=== PATIENT | female | born 1970 | race Caucasian/White ===

== ENCOUNTER → 2018-05-05 06:53 | Outpatient (CLI) | payer MEDICAID, SELFPAY ==
--- NOTE | 2018-05-05 13:50 | PFT ---
INTRODUCTION: The patient is a 48-year-old female that presents for pulmonary function testing secondary to a diagnosis of dyspnea. Respiratory therapy reports good patient effort. Bronchodilators were used during testing. INTERPRETATION: Forced expiration spirometry demonstrates no evidence of a large airways obstructive ventilatory defect. There was, nevertheless, a significant bronchodilator response noted. Spirograms are of good quality and plateau normally. The respiratory flow volume loop appears normal. Body plethysmography was performed and reveals lung volumes to be within normal limits. Diffusing capacity by single breath CO is within normal limits at 72% of predicted. IMPRESSION: Grossly normal pulmonary function studies with notable bronchodilator response noted.
== END ==
DX: R06.00 Dyspnea, unspecified (principal)
CPT/HCPCS: 94060; 94726; 94729

== ENCOUNTER → 2018-06-20 08:27 | Outpatient (CLI) | payer MEDICAID, SELFPAY ==
--- NOTE | 2018-06-20 08:29 | BI_ITS ---
MAMMOGRAPHY - BILATERAL SCREENING REASON FOR EXAM: Female, 48 years old. Routine annual screening examination. PERTINENT HISTORY: Non-contributory. Remote right excisional breast biopsy. TECHNIQUE: Digital bilateral breast micheal (3D mammographic acquisition) in the CC and MLO projections. 2-D mediolateral oblique (MLO) and craniocaudad (CC) views of both breasts were obtained. CAD: Full Field Digital Mammography with Computer Added Detection was performed. COMPARISON: No comparison mammograms available at this time. If any prior films become available, an addendum to this report can be generated. FINDINGS: Breast Composition: There are scattered areas of fibroglandular density. There are no dominant masses or suspicious calcifications. No other significant abnormalities are identified. BI/SCREENING MAMM (CAD), BILAT IMPRESSION: Negative screening mammogram. Yearly followup mammogram recommended. (A) ASSESSMENT CATEGORY: BIRADS Category 1: Negative. A letter regarding these results will be sent to the patient by the facility within 30 days. Approximately 10% of breast cancers are not detected by mammography. A normal mammogram should not delay biopsy of a clinically suspicious abnormality. [id number] Electronically Signed: Ken Stover, at 10:25 EDT , Service support ,
== END ==
DX: Z12.31 Encounter for screening mammogram for malignant neoplasm of breast (principal)
CPT/HCPCS: 77063; 77067

== ENCOUNTER 2019-01-03 11:27 | Emergency (ER) | payer MEDICAID, SELFPAY ==
[2018-11-20 08:43] VITALS: BMI 31.9
[2019-01-03 11:27] VITALS: BP 136/82; PULSE 82; RESP 16; TEMP 36.9; O2SAT 98; BMI 25.7
--- NOTE | 2019-01-03 11:30 | CM.ED ---
SOCIAL WORK MICHAEL FROM CRISIS HERE AND REPORTS WAS NOTIFIED BY PATIENT'S FAMILY THAT THEY WERE SENDING PATIENT IN FOR EVALUATION. CRISIS TO EVALUATE. STAFF UPDATED BY CRISIS. TERRI MELO, ERGONOMICS TECHNICIAN, CRITICAL CARE NURSE.
--- NOTE | 2019-01-03 11:46 | ED.RN ---
PER DR. BREWER, PATIENT DOES NOT NEED A 1:1 SITTER.
--- NOTE | 2019-01-03 11:49 | ED.VIS.GEN ---
History of Present Illness Chief Complaint: Suicidal Informant: Patient, Family Onset: Weeks Current Severity: Mild Maximum Severity: Moderate Narrative: Patient presents with waxing and waning symptoms of suicidal thoughts and racing thoughts. She states symptoms started getting worse at the end of October. She denies auditory hallucinations. She states sometimes she will see things in her mind will start racing. She states her symptoms right now are not bad because she took her supplements before she came in to the emergency room. She does not take any prescription medications, only [id number] supplements. She spoke with staff from the crisis center prior to arrival in the emergency room. - Past Medical History (1) Anxiety and depression Status: Chronic (2) Acid reflux disease Status: Chronic Past Medical History - Allergies and Home Meds Allergies/Adverse Reactions: Allergies No Known Allergies Allergy (Verified 11/20/18 08:44) Primary Care Physician: Judy Comer [Primary Care Provider] - Prior records reviewed: Yes Past Medical History: - - Reviewed Smoking Status: Current every day smoker Alcohol: Occasional Drugs: - - Meth Review of Systems General: Denies: Chills, Fever Eyes: Denies: Visual changes - bilaterally ENT: Denies: Bilateral ear pain Cardiovascular: Denies: Chest pain Respiratory: Denies: Dyspnea, Cough Gastrointestinal: Denies: Abdominal pain, Nausea, Vomiting, Diarrhea Genitourinary: Denies: Dysuria Skin: Denies: Rash Neurological: Denies: Headache Psych: Reports: Depression, Anxiety, Suicidal thoughts Hematologic: Denies: Easy bruising, Easy bleeding Allergy: Denies: Uticaria Physical Exam Vital Signs/Narrative: Vital Signs Temp Pulse Resp BP Pulse Ox 01/03/19 11:27 98.4 F 82 16 136/82 H 98 Inital Vital Signs reviewed: Yes General: Well nourished, Well developed Head: Normocephalic ENT: Moist mucous membranes Neck: Supple Cardiovascular: Regular rate, Regular rhythm Respiratory: No distress, CTA bilaterally Abdomen: Soft, Nontender Skin: Normal color, No rash Neurological: Alert, Oriented x3 Psychological: Depressed, - - Denies suicidal thoughts at the present time. She states in the past she has thought of dying by car or train. Diagnostic/Tx/Re-eval Laboratory Results 01/03/19 01/03/19 01/03/19 12:15 12:15 12:15 WBC 7.7 RBC 4.39 Hgb 11.3 L Hct 37.6 MCV 85.6 MCH 25.7 L MCHC 30.1 L RDW Std Deviation 46.3 H RDW Coeff of Rajinder 14.7 H Plt Count 309 MPV 8.9 Immature Gran % (Auto) 0.400 Neut % (Auto) 73.3 H Lymph % (Auto) 19.4 Worth % (Auto) 5.2 Eos % (Auto) 1.4 Baso % (Auto) 0.3 Absolute Neuts (auto) 5.6 Absolute Lymphs (auto) 1.49 Nucleated RBC % 0 Sodium 143 Potassium 3.4 L Chloride 111 H Carbon Dioxide 25.0 Anion Gap 7 BUN 7 Creatinine 0.74 Estim Creat Clear Calc 81.16 Est GFR (MDRD) Af Amer 108 Est GFR (MDRD) Non-Af 89 BUN/Creatinine Ratio 9.5 L Glucose 149 H Calcium 9.9 Serum , Qual Urine Color Urine Clarity Urine pH Ur Specific [place] Urine Protein Urine Glucose (UA) Urine Ketones Urine Occult Blood Urine Nitrite Urine Bilirubin Urine Urobilinogen Ur Leukocyte Esterase Urine RBC Urine WBC Ur Squamous Epith Cells Urine Bacteria Urine Mucus Urine Opiates Screen Urine Methadone Screen Ur Barbiturates Screen Ur Phencyclidine Scrn Ur Amphetamines Screen U Methamphetamin-MDMA U Benzodiazepines Scrn Urine Cocaine Screen U Cannabinoids Screen Ur Drug Screen Comment Ethyl Alcohol < 3.0 01/03/19 01/03/19 01/03/19 12:15 12:15 12:15 WBC RBC Hgb Hct MCV MCH MCHC RDW Std Deviation RDW Coeff of Rajinder Plt Count MPV Immature Gran % (Auto) Neut % (Auto) Lymph % (Auto) Worth % (Auto) Eos % (Auto) Baso % (Auto) Absolute Neuts (auto) Absolute Lymphs (auto) Nucleated RBC % Sodium Potassium Chloride Carbon Dioxide Anion Gap BUN Creatinine Estim Creat Clear Calc Est GFR (MDRD) Af Amer Est GFR (MDRD) Non-Af BUN/Creatinine Ratio Glucose Calcium Serum , Qual NEGATIVE Urine Color Yellow Urine Clarity Clear Urine pH 5.0 Ur Specific [place] 1.025 Urine Protein Negative Urine Glucose (UA) Normal Urine Ketones Negative Urine Occult Blood 10 H Urine Nitrite Negative Urine Bilirubin Negative Urine Urobilinogen Normal Ur Leukocyte Esterase Negative Urine RBC 0-5 SEEN Urine WBC 0 SEEN Ur Squamous Epith Cells 0-5 SEEN Urine Bacteria RARE Urine Mucus 0 SEEN Urine Opiates Screen NEGATIVE Urine Methadone Screen NEGATIVE Ur Barbiturates Screen NEGATIVE Ur Phencyclidine Scrn NEGATIVE Ur Amphetamines Screen NEGATIVE U Methamphetamin-MDMA NEGATIVE U Benzodiazepines Scrn NEGATIVE Urine Cocaine Screen NEGATIVE U Cannabinoids Screen POSITIVE H Ur Drug Screen Comment Ethyl Alcohol - Medical Decision Making Patient was seen and evaluated by staff from the counseling center. Patient's daughter tends to speak over her mother and try to answer all the questions. Patient's daughter had to be asked to leave the room as we could speak to the patient alone. Patient has told multiple staff members here at the hospital that she has had thoughts of suicide but is not actively suicidal and would never do that as she knows how many people it would hurt. Patient is interested in going to a hospital to get help. We spoke with [facility], but due to her insurance she is not able to be voluntarily admitted anywhere, only with a pink slip. At this time we do not have criteria to fill out a pink slip and force admission. This was explained to the patient in detail. Patient herself understands and is in agreement. I will write her a short course of Ativan to help her sleep at night and help control her racing thoughts. She is being scheduled for a counseling appointment at the counseling center this week. She will call Saturday to be scheduled with a psychiatrist as well. ED Disposition - Plan for ED Patient: Disposition: Home or Assisted Living Diagnosis: Anxiety Instructions: Anxiety Reaction Prescriptions: Lorazepam [Ativan] 0.5 mg PO TID PRN #10 tablet PRN Reason: Anxiety Referrals: Judy Comer [Primary Care Provider] - [facility] [GROUP OF PHYSICIANS] - As soon as possible
[2019-01-03 12:28] LABS: Mucous, Urine 0 SEEN /hpf (<or=2+); White Blood Cells 0 SEEN /hpf (0-5)
[2019-01-03 12:31] LABS: Color, Urine Yellow (Yellow); Glucose, Dipstick Normal (Normal); Ketone-Dipstick Negative (Negative); Leukocyte Esterase-Dipstick Negative /ul (Negative); Nitrite-Dipstick Negative (Negative); Occult Blood-Urine 10 /ul (Negative); Protein-Dipstick Negative (Negative); Specific Gravity, Urine 1.025 (1.002-1.030); Urine Bilirubin Dipstick Negative (Negative); Urine Clarity Clear (Clear); Urine Urobilinogen Normal (Normal)
[2019-01-03 12:34] VITALS: RESP 18
[2019-01-03 12:38] LABS: Absolute Lymphocyte Count 1.49 X10^3/uL (0.83-4.51); Absolute Neutrophil Count 5.6 X10^3/uL (2.0-7.7); Basophil# 0.02 X10^3/uL; Basophil% 0.3 % (0-1); Eosinophil# 0.11 X10^3/uL; Eosinophils% 1.4 % (0-5); Hematocrit 37.6 % (37-47); Hemoglobin 11.3 g/dL (12.0-15.0); Internal QC Validated? YES +Cl - CLEAR BKGD; Lymphocyte # 1.49 X10^3/ul (4.0); Lymphocyte % 19.4 % (19-41); Mean Corp Hgb Conc 30.1 g/dL (32-36); Mean Corpuscular Hgb 25.7 pg (27.0-32.0); Mean Corpuscular Volume 85.6 fL (81-99); Mean Platelet Vol. 8.9 fl (6.2-12.0); Monocyte% 5.2 % (0-10); NRBC Flagged by Analyzer 0 % (0-5); Neutrophil # 5.63 X10^3/uL (2.7-7.7); Neutrophil % 73.3 % (47-70); Platelet Count 309 K/mm3 (150-450); Pregnancy, Serum, hCG Quali. NEGATIVE Negative; RBC Distribution Width CV 14.7 % (11.6-14.6); RBC Distribution Width SD 46.3 fl (35.1-43.9); Red Blood Count 4.39 M/mm3 (4.2-5.4); White Blood Count 7.7 K/mm3 (4.4-11.0)
[2019-01-03 12:40] LABS: Bacteria RARE /hpf (None Seen); Red Blood Cells-Urine 0-5 SEEN /hpf (0-5); Squamous Epithelial Cells - UA 0-5 SEEN /hpf (5-10)
[2019-01-03 12:43] LABS: Anion Gap 7 (5-15); BUN 7 mg/dL (7-18); BUN/Creat Ratio 9.5 RATIO (10-20); Calcium,Total 9.9 mg/dL (8.5-10.1); Chloride 111 mmol/L (98-107); Creatinine, Serum 0.74 mg/dL (0.55-1.02); EST Glomerular Filtration Rate 89 mL/min (>60); Est Glom Filt Rate - Afr Amer 108 mL/min (>60); Estimated Creatinine Clearance 81.16 ml/min; Glucose 149 mg/dL (74-106); Potassium 3.4 mmol/L (3.5-5.1); Sodium Level 143 mmol/L (136-145)
--- NOTE | 2019-01-03 12:43 | ED.RN ---
PT STATES THAT SHE IS NOT ACTIVELY SUICIDAL, HAS BEEN HAVING INSTRUSIVE THOUGHTS ABOUT PEOPLE AND SITUATIONS BEING BETTER OFF WITHOUT HER IN THE WORLD, BUT STATES THAT SHE DOES NOT WANT TO . PT STATES THAT SHE HAS BEEN OFF OF HER USUAL MEDICATIONS AND HAS BEEN TAKING HOLISTIC SUPPLEMENTS. PT STATES THAT THE THOUGHTS HAVE BEEN BECOMING INCREASINGLY WORSE SINCE THE END OF OCTOBER. PT IS CALM AND COOPERATIVE. DENIES NEEDS AT THIS TIME.
[2019-01-03 12:45] LABS: Amphetamine Urine VISTA NEGATIVE (<1000 ng/mL); Barbiturate Urine VISTA NEGATIVE (< 200 ng/mL); Benzodiazepine Urine VISTA NEGATIVE (< 200 ng/mL); Cocaine Urine VISTA NEGATIVE (< 300 ng/mL); Ecstacy Urine VISTA NEGATIVE (< 500 ng/mL); Methadone Urine VISTA NEGATIVE (< 300 ng/mL); PCP Urine VISTA NEGATIVE (< 25 ng/mL); THC Urine VISTA POSITIVE (< 50 ng/mL); Vista UDS pH Range 5
[2019-01-03 12:56] LABS: Alcohol, Blood (Medical)-Serum < 3.0 mg/dL
[2019-01-03 14:36] VITALS: BP 123/84; PULSE 65; RESP 17; RESP 18; O2SAT 98
== END 2019-01-03 14:38 | disposition home or self-care (01) ==
PROVIDERS: Emergency Provider Emergency Medicine
DX: F41.9 Anxiety disorder, unspecified (principal); R45.851 Suicidal ideations; F17.210 Nicotine dependence, cigarettes, uncomplicated
CPT/HCPCS: 80048; 80307; 80320; 81001; 84703; 85025; 99284; G0480

== ENCOUNTER 2019-01-08 09:00 | Outpatient (RCR) | payer MEDICAID, SELFPAY ==
--- NOTE | 2019-01-08 09:10 | BH.SGPN.GN ---
Behaviors/Verbalizations/Mental Status: [] Eye contact is good. Motor activity is appropriate. Appearance is casual. Speech is Appropriate. Mood is anxious. Affect is flat. Thoughts are linear and logical. No evidence of psychosis. Reviewed daily check in sheet and no reports of suicidal ideations or intent. Client Response/Progress/Benefit: [] Pt participated at times during group. Attentive. This was pt's first day in IOP. Shared that entered [facility] to work on her depression and anxiety. Wants to learn how to better coping with emotions and life. Notes increase in symptoms recently which has been impacting her functioning. States I don't want this things to hold me back. Group was supportive and welcomed her which was beneficial. No progress noted as this was first group. Will continue in IOP to prevent decompensation, stabilize mood, and improve functioning. Narrative Note: []
--- NOTE | 2019-01-08 10:10 | BH.SGPN.GN ---
Behaviors/Verbalizations/Mental Status: []Client alert and oriented, neatly dressed and groomed. Eye contact good. Motor activity appropriate. Speech within normal limits. Affect flat, mood anxious. Thoughts linear, logical, no signs of hallucinations or delusions. Client Response/Progress/Benefit: []Client responded well to session, active and providing good insight to discussion. Client connected with the group topic of crisis and did well to work with group to define crisis. Client identified examples of potential crisis to include emergencies, hardships, and . Connected with discussion on how coping with external crisis by using unhealthy coping skills could lead to personal crisis. Client shared ?it feels like I?m in a constant state of crisis.? Group identified unhealthy coping skills to include; substances, isolation, impulsive behaviors, yelling, and pushing people away. Group identified warning signs for crisis which included; increased sleep, irritability, decreased appetite, and negative thoughts. Client completed the personal warning signs worksheet and identified crisis warning signs to include; isolation, negative thinking, and unusual drop in functioning. Benefited from group by increasing awareness of crisis and personal warning signs. Client?s first day in IOP, no progress to document at this time. Will continue IOP tx to prevent decompensation, improve mood stability, and maintain safety. Narrative Note: []
--- NOTE | 2019-01-08 11:11 | BH.SGPN.GN ---
Behaviors/Verbalizations/Mental Status: []Client alert and oriented, casually dressed and groomed. Eye contact fair. Motor activity appropriate. Speech within normal limits. Affect constricted, mood anxious and depressed. Thoughts linear, logical, no signs of hallucinations or delusions. Client Response/Progress/Benefit: []Client responded well to session as evidenced by client listening attentively to others and sharing when prompted. Client identified her warning signs for crisis and gained further awareness of her earliest warning signs. Client recognized that awareness of these warning signs can prevent further crisis and help client utilize healthy coping skills to break the cycle. Client created a crisis action plan to help client better manage earliest warning signs for crisis of isolation, drop in functioning, and negative thinking. Client?s personal crisis prevention plan included coping skills such as: reaching out to supports, taking dog for a walk, to do lists, setting small goals, and using positive affirmations. Client appeared to benefit from creating a crisis action plan and increasing self-awareness. Client to continue IOP level of care to stabilize moods, increase healthy coping, and prevent decompensation. Narrative Note: []
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
--- NOTE | 2019-01-09 10:17 | BH.SGPN.GN ---
Behaviors/Verbalizations/Mental Status: []Client alert and oriented, casually dressed and groomed. Eye contact fair. Motor activity appropriate. Speech within normal limits. Affect constricted, mood anxious. Thoughts linear, logical, no signs of hallucinations or delusions. Client Response/Progress/Benefit: []Client responded well to session, attentive and participating in small group discussion. Group identified the benefits to setting boundaries as well as the consequences of not setting healthy boundaries. Client engaged during discussion of the different types of boundaries and engaged in the self-assessment activity. Client stated sometimes lack awareness that you are not setting healthy boundaries until someone else points it out. Client able to recognize her own mental health suffers when she does not set boundaries. Client seemed to benefit from increased awareness how poor boundaries can negatively impact mental health. Client to continue IOP tx to continue use of healthy coping skills, prevent decompensation, and maintain gains. Narrative Note: []
--- NOTE | 2019-01-09 11:22 | BH.SGPN.GN ---
Behaviors/Verbalizations/Mental Status: [Client alert and oriented, casual dress, hygiene appropriate. Eye contact good. Motor activity appropriate. Speech within normal limits. Affect congruent, mood anxious, depressed. Thoughts linear, logical, no signs of hallucinations or delusions. ] Client Response/Progress/Benefit: [Pt responded well to session, active participant and willing to provide insight throughout. Pt did well to engage in the boundary self-assessment activity and worked with group to further process. Pt discussed that she has been becoming much more aware of fear of rejection and focusing on past guilt has impacted personal ability to set boundaries in the workplace. Pt appeared to benefit from group discussion on strategies for further improving personal boundaries. Identified wanting to improve her ability to set and maintain healthy emotional boundaries, specifically in regard to being able to respect others needs and ask for a break or personal space rather than shut down when upset. Progress noted in pt ability to identify impact of current boundaries on mental health progress and relationships. Client recommended to continue IOP treatment in order to maintain gains made, improve mood and anxiety management, and continue to promote healthy change behaviors.] Narrative Note: []
--- NOTE | 2019-01-12 09:03 | BH.SGPN.GN ---
Behaviors/Verbalizations/Mental Status: [Eye contact is fair to good, at times tearful. Motor activity is appropriate. Appearance is casual. Speech is Appropriate, soft. Mood is depressed and anxious. Affect is constricted. Thoughts appearing racing and scattered. No evidence of psychosis. Reviewed daily check in sheet and no reports of suicidal ideations or intent.] Client Response/Progress/Benefit: [Pt was receptive of session, actively listening throughout and providing some input to discussion. Appearing to related to fellow participants as they shared with group. Emotion for today is ?all over the place? and pt indicated having difficulties in getting her thoughts to slow down. She indicated that she has been struggling to adjust to the fact that her son decided to move out this weekend, however pt did well to reframe and indicated ?at least I know I still have my daughter here with me?. Appeared to benefit from the supportive feedback and suggestions provided by the group. Pt shared that despite current stress levels, she has been able to experience some mental health wins. Identified current wins as: going for a walk in the park with her dog to relax over the weekend. Additional win identified as making small steps towards facing a fear, though declined to elaborate further. Pt displaying progress in levels of engagement and ability to begin internalizing tx materials discussed. Recommended continued tx to prevent decompensation, continue to increase emotion regulation, and further improve anxiety management.] Narrative Note: []
--- NOTE | 2019-01-12 10:20 | BH.SGPN.GN ---
Behaviors/Verbalizations/Mental Status: [] Eye contact is good. Motor activity is appropriate. Appearance is casual. Speech is Appropriate. Mood is depressed. Affect is flat. Thoughts are linear and logical. No evidence of psychosis Client Response/Progress/Benefit: [] Pt was an active participant in group discussion and activity. Engaged and provided insight on today's quote. Worked with group to define pitfalls in mental health which group identified were; hidden or unsuspected obstacles, emotional traps, when we defeat ourselves, and unforeseen obstacles which impact progress. Group discussed the impacts of pitfalls which can cause one to; give up, revert back to unhealthy coping, isolate, define oneself as a failure. Group briefly discussed the emotions and pitfalls which occurred during the activity noting that it caused anxiety, anger, fear, and at times they wanted to give up. Pt was able to relate the activity to her own MH and emotions when she has encountered a pitfall which was beneficial in in terms of insight and awareness. Narrative Note: []
--- NOTE | 2019-01-12 11:21 | BH.SGPN.GN ---
Behaviors/Verbalizations/Mental Status: []Client alert and oriented, casually dressed and groomed. Eye contact good. Motor activity appropriate. Speech within normal limits. Affect flat, mood anxious. Thoughts linear, logical, no signs of hallucinations or delusions. Client Response/Progress/Benefit: []Client receptive of session, attentive and participating in small group discussion, but declining to share in the larger group setting. Client helped group process the activity and how it connects to pitfalls in real life. Client completed a worksheet where she identified personal pitfalls impacting mental health progress. Client declined to share her pitfalls with the group, but she reported that client had ?a lot in common? with her peers. Client recognized that in order to become less vulnerable to pitfalls it takes self-awareness and healthy coping skills. Client reported she wants to work on using positive self-talk to remind herself that thoughts are thoughts not facts. Benefited from identifying personal pitfalls and strategies to overcome these pitfalls. Progress limited as client recently started IOP, but she appears to be connecting well with peers. Will continue IOP tx to prevent decompensation and improve daily functioning.? Narrative Note: []
--- NOTE | 2019-01-14 09:05 | BH.SGPN.GN ---
Behaviors/Verbalizations/Mental Status: []Client alert and oriented, neatly dressed and groomed. Eye contact good. Motor activity appropriate. Speech within normal limits. Affect congruent, mood euthymic. Thoughts linear, logical, no signs of hallucinations or delusions. Reviewed client?s symptom tracker, no risk for suicidal ideation, plan, or intent as of 01/14/19. Client Response/Progress/Benefit: []Client responded well to session, attentive and connecting with peers. Client reports feeling ?mellow? today. Client shared she had a stressful morning this morning, but she took her anxiety medications and got a positive text from her daughter which significantly reduced client?s anxiety. Client reported she took yesterday off from IOP to have a self-care day. Client reported she needed the rest and it helped her feel better today. Client reported she continues to struggle with racing thoughts and wants to learn how to more effectively manage these. Appeared to benefit from reflecting on her positives and connecting with peers. Progress noted as client reports increased knowledge of coping skills, but she can continue to reduce her anxiety symptoms. Will continue IOP tx to prevent decompensation and increase mood stability. Narrative Note: []
--- NOTE | 2019-01-14 11:24 | BH.SGPN.GN ---
Behaviors/Verbalizations/Mental Status: [Client alert and oriented, casually dressed and appropriately groomed. Eye contact fair to good, tearful at times. Motor activity appropriate. Speech within normal limits. Affect congruent, mood anxious and depressed. Thoughts linear, logical, no signs of hallucinations or delusions. ] Client Response/Progress/Benefit: [Pt attentive throughout and actively participated in both experiential activity and discussion regarding SMART goal setting. Taking notes throughout and able to make connections between activity and goal setting in her daily life. Pt engaged in using SMART goal criteria to create own mental health goal. Identified goal as: ?Decreasing negative self-talk by saying at least three positive affirmations daily for the next week?. Pt reported this goal will benefit her by improving self-esteem, positive outlook, and motivate her to be more productive. Pt identified potential barriers to accomplishing goal to include: discouragement, not believing affirmations, forgetting, and lack of motivation. Pt able to identify solutions for barriers which included: ?have supports remind/ask how I?m doing on goal?, ?pick affirmations I relate to and remind self it takes time to believe affirmations?, and ?set a reminder on phone?. Pt seemed to benefit from identifying a SMART goal and coming up with strategies to overcome potential barriers. Progress noted in pt ability to create a small relevant goal aimed at improving mental health symptoms and self-esteem. Pt to continue IOP to increase healthy coping skills, decrease depression and anxiety, as well as prevent decompensation.] Narrative Note: []
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
--- NOTE | 2019-01-14 15:07 | BH.DR.ITP ---
Initial Treatment Plan - Patient Information Visit Information: ADMISSION DATE: EXPECTED LOS: 4-6 weeks - Problems/Symptoms Problem #1:: Depression Symptom:: sadness, fleeting SI, hopelessness Problem #2:: Psychosis Symptom:: delusions of reference Problem #3:: anxiety Symptom:: rumination
--- NOTE | 2019-01-16 09:04 | BH.MDN_ITS ---
Multi-Disciplinary Note - Note 60-min Individual Time Started:: 08:04 Date: 01/16/19 Purpose of session/treatment goals addressed:: The purpose of this session was to assess current symptoms, stressors, and treatment progress. Another purpose was to identify strategies for improving self-confidence and reducing guilt related self-deprecation. Additional topics included: communication skills and self-advocacy Eye Contact:: Good Motor Activity:: Appropriate Appearance:: Casual Speech:: Appropriate Mood:: Anxious, Dysthymic Affect:: Congruent Thoughts:: Linear, Logical, No evidence of hallucinations/delusions noted Staff Interventions:: Therapist asked open-ended questions to elicit information regarding current symptoms, stressors, and tx goal progress. Provided supportive feedback as client discussed current stressors. Reviewed communication skills. Applied NC techniques to assist pt in identifying current barriers to progress and continue to promote healthy change behaviors. Client Response:: Pt receptive of session and actively engaged in discussion throughout. She discussed feeling tired and ?foggy? today which Pt attributes to still trying to adjust to taking Abilify. 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 Pt and therapist discussed importance of feeling comfortable and heard by providers. Discussed strategies for advocating for her own needs and asking to change providers if she continues to desire to do so after her next appointment. Pt went on to indicate that overall she is improving on her ability to identify triggers and apply emotion regulation skills at times though continues to struggle with consistency. Pt became tearful and shared that she has most significantly been struggling with guilt related to her children and decisions she has made in the past that may have had an impact on them and their mental health. Pt expressed feeling her self-esteem has been impacted by increased rumination on past behaviors and decisions. Receptive of being challenged on use of distorted thinking patterns including emotional reasoning, all or nothing thinking, and catastrophizing. Pt receptive of psychoeducation regarding self- compassion and indicated struggling with applying these concepts in her own life. Appearing to display insight into impact of though patterns and communication patterns with supports on continued mental health struggles. Receptive of discussing strategies for improving self-confidence and self- compassion levels. Pt reports plans to take a bath with aromatherapy candles, use affirmations, and do something creative such as sowing. Risks/Concerns:: Pt denies active SI, plan, or intent as of this date 01/16/19. Progress Toward Goals/Plan:: Progress noted. Pt continues to make strides in improving application of anxiety management and distress tolerance skills during times she is triggered. Reports improved ability to do so and feeling somewhate more stable as a result.. Pt continues to indicate issues with irritability and guilt causing increased intrusive thinking and depression. Working to practice self-love and self-compassio via various exercises. Pt recommended continued IOP tx to continue to improve mood stability, decrease mental health sx, and maintain stability. Time Stopped:: 08:54
--- NOTE | 2019-01-16 09:05 | BH.SGPN.GN ---
Behaviors/Verbalizations/Mental Status: [Client alert and oriented, casual dress, hygiene tended to. Eye contact good. Motor activity appropriate. Speech within normal limits. Affect congruent, mood euthymic and positive. Thoughts linear, logical, no signs of hallucinations or delusions. Reviewed client?s symptom tracker, no signs of suicidal ideation, plan, or intent as of today. ] Client Response/Progress/Benefit: [Pt was receptive of session, actively listening throughout and at times providing input to the group. Emotion for today is ?mellow? as she has been able to use positive self-talk to better manage emotions and reduce anxiety. Reported that this is a win for her as she was able to successfully apply emotion regulation skills while at work and remind herself ?This is going to be okay, I can work through my triggers?. Additional win noted as continuing to work on application of daily positive affirmations. Discussed current stressor as ongoing difficulties with ?trusting my gut? and overanalyzing small decisions. Pt appeared to benefit from the supportive feedback and encouragement provided by the group. Pt progress noted in reported application of skills learned outside tx environment as well as self-report of improved mood management. Recommended continued tx to prevent decompensation, continue to reduce anxiety, as well as promote healthy change behaviors.] Narrative Note: []
--- NOTE | 2019-01-16 10:30 | BH.SGPN.GN ---
Behaviors/Verbalizations/Mental Status: []Client alert and oriented, casual dress, hygiene tended to. Eye contact fair. Motor activity appropriate. Speech within normal limits. Affect congruent, mood anxious and depressed. Thoughts linear, logical, no signs of hallucinations or delusions. Client Response/Progress/Benefit: []Pt receptive to session, provided input and remained an active listener throughout discussion on stress. Able to brainstorm with the group positive and negative aspects of stress on physical and mental health. She participated in identifying current stressors impacting mental health. Pt's current stressors include: financial problems, past behaviors, negative thoughts, intrusive thoughts, difficulty making decisions, and questioning values and opinions. Appeared to benefit from gaining awareness of own current stressors and learning about the impact stress has on overall wellbeing. Progress noted in improved ability to identify negative impact ignoring her stressors has on her mental health and wellbeing. Recommend continued IOP tx to continue use of healthy coping skills, improve emotional regulation, and prevent decompensation. Narrative Note: []
--- NOTE | 2019-01-16 11:27 | BH.SGPN.GN ---
Behaviors/Verbalizations/Mental Status: []Client alert and oriented, neatly dressed and groomed. Eye contact good. Motor activity appropriate. Speech within normal limits. Affect congruent, mood anxious. Thoughts linear, logical, no signs of hallucinations or delusions. Client Response/Progress/Benefit: []Client was an active participant throughout session, providing good feedback and encouragement during the activity. Client worked with the group to complete the challenge activity and was providing positive feedback. Client often reminded the group to be positive, take a breather, and to remember to ask for help. Client was able to identify barriers encountered that may also impact managing stress in daily life. Group identified barriers of stress management to include taking on the biggest stressor at once, not asking for help, and negative self-talk. Client actively listening and taking notes during discussion about the 4 A's of managing stress. Expressed wanting to increase awareness of which strategies would be best for improving each of her identified stressors. Client seemed to benefit from increased awareness of the impact of stress on mental health and increasing repertoire of stress management strategies. Progress noted as client is demonstrating less anxious behavior during group sessions. Will continue IOP tx to promote use of healthy coping skills and further decrease anxiety. Narrative Note: []
--- NOTE | 2019-01-19 09:02 | BH.SGPN.GN ---
Behaviors/Verbalizations/Mental Status: []Client alert and oriented, neatly dressed and groomed. Eye contact good. Motor activity appropriate. Speech within normal limits. Affect congruent, mood anxious. Thoughts linear, logical, no signs of hallucinations or delusions. Reviewed client?s symptom tracker, no risk for suicidal ideation, plan, or intent as of 01/19/19. Client Response/Progress/Benefit: []Client responded well to session, providing supportive feedback to peers. Client reports feeling ?unsettled? today, but she was unsure of the reason she was feeling this way. Client reported there were numerous positives over the weekend including spending time with her daughter and going shopping for [place]. Client reported work was stressful over the weekend, but client was able to cope with her anxiety and make it through. Client shared whenever she is able to make it through a difficult situation it reminds client that she can do it again. Client stated she is currently stressed about finances and client reported her car is having issues. Client able to catch herself thinking negatively and reframed her thoughts during session. Appeared to benefit from connecting with peers and reflecting on her use of healthy coping skills. Will continue IOP tx to prevent decompensation and improve emotional regulation skills. Narrative Note: []
--- NOTE | 2019-01-19 10:16 | BH.SGPN.GN ---
Behaviors/Verbalizations/Mental Status: []Client alert and oriented, casually dressed and groomed. Eye contact good. Motor activity appropriate. Speech within normal limits. Affect congruent to topic being discussed, mood anxious. Thoughts linear, logical, no signs of hallucinations or delusions. Client Response/Progress/Benefit: []Pt responded well to session, attentive and providing input throughout. Pt connected with discussion on different types of anxiety, as well as the difference between ?normal? anxiety and anxiety disorders. She helped the group identify examples of the various ways anxiety manifests and symptoms associated with thoughts, physical symptoms, and safety behaviors. Pt gained awareness of personal physical symptoms which included: picking, restlessness, tense muscles, grinding teeth and feeling hot. Pt also identified asking for reassurance, lashing out, distraction, shutting down, isolating, and avoiding situations that make her anxious as safety behaviors she has engaged in that provide short term relief but increase anxiety over time. Client appeared to benefit from gaining insight to safety behaviors and how anxiety manifests itself, as well as harmful impact of safety behaviors on mental health. Client appears to be progressing with increasing awareness of her symptoms and ability to use healthy coping skills in those moments. Will continue IOP to promote continued skill application, maintain gains, and prevent decompensation. Narrative Note: []
--- NOTE | 2019-01-19 11:22 | BH.SGPN.GN ---
Behaviors/Verbalizations/Mental Status: [Client alert and oriented, casual in appearance. Eye contact good. Motor activity appropriate. Speech within normal limits. Affect congruent, mood anxious and euthymic. Thoughts linear, logical, no signs of hallucinations or delusions.] Client Response/Progress/Benefit: [Pt an attentive and actively engaged during discussion. Openly asking questions for clarification as needed throughout. Pt able to connect with the discussion reviewing three categories of skills for managing anxiety which included mind-based, body-based, and self-soothing. Pt did well to brainstorm with the group various skills within the different categories. She expressed interest most in mind-based interventions, specifically that of meditation and guided imagery. Pt completed worksheet identifying what relaxation skills she currently uses to manage anxiety and identified what skills she would be willing to begin trying to help manage symptoms of anxiety. Pt identified she is willing to try the following relaxation skills: bringing attention to the present through use of positive affirmations, meditation, journaling, and prayer. Pt seemed to benefit from increased awareness of healthy skills to manage anxious symptoms and identifying skills willing to practice outside treatment environment. Pt progress continues to be impacted by difficulties with challenging self-doubt causing increased anxiety and reassurance seeking behaviors. Recommended to continue IOP level of care to continue to promote use of healthy coping skills, reduce self-deprecation and improve anxiety management, as well as prevent decompensation.] Narrative Note: []
--- NOTE | 2019-01-22 09:05 | BH.SGPN.GN ---
Behaviors/Verbalizations/Mental Status: [] Eye contact is good. Motor activity is appropriate. Appearance is neat. Speech is Appropriate. Mood is euthymic. Affect is full. Thoughts are linear and logical. No evidence of psychosis. Reviewed daily check in sheet and no reports of suicidal ideations or intent. Client Response/Progress/Benefit: [] Pt was an active participant in group discussion. Emotion for today is stormy. Shared that she has been following through with self-care goals that she developed with her therapist. Shared that she is completing daily affirmations and is trying to reach out to different people once a week. Reached out to a friend who she has been avoiding. Positive interaction. States I need to pull myself out of myself. Utilizing skills. Believes that medication changes have also been effective. Benefited from group support, encouragement, and feedback. Progress noted. Will continue in IOP to stabilize mood, prevent decompensation, and increase healthy [id number]. Narrative Note: []
--- NOTE | 2019-01-22 10:10 | BH.SGPN.GN ---
Behaviors/Verbalizations/Mental Status: []Client alert and oriented, casually dressed and groomed. Eye contact fair. Motor activity appropriate. Speech within normal limits. Affect congruent to topic being discussed, mood anxious. Thoughts linear, logical, no signs of hallucinations or delusions. Client Response/Progress/Benefit: []Client responded well to session, actively contributing to discussion. Client appeared to connect with the topic of fear of failure. Client reported failure makes us not want to try. Group identified the impacts of fear of failure on mental health which included: not trying, depending too much on others, avoidance, self-sabotage, and increased mental health symptoms. Client connected with others that fear of failure can keep us from new opportunities and keeps us stuck. Client seemed to benefit from increased awareness of how fear of failure can impact mental health. Client to continue IOP level of care to challenge distorted thoughts, continue utilization of healthy coping skills, and prevent decompensation. Narrative Note: []
--- NOTE | 2019-01-22 11:14 | BH.SGPN.GN ---
Behaviors/Verbalizations/Mental Status: [Client alert and oriented, casually dressed and well groomed. Eye contact good. Motor activity appropriate. Speech within normal limits. Affect congruent, mood euthymic, anxious. Thoughts linear, logical, no signs of hallucinations or delusions.] Client Response/Progress/Benefit: [Client responded well to session, active participant. Client further processed the group activity and shared that trusting oneself and allowing herself to ask for help from others helped the group accomplish the activity. Client completed the fear of failure worksheet and reported that fear of failure is keeping her from following through with goals and believing in by herself. Client reported her barriers for overcoming her fear of failure are second guessing, guilt, difficulty communicating, and worrying that she will be judged by others. Client shared she has been able to bounce back from setbacks in the past and the positive thing she has learned from past failures is that failure can make you more resilient and teach you what is really important in your life.. Client selected a goal to help her overcome her fear of failure. Client?s goal is to practice self-awareness strategies, so she can prevent escalating to point of crisis. Client appeared to benefit from gaining awareness and setting a goal to reduce fear of failure. Client showing progress in utilizing healthy coping to skills to manage emotions, but she can continue to combat negative thoughts and is recommended continued IOP tx to improve ability to do so.] Narrative Note: []
--- NOTE | 2019-01-22 12:15 | BH.NA ---
Physical Data - Vital Signs Pulse Rate: 90 Respiratory Rate: 14 Blood Pressure: 105/72 - Height/Weight Height: 1.63 m Weight:: 68.039 kg Weight in Pounds: 150.0 lbs Current Medication Compliance - Medication Compliance Do you take your medication as prescribed?: No Do you need assistance with taking medication?: No Have you had side effects from medication?: No Nutritional History - Appetite Nutritional Instructions:: If client shows signs of a swallowing problem, weight change of 10 pounds or more in the last month, or is on a diabetic diet, the physician will review and request a dietitian consult, as appropriate. All unintentional weight loss will be referred to the physician for decision on need for dietitian consult. Describe your appetite:: Good Have you noticed a change in your eating habits lately?: No Functional Assessment - Sleep Pattern Describe any problems with sleeping: Denies difficulty with sleep - Activities Motor Activity:: Functional Sensory/Communication Assess - Hearing Problems Do you have any hearing problems?: Adequate - Communication Problems Do you have difficulty understanding what people are saying?: No Do you have trouble putting your thoughts into words or expressing what you want to say?: No Do people ever have trouble understanding what you say?: No What is your primary language?: [place] Learning Assessment - Learning Barriers Learning Barriers:: Ready to learn Medical Problems/History - Pain Assessment Do you have acute or chronic pain?: No - Female Reproductive Do you think you may be ?: No Number of pregnancies:: 5 Number of children:: 4 Have you reached menopause?: Yes Do you have any history of breast disease?: Yes - Family History Family History: Family History (Last Updated 11/20/18 @ 08:43 by Kaela Aguirre) Father Diabetes Hypertension Mother Kidney disease Aunt Cancer Surgical History - Surgical History Have you had any surgeries? If so, list type and date:: Yes - see PMHx in Summary Contagious Disease/Exposure - Exposure Have you been exposed to any of the following:: Hepatitis Substance Abuse - Substance Abuse Please describe substance abuse in the last 30 days:: Past ETOH abuse, sober since 2011. Former tobacco use, quit 1 month ago. History of illicit substance use - quit hard drugs in late-20's, quit smoking marijuana 1 month ago. Mental Status Summary - Mental Status Significant Findings/Observations on Appearance and Mood:: Margret is A&Ox4, cooperative with interview, and makes good eye contact. Speech is clear and of normal rate and volume. Mild anxiety and anhedonia. Mood congruent affect. No symptoms of delusions. Denies HI and hallucinations. Rare SI without plan or intent. Suicide Assessment - Suicidal Ideation Are you currently or have you been suicidal in the past?: Yes Suicidal Intentional Rating Scale (SIRS): Suicidal thoughts (past), Current suicidal thoughts/No plan/Contracts for safety Physician Notification: If Active suicidal thoughts/Will not contract for safety is checked, contact physician and document in the Physician Notification section below. Assault History/Potential - History of Assault Do you have a history of assaulting someone?: No Physician Notification: If yes, notify physician and document notification date and time below. Past Psychiatric History - MH Treatment Hx ECT Therapy Details:: N/A Describe (age, circumstance, etc) any past hospitalizations: [facility] - 2012 and 2014 Fall Risk Assessment - Age Age: Less than 60 - Mental Status Mental Status: Willing & able to ask for assistance when needed - Physical Status Physical Status: No problems - Impairments Impairments: None - Elimination Elimination: Continent AND independent - Gait or Balance Gait or Balance: Walks independently - Hx of Falls History of falls in the past 6 months: No known history - Medications/Substances Psychotropics:: Antipsychotics Medications/substances used within the past 24 hours or ordered to administer: 1-2 of the medications/substances listed above - Total Score Total Points:: 1 RN Summary of Impressions - Impressions Recommendations: Include psychiatric and medical issues, treatment planning recommendations, and discharge planning needs. Impression: General Medical Conditions: chronic Hep C Impressions: Discharge Planning Needs: should find new PCP - she has been seeing Lilia HUSIAN) at [facility] - Level of Care How do the client's current symptoms and functional deficits support need for this level of care?: Margret notes a decompensation in her mental health for the past few months. She has been finding it increasingly difficult to go to work and perform her job duties due to fear of strangers, paranoia, and avoidance. Client feels like fear and anxiety are ruining her life. She has very limited insight about what has triggered these feelings. [facility] and has family for support. [facility] will provide skills training and additional support to promote gains and prevent further decompensation.
[2019-01-22 14:26] VITALS: BP 105/72; PULSE 90; RESP 14
--- NOTE | 2019-03-10 14:39 | BH.DS ---
Discharge Summary - Demographics Date of Admission:: 01/14/19 Discharge Date: 03/11/19 Presenting Problems at Admission:: Client is a 49-year-old female with a history of Major Depressive Disorder with psychotic features, OCD, PTSD, anxiety, and hx of polysubstance use disorder. Client was referred to IOP tx by the [facility] Emergency Dept. on 01/03/19 due to worsening of mental health symptoms impacting her ability to maintain daily responsibilities and function at baseline. At time of admission pt reported that she had been experiencing an influx in ?magical thinking? in which she believed objects or certain wording in the environment were sending her messages. Pt indicates this often occurs when pt becomes more depressed. Pt indicated that this increase in delusional thinking had resulted in increased paranoia and overwhelming anxiety causing panic. Reported experiencing suicidal ideation at the time without specific plan or intent. Pt noted experiencing passive thoughts of since ED visit. At time of admission, pt identified stressors to include relationship tension with 2 of her 4 children resulting in them moving out of the house, ongoing difficulties with finances causing fear of the landlord selling their house, car issues, and increased intensity of current mental health symptoms. Pt has had two prior hospitalizations in 2012 and 2014 due to increased sx related to Major Depression with psychiatric features in which pt experienced auditory hallucinations during 2013 hospitalization. Denies current hallucinations. At time of admission pt endorses a depressed mood, lack of energy, lack of concentration, lack of motivation, avoidance behaviors, increased sx of social anxiety, rumination, emotional dysregulation, hopelessness, worthlessness, irritability, lack of connection with others, and difficulties with sleep. Client's symptoms were interfering with her social, occupation, and familial functioning. Discharge Diagnoses:: Major Depressive disorder with psychosis; obsessive-compulsive disorder; polysubstance use disorder with partial remission from marijuana Reason for Discharge:: Client has demonstrated significant progress towards treatment goals as shown by self-reported reduced depression and anxiety as well as reduction on scores of DSM-5 cross-cutting analysis. Pt does not report any active suicidal ideations and indicates no longer experiencing daily panic attacks or delusions. Reports improved mood stability. Client no longer meets criteria for IOP level of care and is recommended to step down to individual outpatient treatment at this time. - Treatment Progress During Treatment & Response: Client responded well to treatment as shown by overall consistent attendance, active participation in both group activities and discussion, participation in individual sessions, and reduction of DSM-5 symptoms. Client started off quiet reporting reluctance to engage in group sessions and skeptical of her ability to manage anxiety in the social setting, but with time became more engaged and comfortable within the group. Client often provided insight to discussion, encouraged others, and took notes during group sessions. In individual sessions, client was open with her thoughts and concerns, receptive to learning new coping skills, willing to challenge her own perspective, and was engaged in the treatment process. Client demonstrated improvement in overall consistency of application of coping skills outside of group, specifically that of self-care and practicing distress tolerance skills to prevent crisis escalation. She was motivated throughout treatment and did well to complete all assigned homework. Pt noted actively utilizing positive self-talk, opposite action, and mindfulness techniques when struggling with anxiety and negative thoughts. Client self-identified her progress as increased self-confidence, reduced paranoia and delusional symptoms, less avoidance, increased communication with supports, and improved conflict resolution skills. At discharge, client?s DSM-5 symptom scores decreased by 44%. Client?s DSM-5 scores for depression decreased, from 6/8 at admission to 3/8 at discharge. Additionally, client?s thoughts of harming herself decreased from admission to discharge going from 2/4 to 0/4. Client?s anxiety has decreased since admission as well going from 12/12 to 6/12 at discharge. Irritability has reduced from 3/4 to a 1/3 as well. Client recognizes she will continue to experience stressors throughout her life, but reports improved ability to cope with these stressors and begin to recognize the positives within difficult experiences. Issues Still to be Addressed:: Client has made significant strides since starting IOP as shown by reduced symptoms and improved mood stability. However, client can continue to benefit from ongoing counseling to reinforce healthy coping skills, manage unexpected stressors and triggers for delusional and paranoid thoughts, as well as continue to increase communication and boundary setting skills. Client can continue to benefit from ongoing work on utilizing opposite action to prevent reverting back to previous isolation and avoidant behaviors. Client has reported ongoing issues with self-esteem related to guilt and past trauma. She is recommended to begin trauma specific therapy. Client would benefit from ongoing focus on self-confidence and self-compassion. Discharge Recommendations/Instructions:: Pt currently connected with [facility] psychiatry and counseling. Last psychiatry appt. was yesterday, 03/09/19 with Cindi Casey. Reports a desire to seek trauma specific counseling services and was provided with referral resources for [facility]. Additionally encouraged to become more engaged in outside social settings and indicates wanting to volunteer at either [employer] or the [facility] [employer]. Pt reports plans to begin attending [facility] as well. Discharge Handout: Complete Discharge Handout with client on aftercare options and continuity of care.
--- NOTE | 2019-03-10 15:11 | BH.AFTERPLAN ---
Aftercare Plan - Demographics Treatment End Date:: 03/11/19 Psychiatrist:: Praveena Vallejo Psychiatrist Office #:: [phone] [facility] Therapist:: Azalia Reyes Therapist Phone #:: [phone] - Medications Home Medications: Home Medications Lorazepam [Ativan] 0.5 mg PO TID PRN PRN #10 tab 01/08/19 Perphenazine 2 mg PO QHS 01/14/19 Vilazodone Hydrochloride [Viibryd] 40 mg PO DAILY 01/14/19 Aripiprazole [Abilify] 7.5 mg PO DAILY 30 Days #45 tab 02/16/19 - Plan Details Progress/Aftercare Plan Details:: Client responded well to treatment as shown by overall consistent attendance, active participation in both group activities and discussion, participation in individual sessions, and reduction of DSM-5 symptoms. Client started off quiet reporting reluctance to engage in group sessions and skeptical of her ability to manage anxiety in the social setting, but with time became more engaged and comfortable within the group. Client often provided insight to discussion, encouraged others, and took notes during group sessions. In individual sessions, client was open with her thoughts and concerns, receptive to learning new coping skills, willing to challenge her own perspective, and was engaged in the treatment process. Client demonstrated improvement in overall consistency of application of coping skills outside of group, specifically that of self-care and practicing distress tolerance skills to prevent crisis escalation. She was motivated throughout treatment and did well to complete all assigned homework. Pt noted actively utilizing positive self-talk, opposite action, and mindfulness techniques when struggling with anxiety and negative thoughts. Client self-identified her progress as increased self-confidence, reduced paranoia and delusional symptoms, less avoidance, increased communication with supports, and improved conflict resolution skills. At discharge, client?s DSM-5 symptom scores decreased by 44%. Client?s DSM-5 scores for depression decreased, from 6/8 at admission to 3/8 at discharge. Additionally, client?s thoughts of harming herself decreased from admission to discharge going from 2/4 to 0/4. Client?s anxiety has decreased since admission as well going from 12/12 to 6/12 at discharge. Irritability has reduced from 3/4 to a 1/3 as well. Client recognizes she will continue to experience stressors throughout her life, but reports improved ability to cope with these stressors and begin to recognize the positives within difficult experiences. Strategies for Success:: 1. Opposite Action!!! ? do what will help you, even when your brain is saying don?t do it - Remember the power of humor 2. Setting and following through with boundaries. 3. Communicate, Communicate, Communicate 4. Challenge negative and distorted thought patterns 5. Continue to set Daily and weekly SMART goals 6. Continue to craft and engage in hands-on activities daily, remember self-care is patterson. 7. Identify 2 mental health positives every night 8. Continue to take medications and follow through with aftercare, even when feeling ?good? of as though it isn't working. 9. Remember to actively practice self-compassion and use affirmational statements. - Appointments Appointments/Referrals to Other Services:: Pt currently connected with [facility] for psychiatry and counseling. Last psychiatry appt. was yesterday, 03/09/19 with Cindi Casey. Reports a desire to seek trauma specific counseling services and was provided with referral resources for [employer]. Additionally encouraged to become more engaged in outside social settings and indicates wanting to volunteer at either [employer] or the [employer]. Pt reports plans to begin attending [employer] as well.
== END 2019-01-22 23:59 ==
LOC: BHIOP 09:00
PROVIDERS: Referring Provider Psychiatry & Neurology Psychiatry; Visit Provider Psychiatry & Neurology Psychiatry
DX: F32.9 Major depressive disorder, single episode, unspecified (principal); F42.9 Obsessive-compulsive disorder, unspecified; F12.90 Cannabis use, unspecified, uncomplicated; Z79.899 Other long term (current) drug therapy
CPT/HCPCS: 90792; H0035; H2012; H2020; 90832; 90834

== ENCOUNTER 2019-01-08 14:04 | Emergency (ER) | payer MEDICAID, SELFPAY ==
[2019-01-08 14:05] VITALS: BP 124/74; PULSE 71; RESP 16; TEMP 36.9; O2SAT 100; BMI 26.8
--- NOTE | 2019-01-08 14:28 | ED.VIS.GEN ---
History of Present Illness Chief Complaint: Med Refill Detail of Chief Complaint: Unable to see psychiatrist until January 14 Informant: Patient Onset: Days Context: Sudden Onset Timing: Waxes and wanes Quality: Anxiousness Location: Generalized Current Severity: Mild Maximum Severity: Moderate Worsened by: Stressors Relieved by: Anti-anxiolytic Associated Symptoms: No suicidal homicidal ideation Narrative: Patient is a 49-year-old woman who started the behavioral health science outpatient therapy today. She was seen on Saturday. She was prescribed 10 Ativan at that time. She states she has to left. She states the therapist that saw her today is unable to prescribe medication. She states she would not be able see medication until seen by psychiatrist on January 14. Prior similar symptoms: Yes Recent Illness/Hospitalization: Yes - Past Medical History (1) Acid reflux disease Status: Chronic (2) Anxiety and depression Status: Chronic Past Medical History - Allergies and Home Meds Allergies/Adverse Reactions: Allergies No Known Allergies Allergy (Verified 01/08/19 14:07) Primary Care Physician: Judy Comer [Primary Care Provider] - Prior records reviewed: Yes Lives: Alone Smoking Status: Former smoker Alcohol: None Drugs: None Review of Systems General: Denies: Chills, Fever, Malaise, Sweats Cardiovascular: Denies: Chest pain, Palpitations Respiratory: Denies: Dyspnea, Cough, Dyspnea on exertion Gastrointestinal: Denies: Abdominal pain, Nausea, Vomiting, Diarrhea, Melena, Hematochezia Psych: Reports: Depression, Anxiety. Denies: Suicidal thoughts, Suicidal ideations Physical Exam Vital Signs/Narrative: Vital Signs Temp Pulse Resp BP Pulse Ox 01/08/19 14:05 98.5 F 71 16 124/74 H 100 Inital Vital Signs reviewed: Yes General: Well nourished, Well developed, No Acute Distress Head: Normocephalic, Atraumatic Eyes: Perrl, EOMI. Negative for: Pale conjunctiva, Scleral icterus Cardiovascular: Regular rate, Regular rhythm Respiratory: No distress Skin: Normal color, No rash Neurological: Alert, Oriented x3, Cranial nerves II-XII grossly intact, Normal Strength, Normal Sensation, Normal Gait Psychological: - - Flat affect Diagnostic/Tx/Re-eval - Medical Decision Making Records from this week and were reviewed. Patient was given Ativan prescription for 10 tablets. Based on prior prescription this should be enough to sustain her until seen by psychiatrist on January 14 ED Disposition - Plan for ED Patient: Diagnosis: Anxiety disorder, Medication refill Instructions: Med Refill Prescriptions: Lorazepam [Ativan] 0.5 mg PO TID PRN PRN #10 tablet PRN Reason: Anxiety Transmission Status: Sent to [facility]Judy Carrillo [Primary Care Provider] - Additional Instructions: Keep appointment with psychiatry as scheduled for January 14
[2019-01-08 14:54] VITALS: PULSE 70; RESP 18; O2SAT 100
== END 2019-01-08 14:56 | disposition home or self-care (01) ==
LOC: ED 14:32
PROVIDERS: Emergency Provider Emergency Medicine
DX: Z76.0 Encounter for issue of repeat prescription (principal); F41.9 Anxiety disorder, unspecified; F32.9 Major depressive disorder, single episode, unspecified; Z87.891 Personal history of nicotine dependence
CPT/HCPCS: 99282; H0035; H2012; H2020; 90832

== ENCOUNTER 2019-01-23 09:00 | Outpatient (RCR) | payer MEDICAID, SELFPAY ==
[2019-01-23 01:30] VITALS: BP 105/72; PULSE 90; RESP 14
--- NOTE | 2019-01-23 09:05 | BH.SGPN.GN ---
Behaviors/Verbalizations/Mental Status: []Client alert and oriented, casual dress, hygiene tended to. Eye contact good. Motor activity appropriate. Speech within normal limits. Affect congruent, mood euthymic and positive. Thoughts linear, logical, no signs of hallucinations or delusions. Reviewed client?s symptom tracker, no signs of suicidal ideation, plan, or intent as of today. Client Response/Progress/Benefit: []Pt was an active participant in group discussion, providing input and openly processing with the group. Emotion for today is chill. Pt identified a mental health positive was taking time to buy fabric yesterday to make baby burp clothes and a blanket for a family member that is . Pt stated she loves doing sewing projects because feels accomplished. Pt reported another mental health positive as taking more time to focus on her self-care. Pt reported current stressor is her work schedule interferes with IOP schedule for next week. Pt stated she plans to manage this stressor by going to her boss next week to make sure the following week work schedule and IOP schedule don't conflict. Progress noted in pt ability to actively apply self-care skills outside of tx environment. Continued IOP tx recommended to continue application of healthy coping skills, identify and reframe distorted thought patterns, and prevent decompensation. Narrative Note: []
--- NOTE | 2019-01-23 10:15 | BH.SGPN.GN ---
Behaviors/Verbalizations/Mental Status: [Client alert and oriented, casually dressed and appropriately groomed. Eye contact fair to good. Motor activity appropriate. Speech within normal limits. Affect congruent, mood anxious and dysthymic. Thoughts linear, logical, no signs of hallucinations or delusions] Client Response/Progress/Benefit: [Client active participant in group AEB providing input, actively listening and providing feedback to peers, and taking notes throughout. Group worked together to identify barriers to making changes or taking action in their lives which included: fear of the unknown, guilt, fear of how others will react, shame, fear of leaving one?s comfort zone, denial of need to change, and lack of motivation. Group also identified the benefits of change which included; improved relationships, improved sense of hope, increased confidence, and improved ability to manage anxiety, and increased willingness to ask for help. Client identified areas she would like to take back control over to include: self-confidence, distorted or negative thoughts, improving communication, and better managing emotions and triggers for delusions. Benefited from group through awareness of personal areas she wants to improve and benefits to taking action towards mental wellness. Progress noted in personal reflection of areas she would benefit from making changes for her mental health. Pt is recommended continued IOP level of care to improve distress tolerance skills. promote effective communication and emotion regulation skills, and prevent decompensation.] Narrative Note: []
--- NOTE | 2019-01-23 11:18 | BH.SGPN.GN ---
Behaviors/Verbalizations/Mental Status: []Client alert and oriented, neatly dressed and groomed. Eye contact good. Motor activity appropriate. Speech within normal limits. Affect congruent, mood euthymic. Thoughts linear, logical, no signs of hallucinations or delusions. Client Response/Progress/Benefit: []Client was an active participant AEB client participating in discussion and working well in her small group. Client attentive and providing input to discussion of the different zones of taking action as well as the pros and cons of each. Client agreed with peers that it best to push oneself, but one does not want to burn out. Client completed worksheet in which she identified a problem area to focus on, a SMART goal to help work on problem area, and identify additional supports needed to be successful. Client identified she wants to stop having unrealistic expectations for herself. Client identified a small goal which is to make one dozen burp cloths by working on them three days a week. Client stated additional supports needed to be successful with goal include: reminding herself that she does not need to take on other projects during that week and asking her daughter to come over and help. Appeared to benefit from creating a small goal to help client increase self-compassion and reduce unrealistic expectations of self. Will continue IOP level of care as client can continue to reduce anxiety symptoms and combat distorted thoughts. Narrative Note: []
--- NOTE | 2019-01-27 10:20 | BH.SGPN.GN ---
Behaviors/Verbalizations/Mental Status: []Client alert and oriented, casually dressed and groomed. Eye contact good. Motor activity appropriate. Speech within normal limits. Affect congruent to topic being discussed, mood euthymic, anxious, positive. Thoughts linear, logical, no signs of hallucinations or delusions. Client Response/Progress/Benefit: []Pt engaged participant AEB pt providing input during discussion and appeared to listen attentively to peers. Pt appeared to connect with others comments about the negative impact of defining self by mental illness. Group identified social stigma can come from how the media, society, and upbringing portray mental illness. Group identified media and society portray mental health as: dangerous, negative, not good enough, abnormal, and romanticize it. Pt agreed with peers that sometimes it seems safer to use humor about her mental health because makes her less vulnerable. Pt connected this can lead to internal stigma. Pt seemed to benefit from increased awareness of how societal and internal mental health stigma can impact functioning. Pt progressing with reporting decreased depression and improved utilization of healthy coping skills outside treatment environment. Pt to continue IOP level of care to maintain gains, continue to challenge distorted thoughts and prevent decompensation. Narrative Note: []
--- NOTE | 2019-01-27 11:25 | BH.SGPN.GN ---
Behaviors/Verbalizations/Mental Status: [Client alert and oriented, casually dressed and appropriately groomed. Eye contact fair to good. Motor activity appropriate. Speech within normal limits. Affect congruent, mood anxious and euthymic. Thoughts linear, logical, no signs of hallucinations or delusions.] Client Response/Progress/Benefit: [Client responded well to session, engaged in activity, actively listening as well as providing input to discussion. Group identified the benefits of addressing stigma which included; increased self-confidence, decreasing feelings of shame or unworthiness, increasing self-acceptance, improved relationships, and willingness to ask for help. Client helped the group identify thoughts and behaviors people engage in that reinforce stigma. Client reported she has struggled with guilt and self-comparison which reinforces stigma in her life. Group brainstormed strategies to combat social and perceived stigma which included; changing personal language used, sharing positive mental health related media, communicating with supports, attending therapy, and increasing psychoeducation of self and others to reduce labeling behaviors. Client reported she will practice increasing self-compassion and using affirmation statements as a means to combat stigma. Appeared to benefit from increasing awareness of ways she reinforces stigma and how to combat stigma. Will continue IOP tx to further reduce depression and anxiety, increase consistent use of internal coping mechanisms, as well as increase the use of calming skills.] Narrative Note: []
--- NOTE | 2019-01-28 09:05 | BH.SGPN.GN ---
Behaviors/Verbalizations/Mental Status: []Client alert and oriented, casually dressed and groomed. Eye contact good. Motor activity restless. Speech within normal limits. Affect full, mood constricted. Thoughts linear, logical, no signs of hallucinations or delusions. Reviewed client?s symptom tracker, no risk for suicidal ideation, plan, or intent Client Response/Progress/Benefit: []Pt engaged in session as shown by pt openly expressing thoughts and emotions. Pt identified emotion for today as unsettled. Pt identified a mental health positive as cooking dinner last night instead of making a frozen pizza. Additional positive as continuing to look for the gift or positives throughout her day, even in negative moments. Pt identified current stressor is returning to previous psychiatrist under the encouragement of her caser and having another negative interaction with the psychiatrist. Pt asked for help from group, open to suggestions and ideas from others how to manage current situation. Pt seemed to benefit from support by peers. Pt showing progress with increased utilization of healthy coping skills outside treatment environment. Pt to continue IOP to continue us eof healthy coping, improve emotional regulation, and prevent decompensation. Narrative Note: []
--- NOTE | 2019-01-28 10:22 | BH.SGPN.GN ---
Behaviors/Verbalizations/Mental Status: []Client alert and oriented, neatly dressed and groomed. Eye contact good. Motor activity appropriate. Speech within normal limits. Affect congruent, mood euthymic. Thoughts linear, logical, no signs of hallucinations or delusions. Client Response/Progress/Benefit: []Client was an active participant as evidenced by providing input through session and listening attentively to peers. The group discussed the quote and how the emotion anger is not good or bad, but one can respond to anger in healthy or harmful ways. Client worked with the group to define anger and its causes, as well as the internal and external impacts of anger. Group identified potential consequences of unhealthy management of anger to include: losing relationships, guilt, increased stress, and worsening mental health symptoms. Client identified underlying factors of her anger which included: feeling hurt, feeling unloved, fear, feeling invalidated, being judged, and feeling overwhelmed. Client stated eye rolling, shutting down, closed-off body language, scoffing, being ?shitty,? and sarcasm are common responses she has when feeling angry. Benefited from group by increasing awareness of the negative impacts of unmanaged anger and underlying factors that contribute to her personal anger. Progress noted as client reports increased use of self-care and improved ability to challenge negative thinking. Will continue IOP tx to reduce anxiety and to further improve mood stability. Narrative Note: []
--- NOTE | 2019-01-28 11:30 | BH.SGPN.GN ---
Behaviors/Verbalizations/Mental Status: [Client alert and oriented, casual dress, hygiene tended to. Eye contact fair to good. Motor activity appropriate. Speech within normal limits. Affect congruent, mood dysthymic. Thoughts linear, logical, no signs of hallucinations or delusions.] Client Response/Progress/Benefit: [Pt remained an active participant throughout AEB engagement in both activity and discussion potions of session. Pt did well to challenge herself to complete the group activity and incorporate anger management/emotion regulation skills in order to do so, despite reports of difficulties in group settings. She did well to ask for what she needed in the moment and actively follow direction throughout. Pt worked with the group to identify the various barriers faced in the activity as well as skills used to successfully complete the task at hand without becoming dysregulated or overwhelmingly stressed leading to agitation. Pt identified barriers impacting her ability to better manage anger related symptoms as: low self-confidence, restlessness, difficulties in balancing her emotions as a means for improved anger management skills. She appeared to benefit from discussion regarding potential benefits of anger and brainstorming with the group potential strategies for means of harnessing anger in healthy ways. Pt identified plans to begin using: a healthier outlet and prioritize positive affirmations as well as setting personal boundaries Recommended continued IPO txt to reduce mental health sx, promote emotion regulation, and prevent decompensation.] Narrative Note: []
--- NOTE | 2019-01-28 12:04 | PCM.BH.PN_ITS ---
Progress Note Progress Note: History of Present Illness/Interim History: [] Patient is a 49-year-old female who is seen in follow-up at the [facility] program. She was last seen 2 weeks ago and is being treated for major depression with psychosis, OCD. Patient states that she is much better and much less depressed now. She feels her mood is vastly improved over what it was several weeks ago. Her anxiety is much less also. She feels she is learning a lot of good skills to use in the program. She says that she is much less paranoid than she was 2 weeks ago. Her thinking overall is much clearer than it was 2 weeks ago. She says she still on occasion gets some messages from it objects that she sees but this is happening much less than it was 2 weeks ago. She is tolerating the Abilify well and has been on it for about 2 weeks. She remains off of all Ativan and [place]'s wort. She is not using any drugs whatsoever other than what has been prescribed her. She has been able to do some sewing and accomplish some things now. She denies any suicidal thoughts. She still has some minimal to mild delusions of reference at times but these are much less than before. Current Psychiatric Medications: [] Abilify 4 mg p.o. daily (x2 weeks). Mental Status Examination: [] She is a 49-year-old appears older than her stated age. She is casually dressed and groomed and has good hygiene. Her appearance is much more put together than it was when I initially saw her. She is cooperative and pleasant during the interview. Eye contact is good. Speech is normal rate and rhythm and fluent. She no longer has a response latency and she responds to questions normally now. Mood is euthymic today and affect is full and normal. Thought process: Organized and goal-directed. Thought content: Minimal to mild delusions of reference remain where she feels sometimes that objects she sees giving her messages. These are much less intrusive now. Thought content: No evidence of suicidal or homicidal ideation. Reality testing is intact. Judgment: Intact. Insight: Some present. Impulsivity: Low. Diagnoses: [] Lockhart I: [] Major disc depressive disorder recurrent, severe with psychosis (resolving); obsessive-compulsive disorder; polysubstance use disorder Lockhart II: [] B traits Lockhart III: [] Perimenopausal Lockhart IV:[]] Very support and financial issues Plan: [] Patient will continue in the IOP program at [facility] as the structure, education, support, individual and group therapy have been benefiting her and will prevent worsening of her symptoms. She felt safe during the interview and if it any time she does not feel safe she will let us know or go to the emergency room. The risks, options, possible side effects and complications of the medication were discussed with the patient and she understands and accepts these. She will continue to refrain from using any supplements such as [place] wort. She will continue to remain sober and not use any drugs. She agrees to continue Abilify at 5 mg p.o. daily. Patient will follow up as needed while she is in the IOP program. She will continue to follow-up also with her outpatient providers. A Rx for Abilify at 5 mg p.o. daily was sent.
--- NOTE | 2019-01-30 08:29 | BH.MDN_ITS ---
Multi-Disciplinary Note - Note 60-min Individual Time Started:: 08:18 Date: 01/30/19 Purpose of session/treatment goals addressed:: The purpose of today's session was to assess current symptoms, stressors, and treatment goal progress. Another purpose was discuss importance of self-awareness in regulating emotions and identify strategies for increasing self-awareness and application of distress tolerance skills when identifying warning signs/triggers. Eye Contact:: Good Motor Activity:: Appropriate Appearance:: Casual Speech:: Appropriate Mood:: Anxious, Dysthymic Affect:: Congruent Thoughts:: Linear, Logical, No evidence of hallucinations/delusions noted Staff Interventions:: Therapist asked open-ended questions to elicit information regarding current symptoms, stressors, and tx goal progress. Provided empathic responses and supportive feedback as client discussed recent stressors impacting emotion regulation. Therapist also applied NV techniques to aide client in exploring potential solutions for improving self-awareness and application of distress tolerance skills during times of increased irritability or stress. Client Response:: Pt receptive of session, actively engaged throughout. She discussed feeling as though she has made progress since beginning the IOP program and noted feeling more ?like myself?. Pt shared that she has felt less paranoid since beginning new psychiatric medication approximately a few weeks ago. Pt noted seeing the most progress in her ability to to better regulate her emotions, especially during times in which she is experiencing environmental triggers or intrusive thoughts. Identified positive affirmations as primary coping mechanism and Pt expressed that she is utilizing this skill regularly. She went on to indicate that although she is regularly saying positive affir mations, she has found that in the past week she has had increased difficulties in calming herself down when becoming agitated or experiencing a trigger. Pt described various moments throughout the week in which she had difficulties returning to baseline when stressed, despite use of positive self-talk. Pt shared that she had not tried any other coping mechanisms at those times as she has had difficulties with knowing what else may be helpful for her when disregulated. Upon further discussion, Pt did well to identify factors contributing to increased agitation throughout the week. This included problems with her car which impacts financial and occupational stress levels, as well as changes in Pt hormone levels due to menstrual cycle which she shared has a major impact on her emotion regulation skills. Pt additionally did well to identify that limited self-awareness has also impacted coping as she noted not checking- in with herself which has limited ability to recognize warning signs and apply other calming skills as a result. Pt and therapist discussed strategies for improving self-awareness, such as setting an alarm on her phone to check-in with herself. Additionally, reviewed trigger action plan to refresh Pt on self- identified distress tolerance skills. Pt reports plans to check-in with herself at least twice per day and begin to use deep breathing, taking breaks, and a po sitive statement board on pinterest. Additionally shared willingness to look into Community action for funding to aid with car and utility bills. Risks/Concerns:: No risks or concerns noted. Pt denies any active SI, plan, or intent as of this date. Progress Toward Goals/Plan:: Progress noted. Pt reports increased ability to utilize positive self-talk messages and take breaks when needed. She additionally noted decreased syptoms associated with paranoia. Despite areas of progress, pt does indicate increased irritability which has begun to impact her relationship with supports. She reports difficulties in remembering to check-in with herself throughout the day to prevent agitation from escalating and has had a few occassions of verbal outburst as a result. Overall, pt is making progress in identifying how small stressors built to impact her, is applying calming skills, and utilizing positive self-talk statements to increase emotion regu lation. She is recommended continued IOP tx to increase consistent skill application, continue to promote healthy change behaviors, and prevent decompensation. Time Stopped:: 09:16
--- NOTE | 2019-01-30 09:05 | BH.SGPN.GN ---
Behaviors/Verbalizations/Mental Status: []Client alert and oriented, casually dressed and groomed. Eye contact good. Motor activity appropriate. Speech within normal limits. Affect congruent, mood calm. Thoughts linear, logical, no signs of hallucinations or delusions. Reviewed client?s symptom tracker, no risk for suicidal ideation, plan, or intent as of 01/30/19. Client Response/Progress/Benefit: []Client responded well to session, connecting with peers and providing positive feedback. Client reports feeling ?at peace? today and stated that overall her week was ?rough?, but she was able to start turning it around by using self-care. Client identified her mental health wins today which included: being able to bounce back from a rough week, being close to accomplishing her goal from last week, and going to the library yesterday for two hours. Client shared she told herself she needed self-care and ?I got lost in some books yesterday.? Client reported her biggest stressor this week is financial stressors. Client shared she has been trying to challenge her negative self-talk by reminding herself that ?at least the rent is paid.? Appeared to benefit from connecting with peers and reflecting on her ability to make positives by overcoming negatives this week. Progress noted as shown by client?s reduced paranoia and application of coping skills outside of IOP. Will continue IOP tx to promote emotional regulation and further decrease intensity of symptoms. Narrative Note: []
--- NOTE | 2019-01-30 10:22 | BH.SGPN.GN ---
Behaviors/Verbalizations/Mental Status: [Client alert and oriented, casually dressed and groomed. Eye contact good. Motor activity appropriate. Speech within normal limits. Affect congruent, mood euthymic and anxious. Thoughts linear, logical, no signs of hallucinations or delusions] Client Response/Progress/Benefit: [Client was an active participant in group activity and discussion, providing insight throughout. Client connected with the topic and worked with group to identify common internal barriers that keep people stuck which included; fear, absolute thinking, feelings of guilt about the past, and people pleasing. Client identified her current reality as feeling as though she is drowning and the ship to come and save her is ?too late?. Indicated she felt most like this earlier in the week and not as much now. Client shared a realistic, desired reality would be her taking the special client bus driver?s seat of the boat and navigating through her stressors and no longer feeling helpless. Client shared she also wants to find better supports and be more capable of accepting when things don?t go as she had expected. Client benefited from group as client was able to identify current mental health state and barriers that are impacting progress. Progress noted in her ability to self-reflect and discuss how her internal barriers have maintained depression and anxious thinking. Will continue IOP to increase consistent skill application, reduce self-deprecation, and prevent decompensation.] Narrative Note: []
--- NOTE | 2019-01-30 11:22 | BH.SGPN.GN ---
Behaviors/Verbalizations/Mental Status: []Eye contact is good. Motor activity is appropriate. Appearance is casual. Speech is Appropriate. Mood is anxious. Affect is congruent. Thoughts are linear and logical. No evidence of psychosis. Client Response/Progress/Benefit: []Pt was an active participant in group discussion and activity. Able to identify negative self-talk, fear of failure, believing negatives statements made by others, not wanting to ask for help and self-sabotage as obstacles which are preventing her from achieving her desired reality. Active during activity. Pt along with peers identified various obstacles during the activity and developed 3 strategies to overcome those obstacles to wellness and desired reality. Group wrote down the strategies and added them to their program binder. Benefited from group by identifying obstacles and solutions to desired reality. Narrative Note: []
--- NOTE | 2019-02-02 10:25 | BH.SGPN.GN ---
Behaviors/Verbalizations/Mental Status: []Client alert and oriented, casual in appearance. Eye contact fair. Motor activity appropriate. Speech within normal limits. Affect congruent, mood anxious. Thoughts linear, logical, no signs of hallucinations or delusions. Client Response/Progress/Benefit: []Client engaged participant as evidenced by client providing input throughout discussion and appeared to listen attentively to others. Client agreed with others that she experiences automatic negative thoughts. Client connected with the discussion about how distorted thought patterns can reinforce mental health symptoms. Client reported she has used many of the cognitive distortions with mind reading and catastrophizing as ones she engages in most often. Client able to connect how cognitive distortions have impacted her mental health. Appeared to benefit from increasing awareness of cognitive distortions and how they can impact emotions and behaviors. Client to continue IOP to stabilize moods, continue use of healthy coping skills, and prevent decompensation. Narrative Note: []
--- NOTE | 2019-02-02 11:25 | BH.SGPN.GN ---
Behaviors/Verbalizations/Mental Status: []Client alert and oriented, casually dressed and groomed. Eye contact good. Motor activity appropriate. Speech within normal limits. Affect constricted, mood dysthymic. Thoughts linear, logical, no signs of hallucinations or delusions. Client Response/Progress/Benefit: []Client responded well to session AEB participating in activity and contributing in group discussion. Client connected with the discussion about how distorted thought patterns can reinforce mental health symptoms. Client did well to work with the group on defining the various types of cognitive distortions and identifying how each distortion can negatively impact mental health. Client reported that she struggles with many of the distortions, but she has been working to actively challenge them. Client recognizes that replaces negative thoughts will take time and effort. Client worked with her small group as they practiced thought challenging by identifying distortions and replacing them with more realistic statements. Client attentive during psychoeducation on strategies to combat distortions. Client selected using the strategy T.[id number].I.N.K to help client challenge negative thoughts. Progress noted as client has been avoiding anxiety-producing situations less. Appeared to benefit from increasing awareness of cognitive distortions and practicing thought challenging. Client to continue IOP tx as she continues to struggle with negative thoughts that reinforce her mental health symptoms. Narrative Note: []
--- NOTE | 2019-02-03 09:08 | BH.SGPN.GN ---
Behaviors/Verbalizations/Mental Status: [Client alert and oriented, casual dress, hygiene tended to. Eye contact fair to good, at times appearing avoidant. Motor activity appropriate. Speech within normal limits. Affect congruent, mood euthymic and anxious. Thoughts linear, logical, no signs of hallucinations or delusions. Reviewed client?s symptom tracker, no signs of suicidal ideation, plan, or intent as of today. ] Client Response/Progress/Benefit: [Pt responded well to session, actively engaged throughout and providing supportive feedback. Pt indicated current emotion as content and discussed various mental health wins contributing to her ability to maintain a stable baseline. Current wins identified as having a positive experience when reconnecting with her son for the first time since he had moved out of the house. She shared that by reminding herself to focus on the positive sure was able to keep from becoming upset with the fact that he is no longer living in her home. Additional win described as Pt setting aside time for self-care. Noted setting aside time to practice on her showing machine and expressed a sense of accomplishment as well. Pt noted current stressors as difficulties with communication when it comes to her youngest daughter. Did well to identify strategies for improving communication and appeared to benefit from the support of the group environment. Pt recommended continued IOP tx to prevent decompensation, decrease anxiety, and promote ongoing application of healthy coping skills.] Narrative Note: []
--- NOTE | 2019-02-03 10:25 | BH.SGPN.GN ---
Behaviors/Verbalizations/Mental Status: []Client alert and oriented, casually dressed and groomed. Eye contact good. Motor activity appropriate. Speech within normal limits. Affect congruent-tearful at times, mood anxious. Thoughts linear, logical, no signs of hallucinations or delusions. Client Response/Progress/Benefit: []Client receptive of session, attentive in discussion and activity. Client discussed the quote and was nodding with comments made by peers. Client helped group identify the consequences of not effectively managing emotions which included; strained relationships, guilt, suppressing emotions, increased negative thinking, resentment, blowing things out of proportion, and impulsive behaviors. Group identified barriers that impact one?s ability to communicate when emotions are high. These barriers included; acting on impulse, shutting down, physical aggression, assumptions, and misinterpretations. Client shared that holding in emotions can continue the cycle of abuse. The group also discussed how trauma impacts one?s ability to regulate emotions and client connect with this. Client participated in the activity and did well to manage her emotions. Client appeared to benefit from increasing awareness of how emotions can impact communication and practicing in the moment coping skills. Progress noted as client has been demonstrating less avoidance behaviors and has been applying coping skills. Will continue IOP tx to further decrease anxiety and improve daily functioning. Narrative Note: []
--- NOTE | 2019-02-03 11:25 | BH.SGPN.GN ---
Behaviors/Verbalizations/Mental Status: []Client alert and oriented, casual in appearance. Eye contact fair. Motor activity appropriate. Speech within normal limits. Affect congruent, mood euthymic, slightly anxious. Thoughts linear, logical, no signs of hallucinations or delusions. Client Response/Progress/Benefit: []Client attentive and contributing to discussion. Attentive during psychoeducation on 4 zones of regulation. Client able to identify how she feels in each zone as well as how she acts in each zone. Client able to identify what behaviors she exhibits when in the different emotional zones. Client stated when she is in a low state of alertness she will withdraw and give up. Pt stated when she is in an extreme state of alertness she will drive dangerously. Client able to identify coping skills she can use to support herself in each zone which included: self-care, asking for help, taking a walk, essential oils, positive affirmations, grounding tools, thought challenging, and progressive muscle relaxation. Benefited from group from increased education on zones of regulation or stages of alertness for emotions and healthy coping skills to use for each zone. Will continue IOP tx to maintain gains, prevent decompensation, and continue utilization of healthy skills. Narrative Note: []
--- NOTE | 2019-02-03 13:03 | BH.MDN_ITS ---
Multi-Disciplinary Note - Note 45-min Individual Time Started:: 08:09 Date: 02/03/19 Purpose of session/treatment goals addressed:: The purpose of today's session was to assess current symptoms, stressors, and treatment goal progress. Another purpose was discuss strategies for increasing healthy communication with her daughter and ?I? statements she can use to ask for personal space to regulate before responding. Eye Contact:: Good Motor Activity:: Appropriate Appearance:: Casual Speech:: Appropriate Mood:: Dysthymic Affect:: Congruent Thoughts:: Linear, Logical, No evidence of hallucinations/delusions noted Staff Interventions:: Therapist asked open-ended and furthering questions to elicit information regarding current symptoms, stressors, and tx goal progress. Used strengths-based approaches to aid pt in identifying areas she is actively improving in regarding mental health. Provided supportive feedback and normalization as client discussed recent stressors and difficulties in maintaining healthy communication with her daughter. Therapist applied PA techniques to aide client in exploring potential barriers and solutions for improving communication. Provided psychoeducation on ?I? statements and role- played examples of application. Client Response:: Pt receptive of session, actively engaged throughout. She discussed feeling as though she continues to make progress in treatment and is able to see improvements in her mental health as well. Discussed spending time reviewing materials from group at home and connected with the lesson on cognitive distortions, noting she observed her own use of disqualifying the positive and catastrophizing. Pt went on to share she was able to have a positive experience when speaking with two of her older children whom she has recently had more tension with. Pt shared using calming skills and positive affirmations to prepare herself prior to doing so. Expressed increased confidence and sense of accomplishment following the interaction. Pt went on to note that although her communication with her older children has improved, she has observed increasing difficulties in communicating with her younger daughter. Reports increased hostility and arguing. Pt shared that her daughter recently expressed feeling pt has been meaner and less considerate of her daughter?s emotions, however pt indicates she does not feel this is accurate. Upon further reflection identified various occasions where she either was short with her responses, walked away, or ?shut-down?. Shared that her daughter may have misinterpreted this as pt being dismissive or callus. Expressed wanting to improve her ability to calm herself prior to responding to her daughter without shutting down or appearing dismissive. Pt and therapist discussed use of ?I? statements to indicate feeling agitated or overwhelmed and needing a break before addressing the stressor. Worked with therapist to practice different variations and ways to use ?I? statements in order to validate her daughter?s emotions and concerns while also advocating for her own mental health needs. Risks/Concerns:: No risks or concerns noted. Pt denies any active SI, plan, or intent as of this date, 02/03/19. Progress Toward Goals/Plan:: Progress noted. Pt continues to indicate improved ability to manage mental health triggers that cause increased anxiety and intrusive thinking. Additionally notes consistently using positive self-talk and calming tools when feelign dysregulated; however struggles to apply these skills proactively. Reports ongoign issues with irritability and has experienced increased conflict with her youngest daughter as a result. Pt open to trying to being use of I statements. Recommended continued IOP tx to improve mood stability, increase healthy communication and conflict resolution, and revent decompensation. Time Stopped:: 08:52
--- NOTE | 2019-02-06 09:10 | BH.SGPN.GN ---
Behaviors/Verbalizations/Mental Status: [] Eye contact is good. Motor activity is appropriate. Appearance is casual. Speech is Appropriate. Mood is depressed. Affect is flat. Thoughts are linear and logical. No evidence of psychosis. Reviewed daily check in sheet and pt reports 2/5 for suicidal thoughts and 0/5 for intent. Therapist notified. Client Response/Progress/Benefit: [] Pt participated at times during group discussion. Emotion for today is subdued. States I had a very bad day yesterday. Is vague however mentions something that occurred at work. She reached out to her therapist he in IOP after the event and did utilize some health coping skills. Notes It could have gotten much worse. Noted that she was not feeling well physically all day and suspects that this led to the episode. Also reports some communication issues with support which led to argument. Reports that she shuts down when she is overwhelmed emotionally which often causes her to pull away from others which they interpret in different ways. She is trying to communication this and make support aware. No progress noted per pt. Benefited from group support, encouragement, and feedback. Will continue in IOP to maintain safety, prevent decompensation, and to increase healthy coping. Narrative Note: []
--- NOTE | 2019-02-06 10:18 | BH.SGPN.GN ---
Behaviors/Verbalizations/Mental Status: [Client alert and oriented, casually dressed and appropriately groomed. Eye contact good. Motor activity appropriate. Speech within normal limits, quiet. Affect congruent, mood anxious and dysthymic. Thoughts linear, logical, no signs of hallucinations or delusions. ] Client Response/Progress/Benefit: [Client active participant AEB providing input throughout session, engaged in group activity, taking notes, and and listening attentively to peers. Client reported being resilient means ?going with the flow? and being and to see things from different perspectives. Client shared ?it?s harder to be more resilient as we get older because we get warn out from the stressors we?ve experienced?. Client discussed connections between activity and barriers/supports to development of a resilient lifestyle. Client agreed with peers that one can learn to become more resilient throughout life. Client benefitted from brainstorming benefits of being resilient which included: increased self-confidence, increased hope, and improved ability to find different solutions to setbacks. Client shared ?we always have to look for the gift in each situation?. She is progressing with increased application of internal coping skills outside treatment environment and with more effectively managing her mood symptoms. Continues to report difficulties in remembering to check-in with herself which has impacted ability to identify warning signs at times. Recommended continued IOP tx to promote healthy change behaviors, improve mood stability, as well as maintain gains.] Narrative Note: []
--- NOTE | 2019-02-06 11:20 | BH.SGPN.GN ---
Behaviors/Verbalizations/Mental Status: []Client alert and oriented, casually dressed and groomed. Eye contact fair. Motor activity appropriate. Speech within normal limits. Affect congruent to topic being discussed, mood depressed. Thoughts linear, logical, no signs of hallucinations or delusions. Client Response/Progress/Benefit: []Client engaged participant as evidenced by client providing input throughout discussion and listening attentively to peers. Client worked cooperatively with peers to identify how each strategy can help increase resiliency. Client reported she wants to work on the resiliency component of taking care of herself. Client stated she will work on taking care of herself by setting a timer every hour to do a self check-in. Client appeared to benefit from identifying goal to improve personal resilience factors. Client to continue IOP to continue use of healthy coping skills, decrease negative thinking and prevent decompensation. Narrative Note: []
--- NOTE | 2019-02-09 11:17 | BH.SGPN.GN ---
Behaviors/Verbalizations/Mental Status: [Client alert and oriented, casually dressed and appropriately groomed. Eye contact good. Motor activity appropriate. Speech within normal limits. Affect congruent, mood dysthymic. Thoughts linear, logical, no signs of hallucinations or delusions] Client Response/Progress/Benefit: [Client active participant AEB her positive contributions and engagement throughout. Client reported she is either an aggressive or passive communicator depending on the person and situation. She provided an example of passive communication when she feels someone is being aggressive towards her but can be aggressive with communication when irritated by her daughter. Agreed with fellow participants that ineffective communication can result in misinterpretations and relationship as a result. Client took an active role during the discussion reviewing different communication styles and why each may be used, as well as how ineffective communication negatively impacts mental health and relationships. Client identified her communication goal which is to practice being more ?self-aware of what type of communication style I am using and ask myself is this helpful and what can I do to improve communication? as well as practicing speaking with a smile to keep from escalating. Client seemed to benefit from increased insight into how her communication style impacts mental health and identifying strategies for increasing effective communication skills. Client progressing as shown by her report of improved emotion regulation. Will continue IOP tx to promote mood stability, further improve daily functioning, and prevent decompensation.] Narrative Note: []
--- NOTE | 2019-02-10 09:10 | BH.SGPN.GN ---
Behaviors/Verbalizations/Mental Status: [] Eye contact is good. Motor activity is appropriate. Appearance is casual. Speech is Appropriate. Mood is depressed. Affect is flat. Thoughts are linear and logical. No evidence of psychosis. Reviewed daily check in sheet and no reports of suicidal ideations or intent. Client Response/Progress/Benefit: [] Pt was an active participant in group discussion. Emotion for today is cautiously optimistic. Shared that her mood yesterday was depressed and overwhelmed and caused her to come into IOP w/o being scheduled stating I just needed to do something. Shared that through support, education, and utilizing skills she was able to improve her symptoms yesterday. Numerous stressors including her car, her job, and finances. She is trying to problem solve these issues. Group provided some feedback and suggestions. 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 Shared that she is being more assertive with others about her needs and thoughts which is progress for her. Progress noted. Will continue in IOP to prevent decompensation, increase healthy coping, and support. Narrative Note: []
--- NOTE | 2019-02-10 10:17 | BH.SGPN.GN ---
Behaviors/Verbalizations/Mental Status: [Client alert and oriented, casual dress, hygiene tended to. Eye contact good. Motor activity appropriate. Speech within normal limits. Affect congruent, mood euthymic, anxious. Thoughts linear, logical, no signs of hallucinations or delusions.] Client Response/Progress/Benefit: [Pt engaged in session as evidenced by pt listening to others, asking questions, and providing input throughout. Pt stated she believes people run away from problems because fear of the ?big scary monster? and not being ready to face their own problems/faults. Pt stated she has run away from her problems in the past by avoiding, isolating, or freezing under pressur. She shared that this has led to discouragement and further difficulties in applying problem-solving skills. Pt worked with peers to brainstorm the components of A,B,C,D,E problem solving method and did well to begin to apply such during the group experiential activity. Pt seemed to benefit from learning about problem solving method and rehearsing problem-solving skills in the moment. Pt to continue IOP level of care to decrease mental health symptoms contributing to paranoia and intrusive thinking, increase utilization of healthy coping, and prevent decompensation.] Narrative Note: []
--- NOTE | 2019-02-10 11:17 | BH.SGPN.GN ---
Behaviors/Verbalizations/Mental Status: []Client alert and oriented, casually dressed and groomed. Eye contact good. Motor activity appropriate. Speech within normal limits. Affect congruent, mood anxious, euthymic. Thoughts linear, logical, no signs of hallucinations or delusions. Client Response/Progress/Benefit: []Client was an active participant in group activity and discussion. Client processed challenge activity with fellow participants and made connections with the barriers to problem solving encountered. Client completed a problem-solving worksheet in which she identified a current problem impacting mental health as not getting completely ready in the morning and developed a [id number] plan to address this problem. Client identified steps such as reaching out to supports, completing her morning checklist, sticking with her routine, and getting things ready before bed. Client identified barriers to include; forgetfulness, anxiety, and ruminating. Client did well to brainstorm strategies for overcoming barriers and was open to feedback from the group.? Client reported she plans to work on challenging the barrier of forgetfulness by creating visual reminders. Benefited from creating a personalized plan which client identified barriers and steps to work on a mental health problem. Will continue IOP tx to promote use of healthy coping skills and further improve daily functioning. Narrative Note: []
--- NOTE | 2019-02-10 11:22 | BH.MTP_ITS ---
Treatment Plan Review Date of Admission:: 01/08/19 Date of Treatment Plan Review:: 02/10/19 Admitting Diagnoses:: Major Depressive disorder with psychosis; obsessive- compulsive disorder; polysubstance use disorder with partial remission from marijuana Current Diagnoses:: Major Depressive disorder with psychosis; obsessive- compulsive disorder; polysubstance use disorder with partial remission from marijuana Patient's Response to Treatment:: Pt has responded well to IOP treatment thus far. This is evidenced by consistent attendance with only one cancellation. Pt at times struggles with tardiness on days that she does not come early for indiv idual session prior to group, though is making efforts to adjust her morning routine in order to improve in timeliness as well. Since beginning the IOP program, pt has remained an active participant in in both group and individual sessions. She is often able to openly and honestly discuss current barriers or stressors impacting tx progress, is receptive of feedback and constructive comments provided by the group, as well as actively provides input and advice to fellow participants. Pt initially struggled with becoming easily triggered by items in the group environment, however has taken initiative to apply the skills identified on her Trigger Action Plan when experiencing environmental triggers and is more easily able to cope and remain in IOP setting as a result. Pt presents as motivated to make positive changes in her life, has followed through with all homework assignments, and continues to work towards improving overall self-awareness. Status of Current Problems and Symptoms: Pt has made significant progress in management of her environmental and emotional triggers causing intrusive thinking and impacting sx of anxiety and depression. She reports increased self- awareness regarding her current mood and warning signs/triggers that may contribute to emotion dysregulation and at times is able to apply calming and distress tolerance skills. Pt reports that although she has improved in this area, she continues to struggle with consistently checking-in with herself in order to continue to improve self-awareness and use of coping skills. Reports increased use of self-care strategies throughout the day and positive self- talk/affirmations which has contributed to a decrease in frequency, severity, and intensity of mental health symptoms as well, specifically regarding pt ability to manage intrusive thoughts that can result in delusional thinking patterns. Pt continues to report conflict with her daughter who is living in the home due to communication difficulties. Pt completed the DSM-5 Cross Cutting Scales at admission and again today. Per this scale pt has experienced a 37% reduction in symptoms including depression, anxiety, and repetitive thoughts/behaviors. Thoughts of hurting herself decreased from mild, several days of the week to no, none at all . Pt reports increased confidence in functioning, improved ability to work through anxious thoughts and feelings, and improved ability to apply distress tolerance skills. While progress has been noted she continues to struggle at times with ruminations, irritability, and overwhelming stress. Recommending that she continue in IOP to prevent decompensation, maintain gains, further stabilize mood, and improve daily functioning. Pt has displayed a reduction in anxiety AEB a 58% decrease in scores for anxiety on DSM-5 cross-cutting inventory. Problem #1 Problem Name:: Depression Status of Goals:: Obj #1 Pt has identified more than 3 coping skills to reduce depressive symptoms, however she struggles with identifying triggers in the moment and often inconsistently applies coping skills which impacts the extent in which consistent progress can be made. Pt has reported an overall decrease in frequency, intensity, and duration of depression. Additionally no longer reports passive SI, plan, or intent. Progress noted in overall decrease in sx of depression on DSM-5 cross-cutting inventory as well as pt displayed a 50% reduction in depression. Obj #2 Pt has identified several negative talk statements and cognitive distortions. Pt has also been able to replace these with more realistic and positive statements. This goals is met. Team Recommendations:: Obj #2 is met. Will continue to work on increasing self- awareness via identifying triggers to depressive symptoms in individual counseling and group counseling as well as promoting consistent skill application. Problem #2 Problem Name:: Anxiety Status of Goals:: Obj #1- Able to identify various warning signs and triggers for anxiety and psychosis and is actively trying to check-in with herself to know when to apply self-soothing or calming skills to address these symptoms. Pt at times struggles at times to remember when to utilize these skills or what specific skills to use; however, has displayed marked improvement from admission. Obj #2- Pt has developed a concrete trigger action plan for addressing stressors which impact daily functioning and result in increased anxiety. She however is early in this process as symptoms and is building a consistent use of action plan, therefor has just recently begun to stabilize. Team Recommendations:: Group counseling continues to be effective. Individual sessions will focus on developing concrete step by step plan to manage anxiety and reduce paranoia/psychosis. Problem #3 Problem Name:: Psychosis Status of Goals:: Obj #1- Able to identify various warning signs and triggers for anxiety and psychosis and is actively trying to check-in with herself to know when to apply self-soothing or calming skills to address these symptoms. Pt at times struggles at times to remember when to utilize these skills or what specific skills to use; however, has displayed marked improvement from admission. Obj #2- Pt has developed a concrete trigger action plan for addressing stressors which impact daily functioning and result in increased anxiety. She however is early in this process as symptoms and is building a consistent use of action plan, therefor has just recently begun to stabilize. Team Recommendations:: Group counseling continues to be effective. Individual sessions will focus on developing concrete step by step plan to manage anxiety and reduce paranoia/psychosis.
--- NOTE | 2019-02-10 11:22 | BH.MDN_ITS ---
Multi-Disciplinary Note - Note 60-min Individual Time Started:: 08:07 Date: 02/10/19 Purpose of session/treatment goals addressed:: The purpose of this session was to assess pt current symptoms and stressors. Additional purpose was to complete treatment plan review and discuss pt perceived progress towards treatment goals, barriers maintaining depression, and areas to continue to focus on moving forward in IOP treatment. Eye Contact:: Good Motor Activity:: Appropriate Appearance:: Casual Speech:: Appropriate Mood:: Euthymic, Anxious Affect:: Congruent Thoughts:: Linear, Logical, No evidence of hallucinations/delusions noted Staff Interventions:: Therapist asked open-ended and furthering questions to elicit information on pt current symptoms, stressors, and perceptions of treatment goal process. Applied strength?s-based approaches to promote self- efficacy, aid pt in identifying strengths and areas of progress, and continue to promote gains. Therapist utilized VA techniques to identify areas for continued growth, potential barriers, and small goals to promote application of healthy change behaviors. Reviewed DSM cross-cutting scales with patient. Client Response:: Pt receptive of session and reviewing progress in treatment thus far. She reports she continues to notice improved confidence and ability to better regulate her emotions and prevent crisis escalation, as well as decreased symptoms of anxiety and depression. She continues to challenge negative thoughts and replace them with more realistic, sef-compassionate responses. Indicates improved ability to identify cognitive distortions. Pt reports continuing to work on communication with others and believes that she is getting better at not responding to others when she is emotionally charged. Reports taking time to step back and calm herself before reacting. Went on to share a newly stated gratitude practice she is beginning and hopes will improve her ability to focus on positives rather than negative. Reports that she would like to continue to work on improving self-confidence and begin identifying strategies for managing anxiety in the moment as she reports beginning to engage in skin picking behaviors again and would like to prevent further escalation. Risks/Concerns:: No risks or concerns noted. Denies SI, plan, or intent as of this date 02/10/19 Progress Toward Goals/Plan:: Progress noted per pt report. Pt completed DSM cross-cutting scales as this is week 4 of her IOP treatment. When compared to her DSM scores on admission pt showed 37% reduction in symptoms including depression, anxiety, and repetitive thoughts/behaviors. Thoughts of hurting herself decreased from mild, several days of the week to no, none at all . Pt reports increased confidence in functioning, improved ability to work through anxious thoughts and feelings, and improved ability to apply distress tolerance skills. While progress has been noted she continues to struggle at times with ruminations, irritability, and overwhelming stress. Recommending that she continue in IOP to prevent decompensation, maintain gains, further stabilize mood, and improve daily functioning. Time Stopped:: 09:01
--- NOTE | 2019-02-13 09:05 | BH.SGPN.GN ---
Behaviors/Verbalizations/Mental Status: [] Eye contact is good. Motor activity is appropriate. Appearance is casual. Speech is Appropriate. Mood is depressed. Affect is flat. Thoughts are linear and logical. No evidence of psychosis. Reviewed daily check in sheet and no reports of suicidal ideations or intent. Client Response/Progress/Benefit: [] Pt participated at times during group discussion. Emotion for today is grateful. Shared that despite the last several days being rough mental health [place] she is feeling more optimistic today. Notes that her mood is better today than last week. She continues to work on improving communication with support which has been challenging at times. Stress at work also appears more manageable today . Provided appropriate feedback to peers. Progress noted per pt report. Benefited from feedback, support, and encouragement. Will continue in IOP to prevent decompensation, maintain safety, and increase healthy coping skills. Narrative Note: []
--- NOTE | 2019-02-13 11:25 | BH.SGPN.GN ---
Behaviors/Verbalizations/Mental Status: []Client alert and oriented, casually dressed and groomed. Eye contact good. Motor activity appropriate. Speech within normal limits. Affect congruent, mood euthymic. Thoughts linear, logical, no signs of hallucinations or delusions. Client Response/Progress/Benefit: []Client responded well to session, engaged throughout and providing ideas during group brainstorming. Client appeared to connect with the activity from second group and helped the group identify benefits of having a strong foundation of internal and external coping skills. Client shared she came to [facility] because her internal coping skills ?were not working? and she needed external support. Client reports belief that her internal coping skills are now getting better, and she is feeling more confident. Client helped the group discuss the different categories of coping skills and provided examples. Client reported it is important to have a variety of coping skills. Client created a coping skills ?menu? for the five categories of coping skills. Client selected putting on music and cleaning, signing and dancing, walking her dog, taking a bath, and using T.H.I.N.K. Client appeared to benefit from increasing her repertoire of healthy coping skills. Progress noted in client?s improved ability to cope with daily stressors and challenging negative thinking. Will continue IOP tx to promote use of healthy coping skills and further decrease intensity of symptoms. Narrative Note: []
--- NOTE | 2019-02-13 20:00 | BH.SGPN.GN ---
Behaviors/Verbalizations/Mental Status: [] Eye contact is good. Motor activity is appropriate. Appearance is casual. Speech is Appropriate. Mood is euthymic. Affect is full. Thoughts are linear and logical. No evidence of psychosis. Client Response/Progress/Benefit: [] Pt was an active participant in group activity and discussion. Attentive during psycho-education. Worked with peers to define coping skills which included; skills to use to get us through difficult times, techniques to manage emotions, and reactions to lessen an emotional state. Group also worked together to identify how we learn our coping skills through up-bringing, habits, watching our support, trial/error, TV, and counseling. Group discussed that not all coping skills are healthy and identified common unhealthy coping skills such as; isolating, avoidance, substance abuse, using anger as a release, self-harm, reassurance-seeking, sleep, eating, and negative self-talk. Pt participated in group activity with peers. After the group they related the activity to coping skills stating that when developing coping skills it is important to have both internal and external coping skills to help. Pt benefited from increased insight and education on healthy vs unhealthy coping and internal vs external coping skills. Narrative Note: []
--- NOTE | 2019-02-16 10:10 | BH.SGPN.GN ---
Behaviors/Verbalizations/Mental Status: []Client alert and oriented, casually dressed and groomed. Eye contact good. Motor activity appropriate. Speech within normal limits. Affect constricted, mood anxious. Thoughts linear, logical, no signs of hallucinations or delusions. Client Response/Progress/Benefit: []Client responded well to session, active and providing good insight to discussion. Client connected with the group topic of crisis and did well to work with group to define crisis. Group identified examples of potential crisis to include unexpected loss, , and hardships out of one?s control. Connected with discussion on how coping with external crisis by using unhealthy coping skills could lead to personal crisis. Client shared personal crisis occurs when ?we don?t manage our stress jar.? Group identified unhealthy coping skills to include; substance use, unhealthy relationships, eating more, avoidance, outbursts, and risk-taking behaviors. Group identified warning signs for crisis which included; isolating, loss of functioning, over-working, and self-harm. Client completed the personal warning signs worksheet and identified crisis warning signs to include; negative thinking, irritability, and feeling disconnected. Benefited from group by increasing awareness of crisis and personal warning signs. Progress noted as client reports generalizing healthy coping skills, but she continues to struggle with managing anxiety when things are out of her control. Narrative Note: []
--- NOTE | 2019-02-16 11:13 | BH.SGPN.GN ---
Behaviors/Verbalizations/Mental Status: []Client alert and oriented, disheveled in appearnce. Eye contact good. Motor activity appropriate. Speech within normal limits. Affect congruent to topic being discussed, mood anxious. Thoughts linear, logical, no signs of hallucinations or delusions. Client Response/Progress/Benefit: []Client responded well to session as evidenced by client listening attentively to others and sharing when prompted. Client identified her warning signs for crisis and gained further awareness of her earliest warning signs. Client recognized that awareness of these warning signs can prevent further crisis and help client utilize healthy coping skills to break the cycle. Client created a crisis action plan to help client better manage warning signs for crisis. Client?s plan included coping skills such as: affirmations, exercise, opposite action, set small goals, identify consequences of continuing to use unhealthy skills, make a to-do list, and deep breathing. Client selected tangible items for crisis survival kit that will help her remember these crisis interventions. Client appeared to benefit from creating a crisis action plan and increasing her self-awareness. Client to continue IOP to prevent decompensation, continue challenging distortions and continue utilizing healthy coping skills. Narrative Note: []
--- NOTE | 2019-02-16 12:30 | PCM.BH.PN ---
Progress Note Progress Note: History of Present Illness/Interim History: [] Patient is a 49-year-old female who is seen in follow-up at the [facility]. I last saw the patient 3 weeks ago and at that time the patient was increased to 5 mg p.o. daily which she has taken for the past 3 weeks. She states that she is much better and much less depressed now. Her mood has continued to improve and she feels that she is only minimally depressed or euthymic at this point. She still has thoughts that objects are sending her messages but they are happening much less frequently. She states that sometimes when she gets the thought she now doubts that the objects are really sending her messages. Her sleep is good and she is getting about 7 hours total. She is tolerating her Abilify well and has does not have any side effects. She denies any suicidal, homicidal ideation or thoughts of . She denies any hallucinations. Current Psychiatric Medications: [] Abilify 5 mg p.o. daily Mental Status Examination: [] Patient is a 49-year-old female who appears slightly older than her stated age. She is casually dressed and groomed with good hygiene. She is cooperative during the interview and her speech is normal rate and rhythm with no pressure. Eye contact is good. Her mood is euthymic and affect is full and normal. Thought process: Organized and goal-directed. Thought content: Minimal to mild delusions of reference remain but they are approaching the point where they are no longer delusions as the patient feels that she doubts that this may may be really happening. Thought content: No evidence of suicidal or homicidal ideation. No evidence of hallucinations. Reality testing somewhat intact. Judgment: Intact. Insight: Some present. 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 She felt safe during the interview and if it any time she does not feel safe she agrees to tell us or go to the emergency room. The risks, options, side effects and possible complications of the medication were discussed with the patient and she understands and accepts these. She is worried about getting side effects if we go up on the dose of Abilify and she does not wish to go up to as high as 10 mg. The patient does agree to increase her Abilify to 7.5 mg. Prescription was sent in for Abilify 5 mg with the instructions to take 1-1/2 or 7.5 mg p.o. daily. I will see the patient in follow-up in 2 weeks or as needed
--- NOTE | 2019-02-20 10:10 | BH.SGPN.GN ---
Behaviors/Verbalizations/Mental Status: []Client alert and oriented, casually dressed and groomed. Eye contact good. Motor activity appropriate. Speech within normal limits. Affect congruent. Mood euthymic, slightly anxious Thoughts linear, logical, no signs of hallucinations or delusions. Client Response/Progress/Benefit: []Pt was an active participant in group activity and discussion. Shared insight on quote of the day. Group worked together to define goals and identify the benefits of developing goals which included: sense of purpose, can measure progress, learn from goals, keeps you moving forward, increases confidence, and increases motivation. Group also identified barriers to setting and accomplishing goals which include: no motivation, self-doubt, depression, feeling lost, and unrealistic expectations. Attentive during education on developing SMART goals. Stated it's important to focus on small goals because can become overwhelmed if look at the end goal. Pt stated she believes having goals is important because it helps to have a purpose. Benefited from increase awareness of goal-setting methods. Will continue in IOP to prevent decompensation, maintain gains, and improve emotional regulation. Narrative Note: []
--- NOTE | 2019-02-20 11:11 | BH.SGPN.GN ---
Behaviors/Verbalizations/Mental Status: [Client alert and oriented, casually dressed and groomed. Eye contact good. Motor activity appropriate. Speech within normal limits. Affect congruent, mood anxious and euthymic. Thoughts linear, logical, no signs of hallucinations or delusions. ] Client Response/Progress/Benefit: [Pt attentive throughout, contributed thoughts to discussion at times and willing to ask for clarification when needed. Engaged in creating own mental health SMART goal. Pt identified goal is to successfully complete morning routine 3 days over the next week. Pt reported this goal will benefit her by increasing mood stability and help ?get back into my groove?. Pt identified potential barriers to accomplishing goal to include: forgetfulness, stinky attitude, and lack of time. Pt reported she will overcome barriers by setting a reminder alarm, engaging in opposite action, and plan ahead the night before. Seemed to benefit from identifying a SMART goal and coming up with strategies to overcome potential barriers. Pt to continue IOP to increase healthy coping skills, improve emotional regulation, and prevent decompensation.] Narrative Note: []
== END 2019-02-21 23:59 ==
LOC: BHIOP 09:00
PROVIDERS: Referring Provider Psychiatry & Neurology Psychiatry; Visit Provider Psychiatry & Neurology Psychiatry
DX: F33.3 Major depressive disorder, recurrent, severe with psychotic symptoms (principal); F42.9 Obsessive-compulsive disorder, unspecified; Z79.899 Other long term (current) drug therapy; F19.21 Other psychoactive substance dependence, in remission
CPT/HCPCS: 99214; H0035; H2012; H2020; 90834; 90837

== ENCOUNTER 2019-02-23 09:00 | Outpatient (RCR) | payer MEDICAID, SELFPAY ==
[2019-02-22 01:05] VITALS: BP 105/72; PULSE 90; RESP 14
--- NOTE | 2019-02-23 09:04 | BH.SGPN.GN ---
Behaviors/Verbalizations/Mental Status: [Eye contact is good. Motor activity is appropriate. Appearance is casual. Speech is Appropriate rate and tone. Mood is euthymic, anxious. Affect is congruent. Thoughts are linear and logical. No evidence of psychosis. Reviewed daily check in sheet and pt denies any active SI, plan, or intent. ] Client Response/Progress/Benefit: [Pt responded well to session, engaged throughout and open to processing with the group. Pt indicated current emotion as ?tired? and discussed that this is due to difficulties in maintaining current responsibilities. Indicated that she is recognizing warning signs for burnout and the need to scale back in some areas as current schedule is not sustainable. Did well to challenge herself to identify mental health wins which included spending time with her son over the weekend, as they went out to dinner for a ?mother-son date? which she described helped her to feel more connected with him. Additional win noted as being able to successfully pay her rent with money to spare. Expressed this is a major relief as finances are a primary stressor. Receptive of feedback provided by group and appearing to benefit from support and structure of group environment. Pt progress in self report of increasing use of self-care. Pt recommended continued IOP tx to prevent decompensation, decrease depression and anxiety, and promote ongoing application of healthy coping skills.] Narrative Note: []
--- NOTE | 2019-02-23 10:15 | BH.SGPN.GN ---
Behaviors/Verbalizations/Mental Status: [] Eye contact is good. Motor activity is appropriate. Appearance is casual. Speech is Appropriate. Mood is euthymic. Affect is full. Thoughts are linear and logical. No evidence of psychosis. Client Response/Progress/Benefit: [] Pt was an active participant in group discussion and activity. Worked with peers to identify and define pitfalls in mental health. Group identified several definitions which included; something that you continuously fall into, engaging in choices that keep us stuck, unexpected dangers, and unforeseen difficulty. Attentive on psycho-education on the impact of how one david with or manages pitfalls in regards to mental health. Group worked together to identify what keeps us stuck or vulnerable to pitfalls which included; decreased self-awareness, poor self-esteem, unhealthy coping, negative thoughts, being comfortable in the pitfall, fear of change, and self-sabotage. Benefited from increased awareness on the impact that pitfalls can have on mental health. Narrative Note: []
--- NOTE | 2019-02-23 11:18 | BH.SGPN.GN ---
Behaviors/Verbalizations/Mental Status: []Client alert and oriented, neatly dressed and groomed. Eye contact good. Motor activity appropriate. Speech within normal limits. Affect constricted, mood agitated. Thoughts linear, logical, no signs of hallucinations or delusions. Client Response/Progress/Benefit: []Client receptive of session, engaged throughout AEB client contributing to discussion and providing coping strategies. Processed activity with group and connected it to overcoming personal pitfalls in life. Client completed a worksheet where she identified personal pitfalls impacting mental health progress. Identified pitfalls as: self-sabotage, low self-esteem, negative self-talk, inconsistent self-care, and feeling discouraged. Client reflected on her growth since starting IOP and reported that she has ?a lot less pitfalls? than when she started. Client shared it takes awareness and self-reflection in order to overcome pitfalls. Attentive during psychoeducation on strategies to overcome pitfalls. Client stated she will work on preventing pitfalls by keeping track of her mental health wins. Benefited from identifying personal pitfalls and strategies to overcome these pitfalls. Progress noted as client reports an improved outlook on life and has been implementing healthy coping skills more consistently. Will continue IOP tx to promote distress tolerance skills and further improve daily functioning. Narrative Note: []
--- NOTE | 2019-02-24 13:29 | BH.MDN_ITS ---
Multi-Disciplinary Note - Note 60-min Individual Time Started:: 10:07 Date: 02/24/19 Purpose of session/treatment goals addressed:: The purpose of today's session was to assess current symptoms, stressors, and treatment goal progress. Another purpose was to provide psychoeducation regarding trauma and it?s impact on future response to conflict. Discussed conflict resolution skills. Eye Contact:: Good Motor Activity:: Appropriate Appearance:: Casual Speech:: Appropriate Mood:: Anxious, Dysthymic Affect:: Full Thoughts:: Linear, Logical, No evidence of hallucinations/delusions noted Staff Interventions:: Therapist asked open-ended and furthering questions to elicit information regarding current symptoms, stressors, and tx goal progress. Provided supportive feedback and empathic responses as client discussed recent stressors and difficulties in communicating during potential conflict. Therapist applied ND techniques to aide client in exploring potential barriers and solutions for improving application of healthy conflict resolution skills. P rovided psychoeducation on trauma response to conflict. Client Response:: Pt receptive of session, actively engaged throughout and openly discussed current stressors. She indicated that her morning started ?really shitty but is going better now? and explained that she and her daughter continue to struggle with healthy conflict resolution and appear to be arguing more frequently as a result. Pt noted that she had attempted to apply the communication skills discussed in a previous session and that her daughter was not receptive. Pt explained that she had introduced the idea of taking a break during discussion to regulate and prevent from responding out of anger; however, noted that her daughter had misinterpreted and assumed taking a break meant not returning to the discussion later when regulated again. Pt discussed that communication breakdowns such as this are a common occurrence as pt feels she struggles with verbalizing her thoughts effectively, especially during times of conflict with her daughter. Pt described her daughter as using an aggressive approach and often becomes defensive whereas pt tends to shut down and block out the conversation. Pt shared she and her daughter have been able to discuss the barrier of their different approaches in effectively resolving issues. Pt shared wanting to work on improving ability to communicate and prevent from shutting down as it bothers her when she does so. Noted feeling increasingly frustrated by the fact that she does not know why she tends to do this. Receptive of discussion regarding common trauma responses and how this may come into play during heated discussion or conflict. Pt indicated connecting with information discussed and shared ?I think this would be very helpful to Abigail as well, so she can better understand why I tend to shut down or dissociate?. Pt receptive of scheduling family session to review healthy conflict resolution skills and identify ways she and her daughter can better support one another. Pt indicated connecting with recommendation of utilizing a grounding tool such as doing something with her hands like drawing or knitting to remain present and decrease likelihood of shutting down when communicating during times of high emotion. Risks/Concerns:: No risks or concerns noted. Pt denies any active SI, plan, or intent as of this date, 02/23/19. Progress Toward Goals/Plan:: Progress noted. Pt continues to indicate improved ability to manage mental health triggers and is actively applying self-care and positive affirmation tools to continue to reduce depression and improve self- confidence levels. Additionally, notes consistently using healthy communication tools when calm however struggles to do so during times of emotion dysregulation. Willing to begin working to apply strategies reviewed in this session. Reports ongoing issues with conflict with her youngest daughter which has contributed to increased anxiety levels as a result. Additionally notes this week is a trauma anniversary date which she indicated may also be contributing to her anxiety, willing to schedule time for additional self-care throughout the next week. Recommended continued IOP tx to improve mood stability, increase healthy communication and conflict resolution, and revent decompensation. Time Stopped:: 11:03
--- NOTE | 2019-02-27 09:03 | BH.SGPN.GN ---
Behaviors/Verbalizations/Mental Status: [Eye contact is good. Motor activity is appropriate. Appearance is casual, grooming fair. Speech is Appropriate rate and tone. Mood is euthymic, anxious. Affect is congruent. Thoughts are linear and logical. No evidence of psychosis. Reviewed daily check in sheet and pt denies any active SI, plan, or intent.] Client Response/Progress/Benefit: [Pt responded well to session, engaged throughout and open to processing with the group. Pt indicated current emotion as ?cautiously optimistic? and discussed that this is due to feeling increasingly capable of managing stressors and accomplishing the small goals she has set for herself. Identified current mental health win as using opposite action to improve her mood when upset n previous night. Noted that she and her daughter went to get their [place] tree and spent time decorating. Additional win noted as being able to successfully communicate with her daughter without unnecessary conflict over the past several days. Receptive of feedback provided by group and appearing to benefit from support and structure of group environment. Pt progress in self report of increasing use of effective communication with supports and continued application of self-care practices. Pt recommended continued IOP tx to prevent decompensation, and promote ongoing application of healthy coping skills, and maintain stability.] Narrative Note: []
--- NOTE | 2019-02-27 10:30 | BH.SGPN.GN ---
Behaviors/Verbalizations/Mental Status: []Pt alert and oriented, eye contact good, casually dressed, motor activity appropriate, speech normal rate and tone, mood euthymic, congruent affect, thoughts linear and intact, no evidence of delusions or hallucinations. Client Response/Progress/Benefit: []Client engaged participant as shown by client?s contribution to discussion and helpful insight. During discussion about quote client stated self-care is like filling your own cup, not your stress jar. Client reported if don't fill own cup then hard to help others. Client participated in the discussion of the common myths about self-care including self-care is selfish, easy, makes us weak, and always fun. Client worked with group to debunk the myths about self-care. Client stated she now views self-care as a necessity and that self-care gives us strength. Client seemed to benefit from increased awareness of the importance of self-care. Client showing progress as shown by her increased awareness of unhealthy thought patterns. Will continue tx to identify and challenge distorted thoughts, increase healthy coping skills, and prevent decompensation. Narrative Note: []
--- NOTE | 2019-02-27 11:30 | BH.SGPN.GN ---
Behaviors/Verbalizations/Mental Status: []Client alert and oriented, casually dressed and groomed. Eye contact good. Motor activity appropriate. Speech within normal limits. Affect congruent, mood euthymic. Thoughts linear, logical, no signs of hallucinations or delusions. Client Response/Progress/Benefit: []Client receptive of session, actively listening and providing good insight to discussion. Willing to complete worksheet activity. Participated as the group further processed the activity and connected with the importance of self-care in maintaining mental health and promoting balance. Client completed self-assessment activity on the different areas of self-care and was able to identify current practices she uses and identify areas she can improve upon. Client reported she can improve her emotional and social areas of self-care. Client set a goal to improve in the area of social and emotional self-care. Client?s goal is to practice self-forgiveness and to hold herself accountable by sticking with plans that she makes. Client shared this would benefit client because ?I often make plans and then cancel? which reinforces anxiety and depression. Client appeared to benefit from increasing awareness of how she can improve her self-care balance. Progress noted as client has been able to prevent significant setbacks by using coping skills. Will continue IOP tx to promote mood stability, further reduce anxiety, and increase follow through. Narrative Note: []
--- NOTE | 2019-03-02 09:05 | BH.SGPN.GN ---
Behaviors/Verbalizations/Mental Status: []Client alert and oriented, disheveled in appearance. Eye contact good. Motor activity appropriate. Speech within normal limits. Affect congruent, mood anxious. Thoughts linear, logical, no signs of hallucinations or delusions. Client Response/Progress/Benefit: []Pt was an active participant in group discussion, providing input to peers and openly processing feelings with the group. Emotion for today is blah. Pt identified mental health positive is being able to adjust her day on Saturday after a friend cancelled plans they had for the evening. Pt stated additional mental health positive as hand making several [place] presents. Identified another positive is having a family session this week with her daughter. Pt identified current stressor is needing car repairs which increases financial stress. Progress noted in pt ability to actively apply healthy coping skills and challenge distorted thoughts outside of tx environment. Continued IOP tx recommended to continue application of healthy coping skills, identify and challenge distorted thoughts, and prevent decompensation. Narrative Note: []
--- NOTE | 2019-03-02 10:20 | BH.SGPN.GN ---
Behaviors/Verbalizations/Mental Status: []Client alert and oriented, casually dressed and groomed. Eye contact good. Motor activity appropriate. Speech within normal limits. Affect constricted, mood anxious. Thoughts linear, logical, no signs of hallucinations or delusions. Client Response/Progress/Benefit: []Client responded well to session, attentive and participating in group discussion. Group identified the benefits to setting boundaries as well as the consequences of not setting healthy boundaries. Participated in the discussion of benefits which included; increased confidence, self-love, protection, clearer understanding of one?s values, increased self-awareness, and promotion of growth. Client stated if one is not used to setting boundaries it can be awkward. Group identified the barriers that keep one from setting boundaries. Client shared sometimes others ?aren?t used you setting boundaries and you get used to the dysfunction.? Client engaged during discussion of the different types of boundaries and able to identify the benefits of each. Client able to recognize her own mental health suffers when she does not set boundaries with herself and others. Client seemed to benefit from increased awareness of how poor boundaries can negatively impact mental health. Will continue IOP tx to promote use of healthy coping skills and prevent decompensation of present delusional symptoms. Narrative Note: []
--- NOTE | 2019-03-02 11:19 | BH.SGPN.GN ---
Behaviors/Verbalizations/Mental Status: [Client alert and oriented, casual dress, hygiene appropriate. Eye contact good. Motor activity appropriate. Speech within normal limits. Affect congruent, mood dysthymic. Thoughts linear, logical, no signs of hallucinations or delusions. ] Client Response/Progress/Benefit: [Pt responded well to session, active participant and willing to provide insight throughout. Pt did well to engage in the boundary self-assessment activity and worked with group to further process. Pt discussed that she has been becoming much more aware of how her difficulties in setting internal boundaries with herself has impacted her anxiety and ability to regulate emotions. Noted that she has been practicing setting boundaries with others, but would benefit from improving internal boundaries as well. Appeared to benefit from group discussion on strategies for further improving personal boundaries. Identified wanting to improve her ability to set and maintain healthy time boundaries with herself, specifically in regard to prioritizing self-care. Progress noted in pt ability to identify impact of current boundaries on mental health progress and relationships. Pt to continue IOP tx to maintain gains made, improve emotion regulation, and continue to promote healthy change behaviors.] Narrative Note: []
--- NOTE | 2019-03-03 09:10 | BH.SGPN.GN ---
Behaviors/Verbalizations/Mental Status: [] Eye contact is good. Motor activity is appropriate. Appearance is casual. Speech is Appropriate. Mood is euthymic. Affect is full. Thoughts are linear and logical. No evidence of psychosis. Reviewed daily check in sheet and no reports of suicidal thoughts or intent. Client Response/Progress/Benefit: [] Pt was an active participant in group discussion. Emotion for today is chill and happy. Daily tracker notes 1/5 for anxiety and hoplessness. Shared that she had a very good night sleep last night. She was proactive and tried new strategies to help with sleep which were effective. Notes that a big win for her is that she is currently in a group with 4 males and is not triggered. Discussed why this is beneficial for her mental health and progress. Engaged and offered feedback to peers. Will continue in IOP to maintain progress, prevent decompensation, and increase healthy coping skills. Narrative Note: []
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
--- NOTE | 2019-03-06 16:51 | BH.MDN_ITS ---
Multi-Disciplinary Note - Note Family Time Started:: 09:06 Date: 03/06/19 Purpose of session/treatment goals addressed:: The purpose of this session was to engage client's daughter in client's treatment by discussing pt progress in treatment, ongoing symptoms, application of coping skills, and strategies for ongoing support. Another purpose was to provide psychoeducation regarding impacts of trauma on emotion regulation and develop strategies to improve communication and conflict resolution between pt and daughter. Eye Contact:: Good Motor Activity:: Appropriate Appearance:: Casual Speech:: Appropriate Mood:: Euthymic Affect:: Congruent Thoughts:: Linear, Logical, No evidence of hallucinations/delusions noted Staff Interventions:: Therapist used open-ended questions and active listening to gather information on client's and her daughter?s expectations for the session. Therapist encouraged open communication and provided clarification when necessary. Therapist provided insight to client?s treatment goals and progress. Therapist provided validation and offered strategies to promote mutual trust and understanding in the mother/daughter relationship. Provided trauma-informed treatment and gave psychoeducation regarding long-term impacts of trauma on human behavior and relationships.pt and her daughter with mindfulness based grounding exercises. Client Response:: Client responded well to session, receptive to meeting with therapist and daughter. Client able to identify what she has been working on while in IOP tx and during individual sessions, as well as shared areas in which she has seen personal progress. Pt discussed increased ability to triggers for her anxiety and intrusive thinking by incorporating increased use of affirmations and regularly referring back to her Trigger Action Plan created earlier in treatment. Pt daughter agreed that she has observed improved mood stability since pt began IOP program. Pt and daughter discussed that in the past week they have had improved communication and increased ability to interact without conflict, however historically this has been a major issue for them. Discussed having opposite conflict resolution styles, as pt shuts down and her daughter tends to lash out verbally. Insight provided by pt?s daughter that the difference in approach to conflict can make it difficult to empathize and often results in misinterpretation, feelings of invalidation, and maintains the conflict. Therapist provided pt and her daughter with information regarding impacts of complex trauma on conflict response and ability to manage stressors. Indicated connecting with review of how trauma can impact window of tolerance. Discussed a variety of strategies for improving distress tolerance as well as reviewed components of healthy communication. Pt and daughter agreeable to begin practicing asking for what they need when recognizing triggers and communicating when needing breaks to improve conflict resolution. Risks/Concerns:: Client denies any suicidal ideations, plan, or intent as of 03/06/19. Future oriented throughout session. Progress Toward Goals/Plan:: Client continues to report motivation to improve he r mental health and continues to deny suicidal ideations which demonstrates progress. Client self-reports she has been trying to engage in more opposite action, mindfulness skill, using positive affirmations, and checking-in with herself daily. Client?s daughter discussed concerns regarding client history of shutting down when stressed rather than ask for help when needing it. Reviewed importance of consistent use of supports and identifying warning signs. Will continue IOP tx to prevent decompensation, increase emotional regulation, and maintain safety. Time Stopped:: 10:08
--- NOTE | 2019-03-09 09:05 | BH.SGPN.GN ---
Behaviors/Verbalizations/Mental Status: [] Eye contact is good. Motor activity is appropriate. Appearance is casual. Speech is Appropriate. Mood is depressed. Affect is flat. Thoughts are linear and logical. No evidence of psychosis. Reviewed daily check in sheet and no reports of suicidal ideations or intent. Client Response/Progress/Benefit: [] Pt was an active participant in group discussion. Emotion for today is flat. Daily symptom notes 03/29 for anxiety, agitation, and hopelessness. Shared mental health wins which included working more hours and handling it. Utilized skills to work through stressors. Shared that tomorrow is going to be he last day in IOP. She is nervous. When asked about aftercare she notes that she has appt with new psychiatrist today. She has been having some concerns about her outpatient therapist noting that the therapist has cancelled several appointments. She asked for feedback on places to seeking counseling and is still contemplating whether or not to try and find a new therapist. Progress noted per pt report. Improved sleep, Benefited from group feedback, support, and encouragement. Will continue in IOP to maintain gains. Narrative Note: []
--- NOTE | 2019-03-09 10:15 | BH.SGPN.GN ---
Behaviors/Verbalizations/Mental Status: [Client alert and oriented, casually dressed and appropriately groomed. Eye contact good. Motor activity appropriate. Speech within normal limits. Affect congruent, mood euthymic. Thoughts linear, logical, no signs of hallucinations or delusions.] Client Response/Progress/Benefit: [Client active participant in group AEB providing input, actively listening, as well as taking notes throughout. Indicated that ?change is a consistent ongoing effort?. Group worked together to identify barriers to making changes or taking action in their lives which included: fear of the unknown, fear of failure, comfort zone, denial of need to change, and lack of self-awareness. Group also identified the benefits of taking action which included; increased hope and confidence, improved mental health, no longer feeling ?stuck? or stagnant, and personal growth. Client identified personal areas she would like to take back control of to include: avoidance, negative self-talk, unrealistic expectations, and fear of failing as well as fear of succeeding. Benefited from group through increased awareness of personal areas she wants to improve and benefits to taking action towards mental wellness. Progress noted in personal reflection of areas she would benefit from making changes for her mental health. Pt is recommended continued IOP level of care to improve mood stability, promote consistent application of healthy coping skills, and prevent decompensation.] Narrative Note: []
--- NOTE | 2019-03-09 11:20 | BH.SGPN.GN ---
Behaviors/Verbalizations/Mental Status: []Client alert and oriented, casually dressed and groomed. Eye contact good. Motor activity appropriate. Speech within normal limits. Affect congruent, mood anxious. Thoughts linear, logical, no signs of hallucinations or delusions. Client Response/Progress/Benefit: []Client was an active participant AEB client participating in discussion and taking notes throughout session. Client attentive and contributing to discussion of the different zones of taking action as well as the pros and cons of each. Client agreed with peers that to grow and improve mental health, one must step out of their comfort zone, but not take on too much at once. Client completed worksheet in which she identified a problem area to focus on, a SMART goal to help work on problem area, and identify additional supports needed to be successful. Client identified she wants to reduce avoiding situations that trigger her trauma. Client identified a small goal which is to not walk away when uncomfortable topics come up and she will try this for a week. Client stated additional supports needed to be successful with goal which included: deep breathng, grounding coping skills, self-soothing items, and reaching out to support. Appeared to benefit from creating a small goal to help client reduce avoidance. Will continue IOP tx to promtoe gains and establish aftercare. Narrative Note: []
--- NOTE | 2019-03-10 09:08 | BH.SGPN.GN ---
Behaviors/Verbalizations/Mental Status: []Client alert and oriented, casual dress, hygiene tended to. Eye contact good. Motor activity appropriate. Speech within normal limits. Affect congruent, mood euthymic and slightly anxious. Thoughts linear, logical, no signs of hallucinations or delusions. Reviewed client?s symptom tracker, no signs of suicidal ideation, plan, or intent as of today. Client Response/Progress/Benefit: []Pt was an engaged participant in group discussion, providing input and openly sharing thoughts with the group. Pt stated mental health positive was waking up early this morning and being productive by cooking, fixing sewing projects, doing laundry, and making coffee. Pt identified additional mental health positive as getting her car worked on which will reduce her stress level. Stressor is nervous that she won't be able to maintain progress after discharging from IOP today. Pt stated she has learned so much since starting IOP and notes progress with mood, decrease in anxiety, and improved thought patterns. Pt reported she knows it's important to do weekly check-ins with self to make sure she is sticking with using her skills. Pt has made significant treatment progress since starting IOP and will discharge today. Narrative Note: []
--- NOTE | 2019-03-10 10:05 | BH.MDN_ITS ---
Multi-Disciplinary Note - Note 60-min Individual Time Started:: 08:07 Date: 03/10/19 Purpose of session/treatment goals addressed:: Reviewed current symptoms and progress in IOP. Addressed treatment goals 1 and 2. Completed DSM cross-cutting scales. Discussed discharge and aftercare. Eye Contact:: Good Motor Activity:: Appropriate Appearance:: Casual Speech:: Appropriate Mood:: Euthymic, Anxious Affect:: Full Thoughts:: Linear, Logical, No evidence of hallucinations/delusions noted Staff Interventions:: Therapist used open-ended questions to elicit information and further explore client's thoughts and perception of personal progress throughout IOP program. Therapist reviewed with pt his personal supports, warning signs, and coping skills aimed at continuing to promote gains and prevent setbacks. Therapist discussed aftercare plan with client and used strengths-perspective to highlight and empower client on the goals client accomplished. Therapist discussed the benefits of ongoing maintenance and use of daily coping skills. Handed out and reviewed DSM-scales. Client Response:: Pt reports that feeling she has made progress since beginning IOP tx and discussed feeling anxious about ?what the next step is?. She went on to describe noticing most progress in her application of daily self-care practices and reflected upon ways improved self-care has aided in making progress in other areas. Noted that spending more time crafting, practicing mindfulness/grounding skills, and using affirmational statements has contributed to decreased irritability, improved communication with her daughter and other supports, and increased positive outlook. Pt identified that she has made progress in improving self-confidence as well, however continues to struggle with this. Expressed a desire to begin more intensive trauma therapy rather than continue with traditional outpatient counseling as she believes trauma related guilt and negative thoughts are continuing to present as a barrier to further improving self-confidence. Receptive of referral information provided for [employer] and other local agencies specializing in trauma therapeutic modalities. Discussed some anxiety regarding her ability to find purpose for herself now that she is done with the program and her children are no longer in need of her care. Pt worked with therapist to challenge distortions associated with this thought and she was able to identify options related to her interests which included volunteering at the [facility] [facility] [employer] program, volunteering at [employer], finding a local [employer] group and continuing to reach out to supports. Expressed plans to continue to work on improving communication with her supports and practice daily gratitude. Risks/Concerns:: No risks or concerns noted. Pt denies any active SI, plan, or intent as of this date 03/10/19. Progress Toward Goals/Plan:: Progress noted. Pt completed DSM cross-cutting scales which showed a 44% reduction in symptoms. Noted reductions in impulsiveness, obsessional thinking and checking behaviors, anger, and depression. Pt is displaying progress in ability to set boundaries, communicate with supports, and practice self-compassion. Increased ability to identify trauma related and emotional triggers and is actively applying distress tolerance skills to prevent crisis escalation. Increased impendence, increased socialization and self-care, decreased depression, and increase in healthy coping skills. Consistent use to skills and thought challenging. Continues to struggle with self-confidence and anxiety however decreased intensity, frequency, and duration. Given pt progress, she is recommended to discharge to individual outpatient counseling at this time. Pt currently connected with [facility] for psychiatry and counseling. Last psychiatry appt. was yesterday, 03/09/19 with Cindi Casey. Reports a desire to seek trauma specific counseling services and was provided with referral resources for [facility]. Time Stopped:: 09:11
--- NOTE | 2019-03-10 10:15 | BH.SGPN.GN ---
Behaviors/Verbalizations/Mental Status: []Client alert and oriented, casually dressed and groomed. Eye contact good. Motor activity appropriate. Speech within normal limits. Affect congruent, mood euthymic. Thoughts linear, logical, no signs of hallucinations or delusions. Client Response/Progress/Benefit: []Client active participant during group AEB client contributing to discussion. Client reported it is important to have a variety of social supports and indicated that ?supports let us know we arent?t alone and keep us from floundering.? Client helped group brainstorm potential consequences of not having a support system and barriers to developing social supports, which included: feeling like a burden, poor communication, cognitive distortions, fear of rejection and judgement, being closed-minded, and being afraid to ask for help. Group identified benefits of social support as reminder to use healthy coping skills, positive reinforcement, less anxiety, different perspective, less self-doubt, resources, and accountability. Client stated it is important to have social support, but each individual must be a support from themselves as well. Client took an active role during the group activity and was providing positive encouragement as well as open to feedback from others. Appeared to benefit from gaining awareness of barriers that keep people from seeking social support as well as identifying the benefits of increasing support. Client has shown significant progress in reducing depression, paranoia, and anxiety. Client will discharge from [facility] tx today. Narrative Note: []
--- NOTE | 2019-03-10 11:15 | BH.SGPN.GN ---
Behaviors/Verbalizations/Mental Status: [Pt alert and oriented, eye contact good, casually dressed, motor activity appropriate, speech normal rate and tone, mood anxious and euthymic, congruent affect, thoughts linear and intact, no evidence of delusions or hallucinations.] Client Response/Progress/Benefit: [Client engaged and remained an active participant AEB client contributing to discussion, participating in activity, and listening to others. Client contributed to discussion about the different types of support and benefits different types of support can provide. Client worked with the group to identify strategies for improving development of new supports and better utilization of current supports. Client identified she would like to improve use of support groups and indicated that this would benefit her mental health be reducing loneliness and increasing hope. Client identified her first step is to identify support groups she could attend and work on setting a goal of going 1x/week for one month and evaluate. Client seemed to benefit from identifying a type of support she would like to improve upon and creating actionable steps to promote follow-through. Client to discharge from [facility] level of care given progress and is recommended continued individual outpatient counseling to prevent decompensation, maintain gains made, improve self-esteem, and promote ongoing utilization of healthy coping skills.] Narrative Note: []
--- NOTE | 2019-03-11 13:05 | PCM.BH.PN ---
Progress Note Progress Note: History of Present Illness/Interim History: [] Patient is a 49-year-old female who is seen in follow-up at the [facility] program. I last saw the patient about 3 weeks ago. Patient has been doing well in the IOP program and today is her probable last day in the program. She states that she feels much better and minimally depressed at this point in time. She states that her mood has continued to improve and she feels that she has learned skills to help manage her moods. She is working today and is able to work well. Her sleep is improving by using sleep hygiene techniques and she is now sleeping 6 hours straight through and takes an occasional nap during the day. She has occasional down days but she said her depression seems to be resolving. She has some anxiety present but this is worse if she does not sleep well or if she is very tired and feels overwhelmed. She states that she still has the feelings or believe that she is receiving messages from objects at times but there must much less now and she is able to ignore them. She says that she is actually had these for about 7 years. They started when she liked a man she was hanging out with and he did not like her. He was using black magic on her. She only had these delusions while she was depressed but she says they have never completely resolved. She now believes that she does get messages from objects but she is not sure if she interprets that the messages correctly. She denies any suicidal, homicidal ideation or any other delusions or hallucinations. Current Psychiatric Medications: [] Abilify 5 mg tablets, she takes 1-1/2 or 7.5 mg p.o. daily. Mental Status Examination: [] Patient is a 49-year-old female who appears slightly older than her stated age. She is casually dressed and groomed with good hygiene. She is cooperative during the interview and her eye contact is good. Her speech is normal rate and rhythm with no pressure. Her mood is euthymic and affect is full and normal. Thought process: Organized and goal-directed. Thought content: Mild delusions of reference remain but they do not interfere with the patient function. No evidence of suicidal or homicidal ideation. No evidence of any hallucinations. Reality testing is for the most part intact. Judgment: Intact. Insight: Decent. Impulsivity: Low. 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 She felt safe during the interview and if at any time she does not feel safe she promises to go to the emergency room or contact her outpatient providers. The risk, options, possible side effects and complications of the medication were discussed with the patient and she understands and accepts these. A refill on Abilify was given to the patient. She has an appointment with an outpatient psychiatrist for follow-up.
== END 2019-03-11 14:00 | disposition home or self-care (01) ==
LOC: BHIOP 09:00
PROVIDERS: Referring Provider Psychiatry & Neurology Psychiatry; Visit Provider Psychiatry & Neurology Psychiatry
DX: F33.3 Major depressive disorder, recurrent, severe with psychotic symptoms (principal); F42.9 Obsessive-compulsive disorder, unspecified; Z79.899 Other long term (current) drug therapy; F19.11 Other psychoactive substance abuse, in remission
CPT/HCPCS: 99214; H0035; H2020; 90837; 90847

== ENCOUNTER → 2020-08-02 07:56 | Outpatient (CLI) | payer MEDICAID, SELFPAY ==
[2020-08-02 09:38] LABS: Absolute Lymphocyte Count 1.71 X10^3/uL (0.83-4.51); Absolute Neutrophil Count 5.6 X10^3/uL (2.0-7.7); Basophil# 0.05 X10^3/uL; Basophil% 0.6 % (0-1); Eosinophil# 0.27 X10^3/uL; Eosinophils% 3.3 % (0-5); Hematocrit 35.5 % (37-47); Hemoglobin 10.5 g/dL (12.0-15.0); Lymphocyte # 1.71 X10^3/ul (0.83-4.51); Lymphocyte % 20.9 % (19-41); Mean Corp Hgb Conc 29.6 g/dL (32-36); Mean Corpuscular Hgb 25.1 pg (27.0-32.0); Mean Corpuscular Volume 84.9 fL (81-99); Monocyte# 0.47 X10^3/uL; Monocyte% 5.8 % (0-10); NRBC Flagged by Analyzer 0 % (0-5); Neutrophil # 5.64 X10^3/uL (2.7-7.7); Platelet Count 342 K/mm3 (150-450); RBC Distribution Width CV 15.3 % (11.6-14.6); RBC Distribution Width SD 47.4 fl (35.1-43.9); Red Blood Count 4.18 M/mm3 (4.2-5.4); White Blood Count 8.2 K/mm3 (4.4-11.0)
[2020-08-02 10:29] LABS: ALB/GLOB Ratio 1.1 RATIO (0.9-2.4); AST(SGOT) 19 U/L (15-37); Alanine Aminotransfer ALT/SGPT 30 U/L (13-56); Albumin, Serum 3.5 g/dL (3.2-5.0); Alkaline Phosphatase 80 U/L (45-117); Anion Gap 4 (5-15); BUN 10 mg/dL (7-18); BUN/Creat Ratio 13.5 RATIO (10-20); Calcium,Total 9.2 mg/dL (8.5-10.1); Chloride 107 mmol/L (98-107); Cholesterol 176 mg/dL (200); Creatinine, Serum 0.74 mg/dL (0.55-1.02); EST Glomerular Filtration Rate 89 mL/min (>60); Est Glom Filt Rate - Afr Amer 107 mL/min (>60); Globulin 3.2 g/dL (2.2-4.2); Glucose 77 mg/dL (74-106); High Density Lipoprotein 57 mg/dL; Potassium 4.2 mmol/L (3.5-5.1); Protein, Total 6.7 g/dL (6.4-8.2); Sodium Level 138 mmol/L (136-145); Thyroid Stim Hormone (TSH) 2.01 uIU/mL (0.358-3.74); Triglycerides 186 mg/dL; Very Low Density Lipoprotein 37 mg/dL (5-40)
[2020-08-03 12:27] LABS: H. Pylori Antibody (IgG) 0.23 (0.00-0.79)
== END ==
PROVIDERS: Referring Provider Nurse Practitioner Adult Health; Visit Provider Nurse Practitioner Adult Health
DX: K21.9 Gastro-esophageal reflux disease without esophagitis (principal)
CPT/HCPCS: 36415; 80053; 80061; 84443; 85025; 86677

== ENCOUNTER → 2020-08-03 13:48 | Outpatient (CLI) | payer MEDICAID, SELFPAY ==
[2020-08-03 15:22] LABS: Vitamin B12 445 pg/mL (211-911)
[2020-08-03 16:00] LABS: Iron 63 ug/dL (50-170); Iron Binding Capacity,Total 441 ug/dL (250-450); PERCENT IRON SATURATION 14.3 % (15.0-55.0)
== END ==
PROVIDERS: Visit Provider Nurse Practitioner Adult Health
DX: D64.9 Anemia, unspecified (principal)
CPT/HCPCS: 36415; 82607; 82746; 83540; 83550

== ENCOUNTER → 2020-08-05 15:45 | Outpatient (CLI) | payer MEDICAID, SELFPAY | PROVIDERS: Referring Provider Nurse Practitioner Adult Health; Visit Provider Nurse Practitioner Adult Health | DX: D64.9 Anemia, unspecified (principal) | CPT/HCPCS: 36415; 82274 ==

== ENCOUNTER → 2020-08-08 14:12 | Outpatient (CLI) | payer MEDICAID, SELFPAY ==
--- NOTE | 2020-08-08 14:14 | BI_ITS ---
MAMMOGRAPHY - BILATERAL SCREENING 3-D TOMOSYNTHESIS REASON FOR EXAM: Female, 50 years old. Routine screening PERTINENT HISTORY: No significant family history. TECHNIQUE: 2-D mammograms and 3-D Tomosynthesis of the breast (s) were performed. CAD was performed. COMPARISON: 06/20/2018 FINDINGS: The breast composition is heterogeneously dense that can obscure small breast masses. Scattered benign calcifications are seen. No dense spiculated masses or suspicious microcalcifications are identified. No architectural distortion is identified. There is no skin thickening or retraction. There has been no significant change since the prior study. BI/SCRN MAMM (CAD)W/KATY BILAT IMPRESSION: No mammographic signs of malignancy. Routine yearly mammograms recommended. ASSESSMENT CATEGORY: BIRADS Category 2: Benign. A letter regarding these results will be sent to the patient by the facility within 30 days. FOLLOW UP RECOMMENDATION: Yearly follow up mammogram recommended. (A) Approximately 10% of breast cancers are not detected by mammography. A normal mammogram should not delay biopsy of a clinically suspicious abnormality. Electronically Signed: Philipp Mantilla MD at 16:04 EDT , Service support ,
== END ==
PROVIDERS: Referring Provider Nurse Practitioner Adult Health; Visit Provider Nurse Practitioner Adult Health
DX: Z12.31 Encounter for screening mammogram for malignant neoplasm of breast (principal)
CPT/HCPCS: 77063; 77067

== ENCOUNTER → 2020-08-16 11:47 | Outpatient (CLI) | payer MEDICAID, SELFPAY ==
[2020-08-16 11:59] LABS: Absolute Lymphocyte Count 2.06 X10^3/uL (0.83-4.51); Absolute Neutrophil Count 5.4 X10^3/uL (2.0-7.7); Basophil# 0.05 X10^3/uL; Basophil% 0.6 % (0-1); Eosinophil# 0.33 X10^3/uL; Eosinophils% 3.9 % (0-5); Hematocrit 38.6 % (37-47); Hemoglobin 11.5 g/dL (12.0-15.0); Lymphocyte # 2.06 X10^3/ul (0.83-4.51); Lymphocyte % 24.4 % (19-41); Mean Corp Hgb Conc 29.8 g/dL (32-36); Mean Corpuscular Hgb 25.2 pg (27.0-32.0); Mean Corpuscular Volume 84.6 fL (81-99); Mean Platelet Vol. 8.6 fl (6.2-12.0); Monocyte% 7.1 % (0-10); NRBC Flagged by Analyzer 0 % (0-5); Neutrophil # 5.36 X10^3/uL (2.7-7.7); Neutrophil % 63.5 % (47-70); Platelet Count 328 K/mm3 (150-450); RBC Distribution Width CV 15.9 % (11.6-14.6); RBC Distribution Width SD 48.8 fl (35.1-43.9); Red Blood Count 4.56 M/mm3 (4.2-5.4); White Blood Count 8.4 K/mm3 (4.4-11.0)
== END ==
DX: D64.9 Anemia, unspecified (principal)
CPT/HCPCS: 36415; 85025

== ENCOUNTER → 2021-02-20 13:51 | Outpatient (CLI) | payer MEDICAID, SELFPAY ==
--- NOTE | 2021-02-20 13:55 | CT_ITS ---
STUDY: LOW DOSE CT LUNG CANCER SCREENING REASON FOR EXAM: Female, 51 years old. NICOTINE DEPENDENCY RADIATION DOSAGE (If Supplied By Facility): CTDIvol = ( 2.39 ) mGy, DLP = ( 76.53 ) mGycm TECHNIQUE: No contrast was administered. Low dose technique was utilized (average mAS-38 and kVp 120). 1.25 mm axial source images with a slice interval of 1.25-mm were reconstructed in lung windows. 2.5 mm axial source images with a slice interval of 2.5-mm were reconstructed in lung windows. 5.0 mm axial source images with a slice interval of 5.0-mm were reconstructed in soft tissue windows. Nodule measured using lung windows on PACS and/or independent workstation with automated measurement of minimum and maximum diameter. Nodule measurement reported as average diameter rounded to the nearest whole number. Growth is defined as an increase ins size of greater than 1.5 mm. COMPARISON: None. NODULES: Total lung nodules (excluding granulomas): 0 Emphysema: Not present Endobronchial lesion: None Aorta: No significant atherosclerosis Coronary arteries: No significant atherosclerosis. Heart: Normal size Pulmonary artery: Unremarkable for unopacified technique Mediastinal nodes: No adenopathy Other chest and abdominal findings: Cholecystectomy. CT/Low Dose CT Lung Screening IMPRESSION: Lung-RADS category 1 - Continue annual screening with LDCT in 12 months. IMPORTANT NOTES FOR USE: ACR Lung-RADS Version 1.1 Assessment Categories Release Date: 2018 Category: Coded 0-4 bases on nodule(s) with highest degree of suspicion. Negative screen is defined as categories 1 and 2; a positive screen is defined as categories 3 and 4. Category 3 and 4A nodules that are unchanged on interval CT should be coded as category 2, and individuals returned to screening in 12 months. Category 4X: Category 3 or 4 nodules with additional imaging findings that increase the suspicion of lung cancer, such as spiculation, GGN that doubles in size in 1 year, enlarged lymph notes, etc. Category Modifiers: S (significant finding unrelated to lung cancer) Electronically Signed: Aren Brewer MD (Brooks) at 14:38 EST , Service support ,
== END ==
PROVIDERS: Referring Provider Nurse Practitioner Adult Health; Visit Provider Nurse Practitioner Adult Health
DX: Z12.2 Encounter for screening for malignant neoplasm of respiratory organs (principal); F17.200 Nicotine dependence, unspecified, uncomplicated
CPT/HCPCS: 71271

== ENCOUNTER → 2021-03-21 08:20 | Outpatient (CLI) | payer MEDICAID, SELFPAY ==
[2021-03-21 08:44] LABS: Absolute Lymphocyte Count 1.74 X10^3/uL (0.83-4.51); Basophil# 0.06 X10^3/uL; Basophil% 0.6 % (0-1); Eosinophils% 3.1 % (0-5); Hematocrit 33.8 % (37-47); Hemoglobin 9.7 g/dL (12.0-15.0); Lymphocyte # 1.74 X10^3/ul (0.83-4.51); Mean Corp Hgb Conc 28.7 g/dL (32-36); Mean Corpuscular Hgb 22.7 pg (27.0-32.0); Mean Corpuscular Volume 79.2 fL (81-99); Mean Platelet Vol. 8.7 fl (6.2-12.0); Monocyte# 0.57 X10^3/uL; Monocyte% 5.9 % (0-10); NRBC Flagged by Analyzer 0 % (0-5); Neutrophil # 6.96 X10^3/uL (2.7-7.7); Platelet Count 384 K/mm3 (150-450); RBC Distribution Width CV 15.9 % (11.6-14.6); RBC Distribution Width SD 45.1 fl (35.1-43.9); Red Blood Count 4.27 M/mm3 (4.2-5.4); White Blood Count 9.7 K/mm3 (4.4-11.0)
[2021-03-21 09:21] LABS: Iron 21 ug/dL (50-170); Iron Binding Capacity,Total 459 ug/dL (250-450)
[2021-03-21 11:56] LABS: Ferritin 4 ng/mL (8-252)
== END ==
DX: D64.9 Anemia, unspecified (principal)
CPT/HCPCS: 36415; 82728; 82746; 83540; 83550; 85025

== ENCOUNTER 2021-04-07 15:20 | Outpatient (CLI) | payer MEDICAID, SELFPAY ==
[2021-04-07 09:38] LABS: Absolute Lymphocyte Count 1.29 X10^3/uL (0.83-4.51); Absolute Neutrophil Count 5.2 X10^3/uL (2.0-7.7); Basophil# 0.04 X10^3/uL; Basophil% 0.5 % (0-1); Eosinophil# 0.19 X10^3/uL; Eosinophils% 2.6 % (0-5); Hemoglobin 11.7 g/dL (12.0-15.0); Lymphocyte # 1.29 X10^3/ul (0.83-4.51); Lymphocyte % 17.7 % (19-41); Mean Corp Hgb Conc 29.3 g/dL (32-36); Mean Corpuscular Hgb 24.3 pg (27.0-32.0); Mean Platelet Vol. 9.3 fl (6.2-12.0); Monocyte# 0.48 X10^3/uL; Monocyte% 6.6 % (0-10); NRBC Flagged by Analyzer 0 % (0-5); Neutrophil # 5.24 X10^3/uL (2.7-7.7); Neutrophil % 72.1 % (47-70); POSITIVE MORPHOLOGY YES; Platelet Count 299 K/mm3 (150-450); RBC Distribution Width CV 22.5 % (11.6-14.6); RBC Distribution Width SD 65.9 fl (35.1-43.9); Red Blood Count 4.82 M/mm3 (4.2-5.4); White Blood Count 7.3 K/mm3 (4.4-11.0)
[2021-04-07 09:41] LABS: Differential Indicated SCAN CRITERIA MET
[2021-04-07 10:00] LABS: Vitamin B12 398 pg/mL (211-911)
[2021-04-07 10:42] LABS: Iron 58 ug/dL (50-170); Iron Binding Capacity,Total 379 ug/dL (250-450); PERCENT IRON SATURATION 15.3 % (15.0-55.0)
[2021-04-07 10:46] LABS: Platelet Estimate ADEQUATE (ADEQ)
[2021-04-07 10:47] LABS: Anisocytosis 1+; Red Cell Morphology N CHROM NORMAL (NORM C&C)
--- NOTE | 2021-04-07 15:23 | US_ITS ---
STUDY: ULTRASOUND OF THE FEMALE PELVIS - COMPLETE REASON FOR EXAM: Female, 51 years old. DYSMENORRHEA TECHNIQUE: Transabdominal COMPARISON: None. FINDINGS: The uterus is anteverted and is in a midline position. The uterus measures 12 x 7.5 cm. Normal uterine cervix. The endometrium measures 5 mm in thickness, and is hyperechoic. There is no demonstrated endometrial mass. There is no demonstrated myometrial mass. I.U.D. - The patient does not have an I.U.D. The right ovary is visualized. The right ovary measures 2.5 x 2.7 cm. There is no right ovarian cyst or ovarian mass. There is no visualized right adnexal mass or complex lesion. There is normal arterial and normal venous vascularity. The left ovary is visualized. The left ovary measures 2.5 x 2.6 cm. There is no left ovarian cyst or ovarian mass. There is no visualized left adnexal mass or complex lesion. There is normal arterial and normal venous vascularity. There is no fluid in the cul-de-sac. Urinary bladder is 280 cc. US/Pelvic (Non ) IMPRESSION: There are no acute findings. Electronically Signed: Tommy Lara MD at 19:38 EST , Service support ,
== END 2021-04-07 23:59 | disposition short-term general hospital (02) ==
LOC: US 15:22
PROVIDERS: Referring Provider Nurse Practitioner Adult Health; Visit Provider Nurse Practitioner Adult Health
DX: D64.9 Anemia, unspecified (principal); N94.6 Dysmenorrhea, unspecified
CPT/HCPCS: 36415; 76856; 82274; 82607; 82746; 83540; 83550; 85025

== ENCOUNTER 2021-05-15 11:03 | Outpatient (CLI) | payer MEDICAID, SELFPAY ==
--- NOTE | 2021-05-15 | EMB_PTH ---
PATIENT: RAZIA CARRILLO LOC: [facility] U#:[id number] AGE/SX: 51/F ROOM: RE05/15/[address]: REGLA Gilliam : 1970 BED: DIS: 05/15/2021 SPEC #: [id number] RECD: 05/15/21 11:13 STATUS: GRACIELA REKermit #: [id number] LINDA: 05/15/21 00:[address]: Hermila Yun NP DEPT: SURGICAL PATHOLOGY RECD BY: Rico Adams ENTERED: 05/15/21 11:13 SP TYPE: ENDOM BX/C VERN DR: Judy [facility] Tissues: Endometrium, NOS Procedures: Surgery Specimen Level IV HEADER OPERATION: Endometrial biopsy PRE-OP DIAGNOSIS: Abnormal uterine bleeding TISSUE SUBMITTED: Endometrial biopsy MICROSCOPIC DIAGNOSIS Endometrium, biopsy: Polypoid fragment of weakly proliferative endometrium with mild disorder. AM:debra 05/16/2021 MICROSCOPIC DESCRIPTION Slides are reviewed. GROSS DESCRIPTION Received is one container labeled with the patient's name and not further designated. The specimen consists of multiple fragments of hemorrhagic soft tissue that in aggregate measure 2.5 x 1.5 x 0.1 cm. The specimen is totally submitted in one cassette. / SJ:debra 05/15/2021 TC:5 CPT: 58222
== END 2021-05-15 23:59 | disposition home or self-care (01) ==
LOC: LABSPEC 11:04
PROVIDERS: Referring Provider Nurse Practitioner Women's Health; Visit Provider Nurse Practitioner Women's Health
DX: N93.9 Abnormal uterine and vaginal bleeding, unspecified (principal)
CPT/HCPCS: 88305

== ENCOUNTER 2021-05-31 08:55 | Day surgery (SDC) | payer MEDICAID, SELFPAY ==
[2021-05-31] VITALS (7 sets, daily range): BP systolic 94–138; BP diastolic 65–98; PULSE 61–77; RESP 16–18; TEMP 36.1–36.8; O2SAT 98–100; BMI 33.3
--- NOTE | 2021-05-31 | GASB_PTH ---
PATIENT: RAZIA CARRILLO LOC: EN U#:[id number] AGE/SX: 51/F ROOM: RE05/31/[address]: Dr. Apollo Armstrong MD : 1970 BED: DIS: 05/31/2021 SPEC #: [id number] RECD: 05/31/21 13:20 STATUS: GRACIELA GEENA #: [id number] LINDA: 05/31/21 00:[address]: Apollo Armstrong DEPT: SURGICAL PATHOLOGY RECD BY: Rico Adams ENTERED: 05/31/21 13:20 SP TYPE: Gastric Bx OTHR DR: Sonja Lazaro, [employer] [facility] Tissues: Gastric mucous membrane Procedures: Surgery Specimen Level IV HEADER OPERATION: Colonoscopy, EGD ([facility] [place] biopsy PRE-OP DIAGNOSIS: Screening TISSUE SUBMITTED: Antrum biopsy for histo and H. pylori MICROSCOPIC DIAGNOSIS Antrum, biopsy: Mild gastritis. See microscopic description and comment. SJ:debra 06/01/2021 COMMENT The results of immunohistochemistry for Helicobacter pylori will be reported separately ([id number]). MICROSCOPIC DESCRIPTION Slides are reviewed. The specimen shows fragments of gastric mucosa with chronic inflammatory cell infiltrates in the lamina propria consisting of lymphocytes and plasma cells, consistent with mild chronic gastritis. GROSS DESCRIPTION Received in fixative is one container labeled with the patient's name and designated antrum biopsy. The specimen consists of one irregular fragment of light [place] soft tissue that measures 0.3 x 0.3 x 0.1 cm. The specimen is totally submitted in one cassette. / RENÉ:debra 05/31/2021 TC:5 CPT: 65332
[2021-05-31] MEDS: Lactated Ringers 1,000 ML 15 ML IV (09:25)
--- NOTE | 2021-05-31 09:42 | HP.PCM_ITS ---
History and Physical Date of Admission: 05/31/21 Date of Service: 05/08/21 MR#:[id number]: RAZIA CARRILLO [facility] #:[id number]:1970 Provider:Dr. Apollo Armstrong MDAge/Sex: 51/F [facility] Int[facility] Vital Signs 05/08/21 10:06 Height 5 ft 4 in Weight: 199 lb BMI 34.1 BP 139/87 H Blood Pressure Location Rt brachial Position Sitting Respiration 17 Pulse 87 Pulse Source Monitor Temp 97.3 F L Temp Source Temporal Pulse Oximetry (%) 95 Oxygen Delivery Method room air Intake Visit Reasons: COLONOSCOPY Chief Complaint: GERD, belching Allergies No Known Allergies Allergy (Verified 05/08/21 10:15) [facility] Medical History (Updated 05/08/21 @ 10:[address] Apollo Armstrong MD) Anxiety and depression Arthritis GERD (gastroesophageal reflux disease) Hepatitis C, chronic Surgical History History of dilation and curettage (~1996) History of laparoscopic cholecystectomy (~2004) History of lumpectomy (~1996) Family History (Updated 11/20/18 @ 08:43 by Kaela Aguirre) Father Diabetes Hypertension Mother Kidney disease Aunt Cancer Hodgkins Social History (Updated 05/08/21 @ 10:06 by Shannan Saturday) Smoking Status: Current every day smoker tobacco type: cigarettes Smoking packs per day: 1 Smoking cigarettes per day: 20.0 alcohol intake: current details: socially substance use type: does not use HPI HPI HPI: RAZIA CARRILLO, is a 51 F who presents to the office today for need to schedule screening colonoscopy secondary to age. They are referred for surgical consultation from Salma Lazaro NP of the [facility]. Patient has not had prior colonoscopy. Patient has no personal history of inflammatory bowel disease, diverticulitis, or colon cancer. They describe their bowel habits as normal, but a little messed up lately secondary to starting iron for an unrelated diagnosis of anemia. They are now experiencing multiple looser stools a day without significant straining. She does admit to occasional constipation which responds well to Colace. Being on the iron supplementation, the stools ar e now dark but she denies any observation of blood. They do not regularly take fiber supplements. Patient has a family history of colon cancer in her maternal great-grandmother. She is uncertain when her grandmother was diagnosed but believes that she succumbed to this diagnosis in her late 60s. The patient's weight is stable. Patient's previously?mentioned diagnosis of anemia is explained by a history of heavy menses. She confirms that she had a occult stool study that was unremarkable. Patient does have a longstanding history of GERD. Symptoms are well managed on omeprazole. She denies any breakthrough symptomology. She denies any symptoms of bloating or nausea. However, patient was scheduled for prior EGD, but given her absence of symptoms never followed through with this. Patient is a longtime smoker. Patient has a history of positivity for hepatitis C, but states she was told her viral load is nonexistent and therefore treatment was not warranted. Patient is not on any blood thinner medications. ROS General General: Yes fatigue; No weight change, appetite, colon cancer, breast cancer or weakness Additional Details: Recently diagnosed with anemia as the cause to her fatigue. Is now on iron supplements and has noted improvement. HEENT HEENT: No difficulty swallowing, eye injury, eye surgery, swollen glands or hoarseness Endo Endocrine: No thyroid disease, diabetes mellitus, thyroid cancer, Hair loss, heat intolerance or cold intolerance Skin Skin: No rash or changing moles Musc Musculoskeletal: Yes arthritis; No back problems, rheumatoid arthritis, gout or joint pain Cardio Cardiovascular: No murmur, pacemaker, heart disease, atrial fibrillation, high blood pressure, heart attack, heart stent, palpitations, shortness of breat with exertion or chest pain Psych Psychiatric: Yes depression and anxiety; No hearing voices Resp Respiratory: No shortness of breath, No sleep apnea, No cough, No COPD, No asthma, No emphysema and No wheezing Gastro Gastrointestinal: No abdominal pain, No nausea or vomiting, Yes diarrhea, Yes constipation, No blood in stool, Yes acid reflux, No hemorrhoids, Yes ulcers, No gallbladder problem and No black,tarry stools Levi Hematologic: No blood thinners, Yes blood disorders, No bleeding, Yes anemia and No blood clots Additional Details: History of Hepatitis C. Is currently on iron for anemia. Neuro Neurologic: No system reviewed and no additional complaints, except as documented, No as per HPI, No abnormal gait, No abnormal hearing, No abnormal movements, No abnormal speech, No behavioral changes, No burning sensations, No confusion, No convulsions, No disequilibrium, No dizziness, No localized weakness, No frequent falls, No headache(s), No lack of coordination, No loss of vision, No memory loss, No numbness, No other visual disturbances, No radicular pain, No restless legs, No sensory deficit, No syncope, No tingling, No tremor(s), No weakness and No other Exam Const General: cooperative Nutritional Appearance: well nourished Orientation: alert, awake and oriented x3 Resp Effort & Inspection: normal respiratory effort Auscultation: no rales, no rhonchi and no wheezes Cardio Rate: regular rate Rhythm: regular rhythm Heart Sounds: S1 normal and S2 normal GI Inspection: normal to inspection, non-distended, obesity and scar (Subtle, consistent with history of laparoscopic cholecystectomy) Palpation: soft, no hernias and nontender Assessment and Plan Assessment and Plan (1) Screening for colon cancer: Status: Acute Comment: This is a 51-year-old female who presents for screening colonoscopy. She does not relate any history that would increase her risk for colon cancer inordinately. Her diagnosis of anemia seems well?explained by her history of heavy menses. While she does have a family history of colon cancer, this was not in a first-degree relative. Patient recently started iron supplementation for her anemia and has noticed some change to her bowel habits with this addition. Based on the above, screening colonoscopy is certainly reasonable. We reviewed the requirement for a bowel prep, the expectations were the day of the procedure, and timeline for any pathology. Patient accepts this recommendation and wishes to proceed as described. Plan - Dr. Apollo Armstrong MD: Plan will be to complete colonoscopy on first mutually available date under local MAC. Pre-procedure prep discussed and paper instructions provided. Patient is also made aware that she will need to have a tow car driver with her the day of the procedure. (2) Acid reflux disease: Status: Chronic Comment: This is a 51-year-old female with longstanding history of gastroesophageal reflux disease. Her symptoms overall are well controlled with PPI medication (she describes symptoms will begin when she is off her medication for any length of time). Still, with the chronicity of this condition and her use of tobacco, I recommend we perform a EGD study simultaneous with her colonoscopy. Plan - Dr. Apollo Armstrong MD: Recommend EGD to proceed screening colonoscopy under local MAC. I have re-examined the patient. There are no clinical changes since date of exam. Patient states that her prep was successful and her output has been largely clear for the last several hours. Plan to proceed to endoscopy suite for EGD and colonoscopy under local MAC.
--- NOTE | 2021-05-31 10:00 | IMM_PTH ---
PATIENT: RAZIA CARRILLO LOC: EN U#:[id number] AGE/SX: 51/F ROOM: RE05/31/[address]: Dr. Apollo Armstrong MD : 1970 BED: DIS: 05/31/2021 SPEC #: [id number] RECD: 05/31/21 13:49 STATUS: GRACIELA REKermit #: [id number] LINDA: 05/31/21 10:[address]: Apollo Armstrong DEPT: IMMUNOHISTOCHEMISTRY RECD BY: Lita Villafana ENTERED: 05/31/21 13:51 SP TYPE: IMMUNO OTHR DR: Sonja Lazaro, COLLEGE ASSOCIATE-C [facility] Tissues: Stomach, NOS Procedures: H Pylori (initial) PHYSICIAN & INSTITUTION [place] [address] SPECIMEN INFORMATION: Tissue Source: Antrum biopsy Clinical Info: Screening, acid reflux disease Specimen Number: [id number] CPT code: 85890 METHODOLOGY: Deparaffinized sections of prefer/formalin-fixed tissue or PAP/DQ stained slides are incubated with monoclonal/polyclonal antibodies/oligonucleotide probes. Localization is made via biotin free immunoperoxidase method. Appropriate controls are performed and reacted as expected. Results on target cell population are indicated in the following table: RESULTS: ANTIBODY / CLONE RESULT H Pylori (polyclonal) negative These tests were developed and their performance characteristics determined by [facility]. They may not have been cleared or approved by the U.S. Food and Drug Administration. The FDA has determined that such clearance or approval is not necessary. INTERPRETATION: Antrum biopsy: Negative for Helicobacter pylori organisms. RENÉ:debra 06/01/2021
--- NOTE | 2021-05-31 11:17 | OP.EGD_ITS ---
Patient Name: Matilda Lucia Procedure Date: 05/31/2021 10:14 AM Date of : 1970 Age: 51 Procedure: Upper GI endoscopy Indications: Gastro-esophageal reflux disease Providers: Apollo Armstrong MD Referring MD: Apollo Armstrong MD Medicines: See the Anesthesia note for documentation of the administered medications Patient Profile: Refer to note in patient chart for documentation of history and physical. Patient has symptoms of chronic heartburn. Complications: No immediate complications. Estimated blood loss: Minimal. Procedure: Pre-Anesthesia Assessment: - The heart rate, respiratory rate, oxygen saturations, blood pressure, adequacy of pulmonary ventilation, and response to care were monitored throughout the procedure. After obtaining informed consent, the endoscope was passed under direct vision. Throughout the procedure, the patient's blood pressure, pulse, and oxygen saturations were monitored continuously. The gastroscope was introduced through the mouth, and advanced to the second part of duodenum. The upper GI endoscopy was accomplished without difficulty. The patient tolerated the procedure fairly well. Scope In: 10:20:26 AM Scope Out: 10:29:21 AM Total Procedure Duration Time 0 hours 8 minutes 55 seconds Findings: The first portion of the duodenum and second portion of the duodenum were normal. No biopsies or other specimens were collected for this exam. Localized moderate inflammation characterized by congestion (edema) and erythema was found in the gastric antrum. Biopsies were taken with a cold forceps for histology. Biopsies were taken with a cold forceps for Helicobacter pylori cultures. Estimated blood loss was minimal. A medium-sized hiatal hernia was present. No biopsies or other specimens were collected for this exam. The Z-line was regular and was found 35 cm from the incisors. No biopsies or other specimens were collected for this exam. The examined esophagus was normal. Impression: - Normal first portion of the duodenum and second portion of the duodenum. No specimens collected. - Gastritis. Biopsied. - Medium-sized hiatal hernia. No specimens collected. - Z-line regular, 35 cm from the incisors. No specimens collected. - Normal esophagus. Recommendation: - Discharge patient to home (via wheelchair). - Resume regular diet today. - Continue present medications. - Await pathology results. - Telephone my office for pathology results in 1 week. Procedure Code(s): --- Professional --- 47605, Esophagogastroduodenoscopy, flexible, transoral; with biopsy, single or multiple Diagnosis Code(s): --- Professional --- K29.70, Gastritis, unspecified, without bleeding K44.9, Diaphragmatic hernia without obstruction or gangrene K21.9, Gastro-esophageal reflux disease without esophagitis CPT copyright 2017 [employer]. All rights reserved. The codes documented in this report are preliminary and upon trawl net maker review may be revised to meet current compliance requirements. Apollo Armstrong MD 05/31/2021 11:16:18 AM This report has been signed electronically. Number of Addenda: 0 Note Initiated On: 05/31/2021 10:14 AM
--- NOTE | 2021-05-31 11:18 | OP.CCLET_ITS ---
05/31/[address] [facility] Re : Upper [facility] This procedure was performed on Monday, May 31, 2021. My impressions and recommendations are as follows: Impressions : - Normal first portion of the duodenum and second portion of the duodenum. No specimens collected. - Gastritis. Biopsied. - Medium-sized hiatal hernia. No specimens collected. - Z-line regular, 35 cm from the incisors. No specimens collected. - Normal esophagus. Recommendations : - Discharge patient to home (via wheelchair). - Resume regular diet today. - Continue present medications. - Await pathology results. - Telephone my office for pathology results in 1 week. My findings are described in the full procedure note, which is enclosed. If I can be of further assistance, please feel free to contact me at Doctor phone number(s): , Work: . Sincerely, Apollo Armstrong MD 05/31/2021 11:16:18 AM This report has been signed electronically.
--- NOTE | 2021-05-31 11:23 | OP.COLON_ITS ---
Patient Name: Matilda Lucia Procedure Date: 05/31/2021 10:31 AM Date of : 1970 Age: 51 Procedure: Colonoscopy Indications: Screening for colon cancer: Family history of colorectal cancer in distant relative(s) Providers: Apollo Armstrong MD Referring MD: Apollo Armstrong MD Medicines: See the Anesthesia note for documentation of the administered medications Patient Profile: Refer to note in patient chart for documentation of history and physical. Patient has symptoms of chronic heartburn. This is a 51 year old female. Refer to note in patient chart for documentation of history and physical. Last Colonoscopy: none. The patient's first colonoscopy is today. Complications: No immediate complications. Estimated blood loss: None. Procedure: Pre-Anesthesia Assessment: - The heart rate, respiratory rate, oxygen saturations, blood pressure, adequacy of pulmonary ventilation, and response to care were monitored throughout the procedure. - The heart rate, respiratory rate, oxygen saturations, blood pressure, adequacy of pulmonary ventilation, and response to care were monitored throughout the procedure. After I obtained informed consent, the scope was passed under direct vision. Throughout the procedure, the patient's blood pressure, pulse, and oxygen saturations were monitored continuously. The colonoscope was introduced through the anus and advanced to the cecum, identified by the ileocecal valve. The colonoscopy was somewhat difficult due to the patient's discomfort during the procedure. Successful completion of the procedure was aided by increasing the dose of sedation medication. The patient tolerated the procedure fairly well. The quality of the bowel preparation was adequate. Scope In: 10:32:35 AM Scope Withdrawal Time 0 hours 17 minutes 17 seconds Scope Out: 11:03:11 AM Total Procedure Duration Time 0 hours 30 minutes 36 seconds Findings: The entire examined colon appeared normal on direct and retroflexion views. Impression: - The entire examined colon is normal on direct and retroflexion views. - No specimens collected. Recommendation: - Discharge patient to home (via wheelchair). - Resume regular diet today. - Continue present medications. - Repeat colonoscopy in 10 years for screening purposes. Procedure Code(s): --- Professional --- G0121, Colorectal cancer screening; colonoscopy on individual not meeting criteria for high risk Diagnosis Code(s): --- Professional --- Z12.11, Encounter for screening for malignant neoplasm of colon Z80.0, Family history of malignant neoplasm of digestive organs CPT copyright 2017 [employer]. All rights reserved. The codes documented in this report are preliminary and upon technology officer review may be revised to meet current compliance requirements. Apollo Armstrong MD 05/31/2021 11:22:50 AM This report has been signed electronically. Number of Addenda: 0 Note Initiated On: 05/31/2021 10:31 AM
--- NOTE | 2021-05-31 11:24 | OP.CCLET_ITS ---
05/31/2021 Judy Carrillo [facility] Re : Colon[facility] This procedure was performed on Monday, May 31, 2021. My impressions and recommendations are as follows: Impressions : - The entire examined colon is normal on direct and retroflexion views. - No specimens collected. Recommendations : - Discharge patient to home (via wheelchair). - Resume regular diet today. - Continue present medications. - Repeat colonoscopy in 10 years for screening purposes. My findings are described in the full procedure note, which is enclosed. If I can be of further assistance, please feel free to contact me at Doctor phone number(s): , Work: . Sincerely, Apollo Armstrong MD 05/31/2021 11:22:50 AM This report has been signed electronically.
== END 2021-05-31 23:59 | disposition home or self-care (01) ==
LOC: EN 08:56 → AC 08:56
PROVIDERS: Referring Provider Surgery; Visit Provider Surgery
PROC: 0DJD8ZZ Inspection of Lower Intestinal Tract, Via Natural or Artificial Opening Endoscopic (ICD-10-PCS; CPT 45378; principal; 2021-05-31 09:55)
DX: Z12.11 Encounter for screening for malignant neoplasm of colon (principal); K29.70 Gastritis, unspecified, without bleeding; K44.9 Diaphragmatic hernia without obstruction or gangrene; R14.2 Eructation; F17.210 Nicotine dependence, cigarettes, uncomplicated; K21.9 Gastro-esophageal reflux disease without esophagitis; D64.9 Anemia, unspecified; Z80.0 Family history of malignant neoplasm of digestive organs
CPT/HCPCS: 45378; 43239; 87426; 88305; 88342; C9803; J7120

== ENCOUNTER 2021-06-13 20:25 | Outpatient (CLI) | payer MEDICAID, SELFPAY | END 2021-06-13 23:59 | disposition home or self-care (01) | PROVIDERS: Referring Provider Nurse Practitioner Adult Health; Visit Provider Nurse Practitioner Adult Health | DX: G47.00 Insomnia, unspecified (principal) | CPT/HCPCS: 95810 ==

== ENCOUNTER 2021-07-10 14:13 | Outpatient (CLI) | payer MEDICAID, SELFPAY ==
[2021-07-10 15:33] LABS: Absolute Lymphocyte Count 1.97 X10^3/uL (0.83-4.51); Absolute Neutrophil Count 6.6 X10^3/uL (2.0-7.7); Basophil# 0.05 X10^3/uL; Basophil% 0.5 % (0-1); Eosinophil# 0.28 X10^3/uL; Hematocrit 40.4 % (37-47); Hemoglobin 13.3 g/dL (12.0-15.0); Lymphocyte # 1.97 X10^3/ul (0.83-4.51); Lymphocyte % 21.1 % (19-41); Mean Corp Hgb Conc 32.9 g/dL (32-36); Mean Corpuscular Hgb 29.8 pg (27.0-32.0); Mean Corpuscular Volume 90.4 fL (81-99); Mean Platelet Vol. 8.6 fl (6.2-12.0); Monocyte# 0.42 X10^3/uL; Monocyte% 4.5 % (0-10); NRBC Flagged by Analyzer 0 % (0-5); Neutrophil # 6.58 X10^3/uL (2.7-7.7); Neutrophil % 70.6 % (47-70); Platelet Count 313 K/mm3 (150-450); RBC Distribution Width CV 14.2 % (11.6-14.6); RBC Distribution Width SD 46.2 fl (35.1-43.9); Red Blood Count 4.47 M/mm3 (4.2-5.4); White Blood Count 9.3 K/mm3 (4.4-11.0)
[2021-07-10 15:49] LABS: Hemoglobin A1c 5.1 % (3.8-5.6)
[2021-07-10 16:49] LABS: ALB/GLOB Ratio 1.1 RATIO (0.9-2.4); AST(SGOT) 25 U/L (15-37); Alanine Aminotransfer ALT/SGPT 34 U/L (13-56); Albumin, Serum 3.5 g/dL (3.2-5.0); Alkaline Phosphatase 108 U/L (45-117); Anion Gap 6 (5-15); BUN 14 mg/dL (7-18); BUN/Creat Ratio 20.2 RATIO (10-20); Calcium,Total 9.4 mg/dL (8.5-10.1); Chloride 109 mmol/L (98-107); Creatinine, Serum 0.69 mg/dL (0.55-1.02); EST Glomerular Filtration Rate 95 mL/min (>60); Est Glom Filt Rate - Afr Amer 115 mL/min (>60); Globulin 3.2 g/dL (2.2-4.2); Glucose 97 mg/dL (74-106); Iron 111 ug/dL (50-170); Iron Binding Capacity,Total 355 ug/dL (250-450); PERCENT IRON SATURATION 31.3 % (15.0-55.0); Potassium 3.9 mmol/L (3.5-5.1); Protein, Total 6.7 g/dL (6.4-8.2); Sodium Level 140 mmol/L (136-145)
== END 2021-07-10 23:59 | disposition home or self-care (01) ==
LOC: LAB 14:14
PROVIDERS: Referring Provider Nurse Practitioner Adult Health; Visit Provider Nurse Practitioner Adult Health
DX: D64.9 Anemia, unspecified (principal); Z13.1 Encounter for screening for diabetes mellitus
CPT/HCPCS: 36415; 80053; 82746; 83036; 83540; 83550; 85025

== ENCOUNTER 2021-08-01 11:04 | Day surgery (SDC) | payer MEDICAID, SELFPAY ==
--- NOTE | 2021-07-31 10:10 | HP.PCM_ITS ---
History and Physical Date of Admission: 08/01/21 Date of Service: 07/25/21 MR#:[id number]: RAZIA CARRILLO [facility] #:[id number]:1970 Provider:Dr. Laurie Lawler, DOAge/Sex: 51/F [facility] Vital Signs 07/25/21 09:30 Height 5 ft 4 in Weight: 206 lb 6 oz BMI 35.4 BP 128/92 H Intake Visit Reasons: D&C and OCP FU Collar Closer Lockstitch Required: No Is patient in pain?: No Allergies No Known Allergies Allergy (Verified 07/25/21 09:30) Medications aripiprazole 5 mg tablet 7.5 mg PO DAILY tab 05/08/21 [History Confirmed 07/25/21] ferrous sulfate 325 mg (65 mg iron) tablet 325 mg PO BID tab 05/08/21 [History Confirmed 07/25/21] docusate sodium 100 mg capsule 100 mg PO PRN PRN 05/15/21 [History Confirmed 07/25/21] hydroxyzine HCl 25 mg tablet 25 mg PO BID PRN 05/15/21 [History Confirmed 07/25/21] multivitamin 1 tab PO DAILY 05/15/21 [History Confirmed 07/25/21] vitamin B complex 1 tab PO DAILY 05/15/21 [History Confirmed 07/25/21] omeprazole 20 mg PO DAILY 05/25/21 [History Confirmed 07/25/21] albuterol sulfate 90 mcg/actuation aerosol inhaler 2 puff INHALATION Q6H PRN 06/26/21 [History Confirmed 07/25/21] amitriptyline 10 mg tablet 10 mg PO QHS 06/26/21 [History Confirmed 07/25/21] Post menopausal: No Patient : No : No [facility] Medical History Alcohol use Anemia Anxiety and depression Arthritis Back pain GERD (gastroesophageal reflux disease) Hepatitis A Hepatitis C, chronic History of edema History of pain when walking History of ulceration Injury of head and neck Leg cramps Marijuana use Migraine headache Shortness of breath on exertion Smoker Substance abuse Wears glasses Wears partial dentures Surgical History History of dilation and curettage (~1996) History of laparoscopic cholecystectomy (~2004) History of lumpectomy (~1996) Family History Father Diabetes Hypertension Mother Kidney disease Aunt Cancer Hodgkins Social History household members: children and other current occupational status: employed current occupation: [employer] Smoking Status: Current every day smoker tobacco type: cigarettes alcohol intake: current details: socially substance use type: does not use what type of physical activity do you participate in: walking frequency: 3-4 times per week seatbelt use: always do you feel safe at home: Yes additional social history: single HPI D&C and OCP FU Details: RAZIA CARRILLO is a 51 year old who presents for consultation for hysteroscopy dilation curettage possible polypectomy. Patient has been battling with heavy menses every 3 weeks despite being on OCPs. Last month as endometrial biopsy was performed and showed a polypoid-like structure. Pregancy History 5 Elective abortions Hx Para 4 Spontaneous abortions Hx # Term Pregnancies Ectopic pregnancies Hx # Pregnancies Multiple births # of living children 4 Past Pregnancies Del. Date Name GA/Weeks Outcome Route Bth Weight Gen Labor Lgth Anesthesia Del Locatn Provider FOB Unknown Caroline 1991 Unknown Carrie 1995 Unknown Pati 1997 Unknown Vikas 1998 ROS Const ROS Unobtainable: All systems reviewed & are unremarkable except as noted in H Resp Resp: Reports system reviewed and no additional complaints, except as documented; Denies cough GI GI: Reports as per HPI Psych Psych: Reports system reviewed and no additional complaints, except as documented Exam Const General: cooperative, healthy appearing, comfortable and no acute distress Resp Effort & Inspection: normal respiratory effort Skin General: no rashes or lesions noted Psych Appearance: grossly normal Speech and Movement: speech and movement normal Coding Level of Care Code Off vis,est,level 4 Diagnoses SOBOE (shortness of breath on exertion) R06.02 Smoker F17.200 NBA (obstructive sleep apnea) G47.33 Anxiety and depression F41.9; F32.9 Acid reflux disease K21.9 Anemia D64.9 Screening for colon cancer Z12.11 Menorrhagia with regular cycle N92.0 Arthritis M19.90 Assessment and Plan Assessment and Plan (1) SOBOE (shortness of breath on exertion): Status: Acute (2) Smoker: Status: Chronic (3) NBA (obstructive sleep apnea): Status: Acute (4) Anxiety and depression: Status: Chronic (5) Acid reflux disease: Status: Chronic Comment: This is a 51-year-old female with longstanding history of gastroesophageal reflux disease. Her symptoms overall are well controlled with PPI medication (she describes symptoms will begin when she is off her medication for any length of time). Still, with the chronicity of this condition and her use of tobacco, I recommend we perform a EGD study simultaneous with her colonoscopy. (6) Anemia: Status: Acute (7) Screening for colon cancer: Status: Acute Comment: This is a 51-year-old female who presents for screening colonoscopy. She does not relate any history that would increase her risk for colon cancer inordinately. Her diagnosis of anemia seems well?explained by her history of heavy menses. While she does have a family history of colon cancer, this was not in a first-degree relative. Patient recently started iron supplementation for her anemia and has noticed some change to her bowel habits with this addition. Based on the above, screening colonoscopy is certainly reasonable. We reviewed the requirement for a bowel prep, the expectations were the day of the procedure, and timeline for any pathology. Patient accepts this recommendation and wishes to proceed as described. (8) Menorrhagia with regular cycle: Status: Acute Comment: EMB with polyp:refer JV for hysteroscopy, D&C, symphion. Has Rx for meir (9) Arthritis: Status: Acute Plan - Dr. Laurie Lawler, DO: After discussing the patient's diagnosis and treatment plan options, patient wishes to proceed with surgical management. I have discussed with the patient the risks, benefits, and alternatives of the procedure which include but are not limited to risks of anesthesia, bleeding, infection, possible damage to bowel, bladder, or surrounding vasculature which could lead to additional surgery to evaluate any complications. Patient agrees to procedure and wishes to proceed. ACOG/uptodate references given for additional information regarding procedure. proceed with hysteroscopy D&C for 12 cm uterus with possible polyp. surgery is scheduled for 08/01/21. UPDATE- I have seen the patient and performed any clinically relevant updates to the history and physical exam. Laurie Lawler DO
[2021-07-31 10:27] LABS: Hematocrit 39.9 % (37-47); Hemoglobin 13.1 g/dL (12.0-15.0); Mean Corp Hgb Conc 32.8 g/dL (32-36); Mean Corpuscular Volume 94.3 fL (81-99); Mean Platelet Vol. 8.6 fl (6.2-12.0); Platelet Count 272 K/mm3 (150-450); RBC Distribution Width CV 13.2 % (11.6-14.6); RBC Distribution Width SD 45.4 fl (35.1-43.9); Red Blood Count 4.23 M/mm3 (4.2-5.4); White Blood Count 7.4 K/mm3 (4.4-11.0)
[2021-08-01] VITALS (7 sets, daily range): BP systolic 126–142; BP diastolic 74–105; PULSE 56–75; RESP 16; TEMP 35.8–36.4; O2SAT 99–100; BMI 35.4
--- NOTE | 2021-08-01 11:13 | SUR.PREOP ---
pt refused urine test- says she doesn't need it
[2021-08-01] MEDS: Lactated Ringers 1,000 ML 15 ML IV (11:51)
--- NOTE | 2021-08-01 12:01 | DCINST_ITS ---
Discharge Instructions Diet Discharge Diet: No restrictions Activity Discharge Activity: Return to Normal Activity, May Shower and May Take a Tub Bath (after 1 week) May resume sexual activity in: 1-2 weeks Weight Bearing Status: Weight bearing as tolerated Lifting Restrictions: none Dressing / Incision Call your doctor if you observe: Fever of 101 or Higher, Using more than 1 pad per hour, Shortness of breath and Uncontrolled pain Follow Up Care Please Follow Up With: Laurie Lawler DO When: Call [phone] to schedule appointment. Test Results: Test results from this visit will be discussed in further detail at your follow-up appointment, if applicable. Discharge Plan Admission Primary Reason for Your Visit: hysteroscopy Dilation and curettage Attending Provider: Laurie Lawler [facility] Orders/Prescriptions Prescriptions: New ibuprofen 600 mg tablet 600 mg PO Q6H PRN (Reason: pain) 7 Days Qty: 30 RF: 0 oxycodone-acetaminophen [Percocet] 5-325 mg tablet 1 tab PO Q6H PRN (Reason: pain) 3 Days Qty: 6 RF: 0 Continued multivitamin Tablet 1 tab PO BID RF: 0 vitamin B complex Tablet 1 tab PO DAILY RF: 0 hydroxyzine HCl 25 mg tablet 25 mg PO BID PRN (Reason: Anxiety) RF: 0 aripiprazole [Abilify] 5 mg tablet 7.5 mg PO DAILY RF: 0 ferrous sulfate [Feosol] 325 mg (65 mg iron) tablet 325 mg PO BID RF: 0 albuterol sulfate [Ventolin HFA] 90 mcg/actuation HFA aerosol inhaler 2 puff inhalation Q6H PRN (Reason: SOB) RF: 0 amitriptyline 10 mg tablet 10 mg PO QHS RF: 0 omeprazole 20 mg Tablet,Delayed Release (Dr/Ec) 20 mg PO DAILY RF: 0 norethindrone (contraceptive) [Deblitane] 0.35 mg tablet 0.35 mg PO DAILY RF: 0 [facility] - Disposition Disposition (needs filled in before D/C Order can be placed): Home, Self Care
--- NOTE | 2021-08-01 12:45 | EMB_PTH ---
PATIENT: RAZIA CARRILLO [place] [facility] [id number] AGE/SX: 51/F ROOM: RE08/01/[address]: Dr. Laurie Lawler DO : 1970 BED: DIS: 08/01/2021 SPEC #: [id number] RECD: 08/01/21 14:42 STATUS: GRACIELA GEENA #: [id number] LINDA: 08/01/21 12:[address]: Laurie Lawler DEPT: SURGICAL PATHOLOGY RECD BY: Wendy Nam ENTERED: 08/02/21 09:53 SP TYPE: ENDOM BX/C VERN DR: [facility] Tissues: Endometrium, NOS Procedures: Surgery Specimen Level IV HEADER OPERATION: Hysteroscopy, D & C Symphion PRE-OP DIAGNOSIS: Menorrhagia, endometrial polyp TISSUE SUBMITTED: Endometrial curettings and polyp MICROSCOPIC DIAGNOSIS Endometrial curettings and polyp: Polypoid fragments of mildly disordered, weakly proliferative endometrium. AM:debra 08/03/2021 MICROSCOPIC DESCRIPTION Slides are reviewed. GROSS DESCRIPTION Received in fixative is one container labeled with the patient's name and designated endometrial curettings and polyp. The specimen consists of multiple irregular fragments of [place] soft tissue mixed with blood clot that in aggregate measure 2 x 0.5 x 0.1 cm. The specimen is totally submitted in one cassette. / SJ:debra 08/02/2021 TC:5 CPT: 89820
--- NOTE | 2021-08-01 12:56 | PCM.OPRPT ---
Report of Operation Date of Procedure: 08/01/21 Pre-Operative Diagnosis: endometrial polyp, perimenopausal bleeding Post-Operative Diagnosis: endometrial polyp, perimenopausal bleeding Surgery/Procedure Performed:: hysteroscopy dilation and curettage using the symphion device Description of Surgical Findings:: 2 polyp structures at the upper right and left sides of the uterus Surgeon: Laurie Lawler route sales associate: None Type of Anesthesia: MAC Anesthesiologist: mariam Specimen's removed: endometrial curettings Drains: none Estimated Blood Loss (mL): 0 Fluids Replaced: 300cc Description of Procedure: Patient was prepped and draped in a normal sterile fashion under MAC anesthesia. A weighted speculum was placed in the vagina and the anterior lip of the cervix was grasped with a single-tooth tenaculum. Uterine sounded to 11 cm. Cervix was progressively dilated to allow passage of a 5 mm hysteroscope. The lining was fully visualized and noted to have 2 polyps at the upper aspect of the uterus. The symphion device was inserted into the uterus and a Curettage was performed, removing the polyps. The specimen was sent to pathology. All instruments were removed from the vagina and excellent hemostasis was noted. Patient was awoken and taken to recovery in stable condition. Complications none Admit VTE Documentation VTE Mechan Device Prophylaxis: SCD's VTE Pharm Prophylaxis ordered?: No Reason prophylaxis not ordered:: Treatment Not Indicated Multi Select Codes Urinary/Genital Urinary/Genital CPT Codes: 26559 Hysteroscopy,EMC, Polypectomy
== END 2021-08-01 14:03 | disposition home or self-care (01) ==
LOC: SDC 11:05 → AC 12:03
PROVIDERS: Referring Provider Obstetrics & Gynecology; Visit Provider Obstetrics & Gynecology
PROC: 0UB98ZZ Excision of Uterus, Via Natural or Artificial Opening Endoscopic (ICD-10-PCS; CPT 58558; principal; 2021-08-01 12:30)
DX: N84.0 Polyp of corpus uteri (principal); F17.200 Nicotine dependence, unspecified, uncomplicated; D64.9 Anemia, unspecified; F32.A Depression, unspecified; K21.9 Gastro-esophageal reflux disease without esophagitis; M19.90 Unspecified osteoarthritis, unspecified site; Z80.0 Family history of malignant neoplasm of digestive organs; F41.9 Anxiety disorder, unspecified; N92.0 Excessive and frequent menstruation with regular cycle; G47.33 Obstructive sleep apnea (adult) (pediatric)
CPT/HCPCS: 58558; 00952; 36415; 85027; 86850; 86900; 86901; 87426; 88305; C9803; J7120; J2405

== ENCOUNTER → 2021-09-26 | Outpatient (CLI) | payer MEDICAID, SELFPAY | END | disposition home or self-care (01) | LOC: SL 12:58 | PROVIDERS: Visit Provider Nurse Practitioner Acute Care | DX: Z46.89 Encounter for fitting and adjustment of other specified devices (principal) ==

== ENCOUNTER → 2021-09-26 | Outpatient (CLI) | payer MEDICAID, SELFPAY ==
--- NOTE | 2021-09-26 13:58 | PFTCOMP ---
COMPLETE PULMONARY FUNCTION TEST INTERPRETATION Brief HPI: Patient is a 51-year-old female, currently under the care of Dania Schmitt, who presents to [facility] for complete pulmonary function tests secondary to diagnosis of nicotine dependence. Respiratory therapist reports good effort and reproducible results. Interpretation: Forced expiration spirometry shows no large airways obstructive ventilatory defect with an FEV1 of 95% predicted. There is no significant bronchodilator response by strict ATS criteria. Spirograms are of good quality and plateau normally. The respiratory flow volume loop shows a normal pattern. Lung volumes by body plethysmography show a normal total lung capacity at 4.76 L, 96% predicted. All other lung volumes are within normal limits. Diffusion capacity by carbon monoxide is normal at 70% predicted. The airway resistance is slightly elevated. Compared to previous pulmonary function tests from 05/05/2018, there has been no significant change. Impression: Grossly normal pulmonary function testing
== END | disposition home or self-care (01) ==
LOC: PSN 08:08
PROVIDERS: Referring Provider Nurse Practitioner Acute Care; Visit Provider Nurse Practitioner Acute Care
DX: R06.02 Shortness of breath (principal)
CPT/HCPCS: 94060; 94726; 94729

== ENCOUNTER → 2021-10-10 | Outpatient (CLI) | payer MEDICAID, SELFPAY | END | disposition home or self-care (01) | LOC: SL 13:47 | PROVIDERS: Referring Provider Internal Medicine Critical Care Medicine; Visit Provider Internal Medicine Critical Care Medicine | DX: G47.33 Obstructive sleep apnea (adult) (pediatric) (principal) | CPT/HCPCS: 98960; G0463 ==

== ENCOUNTER 2021-12-19 15:19 | Emergency (ER) | payer MEDICAID, SELFPAY ==
[2021-12-19 15:21] VITALS: BP 150/92; PULSE 69; RESP 16; TEMP 36.4; O2SAT 100; BMI 37.3
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
[2021-12-19] MEDS: Ondansetron 4 MG/2 ML Vial IV (15:44)
[2021-12-19] MEDS: Morphine 4 MG/ML Syringe IV (15:44)
[2021-12-19] MEDS: 0.9% Normal Saline 1,000 ML 150 ML IV (15:45)
[2021-12-19 16:01] LABS: Absolute Lymphocyte Count 3.43 X10^3/uL (0.83-4.51); Basophil# 0.08 X10^3/uL; Basophil% 0.6 % (0-1); Eosinophil# 0.29 X10^3/uL; Eosinophils% 2.1 % (0-5); Hematocrit 43.4 % (37-47); Hemoglobin 13.6 g/dL (12.0-15.0); Lymphocyte # 3.43 X10^3/ul (0.83-4.51); Lymphocyte % 25.2 % (19-41); Mean Corp Hgb Conc 31.3 g/dL (32-36); Mean Corpuscular Volume 95.6 fL (81-99); Mean Platelet Vol. 8.7 fl (6.2-12.0); Monocyte# 0.76 X10^3/uL; Monocyte% 5.6 % (0-10); NRBC Flagged by Analyzer 0 % (0-5); Neutrophil # 8.98 X10^3/uL (2.7-7.7); Neutrophil % 65.8 % (47-70); Platelet Count 383 K/mm3 (150-450); RBC Distribution Width CV 13.3 % (11.6-14.6); RBC Distribution Width SD 47.1 fl (35.1-43.9); Red Blood Count 4.54 M/mm3 (4.2-5.4); White Blood Count 13.6 K/mm3 (4.4-11.0)
[2021-12-19 16:04] LABS: Anion Gap 8 (5-15); BUN 12 mg/dL (7-18); BUN/Creat Ratio 15.3 RATIO (10-20); Calcium,Total 9.4 mg/dL (8.5-10.1); Chloride 109 mmol/L (98-107); Creatinine, Serum 0.78 mg/dL (0.55-1.02); EST Glomerular Filtration Rate 82 mL/min (>60); Est Glom Filt Rate - Afr Amer 99 mL/min (>60); Estimated Creatinine Clearance 74.51 ml/min; Glucose 115 mg/dL (74-106); Potassium 3.6 mmol/L (3.5-5.1); Sodium Level 139 mmol/L (136-145)
[2021-12-19 16:07] LABS: International Normalized Ratio 1.1; Partial Thromboplast Time 33.1 Seconds (24.1-36.2); Prothrombin Time (Protime)PT. 13.4 SECONDS (11.7-14.9)
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
== END 2021-12-19 18:02 | disposition home or self-care (01) ==
PROVIDERS: Emergency Provider Emergency Medicine; Visit Provider Emergency Medicine
DX: S30.1XXA Contusion of abdominal wall, initial encounter (principal); V43.52XA Car driver injured in collision with other type car in traffic accident, initial encounter; S20.20XA Contusion of thorax, unspecified, initial encounter; F17.210 Nicotine dependence, cigarettes, uncomplicated; S82.401A Unspecified fracture of shaft of right fibula, initial encounter for closed fracture; Y92.410 Unspecified street and highway as the place of occurrence of the external cause; G47.30 Sleep apnea, unspecified; Z99.89 Dependence on other enabling machines and devices
CPT/HCPCS: 70450; 71260; 72125; 73590; 73610; 74177; 80048; 85025; 85610; 85730; 93005; 96361; 96374; 96375; 99285; J7030; Q9967; A4216; J2405

== ENCOUNTER → 2021-12-26 | Outpatient (CLI) | payer MEDICAID, SELFPAY ==
--- NOTE | 2021-12-26 14:18 | RAD_ITS ---
EXAM: XR RIGHT RIBS AND AP CHEST, 3 OR MORE VIEWS CLINICAL INDICATION: right rib pain right rib pain TECHNIQUE: Frontal and oblique views of the right ribs and frontal view of the chest. This report was created using [employer] report generation technology. COMPARISON: CT scan chest 12/19/2021. FINDINGS: LUNGS AND PLEURAL SPACES: Unremarkable. No consolidation or edema. No pneumothorax. No effusion. HEART: Unremarkable. Cardiac silhouette not enlarged. MEDIASTINUM: Central airways and mediastinal contour are unremarkable. BONES/JOINTS: Unremarkable. No evidence of displaced rib fractures. RAD/Ribs Uni Min 3V w/PA Chest IMPRESSION: Negative chest and right ribs series. Electronically Signed: Idris Peng MD at 8:01 EDT Reading Location ID and State: [facility] / [place] , Service support ,
--- NOTE | 2021-12-26 14:20 | RAD_ITS ---
EXAM: XR RIGHT SHOULDER COMPLETE, 2 OR MORE VIEWS CLINICAL INDICATION: right shoulder pain right shoulder pain TECHNIQUE: Two or more views of the right shoulder. This report was created using [employer] report generation technology. COMPARISON: None. FINDINGS: BONES/JOINTS: Unremarkable. No acute fracture. No subluxation. Normal alignment. Preservation of the joint space. No sclerotic or destructive changes observed. SOFT TISSUES: Unremarkable. No soft tissue swelling or gas. No radiopaque foreign body. RAD/Shoulder min 2 Views IMPRESSION: Negative right shoulder x-rays. Electronically Signed: Idris Peng MD at 2:19 EDT ,
== END | disposition home or self-care (01) ==
LOC: MTRAD 14:17
PROVIDERS: PCP Nurse Practitioner Family; Referring Provider Nurse Practitioner Family; Visit Provider Nurse Practitioner Family
DX: R07.81 Pleurodynia (principal); M25.511 Pain in right shoulder
CPT/HCPCS: 71101; 73030

== ENCOUNTER 2022-01-02 09:13 | Day surgery (SDC) | payer MEDICAID, SELFPAY ==
[2022-01-02] VITALS (7 sets, daily range): BP systolic 121–154; BP diastolic 78–100; PULSE 81–101; RESP 16–18; TEMP 36.1–37.2; O2SAT 88–99; BMI 36.0
[2022-01-02] MEDS: Lactated Ringers 1,000 ML 15 ML IV ×2 (09:55→12:15)
--- NOTE | 2022-01-02 10:14 | SUR.PREOP ---
PATIENT REFUSED TEST.
[2022-01-02] MEDS: Cefazolin 2 GM in 0.9% Normal Saline 100 ML IV (10:54)
--- NOTE | 2022-01-02 11:11 | RAD_ITS ---
EXAM: XR RIGHT ANKLE, 2 VIEWS CLINICAL INDICATION: FX TECHNIQUE: Frontal and lateral views of the right ankle. This report was created using [id number] outdoors report generation technology. COMPARISON: None. FINDINGS: See Impression. RAD/Ankle 2 Views IMPRESSION: 1. Intraoperative images show fixation of a fracture of the distal shaft of fibula. No hardware complications are evident. 2. Persisting displaced triangular shaped fracture fragment noted posteriorly at the distal fibula. 3. Please refer to complete operative report for further details. Electronically Signed: Lino Veloz MD at 0:29 EDT ,
[2022-01-02] MEDS: Lidocaine 1% /Epi 1:100 (20ml) 20 ML Vial INFILT (12:30)
[2022-01-02] MEDS: Cefazolin 1 GM/50 ML BAG IV (12:50)
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
--- NOTE | 2022-01-02 13:01 | EX.PCM.DISCH ---
Discharge Instructions Diet Discharge Diet: No restrictions Dressing / Incision Call your doctor if you observe: Shortness of breath and Chest pain Additional Dressing/Incision Instructions:: Do NOT bear weight on operative extremity . strict ice and elevation to the operative extremity 14 days postop. Do not remove splint. keep splint on clean and dry. Keep extremity cool apply ice behind the knee or anterior ankle. Avoid sweating to minimize itch. Do not stick anything inside of splint may take [id number] Benadryl for itch if necessary. Only take pain medication as prescribed. Narcotics can be addictive so only take if needed supplement with 1000 mg of Tylenol every 6 hours as needed for pain and OTC NSAID of preference to minimize narcotic usage. Take 81 mg aspirin which was prescribed twice a day for 30 days to minimize risk of blood clot call with any questions or concerns and follow-up as directed. Follow Up Care Please Follow Up With: Luis Harper DO When: 2 weeks Test Results: Test results from this visit will be discussed in further detail at your follow-up appointment, if applicable. Discharge Plan Admission Attending Provider: Luis Harper Primary Care Provider: Edinson Mendez SET UP TECHNICIAN Discharge Orders/Prescriptions Prescriptions: New cephalexin [cephalexin] 500 mg capsule 1,000 mg PO Q8 Qty: 4 0RF Rx Instructions: take 2 tabs at 9:00 pm and 2 tabs after 5 am when you wake up oxycodone 5 mg tablet 5 - 10 mg PO Q4H PRN (Reason: pain) 5 Days Qty: 30 0RF aspirin 81 mg capsule 81 mg PO BID Qty: 60 0RF Rx Instructions: To help minimize blood clot risk acetaminophen 500 mg capsule 1,000 mg PO Q6H PRN (Reason: pain) Qty: 90 0RF No Action multivitamin Tablet 1 tab PO BID hydroxyzine HCl 25 mg tablet 25 mg PO BID PRN (Reason: Anxiety) ferrous sulfate [Feosol] 325 mg (65 mg iron) tablet 325 mg PO DAILY albuterol sulfate [Ventolin HFA] 90 mcg/actuation HFA aerosol inhaler 2 puff inhalation Q6H PRN (Reason: SOB) fluticasone propionate 50 mcg/actuation spray,suspension 2 spray intranasal DAILY Qty: 18.2 3RF Rx Instructions: administer into each nostril cyclobenzaprine 10 mg tablet 5 - 10 mg PO TID PRN (Reason: muscle spasm) Qty: 30 0RF (DME) shower chair See Rx Instructions .Route .MEDSUPPLY Qty: 1 0RF Rx Instructions: As directed omeprazole 20 mg Tablet,Delayed Release (Dr/Ec) 20 mg PO DAILY aripiprazole [Abilify] 5 mg tablet 5 mg PO DAILY Qty: 120 1RF Rx Instructions: 1 1/2 OF A 5MG TAB PO DAILY FOR TOTAL OF 7.5MG DAILY Referrals / Follow Up: Edinson Mendez SET UP TECHNICIAN, SET UP TECHNICIAN-C [Primary Care Provider] - Disposition Disposition (needs filled in before D/C Order can be placed): Home, Self Care
[2022-01-02] MEDS: oxyCODONE 5 MG Tablet PO (14:31)
== END 2022-01-02 15:30 | disposition home or self-care (01) ==
LOC: SDC 09:14 → AC 09:26
PROVIDERS: PCP Nurse Practitioner Family; Referring Provider Orthopaedic Surgery; Visit Provider Orthopaedic Surgery
PROC: (CPT 27792; principal; 2022-01-02 10:25)
DX: S86.301A Unspecified injury of muscle(s) and tendon(s) of peroneal muscle group at lower leg level, right leg, initial encounter (principal); F25.9 Schizoaffective disorder, unspecified; S46.90 Unspecified injury of unspecified muscle, fascia and tendon at shoulder and upper arm level; F17.210 Nicotine dependence, cigarettes, uncomplicated; V43.52XA Car driver injured in collision with other type car in traffic accident, initial encounter; Y92.410 Unspecified street and highway as the place of occurrence of the external cause; D64.9 Anemia, unspecified; K21.9 Gastro-esophageal reflux disease without esophagitis
CPT/HCPCS: 27792; 01480; 73600; 76000; C1713; J7120; J2405

== ENCOUNTER 2022-01-25 15:50 | Emergency (ER) | payer MEDICAID, SELFPAY ==
[2022-01-25 15:50] VITALS: BP 150/11; PULSE 83; RESP 18; TEMP 36.6; O2SAT 97; BMI 34.3
[2022-01-25 17:44] LABS: Bacteria 0 SEEN /hpf (None Seen); Mucous, Urine 0 SEEN /hpf (<or=2+)
[2022-01-25 17:47] LABS: Color, Urine Yellow (Yellow); Glucose, Dipstick Normal (Normal); Ketone-Dipstick Negative (Negative); Leukocyte Esterase-Dipstick 25 /ul (Negative); Nitrite-Dipstick Negative (Negative); Occult Blood-Urine 50 /ul (Negative); Protein-Dipstick Negative (Negative); Urine Bilirubin Dipstick Negative (Negative); Urine Clarity Sl. Cloudy (Clear); Urine Urobilinogen Normal (Normal)
--- NOTE | 2022-01-25 17:49 | CT_ITS ---
EXAM: CT ABDOMEN AND PELVIS WITH INTRAVENOUS CONTRAST CLINICAL INDICATION: abdominal pain -- IV PO Contrast TECHNIQUE: Helically acquired images were obtained of the abdomen and pelvis with intravenous contrast. This CT exam was performed using one or more of the following dose reduction techniques: automated exposure control, adjustment of the mA and/or kV according to patient size, and/or use of iterative reconstruction technique. This report was created using [employer] report generation technology. CONTRAST: Oral and amp;amp; IV Gastrografin and amp;amp; 100mL Isovue-370 COMPARISON: None. FINDINGS: LOWER THORAX: Unremarkable. Lung bases are clear. No cardiomegaly. No significant pericardial effusion. ABDOMEN: LIVER: Unremarkable. Homogeneous. No focal mass. GALLBLADDER AND BILE DUCTS: Surgically absent. No intra- or extrahepatic biliary ductal dilation. PANCREAS: Unremarkable. No focal cystic or solid mass. SPLEEN: Unremarkable. Normal size without focal cystic or solid mass. ADRENALS: Unremarkable. No nodules. KIDNEYS AND URETERS: Unremarkable. Normal renal size and position. No hydronephrosis. STOMACH AND BOWEL: Unremarkable. No stomach or bowel distention. No focal inflammatory change. PELVIS: APPENDIX: Normal visualized appendix. BLADDER: Remarkable. REPRODUCTIVE: Unremarkable as visualized. No mass. ABDOMEN and PELVIS: INTRAPERITONEAL SPACE: Unremarkable. No ascites or other fluid collection. No free air. BONES/JOINTS: Unremarkable. No suspicious lytic or blastic abnormality. SOFT TISSUES: Unremarkable. No discrete abdominal or pelvic wall hernia. VASCULATURE: Unremarkable. Abdominal aorta is normal in caliber. LYMPH NODES: Unremarkable. No enlarged lymph nodes. CT/Abdomen/Pelvis WITH Contrast IMPRESSION: No acute findings in the abdomen or pelvis. Electronically Signed: Salma Wynne MD at 20:40 EDT Reading Location ID and State: [id number] / Tel , Service support ,
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
[2022-01-25] MEDS: Morphine 4 MG/ML Syringe IV (18:07)
[2022-01-25 18:17] LABS: Absolute Lymphocyte Count 2.28 X10^3/uL (0.83-4.51); Absolute Neutrophil Count 4.6 X10^3/uL (2.0-7.7); Basophil# 0.06 X10^3/uL; Basophil% 0.8 % (0-1); Eosinophils% 3.8 % (0-5); Hematocrit 42.5 % (37-47); Hemoglobin 14.5 g/dL (12.0-15.0); Lymphocyte # 2.28 X10^3/ul (0.83-4.51); Lymphocyte % 29.1 % (19-41); Mean Corp Hgb Conc 34.1 g/dL (32-36); Mean Corpuscular Hgb 29.7 pg (27.0-32.0); Mean Corpuscular Volume 87.1 fL (81-99); Mean Platelet Vol. 8.9 fl (6.2-12.0); Monocyte# 0.54 X10^3/uL; Monocyte% 6.9 % (0-10); NRBC Flagged by Analyzer 0 % (0-5); Neutrophil # 4.64 X10^3/uL (2.7-7.7); Neutrophil % 59.1 % (47-70); Platelet Count 334 K/mm3 (150-450); RBC Distribution Width CV 12.9 % (11.6-14.6); RBC Distribution Width SD 41.2 fl (35.1-43.9); Red Blood Count 4.88 M/mm3 (4.2-5.4); White Blood Count 7.8 K/mm3 (4.4-11.0)
[2022-01-25 18:21] LABS: Anion Gap 5 (5-15); BUN 8 mg/dL (7-18); BUN/Creat Ratio 10.9 RATIO (10-20); Calcium,Total 9.9 mg/dL (8.5-10.1); Chloride 111 mmol/L (98-107); Creatinine, Serum 0.73 mg/dL (0.55-1.02); EST Glomerular Filtration Rate 89 mL/min (>60); Est Glom Filt Rate - Afr Amer 107 mL/min (>60); Estimated Creatinine Clearance 78.73 ml/min; Glucose 116 mg/dL (74-106); Potassium 3.7 mmol/L (3.5-5.1); Sodium Level 140 mmol/L (136-145)
[2022-01-25 18:40] LABS: Amorphous Sediment 1+ URATE; Red Blood Cells-Urine 0-5 SEEN /hpf (0-5); Squamous Epithelial Cells - UA 0-5 SEEN /hpf (5-10); White Blood Cells 0-5 SEEN /hpf (0-5)
[2022-01-25 18:56] LABS: Internal QC Validated? YES +Cl - CLEAR BKGD; Pregnancy, Serum, hCG Quali. NEGATIVE Negative
[2022-01-25 20:00] VITALS: BP 146/78; PULSE 66; RESP 18; O2SAT 96
--- NOTE | 2022-01-25 22:31 | ED.RN ---
PT INFORMED OF PHARMACY NOT BEING ABLE TO RUN RX THROUGH INSURANCE, STATED THEY WANTED IT TO BE FILLED THROUGH INSURANCE. RX BEING SENT INTO [facility].
== END 2022-01-25 22:32 | disposition home or self-care (01) ==
PROVIDERS: Emergency Provider Emergency Medicine; Visit Provider Emergency Medicine
DX: R10.9 Unspecified abdominal pain (principal); F25.9 Schizoaffective disorder, unspecified; F17.210 Nicotine dependence, cigarettes, uncomplicated
CPT/HCPCS: 74177; 80048; 81001; 84703; 85025; 96374; 99283; J7030; Q9967; A4216

== ENCOUNTER → 2022-02-27 | Outpatient (CLI) | payer MEDICAID, SELFPAY ==
[2022-02-27 17:45] LABS: Absolute Lymphocyte Count 1.97 X10^3/uL (0.83-4.51); Absolute Neutrophil Count 5.6 X10^3/uL (2.0-7.7); Basophil# 0.06 X10^3/uL; Basophil% 0.7 % (0-1); Eosinophil# 0.21 X10^3/uL; Eosinophils% 2.5 % (0-5); Lymphocyte # 1.97 X10^3/ul (0.83-4.51); Lymphocyte % 23.3 % (19-41); Mean Corp Hgb Conc 31.8 g/dL (32-36); Mean Corpuscular Hgb 28.4 pg (27.0-32.0); Mean Corpuscular Volume 89.2 fL (81-99); Monocyte# 0.62 X10^3/uL; Monocyte% 7.3 % (0-10); NRBC Flagged by Analyzer 0.2 % (0-5); Neutrophil # 5.57 X10^3/uL (2.7-7.7); Platelet Count 311 K/mm3 (150-450); RBC Distribution Width CV 13.2 % (11.6-14.6); RBC Distribution Width SD 43.2 fl (35.1-43.9); Red Blood Count 4.93 M/mm3 (4.2-5.4); White Blood Count 8.5 K/mm3 (4.4-11.0)
== END | disposition home or self-care (01) ==
LOC: MTLAB 15:32
PROVIDERS: Referring Provider Family Medicine; Visit Provider Family Medicine
DX: D64.9 Anemia, unspecified (principal)
CPT/HCPCS: 36415; 85025

== ENCOUNTER 2022-08-07 17:00 | Outpatient (RCR) | payer MEDICAID, SELFPAY ==
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
--- NOTE | 2022-03-23 15:42 | HP.PTREVAL ---
Dr. Luis Harper, DO, It has been my pleasure to treat RAZIA CARRILLO over the last 12 visits for R LE ORIF. Please see the progress note below for an update on the physical therapy plan of care! Subjective: I am feeling a little better, but i am still very weak and I have a hard time walking Objective/Function: R ankle MMT: DF= 27, PF= 28, Ever= 11, Inversion= 19 #F. R ankle DF ROM: 8 degrees. R ankle pain 3/10 consistently. Pt is progressing with HEP. Pt is able to ambulate 170 feet in a shoe with cane until needing to rest Plan Plan: Cont with current POC. Allowed to WB at next appt ! R ankle PROM/mobs, R LE stretching and strengthening, balance and proprio, core strengthening, bike, and HEP Balance/Gait/Functional tests - Balance/Special Test Scores Lower Extremity Functional Score: 23 Quick DASH Score: 47.7250 Goals Goal 1:: Increase R ankle DF ROM x x 10 degrees to aid with restoring a more normalized gait pattern Goal Time Frame: 4-6 Weeks Goal Progress: Progressing Goal 2:: Increase R ankle strength x 5-10#F to aid with stair negotiation Goal Time Frame: 4-6 Weeks Goal Progress: Goal Met Goal 3:: Decrease R LE pain x 50% to aid with increased tolerance for ambulation Goal Time Frame: 4-6 Weeks Goal Progress: Progressing Goal 4:: I with HEP Goal Time Frame: 4-6 Weeks Goal Progress: Progressing Goal 5:: Pt will be able to ambulate 1000 feet with LRD to aid with community ambulation Goal Time Frame: 4-6 Weeks Anticipated Interventions Patient/Client Instruction: Educate patient on: Condition, Plan of Care For the Purpose of:: To facilitate caregiver knowledge Therapeutic Exercise to Include: Strength training, Endurance training, Balance training, Flexibilty training, Passive ROM, Active ROM, Dynamic Lumbar Stabilization For the Purpose of:: To decrease pain, To increase ROM, To improve muscle performance and motor function Cryotherapy (ice pack, ice massage): Yes For the Purpose of:: To decrease pain Please do not hesitate to contact me at [phone] by phone or if you have questions or concerns regarding this new plan of care! Sincerely, Tommy Bowden, PT, ATC
--- NOTE | 2022-04-26 12:02 | HP.PTDCS(2) ---
It has been my pleasure to treat RAZIA CARRILLO referred by Dr. Luis Harper DO, with the diagnosis of PAIN IN RIGHT SHOULDER ,PLEURODYNIA for a total of 10 visit(s). Discharge Date: Please see the following information for a summary of their discharge status. Subjective: Doing alot better. Ready for d/c % Improvement: 75 Objective/Function/Assessment: POSTURE: mild forward posture. PALPATION: unremarkable. MMT: RTC/DELTOID 4/5. AROM: shoulder flexion 150 degrees, abduction 155 degrees. ER 90 Patient Goals: Improve Mobility, Improve Function, Decrease Pain, Alleviate Pain, Maneuver Steps, Improve ROM, Sleep Normal Goal 1:: Patient to be I with HEP for shoulder Goal Progress: Goal Met Goal 2:: Patient to demonstrate 50% improvement with improved function and less pain Goal Progress: Goal Met Goal 3:: Patient to improve functional strength with to good with less pain with for ADL's Goal Progress: Goal Met Goal 4:: Patient improve shoulder quick dash by 5 points to improve QOL and function Goal Progress: Goal Met Plan: D/C If there are questions or concerns regarding this patient's physical therapy, please feel free to call me at [phone]. Thank you for the referral of this patient. Sincerely, Timothy Ozuna, PT, Cert MDT, OCS
--- NOTE | 2022-04-26 12:42 | HP.PTREVAL ---
Dr. Luis Harper, DO, It has been my pleasure to treat RAZIA CARRILLO over the last 22 visits for R LE ORIF 01/02/22. Please see the progress note below for an update on the physical therapy plan of care! Subjective: Pt reports she still has to walk slow and use her cane for most walking and with the stairs Objective/Function: R ankle pain 0/10. R ankle strength: DF= 32, PF= 32, Ever= 23, Inv= 24 #F. R ankle DF ROM 12. Pt is able to ambulate 600 feet with cane until feeling fatigued and needing to rest Plan Plan: R ankle PROM/mobs, R LE stretching and strengthening, balance and proprio, core strengthening, bike, and HEP Balance/Gait/Functional tests - Balance/Special Test Scores Lower Extremity Functional Score: 39 Quick DASH Score: 6.8175 Goals Goal 1:: Increase R ankle DF ROM x x 10 degrees to aid with restoring a more normalized gait pattern Goal Time Frame: 4-6 Weeks Goal Progress: Progressing Goal 2:: Increase R ankle strength x 5-10#F to aid with stair negotiation Goal Time Frame: 4-6 Weeks Goal Progress: Goal Met Goal 3:: Decrease R LE pain x 50% to aid with increased tolerance for ambulation Goal Time Frame: 4-6 Weeks Goal Progress: Goal Met Goal 4:: I with HEP Goal Time Frame: 4-6 Weeks Goal Progress: Progressing Goal 5:: Pt will be able to ambulate 1000 feet with LRD to aid with community ambulation Goal Time Frame: 4-6 Weeks Goal Progress: Progressing Anticipated Interventions Patient/Client Instruction: Educate patient on: Condition, Plan of Care For the Purpose of:: To facilitate caregiver knowledge Therapeutic Exercise to Include: Strength training, Endurance training, Balance training, Flexibilty training, Passive ROM, Active ROM, Dynamic Lumbar Stabilization For the Purpose of:: To decrease pain, To increase ROM, To improve muscle performance and motor function Cryotherapy (ice pack, ice massage): Yes For the Purpose of:: To decrease pain Please do not hesitate to contact me at [phone] by phone or if you have questions or concerns regarding this new plan of care! Sincerely, Tomym Bowden, PT, ATC
--- NOTE | 2022-05-23 12:58 | HP.PTREVAL ---
Dr. Luis Harper, DO, It has been my pleasure to treat RAZIA CARRILLO over the last 32 visits for R LE ORIF 01/02/22. Please see the progress note below for an update on the physical therapy plan of care! Subjective: I dont have pain today Objective/Function: R LE pain ranges from 0-3/10. R ankle DF ROM is now 20 degrees. Pt is able to ambulate 1000 feet without difficulty. FGA: indicating a fall risk at this time. Pt would benefit from further balance training and functional exercise to aid her return to work without limitation Plan Plan: Attempt to get 12 more visits approved to aid with increasing ability to tolerate work tasks and improve functional balance. Balance/Gait/Functional tests - Balance/Special Test Scores Functional Gait Assessment Score: 21 % Disability: 30.0000 Lower Extremity Functional Score: 50 Quick DASH Score: 6.8175 Goals Goal 1:: Increase R ankle DF ROM x x 10 degrees to aid with restoring a more normalized gait pattern Goal Time Frame: 4-6 Weeks Goal Progress: Goal Met Goal 2:: Increase R ankle strength x 5-10#F to aid with stair negotiation Goal Time Frame: 4-6 Weeks Goal Progress: Goal Met Goal 3:: Decrease R LE pain x 50% to aid with increased tolerance for ambulation Goal Time Frame: 4-6 Weeks Goal Progress: Goal Met Goal 4:: I with HEP Goal Time Frame: 4-6 Weeks Goal Progress: Goal Met Goal 5:: Pt will be able to ambulate 1000 feet with LRD to aid with community ambulation Goal Time Frame: 4-6 Weeks Goal Progress: Goal Met Goal 6:: Increase FGA x 7 points to aid with preventing future falls Goal Time Frame: 4-6 Weeks Goal Progress: New goal Anticipated Interventions Patient/Client Instruction: Educate patient on: Condition, Plan of Care For the Purpose of:: To facilitate caregiver knowledge Therapeutic Exercise to Include: Strength training, Endurance training, Balance training, Flexibilty training, Passive ROM, Active ROM, Dynamic Lumbar Stabilization For the Purpose of:: To decrease pain, To increase ROM, To improve muscle performance and motor function Cryotherapy (ice pack, ice massage): Yes For the Purpose of:: To decrease pain Please do not hesitate to contact me at [phone] by phone or if you have questions or concerns regarding this new plan of care! Sincerely, Tommy Bowden, PT, ATC
--- NOTE | 2022-07-23 18:02 | HP.PTREVAL ---
Dr. Luis Harper, DO, It has been my pleasure to treat RAZIA CARRILLO over the last 18 visits for R LE ORIF 01/02/22. Please see the progress note below for an update on the physical therapy plan of care! Subjective: Pt reports her pain ranges between 4-5/10 Objective/Function: R LE pain ranges from 4-5/10. Pt is able to ambulate 1000 feet now , but still experiences pain by the end. Pt is able to ascend and descend stairs, but still needs UE's at this time Plan Plan: Continue with R LE strengthening, balance activity, and gait tolerance Balance/Gait/Functional tests - Balance/Special Test Scores Functional Gait Assessment Score: 23 % Disability: 23.3400 Lower Extremity Functional Score: 47 Quick DASH Score: 6.8175 Goals Goal 1:: Pt will be able to ambulate 1000 feet with no increase in pain Goal Time Frame: 4-6 Weeks Goal Progress: Progressing Goal 2:: Increase R ankle strength x 5-10#F to aid with stair negotiation Goal Time Frame: 4-6 Weeks Goal Progress: Goal Met Goal 3:: Pt will be able to descend 2 flights of stairs reciprocally without UE's Goal Time Frame: 4-6 Weeks Goal Progress: Progressing Goal 4:: I with HEP Goal Time Frame: 4-6 Weeks Goal Progress: Goal Met Goal 5:: Pt will be able to ambulate 1000 feet with LRD to aid with community ambulation Goal Time Frame: 4-6 Weeks Goal Progress: Goal Met Goal 6:: Increase FGA x 7 points to aid with preventing future falls Goal Time Frame: 4-6 Weeks Goal Progress: Progressing Anticipated Interventions Patient/Client Instruction: Educate patient on: Condition, Plan of Care For the Purpose of:: To facilitate caregiver knowledge Therapeutic Exercise to Include: Strength training, Endurance training, Balance training, Flexibilty training, Passive ROM, Active ROM, Dynamic Lumbar Stabilization For the Purpose of:: To decrease pain, To increase ROM, To improve muscle performance and motor function Cryotherapy (ice pack, ice massage): Yes For the Purpose of:: To decrease pain Please do not hesitate to contact me at [phone] by phone or if you have questions or concerns regarding this new plan of care! Sincerely, Tommy Bowden, PT, ATC
== END 2022-08-07 19:00 | disposition home or self-care (01) ==
LOC: PT 17:00
PROVIDERS: PCP Nurse Practitioner Family; Referring Provider Orthopaedic Surgery; Visit Provider Orthopaedic Surgery
DX: M25.511 Pain in right shoulder (principal); R07.81 Pleurodynia; Z87.81 Personal history of (healed) traumatic fracture
CPT/HCPCS: 97110; 97140; 97161; 97162; 97164; 97530

== ENCOUNTER → 2022-09-05 | Outpatient (CLI) | payer MEDICAID, SELFPAY ==
[2022-09-05 12:25] LABS: Absolute Lymphocyte Count 1.47 X10^3/uL (0.83-4.51); Absolute Neutrophil Count 5.4 X10^3/uL (2.0-7.7); Basophil# 0.05 X10^3/uL; Basophil% 0.7 % (0-1); Eosinophil# 0.24 X10^3/uL; Eosinophils% 3.2 % (0-5); Hematocrit 34.2 % (37-47); Hemoglobin 10.8 g/dL (12.0-15.0); Lymphocyte # 1.47 X10^3/ul (0.83-4.51); Lymphocyte % 19.5 % (19-41); Mean Corp Hgb Conc 31.6 g/dL (32-36); Mean Corpuscular Hgb 30.5 pg (27.0-32.0); Mean Corpuscular Volume 96.6 fL (81-99); Mean Platelet Vol. 8.9 fl (6.2-12.0); Monocyte% 5.3 % (0-10); NRBC Flagged by Analyzer 0 % (0-5); Neutrophil # 5.35 X10^3/uL (2.7-7.7); Platelet Count 323 K/mm3 (150-450); RBC Distribution Width CV 14.6 % (11.6-14.6); Red Blood Count 3.54 M/mm3 (4.2-5.4); White Blood Count 7.5 K/mm3 (4.4-11.0)
[2022-09-05 12:41] LABS: AST(SGOT) 12 U/L (15-37); Alanine Aminotransfer ALT/SGPT 21 U/L (13-56); Albumin, Serum 3.4 g/dL (3.2-5.0); Alkaline Phosphatase 84 U/L (45-117); Anion Gap 2 (5-15); BUN 14 mg/dL (7-18); BUN/Creat Ratio 20.7 RATIO (10-20); Calcium,Total 9.2 mg/dL (8.5-10.1); Chloride 111 mmol/L (98-107); Cholesterol 149 mg/dL (200); Creatinine, Serum 0.68 mg/dL (0.55-1.02); EST Glomerular Filtration Rate 97 mL/min (>60); Est Glom Filt Rate - Afr Amer 118 mL/min (>60); Globulin 3.4 g/dL (2.2-4.2); Glucose 93 mg/dL (74-106); High Density Lipoprotein 61 mg/dL; Potassium 4.5 mmol/L (3.5-5.1); Protein, Total 6.8 g/dL (6.4-8.2); Sodium Level 139 mmol/L (136-145); Triglycerides 73 mg/dL; Very Low Density Lipoprotein 15 mg/dL (5-40)
== END | disposition home or self-care (01) ==
LOC: BIMLAB 10:10
PROVIDERS: PCP Internal Medicine; Referring Provider Internal Medicine; Visit Provider Internal Medicine
DX: I10 Essential (primary) hypertension (principal)
CPT/HCPCS: 36415; 80053; 80061; 85025

== ENCOUNTER 2022-09-27 10:00 | Outpatient (RCR) | payer MEDICAID, SELFPAY ==
--- NOTE | 2022-08-23 17:49 | HP.PTREVAL ---
Dr. Luis Harper, DO, It has been my pleasure to treat RAZIA CARRILLO over the last 28 visits for R LE ORIF 01/02/22. Please see the progress note below for an update on the physical therapy plan of care! Subjective: I dont really have pain, just pressure. Pt worked today Objective/Function: R ankle pain ranges 1-3/10. Pt is still unable to ascend or descend 2 flights of stairs without UE's. Pt is able to ambulate 750 feet until needing to rest secondary to pain. R ankle MMT: DF= 32, PF= 41 #F. Pt is still limited with functional mobility secondary to pain and weakness Plan Plan: Attempt to get date extension and continue with strengthening Goals Goal 1:: Pt will be able to ambulate 1000 feet with no increase in pain Goal Time Frame: 4-6 Weeks Goal Progress: Progressing Goal 2:: Increase R ankle strength x 5-10#F to aid with stair negotiation Goal Time Frame: 4-6 Weeks Goal Progress: Goal Met Goal 3:: Pt will be able to descend 2 flights of stairs reciprocally without UE's Goal Time Frame: 4-6 Weeks Goal Progress: Progressing Goal 4:: Increase FGA x 7 points to aid with preventing future falls Goal Time Frame: 4-6 Weeks Goal Progress: Progressing Goal 5:: I with HEP Goal Time Frame: 4-6 Weeks Goal Progress: Goal Met Anticipated Interventions Patient/Client Instruction: Educate patient on: Condition, Plan of Care For the Purpose of:: To improve self management Therapeutic Exercise to Include: Strength training, Endurance training, Balance training, Flexibilty training, Gait and locomotor training, Passive ROM, Active ROM For the Purpose of:: To decrease pain, To increase ROM, To improve muscle performance and motor function Cryotherapy (ice pack, ice massage): Yes For the Purpose of:: To decrease pain Please do not hesitate to contact me at [phone] by phone or if you have questions or concerns regarding this new plan of care! Sincerely, Tommy Bowden, PT, ATC
--- NOTE | 2022-09-27 11:05 | HP.PTDCSUM ---
Discharge Summary D/C summary: It has been my pleasure to treat RAZIA CARRILLO referred by Dr. Luis Harper DO, with the diagnosis of R LE ORIF 01/02/22 for a total of 36 visit(s). Discharge Date: Please see the following information for a summary of their discharge status. Subjective Subjective: I feel like I am about as far as I am going to get. Pain R LE: Pain Intensity (Out of 10): 0 Overall Improvement % Improvement: 85 Objective Objective/Function: R ankle pain ranges from 0-3/10 Pt is able to ambulate 1000 feet without difficulty FGA= 28 R ankle MMT: DF= 32, PF= 39, Inv= 23, Ever= 32 #F Rx goals achieved Goals Goal 1:: Pt will be able to ambulate 1000 feet with no increase in pain Goal Progress: Goal Met Goal 2:: Increase R ankle strength x 5-10#F to aid with stair negotiation Goal Progress: Goal Met Goal 3:: Pt will be able to descend 2 flights of stairs reciprocally without UE's Goal Progress: Goal Met Goal 4:: Increase FGA x 7 points to aid with preventing future falls Goal Progress: Goal Met Goal 5:: I with HEP Goal Progress: Goal Met Plan Plan: Discharge to HEP D/C Information d/c sentence: If there are questions or concerns regarding this patient's physical therapy, please feel free to call me at [phone]. Thank you for the referral of this patient. Sincerely, Tommy Bowden, PT, ATC Balance/Gait/Functional tests Balance/Special Test Scores Functional Gait Assessment Score: 28 % Disability: 6.6700 Lower Extremity Functional Score: 55
== END 2022-09-27 14:31 | disposition home or self-care (01) ==
LOC: PT 10:00
PROVIDERS: Referring Provider Orthopaedic Surgery; Visit Provider Orthopaedic Surgery
DX: Z47.89 Encounter for other orthopedic aftercare (principal); Z98.890 Other specified postprocedural states; Z87.81 Personal history of (healed) traumatic fracture; M25.511 Pain in right shoulder; R07.81 Pleurodynia
CPT/HCPCS: 97110; 97164

== ENCOUNTER → 2022-11-30 | Outpatient (CLI) | payer MEDICAID, SELFPAY ==
--- NOTE | 2022-11-30 14:41 | CT_ITS ---
STUDY: LOW DOSE CT LUNG CANCER SCREENING REASON FOR EXAM: Female, 52 years old. Smoker. Patient smoked 1 pack per day for 29 years. RADIATION DOSAGE (If Supplied By Facility): CTDIvol = ( 3.02 ) mGy, DLP = ( 98.92 ) mGycm TECHNIQUE: No contrast was administered. Low dose technique was utilized (average mAS-38 and kVp 120). 1.25 mm axial source images with a slice interval of 1.25-mm were reconstructed in lung windows. 2.5 mm axial source images with a slice interval of 2.5-mm were reconstructed in lung windows. 5.0 mm axial source images with a slice interval of 5.0-mm were reconstructed in soft tissue windows. COMPARISON: Comparison is made with prior study dated December 19, 2021. NODULES: No suspicious nodule is seen. Emphysema: No significant emphysema is present. Endobronchial lesion: None Aorta: Remarkable CORONARY ARTERIES: Coronary artery calcification is not seen. Heart: Unremarkable Pulmonary artery: Unremarkable Mediastinal nodes: Small mediastinal lymph nodes. Other chest and abdominal findings: Prior cholecystectomy. CT/Low Dose CT Lung Screening IMPRESSION: Lung-RADS category 2 - Continue annual screening with LDCT in 12 months. IMPORTANT NOTES FOR USE: ACR Lung-RADS Version 1.1 Assessment Categories Release Date: 2018 Category: Coded 0-4 bases on nodule(s) with highest degree of suspicion. Negative screen is defined as categories 1 and 2; a positive screen is defined as categories 3 and 4. Category 3 and 4A nodules that are unchanged on interval CT should be coded as category 2, and individuals returned to screening in 12 months. Category 4X: Category 3 or 4 nodules with additional imaging findings that increase the suspicion of lung cancer, such as spiculation, GGN that doubles in size in 1 year, enlarged lymph notes, etc. Category Modifiers: S (significant finding unrelated to lung cancer) Electronically Signed: Ken Stover MD at 15:17 EDT ,
== END | disposition home or self-care (01) ==
LOC: CT 14:40
PROVIDERS: PCP Internal Medicine; Referring Provider Nurse Practitioner Acute Care; Visit Provider Nurse Practitioner Acute Care
DX: Z12.2 Encounter for screening for malignant neoplasm of respiratory organs (principal); F17.210 Nicotine dependence, cigarettes, uncomplicated
CPT/HCPCS: 71271

== ENCOUNTER → 2022-12-05 | Outpatient (CLI) | payer MEDICAID, SELFPAY ==
--- NOTE | 2022-12-05 08:54 | BI_ITS ---
MAMMOGRAPHY - BILATERAL SCREENING REASON FOR EXAM: Female, 52 years old. Routine annual screening examination. PERTINENT HISTORY: Non-contributory. TECHNIQUE: Digital bilateral breast katy (3D mammographic acquisition) in the CC and MLO projections. 2-D mediolateral oblique (MLO) and craniocaudad (CC) views of both breasts were obtained. CAD: Full Field Digital Mammography with Computer Added Detection was performed. COMPARISON: Comparison is made with prior study August 08, 2020 and June 20, 2018. FINDINGS: Breast Composition: The breasts are heterogeneously dense, which may obscure small masses. There are no dominant masses or suspicious calcifications. Stable small benign appearing bilateral axillary lymph nodes. No other significant abnormalities are identified. There has been no significant change since the prior study. BI/SCRN MAMM (CAD)W/KATY BILAT IMPRESSION: Stable bilateral screening mammogram. Yearly follow-up mammogram recommended. (A) ASSESSMENT CATEGORY: BIRADS Category 2: Benign. A letter regarding these results will be sent to the patient by the facility within 30 days. Approximately 10% of breast cancers are not detected by mammography. A normal mammogram should not delay biopsy of a clinically suspicious abnormality. [id number] Electronically Signed: Ken Stover MD at 10:08 EDT ,
== END | disposition home or self-care (01) ==
LOC: OPUS 08:53
PROVIDERS: PCP Internal Medicine; Referring Provider Obstetrics & Gynecology; Visit Provider Obstetrics & Gynecology
DX: Z12.31 Encounter for screening mammogram for malignant neoplasm of breast (principal)
CPT/HCPCS: 77063; 77067

== ENCOUNTER → 2022-12-14 | Outpatient (CLI) | payer MEDICAID, SELFPAY ==
--- NOTE | 2022-12-14 16:04 | US_ITS ---
STUDY: ULTRASOUND OF THE FEMALE PELVIS - COMPLETE REASON FOR EXAM: Female, 52 years old. AUB LMP: TECHNIQUE: Transabdominal and transvaginal TECHNICAL QUALITY: Adequate. COMPARISON: None. FINDINGS: The uterus is anteverted and is in a midline position. The uterus measures 10.5 x 7.3 x 5.2 cm. Normal uterine cervix. The endometrium measures 2 mm in thickness, and is hyperechoic. There is a trace of fluid within the endometrial canal possibly blood There is no demonstrated endometrial mass. Myometrium is heterogeneous however there is no well-defined intrauterine fibroid.. I.U.D. - The patient does not have an I.U.D. The right ovary is visualized. The right ovary measures 2.5 x 2.4 x 1.5 cm. There is no right ovarian cyst or ovarian mass. There is no visualized right adnexal mass or complex lesion. There is normal arterial and normal venous vascularity. The left ovary is visualized. The left ovary measures 2.9 x 2.6 x 2.5 cm. There is no left ovarian cyst or ovarian mass. There is no visualized left adnexal mass or complex lesion. There is normal arterial and normal venous vascularity. There is no fluid in the cul-de-sac. The pre void volume of the bladder was 301 ml. US/Pelvic (Non ) IMPRESSION: Trace of fluid within the endometrial canal possibly blood however no significant thickening of the endometrial lining for stated age. Myometrial heterogeneity but no definitive evidence for focal fibroid MRI may be useful for further evaluation if indicated Electronically Signed: Davis Decker MD at 21:10 EDT ,
== END | disposition home or self-care (01) ==
LOC: US 16:03
PROVIDERS: PCP Internal Medicine; Referring Provider Obstetrics & Gynecology; Visit Provider Obstetrics & Gynecology
DX: N93.9 Abnormal uterine and vaginal bleeding, unspecified (principal)
CPT/HCPCS: 76830; 76856

== ENCOUNTER → 2023-01-09 | Outpatient (CLI) | payer MEDICAID, SELFPAY ==
[2023-01-09 12:39] LABS: Absolute Lymphocyte Count 1.45 X10^3/uL (0.83-4.51); Absolute Neutrophil Count 6.4 X10^3/uL (2.0-7.7); Basophil# 0.04 X10^3/uL; Basophil% 0.5 % (0-1); Eosinophil# 0.23 X10^3/uL; Eosinophils% 2.7 % (0-5); Hematocrit 40.6 % (37-47); Lymphocyte # 1.45 X10^3/ul (0.83-4.51); Lymphocyte % 16.9 % (19-41); Mean Corpuscular Hgb 30.2 pg (27.0-32.0); Mean Corpuscular Volume 94.4 fL (81-99); Mean Platelet Vol. 8.9 fl (6.2-12.0); Monocyte# 0.39 X10^3/uL; Monocyte% 4.6 % (0-10); NRBC Flagged by Analyzer 0 % (0-5); Neutrophil # 6.42 X10^3/uL (2.7-7.7); Neutrophil % 74.9 % (47-70); Platelet Count 288 K/mm3 (150-450); RBC Distribution Width CV 13.6 % (11.6-14.6); RBC Distribution Width SD 47.2 fl (35.1-43.9); White Blood Count 8.6 K/mm3 (4.4-11.0)
== END | disposition home or self-care (01) ==
LOC: BIMLAB 10:20
PROVIDERS: PCP Internal Medicine; Referring Provider Internal Medicine; Visit Provider Internal Medicine
DX: D64.9 Anemia, unspecified (principal)
CPT/HCPCS: 36415; 85025

== ENCOUNTER → 2023-01-22 | Outpatient (CLI) | payer MEDICAID, SELFPAY ==
--- NOTE | 2023-01-22 08:30 | EMB_PTH ---
PATIENT: RAZIA CARRILLO LOC: [facility] U#:[id number] AGE/SX: 53/F ROOM: RE01/22/[address]: Dr. Laurie Lawler DO : 1970 BED: DIS: 01/22/2023 SPEC #: [id number] RECD: 01/22/23 09:53 STATUS: GRACIELA REKermit #: [id number] LINDA: 01/22/23 08:[address]: Laurie Lawler DEPT: SURGICAL PATHOLOGY RECD BY: Magaly Jacobs ENTERED: 01/22/23 10:09 SP TYPE: ENDOM BX/C VERN DR: Dr. Vance Cobb MD Tissues: Endometrium, NOS Procedures: Surgery Specimen Level IV HEADER OPERATION: Endometrial biopsy PRE-OP DIAGNOSIS: Abnormal uterine bleeding TISSUE SUBMITTED: Endometrial lining MICROSCOPIC DIAGNOSIS Endometrium, biopsy: Strips of benign superficial weakly proliferative to inactive endometrium. AM:debra 01/23/2023 MICROSCOPIC DESCRIPTION Slides are reviewed. GROSS DESCRIPTION Received is one container labeled with the patient's name and not further designated. The specimen consists of multiple irregular fragments of ragsdale mucoid tissue that in aggregate measure 1.0 x 0.2 x 0.1 cm. The specimen is totally submitted in one cassette. / SJ:debra 01/22/2023 TC:5 CPT: 43449
== END | disposition home or self-care (01) ==
LOC: LABSPEC 10:05
PROVIDERS: PCP Internal Medicine; Referring Provider Obstetrics & Gynecology; Visit Provider Obstetrics & Gynecology
DX: N93.9 Abnormal uterine and vaginal bleeding, unspecified (principal)
CPT/HCPCS: 88305

== ENCOUNTER → 2023-02-22 | Outpatient (CLI) | payer MEDICAID, SELFPAY ==
--- NOTE | 2023-02-22 13:45 | US_ITS ---
STUDY: SUPERFICIAL ULTRASOUND - LEFT ARM REASON FOR EXAM: Female, 53 years old. Localized Left upper extremity swelling -- LT ARM AREA OF PALP LUMP TECHNIQUE: A superficial ultrasound was performed with real-time and static lee-scale imaging. COMPARISON: None. FINDINGS: The area of the palpable abnormality was examined with ultrasound. The palpable lumps correspond to a 4.4 cm x 4.6 cm x 2.3 cm slightly echogenic nodule suggestive of a lipoma. Adjacent to this, a similar-appearing mildly echogenic nodule measuring 2.9 cm by by 3 cm on 1.6 cm is visualized as well. US/Ext Non Vasc Limited/Soft Tiss IMPRESSION: The palpable abnormality most likely corresponds to lipomatous. Electronically Signed: Ken Stover MD at 15:30 EST ,
== END | disposition home or self-care (01) ==
PROVIDERS: PCP Internal Medicine; Referring Provider Internal Medicine; Visit Provider Internal Medicine
DX: M79.89 Other specified soft tissue disorders (principal); R22.32 Localized swelling, mass and lump, left upper limb
CPT/HCPCS: 76882; 97110

== ENCOUNTER 2023-04-17 09:00 | Outpatient (RCR) | payer MEDICAID, SELFPAY ==
--- NOTE | 2023-01-29 17:16 | HP.PTEVAL_ITS ---
Patient's Visit Information Visit Information Visit Information: RAZIA CARRILLO is a 53 year old F referred to Physical Therapy by Dr. Luis Harper DO with a diagnosis of R knee OA. Date of Evaluation: 01/29/23 Physical Therapist: Tommy Bowden, PT, ATC Visit Plan Frequency: 2-3x /Week Duration: 4-6 Weeks Plan: R knee strengthening, balance and proprio, core strengthening, bike, and HEP Subjective Subjective: Pt reports her R knee has been sore for approximately one year. Pt notes she had xrays which revealed she is bone on bone at this time. Pt reports he told me my knee is worn out in every way possible . Pt reports she recently had a cortisone injection that did not make any difference. Pt reports her major goal at this time is to decrease knee pain and avoid surgery. Pt denies any tingling or numbness at this time. Pt reports the majority of her pain is located on the posterior aspect of her R knee. Pt reports occasional sleep difficulty secondary to pain. Pt reports she has stairs in her house at home, and has significant difficulty with negotiating them at this time secondary to pain. Pt reports prolonged walking, such as when she goes grocery shopping, increases her pain. 3/10 pain while at rest, 7 /10 pain at worst (Pt reports this is when she is standing or walking for a long period of time.) Pain R knee: Pain Intensity (Out of 10): 3 Pain Intensity Range: 7 Objective Objective: Palpation: Significant crepitus with AROM. No obvious deformity noted this date. Pain on medial joint line. Neuro: B LE sensation is WNL to light touch. MMT: L knee flex= 36, ext= 50 #F; R knee flex= 23, ext= 22 #F ROM: L knee 0-122 degrees, R knee 0-10-75 Special tests: Pos apley compression test Balance/Special Test Scores Lower Extremity Functional Score: 35 Goals Goal 1:: Decrease R knee pain x 50% to aid with sleep Goal Time Frame: 4-6 Weeks Goal 2:: Increase R knee flex and ext strength x 5#F to aid with stair negotiation Goal Time Frame: 4-6 Weeks Goal 3:: Increase R knee ROM x 10 degrees to aid with IADL's Goal Time Frame: 4-6 Weeks Goal 4:: I with HEP Goal Time Frame: 4-6 Weeks Rehabilitation Potential Physical Therapy Diagnosis: Pt has R knee pain, weakness, and limited ROM secondary to R knee OA Rehabilitation Potential: Good Anticipated Interventions Patient/Client Instruction: Educate patient on: Condition and Plan of Care For the Purpose of:: To improve self management Therapeutic Exercise to Include: Strength training, Endurance training, Balance training, Flexibilty training and Dynamic Lumbar Stabilization For the Purpose of:: To decrease pain, To increase ROM and To improve muscle performance and motor function Text: Thank you for the opportunity to evaluate your patient. For Medicare and Medicare HMO plans, please review the plan of care and approve it. It will need to be FAXED BACK to us at [phone] for Medicare purposes. For Medicare only, by signing this I certify the plan of care. Please let me know if there are questions or concerns regarding this plan of care. Physician Signature:__ Date:
--- NOTE | 2023-03-13 10:07 | HP.PTREVAL ---
Re-Evaluation Intro: Dr. Luis Harper, DO, It has been my pleasure to treat RAZIA CARRILLO over the last 13 visits for R knee OA. Please see the progress note below for an update on the physical therapy plan of care! Subjective Subjective: My knee is getting better, but I still have trouble going up and down stairs. Objective Objective/Function: R knee pain ranges from 0-2/10 R knee MMT: flex= 25, ext= 31 #F R knee ROM 0-110 degrees Pt has made sig gains with ROM and pain, still lacks functional strength at this time. Plan Plan Plan: Attempt to get 12 more PT visits approved to focus on functional strength. Balance/Gait/Functional tests Balance/Special Test Scores Lower Extremity Functional Score: 47 Goals Goals Goal 1:: Decrease R knee pain x 50% to aid with sleep Goal Time Frame: 4-6 Weeks Goal Progress: Goal Met Goal 2:: Increase R knee flex and ext strength x 15#F to aid with stair negotiation Goal Time Frame: 4-6 Weeks Goal Progress: New goal Goal 3:: Increase R knee ROM x 10 degrees to aid with IADL's Goal Time Frame: 4-6 Weeks Goal Progress: Goal Met Goal 4:: I with HEP Goal Time Frame: 4-6 Weeks Goal Progress: Progressing Anticipated Interventions Anticipated Interventions Patient/Client Instruction: Educate patient on: Condition and Plan of Care For the Purpose of:: To improve self management Therapeutic Exercise to Include: Strength training, Endurance training, Balance training, Flexibilty training and Dynamic Lumbar Stabilization For the Purpose of:: To decrease pain, To increase ROM and To improve muscle performance and motor function Re-Evaluation Ending Re-evaluation ending: Please do not hesitate to contact me at [phone] by phone or if you have questions or concerns regarding this new plan of care! Sincerely, Tommy Bowden, PT, ATC
--- NOTE | 2023-04-17 10:09 | HP.PTDCSUM ---
Discharge Summary D/C summary: It has been my pleasure to treat RAZIA CARRILLO referred by Dr. Luis Harper DO, with the diagnosis of R knee OA for a total of 21 visit(s). Discharge Date: Please see the following information for a summary of their discharge status. Subjective Subjective: My pain ranges from a 0-2/10 Pain R knee: Pain Intensity (Out of 10): 0 R ankle: Pain Intensity (Out of 10): 3 Overall Improvement % Improvement: 85 Objective Objective/Function: R knee pain ranges from 0-2/10 R knee MMT: flex= 30, ext= 36 #F R knee ROM: 0-125 degrees I with HEP Rx goals achieved Goals Goal 1:: Decrease R knee pain x 50% to aid with sleep Goal Progress: Goal Met Goal 2:: Increase R knee flex and ext strength x 15#F to aid with stair negotiation Goal Progress: New goal Goal 3:: Increase R knee ROM x 10 degrees to aid with IADL's Goal Progress: Goal Met Goal 4:: I with HEP Goal Progress: Goal Met Plan Plan: Discharge to HEP D/C Information d/c sentence: If there are questions or concerns regarding this patient's physical therapy, please feel free to call me at [phone]. Thank you for the referral of this patient. Sincerely, Tommy Bowden, PT, ATC Balance/Gait/Functional tests Balance/Special Test Scores Lower Extremity Functional Score: 55 Improvement % Improvement: 85
== END 2023-04-17 14:59 | disposition home or self-care (01) ==
LOC: PT 09:00
PROVIDERS: PCP Internal Medicine; Visit Provider Orthopaedic Surgery
DX: M17.11 Unilateral primary osteoarthritis, right knee (principal); Z98.890 Other specified postprocedural states
CPT/HCPCS: 97110; 97161; 97164

== ENCOUNTER → 2023-05-03 | Outpatient (CLI) | payer MEDICAID, SELFPAY ==
[2023-05-03 15:26] LABS: Absolute Lymphocyte Count 1.74 X10^3/uL (0.83-4.51); Absolute Neutrophil Count 4.8 X10^3/uL (2.0-7.7); Basophil# 0.03 X10^3/uL; Basophil% 0.4 % (0-1); Eosinophil# 0.22 X10^3/uL; Hematocrit 44.4 % (37-47); Hemoglobin 14.3 g/dL (12.0-15.0); Lymphocyte # 1.74 X10^3/ul (0.83-4.51); Lymphocyte % 24.1 % (19-41); Mean Corp Hgb Conc 32.2 g/dL (32-36); Mean Corpuscular Hgb 29.7 pg (27.0-32.0); Mean Corpuscular Volume 92.1 fL (81-99); Mean Platelet Vol. 8.9 fl (6.2-12.0); Monocyte# 0.44 X10^3/uL; Monocyte% 6.1 % (0-10); NRBC Flagged by Analyzer 0 % (0-5); Neutrophil # 4.76 X10^3/uL (2.7-7.7); Platelet Count 278 K/mm3 (150-450); RBC Distribution Width CV 12.8 % (11.6-14.6); RBC Distribution Width SD 43.5 fl (35.1-43.9); Red Blood Count 4.82 M/mm3 (4.2-5.4); White Blood Count 7.2 K/mm3 (4.4-11.0)
[2023-05-03 16:01] LABS: ALB/GLOB Ratio 1.1 RATIO (0.9-2.4); AST(SGOT) 17 U/L (15-37); Alanine Aminotransfer ALT/SGPT 38 U/L (13-56); Albumin, Serum 3.7 g/dL (3.2-5.0); Alkaline Phosphatase 101 U/L (45-117); Anion Gap 4 (5-15); BUN 15 mg/dL (7-18); BUN/Creat Ratio 14.7 RATIO (10-20); Calcium,Total 9.8 mg/dL (8.5-10.1); Chloride 112 mmol/L (98-107); Creatinine, Serum 1.02 mg/dL (0.55-1.02); EST Glomerular Filtration Rate 60 mL/min (>60); Est Glom Filt Rate - Afr Amer 73 mL/min (>60); Globulin 3.3 g/dL (2.2-4.2); Glucose 100 mg/dL (74-106); Potassium 4.3 mmol/L (3.5-5.1); Sodium Level 142 mmol/L (136-145)
== END | disposition home or self-care (01) ==
LOC: BIMLAB 13:38
PROVIDERS: PCP Internal Medicine; Referring Provider Internal Medicine; Visit Provider Internal Medicine
DX: I10 Essential (primary) hypertension (principal)
CPT/HCPCS: 36415; 80053; 85025

== ENCOUNTER → 2023-05-09 | Outpatient (CLI) | payer MEDICAID, SELFPAY ==
--- OUTSIDE RECORDS SUMMARY | 2023-05-09 11:09 | XMS RPT_ITS | CCD ---
Author Name Unknown Address [address] [facility] [address] [place] [address] Organization [facility] Results Test Name Value Interpretation Reference Range Facil ity Summary Purpose Family History No Family History Records Found Advance Directives No Advanced Directives Records Found Additional Source Comments INFORMATION SOURCE (unrecogn ized section and content) FOR RECORDS PERTAINING TO PATIENTS WHO ARE OR HAVE BEEN ENROLLED IN A CHEMICAL DEPENDENCY/SUBSTANCEABUSE PROGRAM, SOME INFORMATION MAY BE OMITTED. This clinical summary was aggregated from multiple sources. Caution should be exercised in using it in the provision of clinical care. This summary normalizes information from multiple sources, and as a consequence, information in this document may materially change the coding, format and clinical context of patient data. In addition, data may be omitted in some cases. CLINICAL DECISIONS SHOULD BE BASED ON THE PRIMARY CLINICAL RECORDS. [employer]. provides no warranty or guarantee of the accuracy or completeness of information in this document.
== END | disposition home or self-care (01) ==
LOC: SL 09:56
PROVIDERS: PCP Internal Medicine; Referring Provider Nurse Practitioner Acute Care; Visit Provider Nurse Practitioner Acute Care
DX: Z46.89 Encounter for fitting and adjustment of other specified devices (principal)

== ENCOUNTER 2023-05-10 09:12 | Day surgery (SDC) | payer MEDICAID, SELFPAY ==
[2023-05-10] VITALS (8 sets, daily range): BP systolic 107–123; BP diastolic 71–87; PULSE 50–62; RESP 14–16; TEMP 36.4–37; O2SAT 93–99; BMI 33.3
--- NOTE | 2023-05-10 | LIP_PTH ---
PATHOLOGY RESULTS PATIENT: RAZIA CARRILLO LOC: [facility] [place][id number] AGE/SX: 53/F ROOM: RE05/10/[address]: Dr. Kendra Suh MD : 1970 BED: DIS: 05/10/2023 SPEC #: [id number] RECD: 05/10/23 13:24 STATUS: GRACIELA REKermit #: [id number] LINDA: 05/10/23 00:[address]: Kendra Suh DEPT: SURGICAL PATHOLOGY RECD BY: Rico Adams ENTERED: 05/13/23 08:10 SP TYPE: LIPOMA OTHR DR: Dr. Vance Cobb MD Tissues: Soft tissues, NOS Procedures: Surgery Specimen Level III HEADER OPERATION: Excision left upper arm lipoma PRE-OP DIAGNOSIS: Large lipoma left upper arm TISSUE SUBMITTED: Left upper arm lipoma 7.0 x 8.0 x 2.5 cm MICROSCOPIC DIAGNOSIS Soft tissue mass of left upper arm, excision: Mature adipose tissue consistent with lipoma. AM:debra 05/14/2023 MICROSCOPIC DESCRIPTION Slides are reviewed. GROSS DESCRIPTION Received in fixative is one container labeled with the patient's name and designated left upper arm lipoma. The specimen consists of a lobulated piece of adipose tissue measuring 7.0 x 8.0 x 3.0 cm. The specimen is partially disrupted. Sections reveal yellow adipose cut surfaces without area of hemorrhage, necrosis or cystic degeneration. [employer] sections are submitted in four cassettes. / SJ:debra 05/13/2023 TC:1 CPT: 56879
[2023-05-10] MEDS: Lactated Ringers 1,000 ML 15 ML IV (09:41)
--- OUTSIDE RECORDS SUMMARY | 2023-05-10 09:41 | XMS RPT_ITS | CCD ---
Author Name Unknown Address [address] [facility] [address] [place] [address] Organization [facility] Results Test Name Value Interpretation [...] BE BASED ON THE PRIMARY CLINICAL RECORDS. [employer]. provides no warranty or guarantee of the accuracy or completeness of information in this document.
--- NOTE | 2023-05-10 10:49 | PCM.HP.STD ---
HPI - General General Date of Service: 05/10/23 HPI Narrative RAZIA CARRILLO, is a 53 F who presents for excision of the left upper arm lipoma. Patient denies any changes last office visit. office visit 03/22/24 HPI HPI: 53-year-old female presents due to left arm lipoma. Patient states she has had this for about 15 years. Patient states has been slightly larger and slightly smaller but about the same size throughout all this time. Patient states it can be tender when it gets bumped it or something is pressing on it. [facility] Medical History Abnormal uterine bleeding Alcohol use Ambulates with cane Anemia Anxiety and depression Arthritis Back pain Chronic cough CPAP (continuous positive airway pressure) dependence Flu vaccine need Gastric reflux GERD (gastroesophageal reflux disease) Hepatitis A Hepatitis C, chronic History of edema History of fibula fracture History of hiatal hernia History of pain when walking History of ulceration Hypertension Injury of head and neck Leg cramps Lipoma Lipoma of left upper extremity Localized swelling of left upper extremity Low iron Marijuana use MDD (major depressive disorder) Migraine headache Palpable mass of soft tissue of upper extremity Psychosis Rib pain on right side Right shoulder pain Schizophrenia Shortness of breath on exertion Smoker Substance abuse Tobacco abuse counseling Wears glasses Wears partial dentures Home Medications multivitamin 1 tab PO BID 05/15/21 [History Last Taken Unknown] albuterol sulfate 90 mcg/actuation aerosol inhaler (Ventolin HFA) 2 puff inhalation Q6H PRN SOB 06/26/21 [History Last Taken Unknown] acetaminophen 500 mg capsule 1,000 mg (2 x 500 mg) PO Q6H PRN pain #90 caps 01/02/22 [Rx Last Taken Unknown] cyclobenzaprine 10 mg tablet 5 - 10 mg (0.5 - 1 x 10 mg) PO TID PRN muscle spasm #30 tabs 01/29/22 [Rx Last Taken Unknown] cariprazine 1.5 mg capsule (Vraylar) 1.5 mg PO DAILY ANTIPSYCHOTIC 12/25/22 [History Last Taken 05/10/23] ferrous sulfate 325 mg (65 mg iron) tablet (Feosol) 325 mg PO DAILY #90 tabs 01/09/23 [Rx Last Taken Unknown] modafinil 200 mg tablet 200 mg PO DAILY HELP ME STAY AWAKE 01/22/23 [History Last Taken Unknown] antiarthritic combination no.2 900 mg tablet (glucosamine-chondroitin) 900 mg PO DAILY 02/21/23 [History Last Taken Unknown] buspirone 15 mg tablet 15 mg PO BID 04/23/23 [History Last Taken 05/10/23] amlodipine 5 mg tablet 5 mg PO QHS 04/26/23 [History Last Taken Unknown] fluticasone propionate 50 mcg/actuation nasal spray,suspension 2 spray intranasal QHS 04/26/23 [History Last Taken Unknown] meloxicam 15 mg tablet 15 mg PO DAILY 05/03/23 [History Last Taken Unknown] omeprazole 40 mg capsule,delayed release 40 mg PO DAILY #90 caps 05/03/23 [Rx Last Taken 05/10/23] Allergy/AdvReac Type Severity Reaction Status Date / Time No Known Allergies Allergy Verified 05/10/23 09:30 Family History Father Diabetes Hypertension Mother Kidney disease Asthma Arthritis Aunt Cancer Hodgkins Grandmother Colon cancer Polymyalgia rheumatica Grandfather CVA (cerebral vascular accident) Surgical History History of colonoscopy History of dilation and curettage (~1996) History of esophagogastroduodenoscopy (EGD) History of hysteroscopy History of laparoscopic cholecystectomy (~2004) History of lumpectomy (~1996) History of open reduction and internal fixation (ORIF) procedure Social History household members: children and other current occupational status: employed current occupation: [employer] Smoking Status: Current every day smoker tobacco type: cigarettes alcohol intake: current details: socially substance use type: marijuana what type of physical activity do you participate in: walking frequency: 3-4 times per week seatbelt use: always do you feel safe at home: Yes additional social history: single Vital Signs Vital Signs Vital Signs: 05/10/23 09:31 05/10/23 09:31 Temperature 98.6 F Temperature Source Temporal Pulse Rate 62 Respiratory Rate 16 Respiratory Pattern Normal Blood Pressure 107/87 H Blood Pressure Mean 93 Blood Pressure Source Monitor Blood Pressure Position Semi-Fowlers Blood Pressure Location Right Arm Pulse Ox 98 Oxygen Delivery Method Room Air Weight Weight: 194 lb Body Mass Index (BMI) 33.3 Physical Exam Const oriented x3 and no apparent distress Resp normal respiratory effort Cardio regular rate GI soft to palpation Inspection: Negative for abdominal distention Extremity Extremity Narrative: Left upper arm lipoma, soft mobile, 8x7 cm Assessment & Plan Assessment/Plan (1) Lipoma: PLAN: Plan Plan for excision of left upper arm lipoma. Discussed risk benefits with patient including but not limited to bleeding, infection, need for further surgery. She expressed understanding had no further question this time. Kendra Suh M.D. Pager: [phone] [facility] [address] [place] [address], [facility], [address] [place] [address] Office: [phone]
[2023-05-10] MEDS: Cefazolin 2 GM in 0.9% Normal Saline (100mL Bag) 100 ML IV (11:04)
--- NOTE | 2023-05-10 11:45 | OP.PCM_ITS ---
Report of Operation Date of Procedure: 05/10/23 Pre-Operative Diagnosis: Left upper arm lipoma Post-Operative Diagnosis: Same Surgery/Procedure Performed:: Excision of left upper arm lipoma Surgeon: Kendra Suh Type of Anesthesia: Local MAC Anesthesiologist: Saran Washington Special Medications: Ancef 2 g IV x 1 Specimen's removed: Left upper arm lipoma Estimated Blood Loss (mL): < 10 cc Description of Procedure: Patient was brought into the operating room and placed supine on operating tab le. A time-out was completed verifying correct patient, procedure, site, position and special equipment prior to beginning procedure. MAC anesthesia was induced. Left arm was prepped and draped in usual sterile fashion. Local anesthesia of 0.5% Marcaine was used for a total of 16 mL. Local anesthesia was infiltrated at the planned incision and incision was made over the lipomas. Incision was made through the skin with a 15 blade scalpel. This was deepened with electrocautery and subcutaneous tissues. Lipoma was identified measuring 7 x 8 x 2.5 cm. Hemostasis was achieved with electro cautery. Incision was irrigated with saline. Incision was closed with subdermal suture of 3-0 Vicryl interrupted and the skin was closed with running 4-0 Monocryl on the skin. Steri-Strips and Opsite was placed over incision. Pressure dressing was also placed with 4x4 and tape. Patient tolerated the procedure well and was taken to the postsurgical care unit in stable condition. Complications none
[2023-05-10] MEDS: Bupivacaine Mpf 0.5% 30 ML VIAL (11:46)
--- NOTE | 2023-05-10 11:50 | DCINST_ITS ---
Discharge Instructions Diet Discharge Diet: No restrictions Activity Discharge Activity: May Not Drive (If taking narcotics) Lifting Restrictions: No lifting greater than 15 pounds with the left arm x 1 week Dressing / Incision Call your doctor if your incision/area has: Continuous Slow Oozing, Sudden Increased Bleeding, Increased Pain/ Swelling and Increased Redness Call your doctor if you observe: Fever of 101 or Higher Cleanse incision/area with: Keep Dressing Clean & Dry (Okay to shower after 24 hours, do not scrub incision water can run over it.) Additional Dressing/Incision Instructions:: Pressure dressing placed over the incision to help prevent seroma as one will likely formed due to the size of the previous lipoma. Okay to replace pressure dressing at home. Seromas will slowly resolve over time if seroma does form. Follow Up Care Please Follow Up With: Kendra Suh MD When: Call the office for a follow-up appointment in 2 weeks. If any concerns after 5:00PM and on the weekends call [phone]. Test Results: Test results from this visit will be discussed in further detail at your follow- up appointment, if applicable. Discharge Plan Admission Attending Provider: Kendra Suh Primary Care Provider: Vance Cobb Discharge Orders/Prescriptions Prescriptions: New oxycodone-acetaminophen 5-325 mg tablet 1 tab PO Q6H PRN (Reason: pain) 3 Days Qty: 5 0RF Continued multivitamin Tablet 1 tab PO BID albuterol sulfate [Ventolin HFA] 90 mcg/actuation HFA aerosol inhaler 2 puff inhalation Q6H PRN (Reason: SOB) cyclobenzaprine 10 mg tablet 5 - 10 mg PO TID PRN (Reason: muscle spasm) Qty: 30 2RF Vraylar 1.5 mg capsule 1.5 mg PO DAILY Patient Comments: TAKE 1 CAPSULE BY MOUTH DAILY ferrous sulfate [Feosol] 325 mg (65 mg iron) tablet 325 mg PO DAILY Qty: 90 3RF buspirone 15 mg tablet 15 mg PO BID Patient Comments: take one tablet by mouth twice a day modafinil 200 mg tablet 200 mg PO DAILY meloxicam 15 mg tablet 15 mg PO DAILY omeprazole 40 mg capsule,delayed release(DR/EC) 40 mg PO DAILY Qty: 90 1RF acetaminophen 500 mg capsule 1,000 mg PO Q6H PRN (Reason: pain) Qty: 90 0RF amlodipine 5 mg tablet 5 mg PO QHS fluticasone propionate 50 mcg/actuation spray,suspension 2 spray intranasal QHS Rx Instructions: administer into each nostril glucosamine-chondroitin 900 mg tablet 900 mg PO DAILY Referrals / Follow Up: Vance Cobb MD [Primary Care Provider] - Disposition Disposition (needs filled in before D/C Order can be placed): Home, Self Care
== END 2023-05-10 13:30 | disposition home or self-care (01) ==
LOC: SDC 09:12 → AC 09:13
PROVIDERS: PCP Internal Medicine; Referring Provider Surgery; Visit Provider Surgery
PROC: (CPT 11406; principal; 2023-05-10 10:45)
DX: D17.22 Benign lipomatous neoplasm of skin and subcutaneous tissue of left arm (principal); B18.2 Chronic viral hepatitis C; D64.9 Anemia, unspecified; Z80.0 Family history of malignant neoplasm of digestive organs; I10 Essential (primary) hypertension; F12.90 Cannabis use, unspecified, uncomplicated; G47.33 Obstructive sleep apnea (adult) (pediatric); F17.210 Nicotine dependence, cigarettes, uncomplicated; Z99.89 Dependence on other enabling machines and devices
CPT/HCPCS: 11406; 00400; 88304; J7120; J2405

== ENCOUNTER → 2023-06-26 | Outpatient (CLI) | payer MEDICAID, SELFPAY ==
[2023-06-26 09:45] LABS: ALB/GLOB Ratio 1.1 RATIO (0.9-2.4); AST(SGOT) 14 U/L (15-37); Alanine Aminotransfer ALT/SGPT 21 U/L (13-56); Albumin, Serum 3.5 g/dL (3.2-5.0); Alkaline Phosphatase 83 U/L (45-117); Anion Gap 2 (5-15); BUN 11 mg/dL (7-18); BUN/Creat Ratio 15.2 RATIO (10-20); CRP 3.78 mg/L (0.0-3.0); Calcium,Total 9.5 mg/dL (8.5-10.1); Chloride 110 mmol/L (98-107); Cholesterol 195 mg/dL (200); Creatinine, Serum 0.72 mg/dL (0.55-1.02); EST Glomerular Filtration Rate 90 mL/min (>60); Est Glom Filt Rate - Afr Amer 109 mL/min (>60); Globulin 3.3 g/dL (2.2-4.2); Glucose 89 mg/dL (74-106); High Density Lipoprotein 62 mg/dL; Iron 118 ug/dL (50-170); Iron Binding Capacity,Total 292 ug/dL (250-450); PERCENT IRON SATURATION 40.4 % (15.0-55.0); Potassium 4.2 mmol/L (3.5-5.1); Protein, Total 6.8 g/dL (6.4-8.2); Sodium Level 139 mmol/L (136-145); Triglycerides 178 mg/dL; Uric Acid 5.1 mg/dL (2.6-6.0); Very Low Density Lipoprotein 36 mg/dL (5-40); Vitamin B12 317 pg/mL (211-911); Vitamin D,25 Hydroxy 30.5 ng/mL
[2023-06-26 09:52] LABS: Hemoglobin A1c 5.1 % (3.8-5.6)
[2023-06-26 12:44] LABS: Erythrocyte Sedimentation Rate 13 mm/hr (0-30)
== END | disposition home or self-care (01) ==
LOC: LAB 08:33
PROVIDERS: PCP Nurse Practitioner Family; Referring Provider Nurse Practitioner Family; Visit Provider Nurse Practitioner Family
DX: M70.22 Olecranon bursitis, left elbow (principal); E56.9 Vitamin deficiency, unspecified; E78.5 Hyperlipidemia, unspecified; Z13.1 Encounter for screening for diabetes mellitus; D64.9 Anemia, unspecified; I10 Essential (primary) hypertension
CPT/HCPCS: 36415; 80053; 80061; 82306; 82607; 83036; 83540; 83550; 84550; 85652; 86140

== ENCOUNTER 2023-07-17 14:37 | Emergency (ER) | payer MEDICAID, SELFPAY ==
[2023-07-17 14:38] VITALS: BP 129/90; PULSE 100; RESP 14; TEMP 36.1; O2SAT 97; BMI 34.7
--- NOTE | 2023-07-17 15:30 | EDS_ITS ---
HPI History of Present Illness Chief Complaint: Back PFSH PFSH
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
--- NOTE | 2023-07-17 15:40 | CT_ITS ---
EXAM: CT LUMBAR SPINE WITHOUT INTRAVENOUS CONTRAST CLINICAL INDICATION: back pain TECHNIQUE: Helically acquired images were obtained of the lumbar spine without intravenous contrast. 2D reformats were reviewed. This CT exam was performed using one or more of the following dose reduction techniques: automated exposure control, adjustment of the mA and/or kV according to patient size, and/or use of iterative reconstruction technique. COMPARISON: No relevant prior studies available. FINDINGS: VERTEBRAE: There is facet hypertrophy at L4-5 and L5-S1. There is minimal 3 mm anterior listhesis of L5 on S1. No fracture. No discrete lytic or blastic abnormality. DISCS/SPINAL CANAL/NEURAL FORAMINA: See above. VASCULATURE: Visualized abdominal aorta is not dilated. LYMPH NODES: Unremarkable. No retroperitoneal adenopathy. CT/Spine Lumbar without Contrast IMPRESSION: 1. No acute osseous abnormalities lumbar spine. 2. Severe facet hypertrophy at L4-5 and L5-S1. There is a 3 mm anterior listhesis of L5 on S1. If indicated further evaluation with MRI may be beneficial. Electronically Signed: Venkatesh Mooney MD at 16:19 EDT ,
--- NOTE | 2023-07-17 15:40 | CT_ITS ---
EXAM: CT THORACIC SPINE WITHOUT INTRAVENOUS CONTRAST CLINICAL INDICATION: back pain TECHNIQUE: Helically acquired images were obtained of the thoracic spine without intravenous contrast. 2D reformats were reviewed. This CT exam was performed using one or more of the following dose reduction techniques: automated exposure control, adjustment of the mA and/or kV according to patient size, and/or use of iterative reconstruction technique. COMPARISON: No relevant prior studies available. FINDINGS: VERTEBRAE: Unremarkable. No fracture. No traumatic subluxation. No discrete lytic or blastic abnormality. Normal alignment. DISCS/SPINAL CANAL/NEURAL FORAMINA: Unremarkable. Disc heights are preserved. VASCULATURE: Visualized thoracic aorta is not dilated. LYMPH NODES: Unremarkable. No retroperitoneal adenopathy. LUNGS AND PLEURAL SPACES: Unremarkable as visualized. No mass. No consolidation or edema. No pleural effusion or thickening. No pneumothorax. CT/Spine Thoracic without Contras IMPRESSION: No evidence of acute thoracic spinal fracture or spondylolisthesis. Electronically Signed: Venkatesh Mooney MD at 16:33 EDT ,
== END 2023-07-17 17:06 | disposition home or self-care (01) ==
PROVIDERS: Emergency Provider Emergency Medicine; PCP Nurse Practitioner Family; Visit Provider Emergency Medicine
DX: S30.0XXA Contusion of lower back and pelvis, initial encounter (principal); F20.9 Schizophrenia, unspecified; B18.2 Chronic viral hepatitis C; I10 Essential (primary) hypertension; B15.9 Hepatitis A without hepatic coma; F32.9 Major depressive disorder, single episode, unspecified; Z79.899 Other long term (current) drug therapy; F41.8 Other specified anxiety disorders; K21.9 Gastro-esophageal reflux disease without esophagitis; Z90.49 Acquired absence of other specified parts of digestive tract; F17.210 Nicotine dependence, cigarettes, uncomplicated; V49.40XA Driver injured in collision with unspecified motor vehicles in traffic accident, initial encounter
CPT/HCPCS: 72128; 72131; 99282

== ENCOUNTER → 2023-08-07 | Outpatient (CLI) | payer MEDICAID, SELFPAY ==
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
--- NOTE | 2023-08-07 09:10 | US_ITS ---
STUDY: ULTRASOUND BREAST - RIGHT REASON FOR EXAM: Female, 53 years old. Palpable lump in the right axilla/axillary tail. TECHNIQUE: Axial and longitudinal images of the RIGHT breast were performed with a high resolution ultrasound transducer. # OF IMAGES: 45 COMPARISON: Comparison is made with prior mammogram done earlier in the day. FINDINGS: RIGHT Breast: The palpable abnormality corresponds to 1.2 cm x 0.9 cm x 0.4 cm benign-appearing lymph node in the right axilla. US/Breast Limited Unilateral IMPRESSION: The palpable abnormality corresponds to 1.2 cm x 0.9 cm 0.4 cm benign-appearing lymph node in the right axilla. ASSESSMENT CATEGORY: BIRADS Category 2: Benign. A letter regarding these results will be sent to the patient by the facility within 30 days. Electronically Signed: Ken Stover MD at 15:01 EDT ,
== END | disposition home or self-care (01) ==
LOC: OPBI 09:10
PROVIDERS: PCP Nurse Practitioner Family; Referring Provider Obstetrics & Gynecology; Visit Provider Obstetrics & Gynecology
DX: N64.4 Mastodynia (principal); N63.0 Unspecified lump in unspecified breast
CPT/HCPCS: 77062; 76642; 77066; G0279

== ENCOUNTER → 2023-08-08 | Outpatient (CLI) | payer MEDICAID, SELFPAY | END | disposition home or self-care (01) | PROVIDERS: PCP Nurse Practitioner Family; Referring Provider Nurse Practitioner Family; Visit Provider Nurse Practitioner Family | DX: G47.33 Obstructive sleep apnea (adult) (pediatric) (principal) | CPT/HCPCS: 95811 ==

== ENCOUNTER → 2023-08-14 | Outpatient (CLI) | payer MEDICAID, SELFPAY ==
--- NOTE | 2023-08-14 09:15 | US_ITS ---
STUDY: ULTRASOUND OF THE FEMALE PELVIS - COMPLETE REASON FOR EXAM: Female, 53 years old. Abnormal bleeding LMP: 07/25/2023 TECHNIQUE: Transabdominal and Transvaginal TECHNICAL QUALITY: Adequate. COMPARISON: None. FINDINGS: The uterus is anteverted and is in a midline position. The uterus measures 10 x 6.4 x 5 cm. Normal uterine cervix. The endometrium measures 4 mm in thickness, and is hyperechoic. There is no demonstrated endometrial mass. There is no demonstrated myometrial mass. I.U.D. - The patient does not have an I.U.D. The right ovary is visualized. The right ovary measures 2.1 x 2.2 x 1.4 cm. There is a likely complex, perhaps hemorrhagic hyperechoic 1.0 cm cyst. There is normal arterial and normal venous vascularity. The left ovary is visualized. The left ovary measures 4.2 x 2.7 x 2.8 cm. There is a simple 2.6 cm cyst.. There is no visualized left adnexal mass or complex lesion. There is normal arterial and normal venous vascularity. There is no fluid in the cul-de-sac. The bladder is sonographically normal US/Pelvic (Non ) IMPRESSION: Uterus is heterogeneous in appearance but otherwise unremarkable. Complex hyperechoic likely hemorrhagic right adnexal cyst. Given the patient''s age, short-term follow-up for a six-week ultrasound recommended to reassess Simple left adnexal cyst no specific follow-up needed. Electronically Signed: Philipp Mantilla MD at 14:27 EDT ,
== END | disposition home or self-care (01) ==
LOC: US 09:08
PROVIDERS: PCP Nurse Practitioner Family; Referring Provider Obstetrics & Gynecology; Visit Provider Obstetrics & Gynecology
DX: N92.0 Excessive and frequent menstruation with regular cycle (principal)
CPT/HCPCS: 76830; 76856

== ENCOUNTER 2023-08-27 16:00 | Outpatient (RCR) | payer MEDICAID, SELFPAY ==
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
--- NOTE | 2023-08-27 16:31 | HP.PTDCSUM ---
Discharge Summary D/C summary: It has been my pleasure to treat RAZIA CARRILLO referred by Dr. Luis Harper DO, with the diagnosis of Right Shoulder Pain for a total of 17 visit(s). Discharge Date: Please see the following information for a summary of their discharge status. Subjective Subjective: Patient reports the shoulder is markedly. Patient reports that she has better motion and more function. She is not 100% but maybe 80%. 2/10 at its worst in the week. The pain is not keeping her from sleeping. Pain R shoulder: Pain Intensity (Out of 10): 2 Overall Improvement % Improvement: 80 Objective Objective/Function: Posture: fair throughout Gait: good arm swing and trunk rotation. Palpation: tender along bicipital groove ROM: Cervical: WFL, Elbow/Wrist/Fingers: WNL. 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 Goal Progress: Goal Met Goal 2:: Patient will demo full pain free AROM of the right shoulder Goal Progress: Progressing Goal 3:: Patient will maintain proper posture to demo increased scap s/s Goal Progress: Progressing Goal 4:: Patient will report 80% improvement Goal Progress: Goal Met Plan Plan: 08/27/23: D/C to HEP- encouraged to call if questions 07/22/23: Continue with POC 2x a week for 4 weeks- gave green band to progress HEP of mid row and long arm extension IE: Focus on scapular strength/stabilization- increased pain with range of motion in 90 degrees of abduction HEP Given IE: postural correction, pec corner stretch D/C Information d/c sentence: If there are questions or concerns regarding this patient's physical therapy, please feel free to call me at [phone]. Thank you for the referral of this patient. Sincerely, Shannan Brothers, DPT Balance/Gait/Functional tests Balance/Special Test Scores Quick DASH Score: 13.6350 Improvement % Improvement: 80
== END 2023-08-27 17:21 | disposition home or self-care (01) ==
LOC: PT 16:00
PROVIDERS: Referring Provider Orthopaedic Surgery; Visit Provider Orthopaedic Surgery
DX: S46.911D Strain of unspecified muscle, fascia and tendon at shoulder and upper arm level, right arm, subsequent encounter (principal); M75.81 Other shoulder lesions, right shoulder
CPT/HCPCS: 97110; 97162; 97164; 97530

== ENCOUNTER → 2023-10-22 | Outpatient (CLI) | payer MEDICAID, SELFPAY ==
[2023-10-22 17:09] LABS: Absolute Lymphocyte Count 1.94 X10^3/uL (0.83-4.51); Basophil# 0.06 X10^3/uL; Basophil% 0.7 % (0-1); Eosinophil# 0.25 X10^3/uL; Eosinophils% 2.8 % (0-5); Hematocrit 43.2 % (37-47); Hemoglobin 14.3 g/dL (12.0-15.0); Lymphocyte # 1.94 X10^3/ul (0.83-4.51); Mean Corp Hgb Conc 33.1 g/dL (32-36); Mean Corpuscular Hgb 29.9 pg (27.0-32.0); Mean Corpuscular Volume 90.4 fL (81-99); Mean Platelet Vol. 8.6 fl (6.2-12.0); Monocyte# 0.55 X10^3/uL; Monocyte% 6.3 % (0-10); NRBC Flagged by Analyzer 0 % (0-5); Neutrophil # 5.97 X10^3/uL (2.7-7.7); Neutrophil % 67.9 % (47-70); Platelet Count 269 K/mm3 (150-450); RBC Distribution Width CV 13.4 % (11.6-14.6); RBC Distribution Width SD 44.4 fl (35.1-43.9); Red Blood Count 4.78 M/mm3 (4.2-5.4); White Blood Count 8.8 K/mm3 (4.4-11.0)
[2023-10-22 17:16] LABS: Anion Gap 5 (5-15); BUN 13 mg/dL (7-18); BUN/Creat Ratio 15.3 RATIO (10-20); Calcium,Total 9.7 mg/dL (8.5-10.1); Chloride 110 mmol/L (98-107); Creatinine, Serum 0.85 mg/dL (0.55-1.02); EST Glomerular Filtration Rate 75 mL/min (>60); Est Glom Filt Rate - Afr Amer 90 mL/min (>60); Glucose 118 mg/dL (74-106); Potassium 3.9 mmol/L (3.5-5.1); Sodium Level 141 mmol/L (136-145)
== END | disposition home or self-care (01) ==
LOC: VSLAB 14:15
PROVIDERS: PCP Nurse Practitioner Family; Visit Provider Nurse Practitioner Family
DX: R39.15 Urgency of urination (principal)
CPT/HCPCS: 36415; 80048; 85025; 87086; 87088

== ENCOUNTER → 2023-10-31 | Outpatient (CLI) | payer MEDICAID, SELFPAY ==
[2023-10-31 08:43] LABS: Magnesium 2.2 mg/dL (1.6-2.6); Thyroid Stim Hormone (TSH) 1.68 uIU/mL (0.358-3.74)
[2023-10-31 10:34] LABS: Hemoglobin A1c 5.3 % (3.8-5.6)
== END | disposition home or self-care (01) ==
PROVIDERS: PCP Nurse Practitioner Family; Referring Provider Nurse Practitioner Family; Visit Provider Nurse Practitioner Family
DX: R00.2 Palpitations (principal); R73.9 Hyperglycemia, unspecified
CPT/HCPCS: 36415; 83036; 83735; 84443

== ENCOUNTER → 2023-11-08 | Outpatient (CLI) | payer MEDICAID, SELFPAY ==
--- NOTE | 2023-11-08 15:27 | US_ITS ---
EXAM: US RETROPERITONEAL LIMITED, RENAL CLINICAL INDICATION: URGENCY OF URINATION TECHNIQUE: Limited grayscale and color Doppler sonographic evaluation of the retroperitoneum was performed. COMPARISON: No relevant prior studies available. FINDINGS: RIGHT KIDNEY: 11.8 cm x 6.9 cm x 3.6 cm.. Mild initial hydronephrosis which resolved on postvoid exam. No shadowing calculus. No focal lesion. No perinephric collection is demonstrated. LEFT KIDNEY: 11.8 cm x 5.3 cm x 4.6 cm. Mild hydronephrosis which persisted post void exam. Left renal pelvis estimated to be 2.1 cm. No shadowing calculus. No focal lesion. No perinephric collection is demonstrated. BLADDER: Bilateral ureteral jets are noted in the urinary bladder, evidence against a high-grade ureter obstruction. Calculated prevoid bladder volume 214 cc. Post void bladder residual calculated to be 149 cc, maximum diameter 5.1 cm. US/Kidney and Bladder IMPRESSION: Mild bilateral hydronephrosis, persisting on the left after patient voided. Bilateral ureteral jets in the bladder argue against high-grade ureter obstruction. Prominent post void bladder residual. Electronically Signed: Cathy Nelson MD at 2:50 EDT ,
== END | disposition home or self-care (01) ==
LOC: US 15:26
PROVIDERS: PCP Nurse Practitioner Family; Referring Provider Nurse Practitioner Family; Visit Provider Nurse Practitioner Family
DX: R39.15 Urgency of urination (principal)
CPT/HCPCS: 76770

== ENCOUNTER → 2023-12-16 | Outpatient (CLI) | payer MEDICAID, SELFPAY ==
--- NOTE | 2023-12-16 16:40 | RAD_ITS ---
EXAM: XR RIGHT HIP WITH PELVIS WHEN PERFORMED, 2 OR 3 VIEWS CLINICAL INDICATION: PAIN TECHNIQUE: Two or three views of the right hip with pelvis when performed. COMPARISON: No relevant prior studies available. FINDINGS: BONES/JOINTS: Unremarkable. No displaced fracture. No destructive or sclerotic lesions. Note that overlapping bowel shadows may however obscure fine detail. Sacroiliac joint is unremarkable. No widening of the pubic symphysis. The articular structures are unremarkable. SOFT TISSUES: Unremarkable. No soft tissue swelling or gas. RAD/HIP, UNI W/ Pelvis 2-3 Views IMPRESSION: No evidence of displaced pelvic or hip fracture. Electronically Signed: Venkatesh Mooney MD at 0:15 EDT ,
== END | disposition home or self-care (01) ==
PROVIDERS: PCP Nurse Practitioner Family; Referring Provider Nurse Practitioner Family; Visit Provider Nurse Practitioner Family
DX: M25.551 Pain in right hip (principal)
CPT/HCPCS: 73502

== ENCOUNTER → 2024-01-03 | Outpatient (CLI) | payer MEDICAID, SELFPAY ==
--- NOTE | 2024-01-03 08:10 | CT_ITS ---
STUDY: LOW DOSE CT LUNG CANCER SCREENING REASON FOR EXAM: Female, 53 years old. Patient smoked 1 pack per day for 31 years. RADIATION DOSAGE (If Supplied By Facility): CTDIvol = ( 3.02 ) mGy, DLP = ( 99.68 ) mGycm TECHNIQUE: No contrast was administered. Low dose technique was utilized (average mAS-38 and kVp 120). 1.25 mm axial source images with a slice interval of 1.25-mm were reconstructed in lung windows. 2.5 mm axial source images with a slice interval of 2.5-mm were reconstructed in lung windows. 5.0 mm axial source images with a slice interval of 5.0-mm were reconstructed in soft tissue windows. COMPARISON: Comparison is made with prior study dated November 30, 2022. NODULES: No suspicious nodule is seen. Emphysema: Mild degree of emphysematous changes. Endobronchial lesion: None Aorta: Unremarkable. CORONARY ARTERIES: Coronary artery calcification is seen. Heart: Unremarkable Pulmonary artery: Unremarkable Mediastinal nodes: Small mediastinal lymph nodes. Other chest and abdominal findings: CT/Low Dose CT Lung Screening IMPRESSION: Lung-RADS category 2 - Continue annual screening with LDCT in 12 months. IMPORTANT NOTES FOR USE: ACR Lung-RADS Version 1.1 Assessment Categories Release Date: 2018 Category: Coded 0-4 bases on nodule(s) with highest degree of suspicion. Negative screen is defined as categories 1 and 2; a positive screen is defined as categories 3 and 4. Category 3 and 4A nodules that are unchanged on interval CT should be coded as category 2, and individuals returned to screening in 12 months. Category 4X: Category 3 or 4 nodules with additional imaging findings that increase the suspicion of lung cancer, such as spiculation, GGN that doubles in size in 1 year, enlarged lymph notes, etc. Category Modifiers: S (significant finding unrelated to lung cancer) Electronically Signed: Ken Stover MD at 13:30 EDT ,
== END | disposition home or self-care (01) ==
LOC: CT 08:09
PROVIDERS: PCP Nurse Practitioner Family; Referring Provider Nurse Practitioner Acute Care; Visit Provider Nurse Practitioner Acute Care
DX: F17.210 Nicotine dependence, cigarettes, uncomplicated (principal)
CPT/HCPCS: 71271

== ENCOUNTER → 2024-03-11 | Outpatient (CLI) | payer MEDICAID, SELFPAY ==
[2024-03-11 12:51] LABS: Absolute Lymphocyte Count 1.95 X10^3/uL (0.83-4.51); Absolute Neutrophil Count 5.8 X10^3/uL (2.0-7.7); Basophil# 0.07 X10^3/uL; Basophil% 0.8 % (0-1); Eosinophil# 0.22 X10^3/uL; Eosinophils% 2.6 % (0-5); Hematocrit 44.9 % (37-47); Hemoglobin 14.9 g/dL (12.0-15.0); Lymphocyte # 1.95 X10^3/ul (0.83-4.51); Lymphocyte % 22.6 % (19-41); Mean Corp Hgb Conc 33.2 g/dL (32-36); Mean Corpuscular Hgb 31.2 pg (27.0-32.0); Mean Corpuscular Volume 94.1 fL (81-99); Mean Platelet Vol. 8.8 fl (6.2-12.0); Monocyte# 0.54 X10^3/uL; Monocyte% 6.3 % (0-10); NRBC Flagged by Analyzer 0 % (0-5); Neutrophil # 5.81 X10^3/uL (2.7-7.7); Neutrophil % 67.4 % (47-70); Platelet Count 267 K/mm3 (150-450); RBC Distribution Width CV 13.5 % (11.6-14.6); RBC Distribution Width SD 46.5 fl (35.1-43.9); Red Blood Count 4.77 M/mm3 (4.2-5.4); White Blood Count 8.6 K/mm3 (4.4-11.0)
[2024-03-11 13:05] LABS: ALB/GLOB Ratio 1.2 RATIO (0.9-2.4); AST(SGOT) 16 U/L (15-37); Alanine Aminotransfer ALT/SGPT 33 U/L (13-56); Albumin, Serum 3.7 g/dL (3.2-5.0); Alkaline Phosphatase 101 U/L (45-117); Anion Gap 5 (5-15); BUN 12 mg/dL (7-18); BUN/Creat Ratio 19.5 RATIO (10-20); Chloride 111 mmol/L (98-107); Cholesterol 198 mg/dL (200); Creatinine, Serum 0.62 mg/dL (0.55-1.02); EST Glomerular Filtration Rate 108 mL/min (>60); Est Glom Filt Rate - Afr Amer 130 mL/min (>60); Globulin 3.2 g/dL (2.2-4.2); Glucose 94 mg/dL (74-106); High Density Lipoprotein 74 mg/dL; Potassium 3.9 mmol/L (3.5-5.1); Protein, Total 6.9 g/dL (6.4-8.2); Sodium Level 140 mmol/L (136-145); Triglycerides 147 mg/dL; Very Low Density Lipoprotein 29 mg/dL (5-40)
[2024-03-12 00:31] LABS: Vitamin D,25 Hydroxy 30.6 ng/mL
== END | disposition home or self-care (01) ==
LOC: VSLAB 10:39
PROVIDERS: PCP Nurse Practitioner Family; Visit Provider Nurse Practitioner Family
DX: D64.9 Anemia, unspecified (principal); I10 Essential (primary) hypertension; E78.5 Hyperlipidemia, unspecified; E55.9 Vitamin D deficiency, unspecified
CPT/HCPCS: 36415; 80053; 80061; 82306; 85025

== ENCOUNTER 2024-03-17 10:00 | Outpatient (RCR) | payer MEDICAID, SELFPAY ==
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
--- NOTE | 2024-02-21 12:34 | HP.PTREVAL ---
Re-Evaluation Intro: Dr. Luis Harper, DO, It has been my pleasure to treat RAZIA CARRILLO over the last 10 visits for LUMBAR DEGENERATION AND FACET ARTHRITIS. Please see the progress note below for an update on the physical therapy plan of care! Subjective Subjective: PATIENT REPORTS HER PAIN IS A LOT BETTER. SHE STATES SHE CAN WALK UPRIGHT NOW AND SHE CAN MOVE A LOT BETTER. I'M NOT IN NEAR MUCH PAIN I WAS. A LOT OF THE PAIN IS GONE. PATIENT REPORTS THE PAIN IS LOCALIZED TO HER R [place] AREA NOW. SHE REPORTS THAT MOST OF THE PAIN AND PROBLEMS THAT BROUGHT HER HERE ARE GONE. SHE STATES SHE IS STILL TAKING CELEBREX. PATIENT REPORTS SITTING UP FROM LYING SEEMS TO AGGREVATE IT THE WORSE. PATIENT REPORTS SHE IS STILL HAVING PAIN IN HER L KNEE AND THAT IT IS A SEPARATE PROBLEM. PATIENT REPORTS SHE HAS FOUND THE WATER THERAPY BENFICIAL AND SHE IS GLAD SHE DID IT. Objective Objective/Function: PATIENT WAS SEEN TODAY FOR RE-ASSESSMENT OF PROGRESS TOWARD THE SET PT GOALS AND THE NEED FOR FURTHER PHYSICAL THERAPY VS READINESS FOR DISCHARGE. PATIENT IS MAKING GOOD PROGRESS TOWARD ALL PT GOALS AND IS A GOOD CANDIDATE TO CONTINUE PT BASED ON PROGRESS MADE AND ROOM FOR FURTHER IMPROVEMENT. SHE IS APPROPRIATE FOR AND AGREEABLE TO TRIAL OF TRANSITION TO LAND BASED PT EXERCISE. SHE STATES SHE REALLY LOVES THE WATER EX BUT DOESN'T WANT TO CONTINUE IN THE COLD WEATHER AND SHE IS TOLERATING HER HOME EX'S WELL. UPON EXAM TODAY: Motor deficit: TIMOTHY LE'S GROSSLY 5/5 AND PATIENT DENIES PAIN WITH TESTING EXCEPT A LITTLE DISCOMFORT IN HIPS. Reflexes: TIMOTHY QUADS 2+. L ACHILLES 2+. R ACHILLES ABSENT Dural Signs: NEGATIVE TIMOTHY LE'S. Lumbar mvmt loss: flex - NIL ext - MOD R SG - MOD L SG - MIN PATIENT DENIES PAIN WITH LUMBAR ROM TESTING ALL PLANES TODAY. Core strength: FAIR. MUCH BETTER POSTURE CONTROL AND ABLE TO MAINTAIN UPRIGHT POSTURE IN SITTING AND STANDING DURING SESSION TODAY. Palpation: NO ACUTE TENDERNESS. 30 STS TEST: 10 WITHOUT UE ASSIST. FATIGUE AND MILD PAIN POST TEST. Plan Plan Plan: TRANISITION TO LAND BASED PT EX 2X'S A WK X 3 TO 4 WKS FOR FURTHER PAIN RELEIF, POSTURE CORRECTION/STRENGTHENING, INSTRUCTION IN APPROPRIATE BODY MECHANICS AND ACTIVITY MODIFICATIONS. DLS STARTING WITH A NEUTRAL SPINE PROGRESSING ROM TOLERATED. TIMOTHY LE ROM, STRETCHING AND STRENGTHENING. HEP PROGRESSION. Balance/Gait/Functional tests Balance/Special Test Scores Oswestry Low Back Score: 13 Goals Goals Goal 1:: DECREASE C/O LOW BACK AND R LE SX'S BY AT LEAST 50% TO EASE ADL'S. Goal Time Frame: 4-6 Weeks Goal Progress: Goal Met Goal 2:: PATIENT WILL BE ABLE TO MAINTAIN PROPER POSTURE CONTROL THROUGHOUT THERAPY SESSION WITHOUT CUEING TO DEMONSTRATE IMPROVED AWARENESS, IMPROVED STRENGTH AND DECREASED INFLAMMATION. Goal Time Frame: 4-6 Weeks Goal Progress: Progressing Goal 3:: PATIENT WILL BE ABLE TO PERFORM 10 STS IN 30 SEC WITHOUT UE ASSIST OF INCREASED PAIN TO DEMO GOOD STRENGTH Goal Time Frame: 4-6 Weeks Goal Progress: Progressing Goal 4:: PATIENT WILL BE ABLE TO DEMO GOOD BODY MECHANICS FOR WORK DUTIES TO DECREASE RISK OF REOCCURANCE Goal Time Frame: 4-6 Weeks Goal Progress: Progressing Goal 5:: PATIENT WILL HAVE LUMBAR ROM WFL WITHOUT C/O INCREASED PAIN TO EASE ADL'S. Goal Time Frame: 4-6 Weeks Goal Progress: Progressing Goal 6:: INDEP HOME AND/OR WATER EX PROGRAM Goal Time Frame: 4-6 Weeks Goal Progress: Progressing Anticipated Interventions Anticipated Interventions Patient/Client Instruction: Educate patient on: Condition, Plan of Care and Risk Factors For the Purpose of:: To improve self management Therapeutic Exercise to Include: Strength training, Body mechanics, Postural training, Flexibilty training, Gait and locomotor training, Neuromotor development, In an aquatic setting and Dynamic Lumbar Stabilization For the Purpose of:: To decrease pain, To increase ROM, To improve muscle performance and motor function, To improve ability to perform ADL's, To increase tolerance to activity/condition/position, To improve ability of physical actions for home/community/work/leisure, To improve gait and locomotor functions, To increase flexibility/ROM and To improve self management Re-Evaluation Ending Re-evaluation ending: Please do not hesitate to contact me at [phone] by phone or if you have questions or concerns regarding this new plan of care! Sincerely, Joleen Knutson, PT, Cert MDT
--- NOTE | 2024-03-17 10:35 | HP.PTDCSUM ---
Discharge Summary D/C summary: It has been my pleasure to treat RAZIA CARRILLO referred by Dr. Luis Harper DO, with the diagnosis of LUMBAR DEGENERATION AND FACET ARTHRITIS for a total of 16 visit(s). Discharge Date: 03/17/24 Please see the following information for a summary of their discharge status. Subjective Subjective: PATIENT REPORTS SHE IS GLAD SHE CONTINUED THERAPY ON LAND. SHE PLANS TO CONTINUE EXERCISING AT HOME NOW WITH THE BANDS AND THE PRINTOUTS. MANAGING WITH OTC IBUPROFEN, TYLONOL AND ASPIRIN WHEN NEEDED. THERAPY HAS BEEN SO BENEFICIAL FOR ME. Pain RLE: Pain Intensity (Out of 10): 1 LLE: Pain Intensity (Out of 10): 1 Overall Improvement % Improvement: 90 Objective Objective/Function: PATIENT WAS SEEN TODAY FOR RE-ASSESSMENT OF PROGRESS TOWARD THE SET PT GOALS AND THE NEED FOR FURTHER PHYSICAL THERAPY VS READINESS FOR DISCHARGE. THIS PATIENT HAS DONE REALLY WELL WITH PT. SHE IS APPROPRIATE FOR AND AGREEABLE TO DISCHARGE. UPON EXAM TODAY: ALL GOALS MET. Motor deficit: TIMOTHY LE'S GROSSLY 5/5 AND PATIENT DENIES PAIN WITH TESTING. Dural Signs: NEGATIVE TIMOTHY LE'S. Lumbar mvmt loss: flex - NIL ext - MIN R SG - MIN L SG - MIN PATIENT DENIES PAIN WITH LUMBAR ROM TESTING ALL PLANES TODAY. Core strength: FAIR. MUCH BETTER POSTURE CONTROL AND ABLE TO MAINTAIN UPRIGHT POSTURE IN SITTING AND STANDING DURING SESSION TODAY. Palpation: NO ACUTE TENDERNESS. 30 STS TEST: 15 WITHOUT UE ASSIST OR C/O INCREASED PAIN TODAY. Goals Goal 1:: DECREASE C/O LOW BACK AND R LE SX'S BY AT LEAST 50% TO EASE ADL'S. Goal Progress: Goal Met Goal 2:: PATIENT WILL BE ABLE TO MAINTAIN PROPER POSTURE CONTROL THROUGHOUT THERAPY SESSION WITHOUT CUEING TO DEMONSTRATE IMPROVED AWARENESS, IMPROVED STRENGTH AND DECREASED INFLAMMATION. Goal Progress: Goal Met Goal 3:: PATIENT WILL BE ABLE TO PERFORM 10 STS IN 30 SEC WITHOUT UE ASSIST OF INCREASED PAIN TO DEMO GOOD STRENGTH Goal Progress: Goal Met Goal 4:: PATIENT WILL BE ABLE TO DEMO GOOD BODY MECHANICS FOR WORK DUTIES TO DECREASE RISK OF REOCCURANCE Goal Progress: Goal Met Goal 5:: PATIENT WILL HAVE LUMBAR ROM WFL WITHOUT C/O INCREASED PAIN TO EASE ADL'S. Goal Progress: Goal Met Goal 6:: INDEP HOME AND/OR WATER EX PROGRAM Goal Progress: Goal Met Plan Plan: D/C TO INDEP HEP. PATIENT REPORTS SHE WILL FOLLOW UP WITH DR. HARPER NEEDED. D/C Information d/c sentence: If there are questions or concerns regarding this patient's physical therapy, please feel free to call me at [phone]. Thank you for the referral of this patient. Sincerely, Joleen Knutson, PT, Cert MDT Balance/Gait/Functional tests Balance/Special Test Scores Oswestry Low Back Score: 12 Improvement % Improvement: 90
== END 2024-03-17 10:43 | disposition home or self-care (01) ==
LOC: PT 10:00
PROVIDERS: PCP Nurse Practitioner Family; Referring Provider Orthopaedic Surgery; Visit Provider Orthopaedic Surgery
DX: M47.816 Spondylosis without myelopathy or radiculopathy, lumbar region (principal)
CPT/HCPCS: 97110; 97113; 97162; 97530

== ENCOUNTER → 2024-06-11 | Outpatient (CLI) | payer MEDICAID, SELFPAY ==
[2024-06-11 17:26] LABS: Color, Urine Yellow (Yellow); Glucose, Dipstick Normal (Normal); Ketone-Dipstick Negative (Negative); Leukocyte Esterase-Dipstick Negative /ul (Negative); Nitrite-Dipstick Negative (Negative); Occult Blood-Urine 150 /ul (Negative); Protein-Dipstick 15 mg/dl (Negative); Specific Gravity, Urine 1.005 (1.002-1.030); Urine Bilirubin Dipstick Negative (Negative); Urine Clarity Clear (Clear); Urine Urobilinogen Normal (Normal)
== END | disposition home or self-care (01) ==
LOC: VSLAB 14:26 → LABSPEC 14:27
PROVIDERS: PCP Nurse Practitioner Family; Visit Provider Nurse Practitioner Family
DX: R10.9 Unspecified abdominal pain (principal)
CPT/HCPCS: 81002; 87086; 87088

== ENCOUNTER → 2024-08-21 | Outpatient (CLI) | payer MEDICAID, SELFPAY ==
--- NOTE | 2024-08-21 10:30 | BI_ITS ---
EXAM: SCRN MAMM (CAD)W/KATY BILAT DATE: 08/21/2024 CLINICAL HISTORY: F, Age 54 y/o , SCREEN FOR BREAST CANCER Grandmother with breast cancer. Remote right excisional breast biopsy. BREAST CANCER RISK ASSESSMENT: Not assessed. TECHNIQUE: Bilateral screening digital breast tomosynthesis with 2D and 3D images. Computer aided detection. COMPARISON: Prior exam(s) dated August 07, 2023.. FINDINGS: TISSUE DENSITY: The breast tissue is composed of scattered area of fibroglandular density. Bilateral Breast Mammographic Findings: No significant masses, calcifications or other abnormalities are identified. Stable asymmetry of breast tissue were more breast tissue is seen in the upper-outer quadrant of the left breast as compared to the right side. No suspicious masses, areas of developing architectural distortion, or suspicious calcifications. There has been no significant interval change. BI/SCRN MAMM (CAD)W/KATY BILAT IMPRESSION: OVERALL FINAL ASSESSMENT: BIRADS 2 BENIGN FINDING RECOMMENDATION: Routine annual follow-up in 1 Year A letter with findings and recommendations will be mailed to the patient. Reading Location: [place] [address]
== END | disposition home or self-care (01) ==
LOC: OPBI 10:20
PROVIDERS: PCP Nurse Practitioner Family; Referring Provider Obstetrics & Gynecology; Visit Provider Obstetrics & Gynecology
DX: Z12.31 Encounter for screening mammogram for malignant neoplasm of breast (principal); Z80.3 Family history of malignant neoplasm of breast
CPT/HCPCS: 77063; 77067

== ENCOUNTER → 2024-09-11 | Outpatient (CLI) | payer MEDICAID, SELFPAY ==
--- NOTE | 2024-09-11 | FLU_PTH ---
PATIENT: RAZIA CARRILLO LOC: [facility] U#:[id number] AGE/SX: 54/F ROOM: RE09/11/[address]: Dr. Laurie Lawler DO : 1970 BED: DIS: 09/11/2024 SPEC #: [id number] RECD: 09/11/24 17:04 STATUS: GRACIELA GEENA #: [id number] LINDA: 09/11/24 00:[address]: Laurie Lawler DEPT: CYTOLOGY RECD BY: Sunny Colmenares ENTERED: 09/14/24 09:41 SP TYPE: Fluid OTHR DR: Nandini Oconnor, [facility], MEDICAID BILLING CLERK-C Tissues: A - Nipple Procedures: Special Stain Group II Surgery Specimen Level IV Cytospin Fluid HEADER OPERATION: Swab collection PRE-OP DIAGNOSIS: Blood nipple discharge TISSUE SUBMITTED: A- Nipple discharge for cytology DIAGNOSIS CYTOLOGY A. Nipple discharge (cytospin, cellblock): * No malignant cells identified. * Macrophages present. CYTOLOGY STUDY Slides are reviewed. CYTOLOGY GROSS A. Received is 30 ml of cloudy fluid labeled with the patient's name and and designated per the requisition as Nipple discharge. Submitted for cytology and cell block preparation. 09/14/2024 CPT: 21931,34552
--- OUTSIDE RECORDS SUMMARY | 2024-09-11 19:37 | XMS RPT_ITS | CCD ---
Author Organization [facility] Care Team Providers Care Car Starter Name Role Phone Ilsa Espinoza DO Primary Care Provider Elvin OLIVEROS, Nandini Unavailable Frybrachael INDEPENDENT VIDEO PRODUCER.Stefany MAJOR Unavailable ILSA ESPINOZA Primary Care Unavailable GUALBERTO ECHEVARRIA JR Attending Unavailable LUIS COLLINS Attending ROSETTA Lara Referring ILSA Ba Primary Care Unavailable KEVIN NICOLE Attending Unavailable ILSA ESPINOZA Primary Care Unavailable DERIAN LATIF Attending Unavailable ROSETTA SALCEDO Referring ILSA Ba Primary Care Unavailable JOHN POLLOCK Attending Unavailable ILSA ESPINOZA Primary Care Unavailable Dania Schmitt NP Referring Unavailable Dania Schmitt NP Attending Unavailable Elvin, Nandini Primary Care Unavailable Elvin Nandini Attending Unavailable Elvin, Nandini Primary Care Unavailable Elvin, Nandini Primary Care Unavailable Laron Stewart Attending Unavailable Elvin, Nandini Primary Care Unavailable Dania Schmitt NP Attending Unavailable Vance Cobb Referring Unavailable Elvin, Nandini Referring Unavailable Luis Harper Attending Unavailable Elvin, Nandini Primary Care Unavailable Elvin, Nandini Primary Care Unavailable Elvin, Nandini Referring Unavailable Kendra Suh Attending Unavailable Elvin, Nandini Primary Care Unavailable Elvin, Nandini Referring Unavailable Oskar OLIVEROS, Dania Attending Unavailable Elvin, Nandini Primary Care Unavailable Elvin, Nandini Referring Unavailable Luis Harper Attending Unavailable Ilsa Geller Attending Unavailable Elvin, Nandini Primary Care Unavailable Elvin, Nandini Primary Care Unavailable Laurie Ch Referring UnavailLaurie Car Attending Unavailabl e Elvin, Nandini Primary Care Unavailable Elvin, Nandini Attending Unavailable Evlin, Nandini Attending Unavailable Elvin, Nandini Primary Care Unavailable Elvin, Nandini Referring Unavailable Elvin, Nandini Attending Unavailable Elvin, Nandini Primary Care Unavailable Elvin, Nandini Referring Unavailable Elvin, Nandini Primary Care Unavailable Oskar EVP AND CHIEF OPERATING OFFICER, Dania Referring Unavailable Oskar EVP AND CHIEF OPERATING OFFICER, Dania Attending Unavailable Rishi Oconnorssica Attending Unavailable Elvin, Nandini Primary Care Unavailable Elvin, Nandini Referring Unavailable Elvin, Nandini Primary Care Unavailable Luis Harper Referring Unavailable Luis Harper Attending Unavailable Allergies Allergy Classification Reported Allergen(s) Allergy Type Date of Onset Reaction(s) Facility (1 source) Adhesive Tape Drug allergy (disorder) 08-10-2024 [facility] Repository Medications Current Medications Medication Drug Class(es) Dates Sig (Normalized) Sig (Original) [id number] 200 actuat albuterol 0.09 mg/actuat metered dose inhaler (7 sources) beta2-Adrenergic Agonist Start: 11-09-2023 take 2 puff(s) by inhalation every four hours as needed albuterol HFA (PROVENTIL HFA, VENTOLIN HFA) 90 mcg/actuation inhaler Inhale 2 Puffs as instructed every 4 hours as needed. 11/09/2023 Active amLODIPine 5 mg oral tablet (7 sources) Dihydropyridine Calcium Channel Rupal Start: 12-08-2023 take 1 tablet by mouth once amLODIPine (NORVASC) 5 mg tablet Take 1 tablet by mouth every afternoon. 12/08/2023 Active cariprazine 3 mg oral capsule (7 sources) Atypical Antipsychotic Start: 12-06-2023 take 1 capsule by mouth once VRAYLAR 3 mg capsule Take 1 capsule by mouth every afternoon. 12/06/2023 Active cholecalciferol 0.125 mg oral tablet (3 sources) Vitamin D take 1 tablet by mouth every other day cholecalciferol (VITAMIN D-3) 5,000 unit tab Take 5,000 Units by mouth every other day. Active escitalopram 20 mg oral tablet (5 sources) Serotonin Reuptake Inhibitor take 1 tablet by mouth once daily escitalopram oxalate (LEXAPRO) 20 mg tablet Take 20 mg by mouth once daily. Active LORazepam 0.5 mg oral tablet (3 sources) Benzodiazepine Start: 02-10-2024 take 1 tablet by mouth once LORazepam (ATIVAN) 0.5 mg Take 1 tablet by mouth every afternoon. 02/10/2024 Active magnesium gluconate 250 mg oral tablet (3 sources) take 1 tablet by mouth once daily at bedtime Magnesium Gluconate 12.5 mg magne- sium (250 mg) tab Take 250 mg by mouth daily at bedtime. Active modafinil 200 mg oral tablet (8 sources) Sympathomimetic-like Agent Start: 05-22-2024 End: 06-11-2024 take 0.5 tablet by mouth once daily as needed modafinil (PROVIGIL) 200 mg tablet Indications: Excessive daytime sleepiness Take 0.5 tablets by mouth once daily as needed for up to 20 days. 10 tablet 05/22/2024 Active Start: 11-20-2023 End: 05-22-2024 take 1 tablet by mouth once daily in the morning modafinil (PROVIGIL) 200 mg tablet Take 200 mg by mouth every morning. 11/20/2023 05/22/2024 Discontinued omeprazole 20 mg delayed release oral capsule (4 sources) Proton Pump Inhibitor Start: 11-07-2023 take 1 capsule by mouth once omeprazole (PRILOSEC) 20 mg capsule Take 1 capsule by mouth every afternoon. 11/07/2023 Active perphenazine 4 mg oral tablet (5 sources) Phenothiazine take 1 tablet by mouth once daily perphenazine 4 mg tablet Take 4 mg by mouth once daily. Active suvorexant 15 mg oral tablet (1 source) Orexin Receptor Antagonist Start: 06-25-2024 End: 09-23-2024 take 1 tablet by mouth once daily at bedtime suvorexant (BELSOMRA) 15 mg tab Indications: Chronic insomnia Take 1 tablet by mouth daily at bedtime for 90 days. 30 tablet 2 06/25/2024 09/23/2024 Active TAB-A-FILI 400 mcg (7 sources) Start: 09-16-2023 take 1 tablet by mouth once daily TAB-A-FILI 400 mcg Take 1 tablet by mouth once daily. 09/16/2023 Active Problems Active Problems Problem Classification Problem Date Documented Da te Episodic/Chronic Abdominal pain (1 source) Unspecified abdominal pain; Translations: [Unspecified abdominal pain] Onset: 06-19-2024 Episodic Adjustment disorders (3 sources) Stress; Translations: [Reaction to severe stress, unspecified] Onset: 04-17-2024 04-17-2024 Chronic Anxiety disorders (3 sources) Anxiety; Translations: [Anxiety disorder, unspecified] Onset: 04-17-2024 04-17-2024 Chronic Coma; stupor; and brain damage (2 sources) Daytime somnolence; Translations: [Somnolence] Onset: 03-10-2024 03-10-2024 Episodic Essential hypertension (3 sources) Essential hypertension; Translations: [Essential (primary) hypertension] Onset: 04-17-2024 04-17-2024 Chronic Malaise and fatigue (3 sources) Fatigue; Translations: [Other fatigue] Onset: 04-17-2024 04-17-2024 Episodic Miscellaneous mental health disorders (10 sources) Chronic insomnia; Translations: [Psychophysiologic insomnia] Onset: 03-10-2024 03-10-2024 Chronic Mood disorders (4 sources) Depressive disorder; Translations: [Depression, unspecified depression type] Onset: 04-17-2024 03-10-2024 Chronic Mood disorders (1 source) Mood disorders; Translations: [Depression, unspecified depression type] Onset: 03-10-2024 Other nutritional; endocrine; and metabolic disorders (6 sources) Body mass index 30+ - obesity; Translations: [Obesity, unspecified] Onset: 04-17-2024 04-17-2024 Chronic Other screening for suspected conditions (not mental disorders or infectious disease) (2 sources) Patient encounter status; Translations: [Encounter for screening for other disorder] Onset: 08-27-2024 12-24-2023 Episodic Residual codes; unclassified (4 sources) Obstructive sleep apnea syndrome; Translations: [Obstructive sleep apnea (adult) (pediatric)] Onset: 04-17-2024 03-10-2024 Chronic Residual codes; unclassified (2 sources) Obstructive sleep apnea (adult) (pediatric); Translations: [NBA on CPAP] Onset: 03-10-2024 Chronic Residual codes; unclassified (4 sources) Daytime somnolence; Translations: [Other hypersomnia] Onset: 04-17-2024 05-22-2024 Chronic Residual codes; unclassified (3 sources) Dependence on continuous positive airway pressure ventilation; Translations: [Dependence on other enabling machines and devices] Onset: 04-17-2024 04-17-2024 Chronic Residual codes; unclassified (3 sources) Hypersomnia; Translations: [Hypersomnia, unspecified] Onset: 04-17-2024 04-17-2024 Chronic Residual codes; unclassified (3 sources) Parasomnia; Translations: [Parasomnia, unspecified] Onset: 04-17-2024 04-17-2024 Chronic Residual codes; unclassified (1 source) Other hypersomnia; Translations: [Excessive daytime sleepiness] Onset: 04-17-2024 Chronic Residual codes; unclassified (3 sources) Inadequate sleep hygiene; Translations: [Inadequate sleep hygiene] Onset: 04-17-2024 04-17-2024 Episodic Residual codes; unclassified (3 sources) Disturbance in sleep behavior; Translations: [Sleep disorder, unspecified] Onset: 04-17-2024 04-17-2024 Episodic Spondylosis; intervertebral disc disorders; other back problems (1 source) Spondylosis without myelopathy or radiculopathy, lumbar region; Translations: [Spondylosis without myelopathy or radiculopathy, lumbar region] Onset: 03-17-2024 Chronic Substance-related disorders (4 sources) Smoker; Translations: [Nicotine dependence, unspecified, uncomplicated] Onset: 01-27-2024 04-17-2024 Chronic Substance-related disorders (3 sources) Marijuana user; Translations: [Cannabis use, unspecified, uncomplicated] Onset: 04-17-2024 04-17-2024 Episodic Unclassified (1 source) Low back pain, unspecified; Translations: [Low back pain, unspecified] Onset: 12-30-2023 Past or Other Problems Problem Classification Problem Date Documented Da te Episodic/Chronic Cardiac dysrhythmias (1 source) Palpitations; Translations: [Palpitations] Onset: 11-26-2023 Episodic Deficiency and other anemia (1 source) Anemia, unspecified; Translations: [Anemia, unspecified] Onset: 04-15-2024 Episodic Genitourinary symptoms and ill-defined conditions (2 sources) Microscopic hematuria; Translations: [Other microscopic hematuria] Onset: 11-28-2023 12-24-2023 Episodic Other lower respiratory disease (2 sources) Shortness of breath; Translations: [Shortness of breath] Onset: 01-27-2024 Episodic Other non-traumatic joint disorders (1 source) Pain in right ankle and joints of right foot; Translations: [Pain in right ankle and joints of right foot] Onset: 12-30-2023 Episodic Other non-traumatic joint disorders (1 source) Pain in right hip; Translations: [Pain in right hip] Onset: 01-08-2024 Episodic Results Test Name Value Interpretation Reference Range Facility SCRN MAMM (CAD)W/KATY BILATo n 08-21-2024 SCRN MAMM (CAD)W/KATY BILAT [facility] [address] [place], [place] [address] SCRN MAMM (CAD)W/KATY BILAT MR#: [id number] Acct: [id number] Name: RAZIA CARRILLO Rep #: [id number] : 1970 F 54 From: Ken jenkins MD PCP: Nandini Oconnor [facility], EVP AND CHIEF OPERATING OFFICER-C Status: [facility] CLI Study: SCRN MAMM (CAD)W/KATY BILAT Date of Exam: 07/25 Exam# [id number] Ordering Dr: Laurie Lawler DO EXAM: SCRN MAMM (CAD)W/KATY BILAT DATE: 08/21/2024 CLINICAL HISTORY: F, Age 54 y/o , SCREEN FOR BREAST CANCER Grandmother with breast cancer. Remote right excisional breast biopsy. BREAST CANCER RISK ASSESSMENT: Not assessed. TECHNIQUE: Bilateral screening digital breast tomosynthesis with 2D and 3D images. Computer aided detection. COMPARISON: Prior exam(s) dated August 07, 2023.. FINDINGS: TISSUE DENSITY: The breast tissue is composed of scattered area of fibroglandular density. Bilateral Breast Mammographic Findings: No significant masses, calcifications or other abnormalities are identified. Stable asymmetry of breast tissue were more breast tissue is seen in the upper-outer quadrant of the left breast as compared to the right side. No suspicious masses, areas of developing architectural distortion, or suspicious calcifications. There has been no significant interval change. BI/SCRN MAMM (CAD)W/KATY BILAT IMPRESSION: OVERALL FINAL ASSESSMENT: BIRADS 2 BENIGN FINDING RECOMMENDATION: Routine annual follow-up in 1 Year A letter with findings and recommendations will be mailed to the patient. Reading Location: [place] [address] CC: [facility] EVP AND CHIEF OPERATING OFFICERLuisC Nandini Oconnor; Dr. Laurie Lawler DO District Recruiter: Signed Normal [facility] Orthopedic Visit Reporton Orthopedic Visit Report [facility] [address] [place] [id number] OFFICE VISIT Date of Service: 08/10/24 MR#: [id number] Acct: [id number] Name: RAZIA CARRILLO Rep #: [id number] 2 : 1970 Provider: Dr. Luis claire DO Age/Sex: 54/F Location: [facility] Status: Signed Intake Vital Signs 01/27/24 07:19 08/10/24 09:28 Height 5 ft 4 in 5 ft 4 in Weight: 180 lb BMI 30.9 Intake Visit Reasons: RIGHT KNEE Chief Complaint: Right leg numbness Accompanied by: Self Is patient in pain?: Yes Pain scale (1-10): 1 Allergies adhesive tape Allergy (Verified 08/10/24 09:31) Rash Medications ???Medication ???Instructions ???Recorded ???Confirmed ???Type multivitamin 1 tab PO BID 05/15/21 08/10/24 His tory albuterol sulfate 90 mcg/actuation 2 puff inhalation Q6H PRN SOB 08/10/24 History aerosol inhaler (Ventolin HFA) amlodipine 5 mg tablet 5 mg PO QHS 04/26/23 08/10/24 Hist ory cariprazine 1.5 mg capsule 3 mg PO DAILY ANTIPSYCHOTIC 08/10/24 History (Vraylar) nicotine See Rx Instructions transdermal 08/10/24 Rx 21mg/24hr-14mg/24hr-7mg/24hr daily .COMPLEX #56 patches transderm patches,sequentl famotidine 20 mg tablet (Pepcid) 20 mg PO QDAY 08/10/24 08/10/24 Hi story meloxicam 15 mg tablet 15 mg PO QDAY 08/10/24 08/10/24 Hi story vitamin B complex 1 tab PO QDAY 08/10/24 08/10/24 Hi story Have you fallen in the past year?: Yes [facility] Medical History History of lipoma Schizophrenia Psychosis Ambulates with cane Low iron History of hiatal hernia Gastric reflux Chronic cough MDD (major depressive disorder) Lipoma History of fibula fracture Palpable mass of soft tissue of upper extremity Localized swelling of left upper extremity Abnormal uterine bleeding Lipoma of left upper extremity Hypertension Flu vaccine need Tobacco abuse counseling Right shoulder pain Rib pain on right side CPAP (continuous positive airway pressure) dependence Wears glasses Wears partial dentures Marijuana use Alcohol use Substance abuse Hepatitis A Anemia Back pain Migraine headache Injury of head and neck History of ulceration Smoker Shortness of breath on exertion Leg cramps History of pain when walking History of edema Arthritis Hepatitis C, chronic Anxiety and depression GERD (gastroesophageal reflux disease) Surgical History History of open reduction and internal fixation (ORIF) procedure History of colonoscopy History of hysteroscopy History of esophagogastroduodenoscopy (EGD) History of lumpectomy ( 1996) History of laparoscopic cholecystectomy ( 2004) History of dilation and curettage ( 1996) Family History Father Diabetes Hypertension Mother Kidney disease Asthma Arthritis Aunt Cancer Hodgkins Grandmother Colon cancer Polymyalgia rheumatica Grandfather CVA (cerebral vascular accident) Social History household members: children and other current occupational status: employed current occupation: [employer] Smoking Status: Current every day smoker tobacco type: cigarettes alcohol intake: current details: socially substance use type: marijuana caffeine: Yes what type of physical activity do you participate in: none frequency: 3-4 times per week seatbelt use: always do you feel safe at home: Yes additional social history: single HPI RIGHT KNEE Details: This documentation accurately reflects the service provided and the decisions made by me, Dr. uLis Harper, DO 08/10/24 0750. Part of today???s visit was documented by Sandi Castillo MA, acting as scribe. RAZIA CARRILLO is a 54 year old F here today for right leg numbness. The right leg numbness just started this month. Patient saw Dr. Yanes about a month ago. She gave her an exercise sheet to do for piriformis syndrome, and that's when the numbness started. The right leg gets really numb that it does get painful at times. The numbness comes and goes. It starts at the top of the foot and goes to the ankle and then goes all the way up to the right leg to the hip. Patient did go to physical therapy after last visit but the pain did not fully go away. She is getting some numbness on the top of the foot and it comes up past the knee. The numbness started within the last month. She denies any new injuries. Any pressure on the lateral malleolus is bothersome so wears diabetic socks. The numbness started while she was doing exercises for the piriformis muscle. 12/30/2023 for visit: here today for right h (more content not included)... Normal [facility]) RAZIA CARRILLO ([id number]) 1970 F Date Time Provider Department 06/16/24 [facility] During your visit today, we recorded the following information about you: Cecile Casper MA 06/16/2024 2:01 PM Signed Allergies As of Date: 06/16/2024 (No Known Allergies) Date Reviewed: 05/22/2024 Reviewed by: Nandini Cai LPN - Fully Assessed Reason for Visit: PAP Therapy Follow Up [1285] Prescriptions as of 06/16/2024 - modafinil (PROVIGIL) 200 mg tablet Take 0.5 tablets by mouth once daily as needed for up to 20 days. - cholecalciferol (VITAMIN D-3) 5,000 unit tab Take 5,000 Units by mouth every other day. - Magnesium Gluconate 12.5 mg magne- sium (250 mg) tab Take 250 mg by mouth daily at bedtime. - LORazepam (ATIVAN) 0.5 mg Take 1 tablet by mouth every afternoon. - albuterol HFA (PROVENTIL HFA, VENTOLIN HFA) 90 mcg/actuation inhaler Inhale 2 Puffs as instructed every 4 hours as needed. - amLODIPine (NORVASC) 5 mg tablet Take 1 tablet by mouth every afternoon. - VRAYLAR 3 mg capsule Take 1 capsule by mouth every afternoon. - TAB-A-FILI 400 mcg Take 1 tablet by mouth once daily. Problem List As Of Date 06/16/2024 Noted Resolved NBA (obstructive sleep apnea) [G47.33] 04/17/2024 Insomnia due to other mental disorder [F51.05, *04/17/2024 CPAP (continuous positive airway pressure) depe*04/17/2024 Hypersomnia [G47.10] 04/17/2024 Excessive daytime sleepiness [G47.19] 04/17/2024 Fatigue [R53.83] 04/17/2024 Inadequate sleep hygiene [Z72.821] 04/17/2024 Sleep disturbance [G47.9] 04/17/2024 Parasomnia [G47.50] 04/17/2024 Obesity (BMI 30-39.9) [E66.9] 04/17/2024 BMI 34.0-34.9,adult [Z68.34] 04/17/2024 Essential hypertension [I10] 04/17/2024 Depression [F32.A] 04/17/2024 Anxiety [F41.9] 04/17/2024 Stress [F43.9] 04/17/2024 Current smoker [F17.200] 04/17/2024 Marijuana smoker [F12.90] 04/17/2024 Encounter Status:Closed by CECILE CASPER on 06/16/24 Normal [facility] Urine Cultureon 06-13-2024 [facility] Mixed Gram Positive Organisms [place] Count 80,000-100,000 MIXC Mixed contaminants. Submit a new specimen if indicated. Normal [facility] Comment on above: Performed By: #### M .2199, ####[facility] [address] [place], [address] Urinalysis, Routine (Dipstic k)on 06-11-2024 BILIRUBIN URINE Negative Normal Negative [facility] Comment on above: Order Comment: Urine , Random Performed By: #### M .2199, ####[facility] [address] [place], [address] Clarity (U) Clear Normal Clear [facility] Comment on above: Order Comment: Urine , Random Performed By: #### M .2199, ####[facility] [address] [place], [address] Color (U) Yellow Normal Yellow [facility] Comment on above: Order Comment: Urine , Random Performed By: #### M .2199, ####[facility] [address] [place], [address] GLUCOSE, UR Normal Normal Normal [facility] Comment on above: Order Comment: Urine , Random Performed By: #### M .2199, ####[facility] [address] [place], [address] KETONE UR Negative Normal Negative [facility] Comment on above: Order Comment: Urine , Random Performed By: #### M 100.2199, L4 ####[facility] [address] [place], [address] LEUK ESTERASE Negative Normal Negative [facility] Comment on above: Order Comment: Urine , Random Performed By: #### M 100.2199, L4 ####[facility] [address] [place], [address] Nitrite Ql (U) Negative Normal Negative [facility] Comment on above: Order Comment: Urine , Random Performed By: #### M 100.2200, L4 ####[facility] [address] [place], [address] OCCULT BLOOD-UR 150 /ul Abnormal Negative [facility] Comment on above: Order Comment: Urine , Random Performed By: #### M 100.2200, L4 ####[facility] [address] [place], [address] pH UR 7.0 Normal 5.0 - 8.0 [facility] Comment on above: Order Comment: Urine , Random Performed By: #### M 100.2199, L4 ####[facility] [address] [place], [address] PROT DIPSTX 15 mg/dl Abnormal Negative [facility] Comment on above: Order Comment: Urine , Random Performed By: #### M 100.2199, L4 ####[facility] [address] [place], [address] SP.GR. DIPSTX 1.005 Normal 1.002-1.030 [facility] Comment on above: Order Comment: Urine , Random Performed By: #### M 100.0, L4 ####[facility] [address] [place], [address] UROBILI Normal Normal Normal [facility] Comment on above: Order Comment: Urine , Random Performed By: #### M 100.2200, L4 ####[facility] [address] [place], [address] CNOVon 05-22-2024 CNOV Office Visit ([facility] ) RAZIA CARRILLO ([id number]) 1970 F Date Time Provider Department 05/22/24 10:00 AM JOHN POLLOCK During your visit today, we recorded the following information about you: Pulse Respiration Blood pressure Weight 74/minute 16/minute 116/81 84.8 kg John Pollock APRN.CNP 05/22/2024 12:10 PM Signed [facility] Follow up/ Established patient visit Date of last visit : 04/17/24 The following Impression/Plan was copied and pasted from the patient's last Sleep Disorders Center visit on 04/17/24: IMPRESSION/PLAN: Razia CARRILLO is a 54 year old female presents today in [facility] with the following problems: The patient has pertinent hx of NBA, Insomnia, hypersomnia, HTN, HLD, anemia, anxiety, depression, psychosis, seasonal allergies, and current smoker. CURRENT DME: Mony Esparza OBSTRUCTIVE SLEEP APNEA (NBA), moderate-severe (PSG AHI: 16.1/hr with Supine AHI 34.8/hr) - Patient's risk factors for NBA: BMI, age, HTN, current smoker, family history, and narrow crowded upper airway anatomy - NBA diagnosed by PSG in 2021. Reviewed sleep studies today in clinic. See HPI. - Retrieved and personally reviewed recent PAP adherence download data today. See HPI. - reviewed data: utilized 30/30 days (100%) with 22/30 days >4 hrs usage (73%) for average usage of 4 hrs 25 mins with residual AHI of 0.9/hr, pressures within range of setting, mask leak within normal limits - Continue current PAP settings. INSOMNIA + HYPERSOMNIA + EXCESSIVE DAYTIME SLEEPINESS (EDS) / FATIGUE / / INADEQUATE SLEEP HYGIENE + SLEEP DISTURBANCE - due to combination of inadequate sleep hygiene, irregular sleep schedule, stress, depression, anxiety, under-treated sleep apnea, obesity, nocturia, anemia, marijuana use, smoker, caffeine use, children, psychosocial stressors, sedentary lifestyle, and chronic pain. Medications do NOT appear to be a contributing factor as well. - see HPI for hx and symptoms - current medications: Modafinil 200 mg daily PRN Ativan 0.5 mg PRN Vraylar 3 mg - discussed with patient good sleep hygiene - Important to get good daily dose of natural sunlight to help wakefulness AND energy - Reduce artificial lighting at night, especially light from screens (i.e. cellphones, TV, tablets) - Exercise is helpful for your mental and physical health - Have a consistent bedtime routine 1 hour prior to your usual bedtime - If going to take a nap, it should be less than 30 minutes and prior to 3 pm - Limit alcohol and caffeine use - Avoidance of marijuana and/or CBD use - given that patient has trialed many medication, there is an issue with previous provider prescribing and then office stopping prescriptions, we will [facility] Genes[facility] testing. Before any changes to medication to be made. Suspected NARCOLEPSY / HYPERSOMNIA - low suspicion for narcolepsy Likely combination of reduced sleep, mental health, medications and under-treated NBA are contributing to these symptoms Patient is only averaging 4 hrs of sleep per night, which is likely the majority of the cause of her reported symptoms Work on extending sleep PARASOMNIA: SLEEP TALKING / SLEEP WALKING / NIGHT TERRORS / DREAM ENACTMENT / SLEEP EATING - see HPI for reported sleep symptoms - discussed with patient safety protocol Safety protocol Make sure you and your bed partner are safe. Lock bedroom doors and windows. Hide your car keys if needed Pad your headboard and move furniture away from the bed. Ensure no sharp objects are available that could hurt you or someone else or could be used a weapon. Put pillows in between you and your bed partner if you are kicking or hitting. Consider sleeping separately. Remove clutter and furniture from bedroom floor to avoid injuring yourself. Consider moving your mattress to the floor or can place padded floor mats next to bed. OBESITY - BMI today Body mass index is 34.46 kg/m?. - no significant weight changes noted or reported - Encouraged patient to lose weight with diet and exercise. - Weight loss can help in the longterm treatment of NBA. - Declined weight loss management assistance consult - Defer management to PCP HYPERTENSION - BP today 130/84 - well controlled with medication, denies any issues with management - denies any headache, blurry vision, chest pain, palpitation, dizziness, lightheadedness, or syncopal episodes - encouraged daily exercise with healthy diet for BP and NBA management - Currently on meds per PCP - Defer management to PCP DEPRESSION / ANXIETY screen DEPRESSION / ANXIETY / STRESS - hx of psychosis - was told at one point Bipolar? - denies any SI, HI or hallucinations - currently on medicatio (more content not included)... Normal [facility] CNOVon 04-17-2024 CNOV Office Visit (NESMM) RAZIA CARRILLO ([id number]) 1970 F Date Time Provider Department 04/17/24 1:00 PM DERIAN LATIF NESDANILO During your visit today, we recorded the following information about you: Temperature Pulse Respiration Blood pressure 99.1 degrees 74/minute 22/minute 130/84 Weight 84.8 kg Derian Latif APRN.CNP 04/17/2024 8:23 PM Signed [facility] New Patient Evaluation Patient: Razia CARRILLO : 1970 AGE: [age] year old SEX: female Provider: Derian Latif APRN.CNP Location: NEUROLOGY Service Date: 04/17/2024 PCP: Ilsa Espinoza DO Referred by: Lino Calero MD REASON FOR CONSULT: Rosetta Salcedo sends the patient for an opinion about Insomnia. My findings and recommendations will be transmitted electronically via shared medical record to the consulting provider. Patient ID: Razia CARRILLO is a 54 year old female who presents to a [facility] for evaluation for Insomnia. Patient is here today alone. The patient has pertinent hx of NBA, Insomnia, hypersomnia, HTN, HLD, anemia, anxiety, depression, psychosis, seasonal allergies, and current smoker. 04/17/2024 Patient reports she is here today for parasomnia. , she had gone off perphenazine and lexapro for anxiety AND depression, psychosis returned. Was sleeping fine off mediation. When she was placed back onto medications, sleep worsened. She was on abilify back then, was on for 5 years. Was switched off last year, no change in sleep. No issues with falling asleep, struggles with staying asleep. She usually sleeps 3 - 4 hours, will awaken, sometimes she can fall back asleep but then other nights she needs to burn off energy. She struggles most nights to fall back which is very concerning to her. Sleep walking activity. Will go into the kitchen get food, will find half eaten cookies or other foods in the bed the next day. She reports there is no consistency with this activity. She will do it for a couple weeks then it goes away for a while then will come back. Her sleep ebbs and flows, sometimes she sleep great then it worsen. No consistent pattern. Developed psychosis at age 41. Which has been sleep issues since then her initial episode of psychosis. She prior to the initial episode was 5 hr sleeper, which was enough and she felt great. Father has sleep issues, he has very fragmented sleep. Gets super tired in the evening around dinner time. 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 None currently Reviewed data from patient machine - 73% compliance, with average usage of 4 hr 25 minutes, residual AHI of 0.9/hr HISTORY OF SLEEP DIFFICULTIES What is the most distressing/disturbing about your sleep pattern? Staying asleep Estimated average total sleep time per night: 4 - 5 hrs When did the problem start? 41 y/o Any precipitating factors: psychosis Course of sleep problems since onset: fluctuates but steadily worsening CURRENT SLEEP HABITS BEGINNING OF SLEEP: Pre-bedtime activities (last hour before going to bed): sometimes talk on phone, read a book Time to Bed: 9 - 10 pm Time of Lights Out: 9 - 10 pm What do you do when you can not fall asleep? Phone, read Pre-sleep mental activity: mind is always racing with thoughts Any physical tension or pain: sometimes Conditioned arousals or environmental disturbances: denied MIDDLE OF THE NIGHT: Number of awakening after sleep onset: x2 - 6 What happens when awake in middle of the night?: unknown, just awakens, does have rumination sometimes Total time awake after sleep onset: few minutes to usually hours to unable to fall back asleep END OF NIGHT/MORNING: Final Wake Time: 2 - 3 am Time out of bed: 3 am Any difference from weekend AND weekdays schedule: no Any napping or dozing throughout the day: does not think so SLEEP HX: Nightmares: denied Parasomnia: sleep walk AND sleep eating Narcolepsy or IDH: hypersomnia RLS: denied Sleep Apnea: NBA on CPAP (non-complaint) DAYTIME IMPACT of SLEEP Mood: anxious Fatigue: daily Work/Academic Impact: sometimes impacts work Concentratio (more content not included)... Normal [facility] PT D/C Summary (1)on 024 PT D/C Summary (1) [facility] [address] [place] [address] [address] [place] [id number] / REHABILITATION SERVICES DISCHARGE SUMMARY MR#: [id number] Acct: [id number] Name: RAZIA CARRILLO Rep #: [id number] : 1970 54 From: Joleen Knutson PT, Cert. MDT Referring Dr.: Dr. Luis Harper DO Status: R EG RCR Insurance: [facility] SELF PAY INSURANCE Discharge Summary D/C summary: It has been my pleasure to treat RAZIA CARRILLO referred by Dr. Luis Harper DO, with the diagnosis of LUMBAR DEGENERATION AND FACET ARTHRITIS for a total of 16 visit(s). Discharge Date: 03/17/24 Please see the following information for a summary of their discharge status. Subjective Subjective: PATIENT REPORTS SHE IS GLAD SHE CONTINUED THERAPY ON [place]. SHE PLANS TO CONTINUE EXERCISING AT HOME NOW WITH THE BANDS AND THE PRINTOUTS. MANAGING WITH OTC IBUPROFEN, TYLONOL AND ASPIRIN WHEN NEEDED. THERAPY HAS BEEN SO BENEFICIAL FOR ME. Pain RLE: Pain Intensity (Out of 10): 1 LLE: Pain Intensity (Out of 10): 1 Overall Improvement % Improvement: 90 Objective Objective/Function: PATIENT WAS SEEN TODAY FOR RE-ASSESSMENT OF PROGRESS TOWARD THE SET PT GOALS AND THE NEED FOR FURTHER PHYSICAL THERAPY VS READINESS FOR DISCHARGE. THIS PATIENT HAS DONE REALLY WELL WITH PT. SHE IS APPROPRIATE FOR AND AGREEABLE TO DISCHARGE. UPON EXAM TODAY: ALL GOALS MET. Motor deficit: TIMOTHY LE'S GROSSLY 5/5 AND PATIENT DENIES PAIN WITH TESTING. Dural Signs: NEGATIVE TIMOTHY LE'S. Lumbar mvmt loss: flex - NIL ext - MIN R SG - MIN L SG - MIN PATIENT DENIES PAIN WITH LUMBAR ROM TESTING ALL PLANES TODAY. Core strength: FAIR. MUCH BETTER POSTURE CONTROL AND ABLE TO MAINTAIN UPRIGHT POSTURE IN SITTING AND STANDING DURING SESSION TODAY. Palpation: NO ACUTE TENDERNESS. 30 STS TEST: 15 WITHOUT UE ASSIST OR C/O INCREASED PAIN TODAY. Goals Goal 1:: DECREASE C/O LOW BACK AND R LE SX'S BY AT LEAST 50% TO EASE ADL'S. Goal Progress: Goal Met Goal 2:: PATIENT WILL BE ABLE TO MAINTAIN PROPER POSTURE CONTROL THROUGHOUT THERAPY SESSION WITHOUT CUEING TO DEMONSTRATE IMPROVED AWARENESS, IMPROVED STRENGTH AND DECREASED INFLAMMATION. Goal Progress: Goal Met Goal 3:: PATIENT WILL BE ABLE TO PERFORM 10 STS IN 30 SEC WITHOUT UE ASSIST OF INCREASED PAIN TO DEMO GOOD STRENGTH Goal Progress: Goal Met Goal 4:: PATIENT WILL BE ABLE TO DEMO GOOD BODY MECHANICS FOR WORK DUTIES TO DECREASE RISK OF REOCCURANCE Goal Progress: Goal Met Goal 5:: PATIENT WILL HAVE LUMBAR ROM WFL WITHOUT C/O INCREASED PAIN TO EASE ADL'S. Goal Progress: Goal Met Goal 6:: INDEP HOME AND/OR WATER EX PROGRAM Goal Progress: Goal Met Plan Plan: D/C TO [facility]. PATIENT REPORTS SHE WILL FOLLOW UP WITH DR. HARPER NEEDED. D/C Information d/c sentence: If there are questions or concerns regarding this patient's physical therapy, please feel free to call me at [phone]. Thank you for the referral of this patient. Sincerely, Joleen Knutson, PT, Cert MDT Balance/Gait/Functional tests Balance/Special Test Scores Oswestry Low Back Score: 12 Improvement % Improvement: 90 03/17/24 1035 CC: [facility] REGLA [place]; Dr. Luis Harper DO TONJA Signed Normal [facility] Vitamin D,25 Hydroxyon 03-12 Vitamin D 25-OH 30.6 ng/mL Normal [facility] Comment on above: Result Comment: Danielle min D 25(OH) Status Range Deficiency <20 ng/mL (50nmol/L) Insufficiency 20 - 30 ng/mL (50 - 75 nmol/L) Sufficiency 30 - 100 ng/mL (75 - 250 nmol/L) Toxicity >100 ng/mL (>250 nmol/L) Performed By: #### L 100.0100, L500.4100, L506.1000, L500.4050 ####[facility] [address] [place], [address] CBC W/Diff, Automatedon 02-22 Absolute Lymph 1.95 X10 3/uL Normal 0.83-4.51 [facility] Comment on above: Performed By: #### L 100.0100, L500.4100, L506.1000, L500.4050 #### [facility] [address] [place], [address] Absolute Neut 5.8 X10 3/uL Normal 2.0-7.7 [facility] Comment on above: Performed By: #### L 100.0100, L500.4100, L506.1000, L500.4050 #### [facility] [address] [place], [address] Basophils/100 WBC (Bld) 0.8 % Normal 0-1 [facility] Comment on above: Performed By: #### L 100.0100, L500.4100, L506.1000, L500.4050 #### [facility] [address] [place], [address] Eosinophils/100 WBC (Bld) 2.6 % Normal 0-5 [facility] Comment on above: Performed By: #### L 100.0100, L500.4100, L506.1000, L500.4050 #### [facility] [address] [place], [address] Erythrocyte distribution width (RBC) [Ratio] 13.5 % Normal 11.6-14.6 [facility] Comment on above: Performed By: #### L 100.0100, L500.4100, L506.1000, L500.4050 #### [facility] [address] [place], [address] Hematocrit (Bld) [Volume fraction] 44.9 % Normal 37-47 [facility] Comment on above: Performed By: #### L 100.0100, L500.4100, L506.1000, L500.4050 #### [facility] [address] [place], [address] Hemoglobin (Bld) [Mass/Vol] 14.9 g/dL Normal 12.0-15.0 [facility] Comment on above: Performed By: #### L 100.0100, L500.4100, L506.1000, L500.4050 #### [facility] [address] [place], [address] IG% 0.300 Normal 0.0-0.9 [facility] Comment on above: Result Comment: IG% - Immature Granulocytes (promyelocytes, myelocytes and metamyelocytes) > 1% indicates that a LEFT SHIFT is Present. Performed By: #### L 100.0100, L500.4100, L506.1000, L500.4050 #### [facility] [address] [place], [address] Lymphocytes/100 WBC (Bld) 22.6 % Normal 19-41 [facility] Comment on above: Performed By: #### L 100.0100, L500.4100, L506.1000, L500.4050 #### [facility] [address] [place], [address] MCH (RBC) [Entitic mass] 31.2 pg Normal 27.0-32.0 [facility] Comment on above: Performed By: #### L 100.0100, L500.4100, L506.1000, L500.4050 #### [facility] [address] [place], [address] MCHC (RBC) [Mass/Vol] 33.2 g/dL Normal 32-36 [facility] Comment on above: Performed By: #### L 100.0100, L500.4100, L506.1000, L500.4050 #### [facility] [address] [place], [address] MCV (RBC) [Entitic vol] 94.1 fL Normal 81-99 [facility] Comment on above: Performed By: #### L 100.0100, L500.4100, L506.1000, L500.4050 #### [facility] [address] [place], [address] Monocytes/100 WBC (Bld) 6.3 % Normal 0-10 [facility] Comment on above: Performed By: #### L 100.0100, L500.4100, L506.1000, L500.4050 #### [facility] [address] [place], [address] Neutrophils/100 WBC (Bld) 67.4 % Normal 47-70 [facility] Comment on above: Performed By: #### L 100.0100, L500.4100, L506.1000, L500.4050 #### [facility] [address] [place], [address] Nucleated RBC (Bld) [#/Vol] 0 10*3/uL Normal 0-5 [facility] Comment on above: Performed By: #### L 100.0100, L500.4100, L506.1000, L500.4050 #### [facility] [address] [place], [address] Platelet mean volume (Bld) [Entitic vol] 8.8 fL Normal 6.2-12.0 [facility] Comment on above: Performed By: #### L 100.0100, L500.4100, L506.1000, L500.4050 #### [facility] [address] [place], [address] Platelets (Bld) [#/Vol] 267 10*3/uL Normal 150-450 [facility] Comment on above: Performed By: #### L 100.0100, L500.4100, L506.1000, L500.4050 #### [facility] [address] [place], [address] RBC (Bld) [#/Vol] 4.77 10*6/uL Normal 4.2-5.4 [facility] Comment on above: Performed By: #### L 100.0100, L500.4100, L506.1000, L500.4050 #### [facility] [address] [place], [address] RDW SD 46.5 fl High 35.1-43.9 [facility] Comment on above: Performed By: #### L 100.0100, L500.4100, L506.1000, L500.4050 #### [facility] [address] [place], [address] WBC (Bld) [#/Vol] 8.6 10*3/uL Normal 4.4-11.0 [facility] Comment on above: Performed By: #### L 100.0100, L500.4100, L506.1000, L500.4050 #### [facility] [address] [place], [address] Comprehensive Metabolic Prof ilon 03-11-2024 Albumin [Mass/Vol] 3.7 g/dL Normal 3.2-5.0 [facility] Comment on above: Performed By: #### L 100.0100, L500.4100, L506.1000, L500.4050 #### [facility] [address] [place], [address] Albumin/Globulin [Mass ratio] 1.2 {ratio} Normal 0.9-2.4 [facility] Comment on above: Performed By: #### L 100.0100, L500.4100, L506.1000, L500.4050 #### [facility] [address] [place], [address] ALK P 101 U/L Normal 45-117 [facility] Comment on above: Performed By: #### L 100.0100, L500.4100, L506.1000, L500.4050 #### [facility] [address] [place], [address] ALT [Catalytic activity/Vol] 33 U/L Normal 13-56 [facility] Comment on above: Performed By: #### L 100.0100, L500.4100, L506.1000, L500.4050 #### [facility] [address] [place], [address] AST [Catalytic activity/Vol] 16 U/L Normal 15-37 [facility] Comment on above: Performed By: #### L 100.0100, L500.4100, L506.1000, L500.4050 #### [facility] [address] [place], [address] Bilirubin [Mass/Vol] 0.50 mg/dL Normal 0.20-1.00 [facility] Comment on above: Result Comment: For patients on eltrombopag therapy, use of Dimension [place] TBIL is not recommended. Performed By: #### L 100.0100, L500.4100, L506.1000, L500.4050 #### [facility] [address] [place], [address] BUN/CRE 19.5 RATIO Normal 10-20 [facility] Comment on above: Performed By: #### L 100.0100, L500.4100, L506.1000, L500.4050 #### [facility] [address] [place], [address] CA,Total 10.0 mg/dL Normal 8.5-10.1 [facility] Comment on above: Performed By: #### L 100.0100, L500.4100, L506.1000, L500.4050 #### [facility] [address] [place], [address] Chloride [Moles/Vol] 111 mmol/L High 98-107 [facility] Comment on above: Performed By: #### L 100.0100, L500.4100, L506.1000, L500.4050 #### [facility] [address] [place], [address] CO2 [Moles/Vol] 24.0 mmol/L Normal 21.0-32.0 [facility] Comment on above: Performed By: #### L 100.0100, L500.4100, L506.1000, L500.4050 #### [facility] [address] [place], [address] Creatinine [Mass/Vol] 0.62 mg/dL Normal 0.55-1.02 [facility] Comment on above: Result Comment: The validity of the calculated GFR GFRAA in patients over 70 years has not been determined. Clinical correlation is essential. Performed By: #### L 100.0100, L500.4100, L506.1000, L500.4050 #### [facility] [address] [place], [address] EST GFR - AA 130 mL/min Normal >60 [facility] Comment on above: Result Comment: Afri can [place] GFR Calc Performed By: #### L 100.0100, L500.4100, L506.1000, L500.4050 #### [facility] [address] [place], [address] GAP 5 Normal 5-15 [facility] Comment on above: Performed By: #### L 100.0100, L500.4100, L506.1000, L500.4050 #### [facility] [address] [place], [address] GFR/1.73 sq M.predicted among non-blacks MDRD (S/P/Bld) [Vol rate/Area] 108 mL/min/{1.73_m2} Normal >60 [facility] Comment on above: Result Comment: Non- GFR Calc Performed By: #### L 100.0100, L500.4100, L506.1000, L500.4050 #### [facility] [address] [place], [address] Globulin (S) [Mass/Vol] 3.2 g/dL Normal 2.2-4.2 [facility] Comment on above: Performed By: #### L 100.0100, L500.4100, L506.1000, L500.4050 #### [facility] [address] [place], [address] Glucose [Mass/Vol] 94 mg/dL Normal 74-106 [facility] Comment on above: Performed By: #### L 100.0100, L500.4100, L506.1000, L500.4050 #### [facility] [address] [place], [address] Potassium [Moles/Vol] 3.9 mmol/L Normal 3.5-5.1 [facility] Comment on above: Performed By: #### L 100.0100, L500.4100, L506.1000, L500.4050 #### [facility] [address] [place], [address] Sodium [Moles/Vol] 140 mmol/L Normal 136-145 [facility] Comment on above: Performed By: #### L 100.0100, L500.4100, L506.1000, L500.4050 #### [facility] [address] [place], [address] T PROT 6.9 g/dL Normal 6.4-8.2 [facility] Comment on above: Performed By: #### L 100.0100, L500.4100, L506.1000, L500.4050 #### [facility] [address] [place], [address] Urea nitrogen [Mass/Vol] 12 mg/dL Normal -18 [facility] Comment on above: Performed By: #### L 100.0100, L500.4100, L506.1000, L500.4050 #### [facility] [address] [place], [address] Lipid Profileon 03-11-2024 Cholesterol [Mass/Vol] 198 mg/dL Normal 200 [facility] Comment on above: Result Comment: <200 mg/dL Desirable 200-240 mg/dL Borderline >240 mg/dL High Risk Performed By: #### L 100.0100, L500.4100, L506.1000, L500.4050 ####[facility] [address] [place], [address] Cholesterol in HDL [Mass/Vol] 74 mg/dL Normal [facility] Comment on above: Result Comment: The drugs N-Acetylcysteine and Metamizole may falsely depress this assay. Reference Range HDL <40 mg/dL Low HDL Cholesterol HDL >or= 60 mg/dL High HDL Cholesterol Performed By: #### L 100.0100, L500.4100, L506.1000, L500.4050 ####[facility] [address] [place], [address] Cholesterol in LDL [Mass/Vol] 95 mg/dL Normal 0-130 [facility] Comment on above: Performed By: #### L 100.0100, L500.4100, L506.1000, L500.4050 ####[facility] [address] [place], [address] Cholesterol in VLDL [Mass/Vol] 29 mg/dL Normal 5-40 [facility] Comment on above: Performed By: #### L 100.0100, L500.4100, L506.1000, L500.4050 ####[facility] [address] [place], [address] Triglyceride [Mass/Vol] 147 mg/dL Normal [facility] Comment on above: Result Comment: The drugs N-Acetylcysteine and Metamizole may falsely depress this assay. Serum Triglycerides Reference Interval Normal <150 mg/dL Borderline high 150 - 199 mg/dL High 200 - 499 mg/dL Very High > or = 500 mg/dL Performed By: #### L 100.0100, L500.4100, L506.1000, L500.4050 ####[facility] [address] [place], [address] Re-Evaluation - PT (1)on Re-Evaluation - PT (1) [facility] [address] [place] [address] / REEVALUATION / MEDICARE RECERTIFICATION PHYSICAL THERAPY MR#: [id number] Acct: [id number] Name: RAZIA CARRILLO Rep #: [id number] : 1970 54 From: Joleen Knutson PT, Cert. MDT Referring Dr.: Dr. Luis Harper, DO Status:REG RCR Insurance: [employer] SELF PAY INSURANCE Re-Evaluation Intro: Dr. Luis Harper, DO, It has been my pleasure to treat RAZIA CARRILLO over the last 10 visits for LUMBAR DEGENERATION AND FACET ARTHRITIS. Please see the progress note below for an update on the physical therapy plan of care! Subjective Subjective: PATIENT REPORTS HER PAIN IS A LOT BETTER. SHE STATES SHE CAN WALK UPRIGHT NOW AND SHE CAN MOVE A LOT BETTER. I'M NOT IN NEAR MUCH PAIN I WAS. A LOT OF THE PAIN IS GONE. PATIENT REPORTS THE PAIN IS LOCALIZED TO HER R [place] AREA NOW. SHE REPORTS THAT MOST OF THE PAIN AND PROBLEMS THAT BROUGHT HER HERE ARE GONE. SHE STATES SHE IS STILL TAKING CELEBREX. PATIENT REPORTS SITTING UP FROM LYING SEEMS TO AGGREVATE IT THE WORSE. PATIENT REPORTS SHE IS STILL HAVING PAIN IN HER L KNEE AND THAT IT IS A SEPARATE PROBLEM. PATIENT REPORTS SHE HAS FOUND THE WATER THERAPY BENFICIAL AND SHE IS GLAD SHE DID IT. Objective Objective/Function: PATIENT WAS SEEN TODAY FOR RE-ASSESSMENT OF PROGRESS TOWARD THE SET PT GOALS AND THE NEED FOR FURTHER PHYSICAL THERAPY VS READINESS FOR DISCHARGE. PATIENT IS MAKING GOOD PROGRESS TOWARD ALL PT GOALS AND IS A GOOD CANDIDATE TO CONTINUE PT BASED ON PROGRESS MADE AND ROOM FOR FURTHER IMPROVEMENT. SHE IS APPROPRIATE FOR AND AGREEABLE TO TRIAL OF TRANSITION TO LAND BASED PT EXERCISE. SHE STATES SHE REALLY LOVES THE WATER EX BUT DOESN'T WANT TO CONTINUE IN THE COLD WEATHER AND SHE IS TOLERATING HER HOME EX'S WELL. UPON EXAM TODAY: Motor deficit: TIMOTHY LE'S GROSSLY 5/5 AND PATIENT DENIES PAIN WITH TESTING EXCEPT A LITTLE DISCOMFORT IN HIPS. Reflexes: TIMOTHY QUADS 2+. L ACHILLES 2+. R ACHILLES ABSENT Dural Signs: NEGATIVE TIMOTHY LE'S. Lumbar mvmt loss: flex - NIL ext - MOD R SG - MOD L SG - MIN PATIENT DENIES PAIN WITH LUMBAR ROM TESTING ALL PLANES TODAY. Core strength: FAIR. MUCH BETTER POSTURE CONTROL AND ABLE TO MAINTAIN UPRIGHT POSTURE IN SITTING AND STANDING DURING SESSION TODAY. Palpation: NO ACUTE TENDERNESS. 30 STS TEST: 10 WITHOUT UE ASSIST. FATIGUE AND MILD PAIN POST TEST. Plan Plan Plan: TRANISITION TO LAND BASED PT EX 2X'S A WK X 3 TO 4 WKS FOR FURTHER PAIN RELEIF, POSTURE CORRECTION/STRENGTHENING, INSTRUCTION IN APPROPRIATE BODY MECHANICS AND ACTIVITY MODIFICATIONS. DLS STARTING WITH A NEUTRAL SPINE PROGRESSING ROM TOLERATED. TIMOTHY LE ROM, STRETCHING AND STRENGTHENING. HEP PROGRESSION. Balance/Gait/Functional tests Balance/Special Test Scores Oswestry Low Back Score: 13 Goals Goals Goal 1:: DECREASE C/O LOW BACK AND R LE SX'S BY AT LEAST 50% TO EASE ADL'S. Goal Time Frame: 4-6 Weeks Goal Progress: Goal Met Goal 2:: PATIENT WILL BE ABLE TO MAINTAIN PROPER POSTURE CONTROL THROUGHOUT THERAPY SESSION WITHOUT CUEING TO DEMONSTRATE IMPROVED AWARENESS, IMPROVED STRENGTH AND DECREASED INFLAMMATION. Goal Time Frame: 4-6 Weeks Goal Progress: Progressing Goal 3:: PATIENT WILL BE ABLE TO PERFORM 10 STS IN 30 SEC WITHOUT UE ASSIST OF INCREASED PAIN TO DEMO GOOD STRENGTH Goal Time Frame: 4-6 Weeks Goal Progress: Progressing Goal 4:: PATIENT WILL BE ABLE TO DEMO GOOD BODY MECHANICS FOR WORK DUTIES TO DECREASE RISK OF REOCCURANCE Goal Time Frame: 4-6 Weeks Goal Progress: Progressing Goal 5:: PATIENT WILL HAVE LUMBAR ROM WFL WITHOUT C/O INCREASED PAIN TO EASE ADL'S. Goal Time Frame: 4-6 Weeks Goal Progress: Progressing Goal 6:: INDEP HOME AND/OR WATER EX PROGRAM Goal Time Frame: 4-6 Weeks Goal Progress: Progressing Anticipated Interventions Anticipated Interventions Patient/Client Instruction: Educate patient on: Condition, Plan of Care and Risk Factors For the Purpose of:: To improve self management Therapeutic Exercise to Include: Strength training, Body mechanics, Postural training, Flexibilty training, Gait and locomotor training, Neuromotor development, In an aquatic setting and Dynamic Lumbar Stabilization For the Purpose of:: To decrease pain, To increase ROM, To improve muscle performance and motor function, To improve ability to perform ADL's, To increase tolerance to activity/condition/position, To improve ability of physical actions for home/community/work/leisure, To improve gait and locomotor functions, To increase flexibility/ROM and To improve self management Re-Evaluation Ending Re-evaluation ending: Please do not hesitate to contact me at [phone] by phone or if you have questions or concerns regarding this new plan of care! Sincerely, Joleen Knutson (more content not included)... Normal [facility] Pulmonary Visit Reporton Pulmonary Visit Report [facility] [place] [address] [place] [address] OFFICE VISIT Date of Service: 01/27/24 MR#: [id number] Acct: [id number] Name: RAZIA CARRILLO Rep #: [id number] : 1970 Provider: REGLA Schmitt Age/Sex: 54/F Location[place] [facility] [place] Status: Signed Assessment and Plan Assessment and Plan (1) SOBOE (shortness of breath on exertion): Status: Acute Plan: Possibly related to advancing COPD, given her ongoing smoking. The patient is not currently requiring maintenance medications. She is agreeable to a pulmonary function test for clarification and quantification of disease state. She will return to the office in 6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 appearing NEURO: Awake, alert and oriented x 3 and Normal gait PSYCH: No signs of depression, anxiety, or agitation ENMT (Ear, Nose, Mouth, Throat): No masses, adenopathy, icterus. Thyroid nonpalpable RESP: NL effort, no retractions or purse-lip breathing. CV: No extremity swelling, varices, edema, pallor, erythema GASTROINTESTINAL: Soft, nontender, nondistended, no masses. HERNIAS: None SKIN: No rash, lesions No palpable lymphadenopathy MUSCULOSKELETAL: Extremities normal. No deformities, edema, clubbing or skin discoloration. PROBLEM LIST REVIEW: Yes LABS: Results for orders placed or performed in visit on 12/24/23 UA DIP, URINE (POC) Result Value Ref Range GLUCOSE UA (POCT) Negative Negative mg/dL BILIRUBIN UA (POCT) Negative Negative KETONE UA (POCT) Negative Negative mg/dL SPECIFIC GRAVITY UA (POCT) 1.020 1.005 - 1.030 HEMOGLOBIN/BLOOD UA (POCT) Small (A) Negative PH UA (POCT) 6.5 4.5 - 8.0 PROTEIN UA (POCT) Negative Negative mg/dL UROBILINOGEN UA (POCT) 0.2 Normal E.U./dL NITRITE UA (POCT) Negative Negative LEUKOCYTES UA (POCT) Negative Negative COLOR UA (POCT) Yellow CLARITY UA (POCT) Clear PROCEDURES: PVR: 0 ml IMAGING: CT Flank - no kidney stones ASSESSMENT/PLAN: 1. Microscopic hematuria - ICD9: 599.72, ICD10: R31.29 (primary diagnosis) - URINALYSIS, WITH MICROSCOPIC - VFR/PVR - POST VOID RESIDUAL 2. Screening for genitourinary condition - ICD9: V81.6, ICD10: Z13.89 - POST VOID RESIDUAL New Diagnosis of unknown prognosis Medication - Renewed, Stopped, Trial > 3 mo Follow-up with Nahomi Nicole (more content not included)... Normal [facility] UA DIP, URINE (POC)on 2023 BILIRUBIN UA (POCT) Negative Negative [facility] CLARITY UA (POCT) Clear [facility] COLOR UA (POCT) Yellow [facility] GLUCOSE UA (POCT) Negative Negative mg/dL [facility] Hemoglobin Ql (U) Small Abnormal Negative [facility] Interpretation and review of laboratory results Abnormal [facility] KETONE UA (POCT) Negative Negative mg/dL [facility] LEUKOCYTES UA (POCT) Negative Negative [facility] NITRITE UA (POCT) Negative Negative [facility] PH UA (POCT) 6.5 4.5 - 8.0 [facility] Protein Ql (U) Negative Negative mg/dL [facility] SPECIFIC GRAVITY UA (POCT) 1.020 1.005 - 1.030 [facility] UROBILINOGEN UA (POCT) 0.2 Normal E.U./dL [facility] Location:[facility], [address], [place], [address] [facility] POINT OF CARE [facility] Urinalysis complete panel (U )on 12-24-2023 Bacteria LM.HPF (Urine sed) [#/Area] Negative Normal Negative [facility] Comment on above: Order Comment: Speci men Type: URINE SPECIMENOrdering Facility: [facility] Address: [address] [place] [address] Performed By: #### 2 4356-8 ####[facility] LABCLIA [id number] [place] [id number] [place] Bilirubin Ql (U) Negative Normal Negative [facility] Comment on above: Order Comment: Speci men Type: URINE SPECIMENOrdering Facility: [facility] Address: [address] [place] [address] Performed By: #### 2 4356-8 ####[facility] LABCLIA [id number] [place] [address] [place] Clarity (Unsp spec) Clear Normal Clear [facility] Comment on above: Order Comment: Speci men Type: URINE SPECIMENOrdering Facility: [facility] Address: [address] [place] [address] Performed By: #### 2 4356-8 ####[facility] LABCLIA [id number] [place] [address] [place] Color (U) Dark Yellow Abnormal Yellow [facility] Comment on above: Order Comment: Speci men Type: URINE SPECIMENOrdering Facility: [facility] Address: [address] [place] [address] Performed By: #### 2 4356-8 ####[facility] LABCLIA [id number] [place] [address] [place] Epithelial cells LM.HPF (Urine sed) [#/Area] None Seen Normal [facility] Comment on above: Order Comment: Speci men Type: URINE SPECIMENOrdering Facility: [facility] Address: [address] [place] [address] Performed By: #### 2 4356-8 ####[facility] LABIA [id number] [place] [address] [place] Glucose Test strip (U) [Mass/Vol] Negative Normal Negative [facility] Comment on above: Order Comment: Speci men Type: URINE SPECIMENOrdering Facility: [facility] Address: [address] [place] [address] Performed By: #### 2 4356-8 ####[facility] LABCLIA [id number] [place] [address] [place] Hemoglobin Ql (U) Negative Normal Negative [facility] Comment on above: Order Comment: Speci men Type: URINE SPECIMENOrdering Facility: [facility] Address: [address] [place] [address] Performed By: #### 2 4356-8 ####[facility] LABCLIA [id number] [place] [address] [place] Hyaline casts (Urine sed) [#/Area] 0 /[LPF] Normal 0 /LPF [facility] Comment on above: Order Comment: Speci men Type: URINE SPECIMENOrdering Facility: [facility] Address: [address] [place] [address] Performed By: #### 2 4356-8 ####[facility] LABCLIA [id number] [place] [address] [place] Ketones Ql (U) Negative Normal Negative [facility] Comment on above: Order Comment: Speci men Type: URINE SPECIMENOrdering Facility: [facility] Address: [address] [place] [address] Performed By: #### 2 4356-8 ####[facility] LABCLIA [id number] [place] [address] [place] Leukocyte esterase Test strip Ql (U) Negative Normal Negative [facility] Comment on above: Order Comment: Speci men Type: URINE SPECIMENOrdering Facility: [facility] Address: [address] [place] [address] Performed By: #### 2 4356-8 ####[facility] LABCLIA [id number] [place] [address] [place] Nitrite Ql (U) Negative Normal Negative [facility] Comment on above: Order Comment: Speci men Type: URINE SPECIMENOrdering Facility: [facility] Address: [address] [place] [address] Performed By: #### 2 4356-8 ####[facility] LABIA [id number] [place] [address] [place] pH (U) 6.5 [pH] Normal <8.5 [facility] Comment on above: Order Comment: Speci men Type: URINE SPECIMENOrdering Facility: [facility] Address: [address] [place] [address] Performed By: #### 2 4356-8 ####[facility] LABIA [id number] [place] [address] [place] Protein (U) [Mass/Vol] Negative Normal Negative [facility] Comment on above: Order Comment: Speci men Type: URINE SPECIMENOrdering Facility: [facility] Address: [address] [place] [address] Performed By: #### 2 4356-8 ####[facility] LABIA [id number] [place] [address] [place] RBC LM.HPF (Urine sed) [#/Area] 0-2 /HPF Normal 0-2 /HPF [facility] Comment on above: Order Comment: Speci men Type: URINE SPECIMENOrdering Facility: [facility] Address: [address] [place] [address] Performed By: #### 2 4356-8 ####[facility] LABIA [id number] [place] [address] [place] Specific gravity (U) [Rel density] 1.012 Normal 1.005-1.030 [facility] Comment on above: Order Comment: Speci men Type: URINE SPECIMENOrdering Facility: [facility] Address: [address] [place] [address] Performed By: #### 2 4356-8 ####[facility] LABIA [id number] [place] [address] [place] Urobilinogen Ql (U) 0.2 EU/dL Normal 0.2-1.0 EU/dL [facility] Comment on above: Order Comment: Speci men Type: URINE SPECIMENOrdering Facility: [facility] Address: [address] [place] [address] Performed By: #### 2 4356-8 ####[facility] LABCLIA [id number] [place] [address] [place] WBC LM.HPF (Urine sed) [#/Area] 0-5 /HPF Normal 0-5 /HPF [facility] Comment on above: Order Comment: Speci men Type: URINE SPECIMENOrdering Facility: [facility] Address: [address] [place] [address] Performed By: #### 2 4356-8 ####[facility] LABCLIA [id number] [address] [place] CNPNon 12-17-2023 CNPN Telephone (UROLWS) RAZIA CARRILLO ([id number]) 1970 F Date Time Provider Department 12/17/23 KEVIN NICOLE UROBLANCA During your visit today, we recorded the following information about you: Rachel Kiran LPN 12/17/2023 5:48 PM Signed Called patient. Verified name and date of . Patient reports she was seen at [facility] and will call and have them fax us records. CANDICE Arriaga Kimberly, LPN 12/18/2023 1:00 PM Signed Received medical records for upcoming urology appointment. Uploaded to [employer] via [employer]. Rachel Kiran LPN Allergies As of Date: 12/17/2023 (No Known Allergies) Date Reviewed: 10/08/2016 Reviewed by: Alexandra Leigh LPN - Fully Assessed Reason for Visit: Appointment [186] Prescriptions as of 12/18/2023 - escitalopram oxalate (LEXAPRO) 20 mg tablet Take 20 mg by mouth once daily. - perphenazine 4 mg tablet Take 4 mg by mouth once daily. Problem List As Of Date: 12/17/2023 (None) Encounter Status:Closed by RACHEL KIRAN on 12/18/23 Normal [facility] HIP, UNI W/ Pelvis 2-3 Views on 12-16-2023 HIP, UNI W/ Pelvis 2-[address] [facility] Services [address] [place] [address] [id number] HIP, UNI W/ Pelvis 2-3 Views MR#: [id number] Acct: [id number] Name: RAZIA CARRILLO Rep #: [id number] : 1970 F 53 From: Venkatesh Mooney MD PCP: GUILLERMINA Johns, EVP AND CHIEF OPERATING OFFICER-C Status: REG CLI Study: HIP, UNI W/ Pelvis 2-3 Views Date of Exam: Exam# [id number] Ordering Dr: Nandini Oconnor EVP AND CHIEF OPERATING OFFICER-C [id number] EXAM: XR RIGHT HIP WITH PELVIS WHEN PERFORMED, 2 OR 3 VIEWS CLINICAL INDICATION: PAIN TECHNIQUE: Two or three views of the right hip with pelvis when performed. COMPARISON: No relevant prior studies available. FINDINGS: BONES/JOINTS: Unremarkable. No displaced fracture. No destructive or sclerotic lesions. Note that overlapping bowel shadows may however obscure fine detail. Sacroiliac joint is unremarkable. No widening of the pubic symphysis. The articular structures are unremarkable. SOFT TISSUES: Unremarkable. No soft tissue swelling or gas. RAD/HIP, UNI W/ Pelvis 2-3 Views IMPRESSION: No evidence of displaced pelvic or hip fracture. Electronically Signed: Venkatesh Mooney MD at 0:15 EDT , CC: [facility] EVP AND CHIEF OPERATING OFFICER-C Nandini Oconnor District Recruiter: Signed Normal [facility] Kidney and Bladderon [address] [facility] Imaging Services [address] [place] [address] Kidney and Bladder MR#: [id number] Acct: [id number] Name: RAZIA CARRILLO Rep #: [id number] : 1970 F 53 From: Cathy Nelson MD PCP: Nandini Oconnor [facility], EVP AND CHIEF OPERATING OFFICER-C Status: REG CLI Study: Kidney and Bladder Date of Exam: 11/08/23 Exam# [id number] Ordering Dr: Nandini Oconnor Lev EVP AND CHIEF OPERATING OFFICER-C [id number] EXAM: US RETROPERITONEAL LIMITED, RENAL CLINICAL INDICATION: URGENCY OF URINATION TECHNIQUE: Limited grayscale and color Doppler sonographic evaluation of the retroperitoneum was performed. COMPARISON: No relevant prior studies available. FINDINGS: RIGHT KIDNEY: 11.8 cm x 6.9 cm x 3.6 cm.. Mild initial hydronephrosis which resolved on postvoid exam. No shadowing calculus. No focal lesion. No perinephric collection is demonstrated. LEFT KIDNEY: 11.8 cm x 5.3 cm x 4.6 cm. Mild hydronephrosis which persisted post void exam. Left renal pelvis estimated to be 2.1 cm. No shadowing calculus. No focal lesion. No perinephric collection is demonstrated. BLADDER: Bilateral ureteral jets are noted in the urinary bladder, evidence against a high-grade ureter obstruction. Calculated prevoid bladder volume 214 cc. Post void bladder residual calculated to be 149 cc, maximum diameter 5.1 cm. US/Kidney and Bladder IMPRESSION: Mild bilateral hydronephrosis, persisting on the left after patient voided. Bilateral ureteral jets in the bladder argue against high-grade ureter obstruction. Prominent post void bladder residual. Electronically Signed: Cathy Nelson MD at 2:50 EDT , CC: [facility] REGLA Oconnor District Recruiter: Signed Normal [facility] Hemoglobin A1con 10-31-2023 HbA1c (Bld) [Mass fraction] 5.3 % Normal 3.8-5.6 [facility] Comment on above: Result Comment: Norm al < 5.7 % Prediabetic 5.7 - 6.4 % Diabetic >or= 6.5 % Please note range changes. Performed By: #### L 501.5200, L501.9520, L501.9985 ####[facility] [address] [place], [address] Magnesiumon 10-31-2023 Magnesium [Mass/Vol] 2.2 mg/dL Normal 1.6-2.6 [facility] Comment on above: Performed By: #### L 501.5200, L501.9520, L501.9985 ####[facility] [address] [place], [address] Thyroid Stim Hormone (TSH)on 10-31-2023 TSH 1.68 uIU/mL Normal 0.358-3.74 [facility] Comment on above: Performed By: #### L 501.5200, L501.9520, L501.9985 ####[facility] [address] [place], [address] Urine Cultureon 10-23-2023 URC Mixed Gram Positive Organisms [place] Count 1000-10,000 MIXC Mixed contaminants. Submit a new specimen if indicated. Normal [facility] Comment on above: Performed By: #### L 500.2500, M100.2200, L100.0100 ####[facility] [address] [place], [address] Basic Metabolic Profile (BMP )on 10-22-2023 BUN/CRE 15.3 RATIO Normal 10-20 [facility] Comment on above: Performed By: #### L 500.2500, M100.2200, L100.0100 ####[facility] [address] [place], [address] CA,Total 9.7 mg/dL Normal 8.5-10.1 [facility] Comment on above: Performed By: #### L 500.2500, M100.2200, L100.0100 ####[facility] [address] [place], [address] Chloride [Moles/Vol] 110 mmol/L High 98-107 [facility] Comment on above: Performed By: #### L 500.2500, M100.2200, L100.0100 ####[facility] [address] [place], [address] CO2 [Moles/Vol] 26.0 mmol/L Normal 21.0-32.0 [facility] Comment on above: Performed By: #### L 500.2500, M100.2200, L100.0100 ####[facility] [address] [place], [address] Creatinine [Mass/Vol] 0.85 mg/dL Normal 0.55-1.02 [facility] Comment on above: Result Comment: The validity of the calculated GFR GFRAA in patients over 70 years has not been determined. Clinical correlation is essential. Performed By: #### L 500.2500, M100.2200, L100.0100 ####[facility] [address] [place], [address] EST GFR - AA 90 mL/min Normal >60 [facility] Comment on above: Result Comment: Afri can [place] GFR Calc Performed By: #### L 500.2500, M100.2200, L100.0100 ####[facility] [address] [place], [address] GAP 5 Normal 5-15 [facility] Comment on above: Performed By: #### L 500.2500, M100.2200, L100.0100 ####[facility] [address] [place], [address] GFR/1.73 sq M.predicted among non-blacks MDRD (S/P/Bld) [Vol rate/Area] 75 mL/min/{1.73_m2} Normal >60 [facility] Comment on above: Result Comment: Non- GFR Calc Performed By: #### L 500.2500, M100.2200, L100.0100 ####[facility] [address] [place], [address] Glucose [Mass/Vol] 118 mg/dL High 74-106 [facility] Comment on above: Result Comment: Fast ing Glucose result from 100 to 125 mg/dL suggests IMPAIRED HOMEOSTASIS per A.D.A. criteria. Performed By: #### L 500.2500, M100.2200, L100.0100 ####[facility] [address] [place], [address] Potassium [Moles/Vol] 3.9 mmol/L Normal 3.5-5.1 [facility] Comment on above: Performed By: #### L 500.2500, M100.2200, L100.0100 ####[facility] [address] [place], [address] Sodium [Moles/Vol] 141 mmol/L Normal 136-145 [facility] Comment on above: Performed By: #### L 500.2500, M100.2200, L100.0100 ####[facility] [address] [place], [address] Urea nitrogen [Mass/Vol] 13 mg/dL Normal 7-18 [facility] Comment on above: Performed By: #### L 500.2500, M100.2200, L100.0100 ####[facility] [address] [place], [address] CBC W/Diff, Automatedon 07-3 0-2024 Absolute Lymph 1.94 X10 3/uL Normal 0.83-4.51 [facility] Comment on above: Performed By: #### L 500.2500, M100.2200, L100.0100 ####[facility] [address] [place], [address] Absolute Neut 6.0 X10 3/uL Normal 2.0-7.7 [facility] Comment on above: Performed By: #### L 500.2500, M100.2200, L100.0100 ####[facility] [address] [place], [address] Basophils/100 WBC (Bld) 0.7 % Normal 0-1 [facility] Comment on above: Performed By: #### L 500.2500, M100.2200, L100.0100 ####[facility] [address] [place], [address] Eosinophils/100 WBC (Bld) 2.8 % Normal 0-5 [facility] Comment on above: Performed By: #### L 500.2500, M100.2200, L100.0100 ####[facility] [address] [place], [address] Erythrocyte distribution width (RBC) [Ratio] 13.4 % Normal 11.6-14.6 [facility] Comment on above: Performed By: #### L 500.2500, M100.2200, L100.0100 ####[facility] [address] [place], [address] Hematocrit (Bld) [Volume fraction] 43.2 % Normal 37-47 [facility] Comment on above: Performed By: #### L 500.2500, M100.2200, L100.0100 ####[facility] [address] [place], [address] Hemoglobin (Bld) [Mass/Vol] 14.3 g/dL Normal 12.0-15.0 [facility] Comment on above: Performed By: #### L 500.2500, M100.2200, L100.0100 ####[facility] [address] [place], [address] IG% 0.300 Normal 0.0-0.9 [facility] Comment on above: Result Comment: IG% - Immature Granulocytes (promyelocytes, myelocytes and metamyelocytes) > 1% indicates that a LEFT SHIFT is Present. Performed By: #### L 500.2500, M100.2200, L100.0100 ####[facility] [address] [place], [address] Lymphocytes/100 WBC (Bld) 22.0 % Normal 19-41 [facility] Comment on above: Performed By: #### L 500.2500, M100.2200, L100.0100 ####[facility] [address] [place], [address] MCH (RBC) [Entitic mass] 29.9 pg Normal 27.0-32.0 [facility] [facility] Comment on above: Performed By: #### L 500.2500, M100.2200, L100.0100 ####[facility] [address] [place], [address] MCHC (RBC) [Mass/Vol] 33.1 g/dL Normal 32-36 [facility] Comment on above: Performed By: #### L 500.2500, M100.2200, L100.0100 ####[facility] [address] [place], [address] MCV (RBC) [Entitic vol] 90.4 fL Normal 81-99 [facility] Comment on above: Performed By: #### L 500.2500, M100.2200, L100.0100 ####[facility] [address] [place], [address] Monocytes/100 WBC (Bld) 6.3 % Normal 0-10 [facility] Comment on above: Performed By: #### L 500.2500, M100.2200, L100.0100 ####[facility] [address] [place], [address] Neutrophils/100 WBC (Bld) 67.9 % Normal 47-70 [facility] Comment on above: Performed By: #### L 500.2500, M100.2200, L100.0100 ####[facility] [address] [place], [address] Nucleated RBC (Bld) [#/Vol] 0 10*3/uL Normal 0-5 [facility] Comment on above: Performed By: #### L 500.2500, M100.2200, L100.0100 ####[facility] [address] [place], [address] Platelet mean volume (Bld) [Entitic vol] 8.6 fL Normal 6.2-12.0 [facility] Comment on above: Performed By: #### L 500.2500, M100.2200, L100.0100 ####[facility] [address] [place], [address] Platelets (Bld) [#/Vol] 269 10*3/uL Normal 150-450 [facility] Comment on above: Performed By: #### L 500.2500, M100.2200, L100.0100 ####[facility] [address] [place], [address] RBC (Bld) [#/Vol] 4.78 10*6/uL Normal 4.2-5.4 [facility] Comment on above: Performed By: #### L 500.2500, M100.2200, L100.0100 ####[facility] [address] [place], [address] RDW SD 44.4 fl High 35.1-43.9 [facility] Comment on above: Performed By: #### L 500.2500, M100.2200, L100.0100 ####[facility] [address] [place], [address] WBC (Bld) [#/Vol] 8.8 10*3/uL Normal 4.4-11.0 [facility] Comment on above: Performed By: #### L 500.2500, M100.2200, L100.0100 ####[facility] [address] [place], [address] Pulmonary Visit Reporton Pulmonary Visit Report [facility] [place] [address] [place], [place] [address] OFFICE VISIT Date of Service: 09/11/23 MR#: [id number] Acct: [id number] Name: RAZIA CARRILLO Rep #: [id number] : 1970 Provider: REGLA Schmitt Age/Sex: 53/F Location[place] [facility] Status: Signed Assessment and Plan Assessment and Plan (1) NBA (obstructive sleep apnea): Status: Chronic Comment: AutoPap 7 to 12 cm of water Plan: Recent titration study suggest that the patient is best managed on a CPAP of 9 cm of water. According to the compliance report, she has been doing quite well on AutoPap. Because she is uncomfortable at a pressure support of 14 I am going to decrease the AutoPap range from 7-15 cmH2O down to 5 to 12 m water. Follow-up in December to evaluate her response to the change. She has been encouraged to contact the office with any difficulties in the meantime. (2) Smoking greater than 20 pack years: Status: Chronic Comment: LDCT ordered for November 2023 Plan: Continue to encourage complete smoking cessation. She remains appropriate for repeat LDCT which is due in November. Follow-up in the office in December to evaluate test results. HPI Follow up/cpap Chief Complaint: Compliance HPI Comments Details: This patient presents to the office today for follow-up of her obstructive sleep apnea. She is ambulatory and currently on room air. She has not recently been seen in the ED or urgent care for any respiratory illness. She has not required any antibiotics or prednisone for any breathing problems. She has not currently on any maintenance inhalers. She does have an albuterol rescue inhaler that she uses a couple times a week. She continues to smoke cigarettes. She is currently smoking 1 pack/day. She does report shortness of breath on exertion, this is baseline. She has an occasional cough that is productive of clear to lee-colored sputum. Occasionally it is brown. She denies any hemoptysis. She does admit to occasional wheezing. She denies any chest tightness, chest pain or palpitations. She has not had any fever, chills or body aches. She is struggling with tolerating PAP therapy. She reports that once the pressure gets to about 14 it feels like too much. The patient is currently using a nasal hybrid mask. She does admit that this is more comfortable. She is noticing if she is able to tolerate it for more than 4 hours she is feeling more rested. She is not having difficulty with nocturia. She does report dry mouth. She also has an occasional morning headache. Compliance report for the past 30 days shows 100% compliance with an average use of 4 hours and 5 minutes per night. Current setting is AutoPap 7-15 cmH2O with pressures typically being utilized 8.1 to 13.2 cm water. Residual AHI 1.5 events per hour. Leaks do not appear to be a problem. Test results personally reviewed with patient: Titration study completed on August 08, 2023. Impression is obstructive sleep apnea. Recommendation is to treat with a CPAP of 9 cm of water. 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 Accompanied by: Self Is patient in pain?: No Allergies adhesive tape Allergy (Verified 09/11/23 11:15) Rash Medications ???Medication ???Instructions ???Recorded ???Confirmed ???Type multivitamin 1 tab PO BID 05/15/21 09/11/23 History albuterol sulfate 90 mcg/actuation 2 puff inhalation Q6H PRN SOB 06/26/21 09/11/23 History aerosol inhaler (Ventolin HFA) cyclobenzaprine 10 mg tablet 5 - 10 mg (0.5 - 1 x 10 mg) PO TID 01/29/22 09/11/23 Rx PRN muscle spasm #30 tabs cariprazine 1.5 mg capsule 1.5 mg PO DAILY ANTIPSYCHOTIC 12/25/22 09/11/23 History (Vraylar) modafinil 200 mg tablet 200 mg PO DAILY HELP ME STAY 01/22/23 09/11/23 History AWAKE amlodipine 5 mg tablet 5 mg PO QHS 04/26/23 09/11/23 History fluticasone propionate 50 2 spray intranasal QHS 04/26/23 09/11/23 History mcg/actuation nasal spray,suspension buspirone 10 mg tablet 10 mg PO BID 09/11/23 09/11/23 History ibuprofen 200 mg tablet 200 mg PO Q6H PRN 09/11/23 09/11/23 History omeprazole 20 mg capsule,delayed 20 mg PO QDAY 09/11/23 09/11/23 History release PFSH Medical History (Reviewed 09/11/23 @ 11:34 by Dania Schmitt EVP AND CHIEF OPERATING OFFICER, EVP AND CHIEF OPERATING OFFICER-C) History of lipoma Schizophrenia (more content not included)... Normal [facility] Surgery Visit Reporton 09-04 Surgery Visit Report [facility] [address] [place] [address] OFFICE VISIT Date of Service: 09/05/23 MR#: [id number] Acct: [id number] Name: RAZIA CARRILLO Rep #: [id number] : 1970 Provider: Dr. Kendra do MD Age/Sex: 53/F Location: [facility] Status: Signed Intake Vital Signs 08/02/23 09:13 09/05/23 09:01 Height 5 ft 4 in 5 ft 4 in Weight: 197 lb BMI 33.7 BP 142/91 H Blood Pressure Location Rt brachial Position Sitting Respiration 18 Intake Visit Reasons: PAINFUL LUMP R AXILLA Chief Complaint: right axillary mass Dice Table Operator Required: No Is patient in pain?: No Allergies adhesive tape Allergy (Verified 09/05/23 09:02) Rash Medications ???Medication ???Instructions ???Recorded ???Confirmed ???Type multivitamin 1 tab PO BID 05/15/21 09/05/23 History albuterol sulfate 90 mcg/actuation 2 puff inhalation Q6H PRN SOB 06/26/21 09/05/23 History aerosol inhaler (Ventolin HFA) acetaminophen 500 mg capsule 1,000 mg (2 x 500 mg) PO Q6H PRN 01/02/22 09/05/23 Rx pain #90 caps cyclobenzaprine 10 mg tablet 5 - 10 mg (0.5 - 1 x 10 mg) PO TID 01/29/22 09/05/23 Rx PRN muscle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 of -- and alternatives to -- treatment through a remote evaluation and consents to proceed with the evaluation remotely. CONSULTING PROVIDER: No referring provider defined for this encounter. REASON FOR CONSULT: sends the patient for an opinion about sleep related issues. My findings and recommendations will be transmitted electronically via shared medical record to the consulting provider. HPI: Razia CARRILLO is a 54 year old female with PMHx of depression/anxiety w/ psychotic features and HTN here for evaluation of sleep related concerns. Sleep-related history: Patient reports a long standing history of sleep related difficulties. History of NBA diagnosed in 2021, but also with chronic insomnia stemming from her 40s-- specifically with sleep maintenance difficulties. Started with some mood/psychiatric problems that started in her 40s. She was diagnosed with depression w/ psychotic features and was working with a psychiatrist. Was working with a EVP AND CHIEF OPERATING OFFICER in Psychiatry virtually who has not left the practice. She was on perphenazine and lexapro for about 5 years but she did not do well with this combination. She was on abilify for a period of time which she responded well to, but her psychiatrist was concerned that it was affecting her sleep. Currently on Vraylar, Ativan 0.5mg PRN She was diagnosed with NBA in 2021 at [facility] with an in lab sleep study.She has been bordering compliance as she has issues with frequent nocturnal awakenings and sleep maintenance. She finds herself unable to sleep for more than 2 hours at a time.She had a repeat sleep study again earlier this year-- pap titration study which helped establish a more. Airsense 11, AutoPAP-- current settings unknown. More comfortable with her CPAP now, using nasal pillows, and does use nightly although variable length depending on how long she can sleep. Her psychiatrist put her on Modafinil for daytime sleepiness. She has been on this for about a year. Using PRN if she needs it. She does not drive currently due to daytime sleepiness. [facility] [place] company[place] [employer] SLEEP-WAKE SCHEDULE She is a self-described morning person. Bedtime: 9-10 PM. She does not have a hard time falling asleep. Wake time: 4 AM, without an alarm. After falling asleep: she wakes up 4 time(s) per night, and does not know the reason for waking up. On weekends, she maintains the same sleep schedule. Average total sleep time (in a 24 hour period): 4 hours. SLEEP-RELATED DETAILS Preferred sleep position: side Breathing disturbances and other behaviors during sleep: snoring, moving around a lot, and acting out dreams. Bruxism: No GERD or aspiration: No Waking up with heart pounding or racing: No Anxiety or rumination: No She does not report having an urge to move the legs in the evening (when resting) that is accompanied or caused by uncomfortable and/or unpleasant sensations in the legs. She has not been told that she has leg kicking during sleep. Sleep walking also in the last few years Acting out dreams. Frequency: a few times a week Eating with awareness. Frequency: nightly, Time of night 1st half of the night Excessive daytime sleepiness / fatigue is a problem. Excessive Daytime sleepiness/fatigue has been a problem for 4 years. There is no history of a viral illness or significant head injury prior to the start of daytime sleepiness. She does not report sleep paralysis or sleep-related hallucinations or cataplexy . 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 She does not have difficulty with memory or concentration. She denies falling asleep or dozing off when driving. She does takes naps-- usually refreshing She does drink 2 caffeinated beverages per day. There has not been a recent change in weight. Patient Questionnaires Sleep Scores 03/09/2024 Sleep Questions Reason for visit: Difficulty falling or staying asleep or poor sleep quality Excessive daytime sleepiness On average, hours of sleep in 24 hours: 5 Average hours of CPAP per night: 4.5 Percent of nights CPAP used at least 4 hours: 75 Accidents or near accidents due to drowsy drivin Multiple values from one day are sorted in reverse-chronological order 03/09/2024 PROMIS CAT Sleep Disturbance PROMIS Sleep Disturbance T-Score 63 (moderate) PROMIS Sl (more content not included)... [facility] 03-10-2024 History of Presen t illness Narrative Images from the original note were not included. [facility] New Patient Evaluation PATIENT NAME: Razia CARRILLO DATE OF SERVICE: March 10, 2024 I have communicated my name and active licensure. The patient's identity and physical location were verified at the time of this visit. Either the patient or their legal enrollment eligibility representative has been informed of the risks and benefits of -- and alternatives to -- treatment through a remote evaluation and consents to proceed with the evaluation remotely. CONSULTING PROVIDER: No referring provider defined for this encounter. REASON FOR CONSULT: sends the patient for an opinion about sleep related issues. My findings and recommendations will be transmitted electronically via shared medical record to the consulting provider. HPI: Razia CARRILLO is a 54 year old female with PMHx of depression/anxiety w/ psychotic features and HTN here for evaluation of sleep related concerns. Sleep-related history: Patient reports a long standing history of sleep related difficulties. History of NBA diagnosed in 2021, but also with chronic insomnia stemming from her 40s-- specifically with sleep maintenance difficulties. Started with some mood/psychiatric problems that started in her 40s. She was diagnosed with depression w/ psychotic features and was working with a psychiatrist. Was working with a EVP AND CHIEF OPERATING OFFICER in Psychiatry virtually who has not left the practice. She was on perphenazine and lexapro for about 5 years but she did not do well with this combination. She was on abilify for a period of time which she responded well to, but her psychiatrist was concerned that it was affecting her sleep. Currently on Vraylar, Ativan 0.5mg PRN She was diagnosed with NBA in 2021 at [facility] with an in lab sleep study.She has been bordering compliance as she has issues with frequent nocturnal awakenings and sleep maintenance. She finds herself unable to sleep for more than 2 hours at a time.She had a repeat sleep study again earlier this year-- pap titration study which helped establish a more. Airsense 11, AutoPAP-- current settings unknown. More comfortable with her CPAP now, using nasal pillows, and does use nightly although variable length depending on how long she can sleep. Her psychiatrist put her on Modafinil for daytime sleepiness. She has been on this for about a year. Using PRN if she needs it. She does not drive currently due to daytime sleepiness. [facility] [place] company: [employer] SLEEP-WAKE SCHEDULE She is a self-described morning person. Bedtime: 9-10 PM. She does not have a hard time falling asleep. Wake time: 4 AM, without an alarm. After falling asleep: she wakes up 4 time(s) per night, and does not know the reason for waking up. On weekends, she maintains the same sleep schedule. Average total sleep time (in a 24 hour period): 4 hours. SLEEP-RELATED DETAILS Preferred sleep position: side Breathing disturbances and other behaviors during sleep: snoring, moving around a lot, and acting out dreams. Bruxism: No GERD or aspiration: No Waking up with heart pounding or racing: No Anxiety or rumination: No She does not report having an urge to move the legs in the evening (when resting) that is accompanied or caused by uncomfortable and/or unpleasant sensations in the legs. She has not been told that she has leg kicking during sleep. Sleep walking also in the last few years Acting out dreams. Frequency: a few times a week Eating with awareness. Frequency: nightly, Time of night 1st half of the night Excessive daytime sleepiness / fatigue is a problem. Excessive Daytime sleepiness/fatigue has been a problem for 4 years. There is no history of a viral illness or significant head injury prior to the start of daytime sleepiness. She does not report sleep paralysis or sleep-related hallucinations or cataplexy . 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 She does not have difficulty with memory or concentration. She denies falling asleep or dozing off when driving. She does takes naps-- usually refreshing She does drink 2 caffeinated beverages per day. There has not been a recent change in weight. Patient Questionnaires Sleep Scores 03/09/2024 Sleep Questions Reason for visit: Difficulty falling or staying asleep or poor sleep quality Excessive daytime sleepiness On average, hours of sleep in 24 hours: 5 Average hours of CPAP per night: 4.5 Percent of nights CPAP used at least 4 hours: 75 Accidents or near accidents due to drowsy drivin Multiple values from one day are sorted in reverse-chronological order 03/09/2024 PROMIS CAT Sleep Disturbance PROMIS Sleep Disturbance T-Score 63 (moderate) PROMIS Sleep Disturbance Percentile 10 03/09/2024 PHQ-9 Score 13 03/09/2024 PROMIS Global Health - (T-Scores - the mean of general population = 50. Five points is a clinically meaningful difference.) Physical T-Score 44.9 Mental T-Score 33.8 Amorita Sleepiness Scale Sitting and Reading? high chance of dozing (3) Watching TV? high chance of dozing (3) Sitting inactive in a public place (e.g a theater or a meeting) high chance of dozing (3) As a passenger in a car for an hour without a break? high chance of dozing (3) Lying down to rest in the afternoon when circumstances permit? high chance of dozing (3) Sitting and talking to someone? moderate chance of dozing (2) Sitting quietly after lunch without alcohol? moderate chance of dozing (2) In a car, while stopped for a few minutes in traffic? slight chance of dozing (1) Total Score ABNORMAL (20) PAST TREATMENTS: Modafinil 200mg CPAP PRIOR SLEEP STUDIES: PSG from [facility]-- results unkonwn OTHER RELEVANT LABS AND STUDIES: PAST MEDICAL HISTORY Diagnosis Date Anxiety and depression HTN (hypertension) Psychosis, affective (HCC) Seasonal allergies PAST SURGICAL HISTORY Procedure Laterality Date BX OF BREAST; INCISIONAL Right 1997 D&C, DIAG AND/OR THERAPEUTIC 1994 D&C, DIAG AND/OR THERAPEUTIC 2021 EGD W/O [facility] SPEC VARICIES INJ 2021 PAST SURGICAL HISTORY OF Right Multiple surgieries in right lower leg SCREENING COLONSCOPY NOT HIGH RISK 2021 There is no problem list on file for this patient. Allergies As of Date: 03/10/2024 (No Known Allergies) Fully Assessed 03/10/2024 CURRENT MEDICATIONS: albuterol HFA (PROVENTIL HFA, VENTOLIN HFA) 90 mcg/actuation inhaler Inhale 2 Puffs as instructed every 4 hours as needed. amLODIPine (NORVASC) 5 mg tablet Take 1 tablet by mouth every afternoon. VRAYLAR 3 mg capsule Take 1 capsule by mouth every afternoon. modafinil (PROVIGIL) 200 mg tablet Take 200 mg by mouth every morning. TAB-A-FILI 400 mcg Take 1 tablet by mouth once daily. omeprazole (PRILOSEC) 20 mg capsule Take 1 capsule by mouth every afternoon. escitalopram oxalate (LEXAPRO) 20 mg tablet Take 20 mg by mouth once daily. (Patient not taking: Reported on 12/24/2023) perphenazine 4 mg tablet Take 4 mg by mouth once daily. (Patient not taking: Reported on 12/24/2023) Prior Hypersomnia/Narcolepsy Medications (20 years) 11/20/2023 00:00 Hypersomnia/Narcolepsy Medications modafinil 200 mg q AM ORAL (200 mg tab) Details Medication marked as long-term Patient-reported medication Prior RLS Medications (last 20 years) No data to display Prior Insomnia Medications (last 20 years) 12/24/2023 10:16 Insomnia Medications escitalopram oxalate 20 mg DAILY ORAL (20 mg tab) Patient not taking as of 12/24/2023 10:16 AM Details Patient-reported medication Patient not taking Review of Systems SOCIAL HISTORY: Social History Tobacco Use Smoking status: Every Day Types: Cigarettes Smokeless tobacco: Never Vaping Use Vaping status: Former Substance Use Topics Alcohol use: Yes Comment: Socially Drug use: Yes Frequency: 4.0 times per week Types: Marijuana FAMILY HISTORY: History reviewed. No pertinent family history. There is no family history of sleep disorders. PHYSICAL EXAMINATION: General appearance: well groomed, pleasant, co-operative Mental status: alert awake oriented Neck: No goiter visible Constitutional: NL Skin: NL Eyes: conjunctivae/corneas clear, anicteric sclera, EOMI ENT : External ears normal. Nasal congestion absent, Nasal valve incompetence absent. Posterior airspace: Rg tongue position 2, retrognathia absent. Overbite absent. High arched palate absent. Tongue scalloping/ridging absent. Uvula: nl. Dentition:nl Neuro: Nl CN, no tremors Psych: Nl mood and affect IMPRESSION/PLAN: 54 yo F with history of depression/anxiety with psychosis, NBA diagnosed in 2021 now on CPAP here to establish care with [facility]. With active concerns of daytime sleepiness, frequent nocturnal awakenings in the second half of the night which could be due to poorly optimized NBA vs insomnia vs other possible behaviors of sleep. G47.33 NBA on CPAP (primary encounter diagnosis) F51.04 Chronic insomnia F51.12 Insufficient sleep syndrome R40.0 Daytime sleepiness F32.A Depression, unspecified depression type NBA on CPAP Insomnia Insufficient sleep Nocturnal awakenings Hx of Depression./Anxiety with Psychosis Patient has a complex psychiatric history, under the care of psychiatrist from outside of [facility]. It appears she developed depression with psychosis about 3-4 years ago, and also developed secondary sleep issues around this time. She does not report any underlying sleep issues before in her earlier adulthood. It is unclear at this time whether daytime sleepiness and nocturnal awakenings are due to poorly optimized NBA causing her sleep related issues such as COMISA/Insomnia, or if other underlying factors such as possible parasomnia/RBD may be a factor in her sleep as well (reports sleep walking and eating in last few years). Additionally, we discussed that her psych history and medication use factors in as well. NBA diagnosed at [facility] in 2021, recent PAP titration reported by patient this year. On Autopap and compliant at this time. Per patient, moderate NBA. Trying to use CPAP nightly. -counseled on CPAP compliance. -discussed sleep hygiene and restriction. Referring to BS for insomnia care. -request records from [facility] including Sleep records -obtain data/compliance report from [facility] -will refer patient for consultation with Dr. Salcedo given her extensive psych history -discussed that we may need to do a repeat in lab sleep study, possibly a double study if we feel this is indicated -f/u with Dr. Echevarria/John Pollock in [place] office in about 3 months Patient seen and discussed with Dr. Swathi Calero MD Sleep Medicine Fellow [facility] STAFF PHYSICIAN NOTE OF PERSONAL INVOLVEMENT IN CARE I have reviewed the progress note obtained and documented by Lino Calero MD and I personally participated in the patterson components. I have discussed the case and management of the patient's care. The following comments revise or confirm relevant patterson components of the note. For this virtual visit, the patient has been identified by name and (MRN and photo identification as well if available). Those taking part in visit: Patient and physician via [employer]. Consent for this visit received from patient. I have communicated my name and active licensure. The patient's identity and physical location ([place]) were verified at the time of this visit. Either the patient or their legal enrollment eligibility representative has been informed of the risks and benefits of -- and alternatives to -- treatment through a remote evaluation and consents to proceed with the evaluation remotely. Patient is a pleasant 54 year old with history of HTN, Depression, Anxiety (with reported psychotic features). Now presents with several sleep complaints. Prior dx of NBA at [facility] and currently on Auto PAP. Note prior records and current PAP data not available for review at time of visit although requests made for data. Reports sleeping only about 2 hours at a time before waking and having difficulties initiating sleep again. Did undergo a PAP titration earlier this year to try to narrow pressure range. Again, we have no download data for review. Uncertain to what extent NBA could be playing role in awakenings. Patient on multiple anti depressants in the past without benefit including no impact on sleep. Now on Vraylar and Ativan prn - Rx through psychiatry in the [place] area. In the [facility], psychiatry tracy pt dx of hypersomnia without any testing including no actigraphy. At that time started on Modafinil despite already being on Ativan. Additional history of sleep walking in 40s and history of sleep related eating (unclear if in fact pt unaware of eating at night per history provided). Reports sleep as being restless as well but no obvious s/s of RLS. Additional history as per the note of Dr. Calero. Agree with exam as documented by Dr. Calero. Further history and dx and plan as per the documentation of Dr. Calero. Currently uncertain if in fact patient has hypersomnia, as has decreased sleep insufficiency due to sleep onset and maintenance insomnia, possibly untreated NBA, and taking multiple medications that could result in somnolence. Overall patient a very limited historian even with daughter present. Appears focus through prior workups always on sleep apnea and not those other factors that could be disrupting sleep. Will get PAP data download, and based on those results and given at least some degree of abnormal behaviors during the night, may need to repeat sleep study with extra limb leads and t/c EEG with seizure in ddx (again due to limited history and difficulty narrowing diagnosis from this clinical evaluation). As for insomnia, significant contributing factor appears to be insomnia and lack of sleep due to anxiety and depression, and for such would like second opinion of Dr. Chiki Salcedo (psychiatry in the sleep dept) as patient has failed multiple medications and may need further adjustments to those she is now taking. Although uncertain it will benefit given underlying mood disorders will also refer to [facility] for their opinion regarding possible treatments for insomnia. As for use of wake promoting agent, defer to those currently Rx'ing, but in my opinion, feels should treat those factors that might be causing sleepiness before using such med. Patient and daughter agree with further workup as above. Gualberto Echevarria MD I spent a total of 45 minutes on the date of the service which included preparing to see the patient, [id number] patient care, completing clinical documentation, obtaining and/or reviewing separately obtained history, performing a medically appropriate examination, counseling and educating the patient/family/caregiver, ordering medications, tests, or procedures, and communicating results to the patient/family/caregiver. documented in this encounter [facility] 01-15-2024 Telephone encounter Note Nurse from [facility] called requesting office visit. Faxed to [phone] as requested. Nandini Smith LPN [facility] 01-15-2024 Miscellaneous Notes Nurse from [facility] called requesting office visit. Faxed to [phone] as requested. Nandini Smith LPN documented in this encounter [facility] 12-25-2023 Telephone encounter Note Called patient and relayed the message from Kevin Nicole, she verbalized understanding and did not have any further questions or concerns. [facility] 12-25-2023 Telephone encounter Note ----- Message from Kevin Nicole PA-C sent at 12/24/2023 8:40 PM EDT ----- No RBC's good news Kevin Nicole, [facility], [place], [place] [facility] 12-25-2023 Miscellaneous Notes Called patient and relayed the message from Kevin Nicole, she verbalized understanding and did not have any further questions or concerns. ----- Message from Kevin Nicole PA-C sent at 12/24/2023 8:40 PM EDT ----- No RBC's good news AUDREY Mendes MT, PA-C documented in this encounter [facility] 12-24-2023 Note HNO ID: [id number] Author: RACHEL KIRAN LPN Service: ? Author Type: LICENSED NURSE Type: Progress Notes Filed: 12/24/2023 13:59 Note Text: Verified name and date of . CC Post Void Residual HPI: Razia CARRILLO is a 53 year old female. The patient is here now for an appointment with AUDREY Mnedes MT, PA-COV. Procedure: Explained procedure to patient and verbalizes understanding. Performed a PVR. Patient urinated and instructed to empty bladder as much as possible just prior to having PVR done using bladder ultrasound scanner. Results of scan: 0 mL The patient tolerated the procedure well. Plan: Appointment with Kevin. [facility] 12-24-2023 History of Presen t illness Narrative Verified name and date of . CC Post Void Residual HPI: Razia CARRILLO is a 53 year old female. The patient is here now for an appointment with AUDREY Mendes MT, PA-COV. Procedure: Explained procedure to patient and verbalizes understanding. Performed a PVR. Patient urinated and instructed to empty bladder as much as possible just prior to having PVR done using bladder ultrasound scanner. Results of scan: 0 mL The patient tolerated the procedure well. Plan: Appointment with Kevin. Images from the original note were not included. [facility] NEW PATIENT CLINIC NOTE SERVICE DATE: December 24, 2023 NAME: Razia CARRILLO CHIEF COMPLAINT: Flank Pain HISTORY OF PRESENT ILLNESS: Razia CARRILLO is a 53 year old female an new patient here for Flank Pain The patient reports having kidney flank Pain Review of her recent CT imaging shows no kidney stones Or other obstructing causing any hydronephrosis Discussed that she may be dealing with a a some other cause for back pain no kidney stone of UTI LUTS: none Other symptoms: LABS: No results found for: PSA No results found for: TESTOST Hematocrit (%) Date Value 10/09/2016 37.2 No results found for: PSA No results found for: CREAT MEDICATIONS: albuterol HFA (PROVENTIL HFA, VENTOLIN HFA) 90 mcg/actuation inhaler Inhale 2 Puffs as instructed every 4 hours as needed. amLODIPine (NORVASC) 5 mg tablet Take 1 tablet by mouth every afternoon. VRAYLAR 3 mg capsule Take 1 capsule by mouth every afternoon. modafinil (PROVIGIL) 200 mg tablet Take 200 mg by mouth every morning. TAB-A-FILI 400 mcg Take 1 tablet by mouth once daily. omeprazole (PRILOSEC) 20 mg capsule Take 1 capsule by mouth every afternoon. escitalopram oxalate (LEXAPRO) 20 mg tablet Take 20 mg by mouth once daily. (Patient not taking: Reported on 12/24/2023) perphenazine 4 mg tablet Take 4 mg by mouth once daily. (Patient not taking: Reported on 12/24/2023) PAST MEDICAL HISTORY: PAST MEDICAL HISTORY Diagnosis Date Anxiety and depression HTN (hypertension) Psychosis, affective (HCC) Seasonal allergies PAST SURGICAL HISTORY: PAST SURGICAL HISTORY Procedure Laterality Date BX OF BREAST; INCISIONAL Right 1997 D&C, DIAG AND/OR THERAPEUTIC 1994 D&C, DIAG AND/OR THERAPEUTIC 2021 EGD W/O BRSH SPEC VARICIES INJ 2021 PAST SURGICAL HISTORY OF Right Multiple surgieries in right lower leg SCREENING COLONSCOPY NOT HIGH RISK 2021 FAMILY HISTORY: No family history on file. SOCIAL HISTORY: Social Connections: Not on file REVIEW OF SYSTEMS: GENERAL: No fever, chills, weight loss, or fatigue. ENMT: Negative CARDIOVASCULAR:NO CHEST PAIN, PALPITATIONS, ANKLE EDEMA RESPIRATORY: No chronic cough, wheezing, dyspnea, hemoptysis. GENITOURINARY: SEE HPI MUSCULOSKELETAL:NO CHRONIC BACK PAIN, ARTHRITIS, CHRONIC NECK PAIN SKIN: NO VARICOSE VEINS, RASH, ABNORMAL ITCHING HEME/LYMPH/IMMUNE:Negative for prolonged bleeding, bruising easily or swollen nodes NEUROLOGICAL: NO HEADACHES, NUMBNESS, SEIZURES, STROKE DIABETES: No All other systems reviewed and are negative PHYSICAL EXAMINATION: Blood pressure 144/84, pulse 86, temperature 37.1 C (98.7 F), temperature source Temporal, resp. rate 18, height 156.9 cm (5' 1.77), weight 87.5 kg (193 lb), SpO2 98%. GENERAL: WNL nutrition, no deformities, healthy appearing NEURO: Awake, alert and oriented x 3 and Normal gait PSYCH: No signs of depression, anxiety, or agitation ENMT (Ear, Nose, Mouth, Throat): No masses, adenopathy, icterus. Thyroid nonpalpable RESP: NL effort, no retractions or purse-lip breathing. CV: No extremity swelling, varices, edema, pallor, erythema GASTROINTESTINAL: Soft, nontender, nondistended, no masses. HERNIAS: None SKIN: No rash, lesions No palpable lymphadenopathy MUSCULOSKELETAL: Extremities normal. No deformities, edema, clubbing or skin discoloration. PROBLEM LIST REVIEW: Yes LABS: Results for orders placed or performed in visit on 12/24/23 UA DIP, URINE (POC) Result Value Ref Range GLUCOSE UA (POCT) Negative Negative mg/dL BILIRUBIN UA (POCT) Negative Negative KETONE UA (POCT) Negative Negative mg/dL SPECIFIC GRAVITY UA (POCT) 1.020 1.005 - 1.030 HEMOGLOBIN/BLOOD UA (POCT) Small (A) Negative PH UA (POCT) 6.5 4.5 - 8.0 PROTEIN UA (POCT) Negative Negative mg/dL UROBILINOGEN UA (POCT) 0.2 Normal E.U./dL NITRITE UA (POCT) Negative Negative LEUKOCYTES UA (POCT) Negative Negative COLOR UA (POCT) Yellow CLARITY UA (POCT) Clear PROCEDURES: PVR: 0 ml IMAGING: CT Flank - no kidney stones ASSESSMENT/PLAN: 1. Microscopic hematuria - ICD9: 599.72, ICD10: R31.29 (primary diagnosis) - URINALYSIS, WITH MICROSCOPIC - VFR/PVR - POST VOID RESIDUAL 2. Screening for genitourinary condition - ICD9: V81.6, ICD10: Z13.89 - POST VOID RESIDUAL New Diagnosis of unknown prognosis Medication - Renewed, Stopped, Trial > 3 mo Follow-up with AUDREY Gilmore MT, PA-C if no improvement AUDREY Mendes MT, PA-C documented in this encounter [facility] 12-24-2023 Instructions Kevin Nicole PA-C - 12/24/2023 11:18 AM EDT > UA with Microscopic sent to look fr RBC's if RBC's are seen will need 2 more samples looked at and will order them > If Flank Pain and Fever 101.0 higher > Flank Pain no fever - call to get Renal US ordered to look for stones documented in this encounter [facility] 12-24-2023 Note HNO ID: [id number] Author: KEVIN NICOLE PA-C Service: ? Author Type: Physician Yardage Control Operator Type: Progress Notes Filed: 12/24/2023 13:59 Note Text: [facility] NEW PATIENT CLINIC NOTE SERVICE DATE: December 24, 2023 NAME: Razia CARRILLO CHIEF COMPLAINT: Flank Pain HISTORY OF PRESENT ILLNESS: Razia CARRILLO is a 53 year old female an new patient here for Flank Pain The patient reports having kidney flank Pain Review of her recent CT imaging shows no kidney stones Or other obstructing causing any hydronephrosis Discussed that she may be dealing with a a some other cause for back pain no kidney stone of UTI LUTS: none Other symptoms: LABS: No results found for: PSA No results found for: TESTOST Hematocrit (%) Date Value 10/09/2016 37.2 No results found for: PSA No results found for: CREAT MEDICATIONS: albuterol HFA (PROVENTIL HFA, VENTOLIN HFA) 90 mcg/actuation inhaler Inhale 2 Puffs as instructed every 4 hours as needed. amLODIPine (NORVASC) 5 mg tablet Take 1 tablet by mouth every afternoon. VRAYLAR 3 mg capsule Take 1 capsule by mouth every afternoon. modafinil (PROVIGIL) 200 mg tablet Take 200 mg by mouth every morning. TAB-A-FILI 400 mcg Take 1 tablet by mouth once daily. omeprazole (PRILOSEC) 20 mg capsule Take 1 capsule by mouth every afternoon. escitalopram oxalate (LEXAPRO) 20 mg tablet Take 20 mg by mouth once daily. (Patient not taking: Reported on 12/24/2023) perphenazine 4 mg tablet Take 4 mg by mouth once daily. (Patient not taking: Reported on 12/24/2023) PAST MEDICAL HISTORY: PAST MEDICAL HISTORY Diagnosis Date Anxiety and depression HTN (hypertension) Psychosis, affective (HCC) Seasonal allergies PAST SURGICAL HISTORY: PAST SURGICAL HISTORY Procedure Laterality Date BX OF BREAST; INCISIONAL Right 1997 DANDC, DIAG AND/OR THERAPEUTIC 1994 DANDC, DIAG AND/OR THERAPEUTIC 2021 EGD W/O BRSH SPEC VARICIES INJ 2021 PAST SURGICAL HISTORY OF Right Multiple surgieries in right lower leg SCREENING COLONSCOPY NOT HIGH RISK 2021 FAMILY HISTORY: No family history on file. SOCIAL HISTORY: Social Connections: Not on file REVIEW OF SYSTEMS: GENERAL: No fever, chills, weight loss, or fatigue. ENMT: Negative CARDIOVASCULAR:NO CHEST PAIN, PALPITATIONS, ANKLE EDEMA RESPIRATORY: No chronic cough, wheezing, dyspnea, hemoptysis. GENITOURINARY: SEE HPI MUSCULOSKELETAL:NO CHRONIC BACK PAIN, ARTHRITIS, CHRONIC NECK PAIN SKIN: NO VARICOSE VEINS, RASH, ABNORMAL ITCHING HEME/LYMPH/IMMUNE:Negative for prolonged bleeding, bruising easily or swollen nodes NEUROLOGICAL: NO HEADACHES, NUMBNESS, SEIZURES, STROKE DIABETES: No All other systems reviewed and are negative PHYSICAL EXAMINATION: Blood pressure 144/84, pulse 86, temperature 37.1 ?C (98.7 ?F), temperature source Temporal, resp. rate 18, height 156.9 cm (5' 1.77), weight 87.5 kg (193 lb), SpO2 98%. GENERAL: WNL nutrition, no deformities, healthy appearing NEURO: Awake, alert and oriented x 3 and Normal gait PSYCH: No signs of depression, anxiety, or agitation ENMT (Ear, Nose, Mouth, Throat): No masses, adenopathy, icterus. Thyroid nonpalpable RESP: NL effort, no retractions or purse-lip breathing. CV: No extremity swelling, varices, edema, pallor, erythema GASTROINTESTINAL: Soft, nontender, nondistended, no masses. HERNIAS: None SKIN: No rash, lesions No palpable lymphadenopathy MUSCULOSKELETAL: Extremities normal. No deformities, edema, clubbing or skin discoloration. PROBLEM LIST REVIEW: Yes LABS: Results for orders placed or performed in visit on 12/24/23 UA DIP, URINE (POC) Result Value Ref Range GLUCOSE UA (POCT) Negative Negative mg/dL BILIRUBIN UA (POCT) Negative Negative KETONE UA (POCT) Negative Negative mg/dL SPECIFIC GRAVITY UA (POCT) 1.020 1.005 - 1.030 HEMOGLOBIN/BLOOD UA (POCT) Small (A) Negative PH UA (POCT) 6.5 4.5 - 8.0 PROTEIN UA (POCT) Negative Negative mg/dL UROBILINOGEN UA (POCT) 0.2 Normal E.U./dL NITRITE UA (POCT) Negative Negative LEUKOCYTES UA (POCT) Negative Negative COLOR UA (POCT) Yellow CLARITY UA (POCT) Clear PROCEDURES: PVR: 0 ml IMAGING: CT Flank - no kidney stones ASSESSMENT/PLAN: 1. Microscopic hematuria - ICD9: 599.72, ICD10: R31.29 (primary diagnosis) - URINALYSIS, WITH MICROSCOPIC - VFR/PVR - POST VOID RESIDUAL 2. Screening for genitourinary condition - ICD9: V81.6, ICD10: Z13.89 - POST VOID RESIDUAL New Diagnosis of unknown prognosis Medication - Renewed, Stopped, Trial > 3 mo Follow-up with AUDREY Gilmore MT, PA-C if no improvement AUDREY Mendes, NEEMA, PA-C [facility] 12-18-2023 Telephone encounter Note Received medical records for upcoming urology appointment. Uploaded to [employer] via [employer]. Rachel Kiran LPN [facility] 12-18-2023 Miscellaneous Notes Received medical records for upcoming urology appointment. Uploaded to [facility] [employer] [facility] via [employer]. Rachel Kiran LPN Called patient. Verified name and date of . Patient reports she was seen at [facility] and will call and have them fax us records. Rachel Kiran LPN documented in this encounter [facility] 12-17-2023 Telephone encounter Note Called patient. Verified name and date of . Patient reports she was seen at [facility] and will call and have them fax us records. Rcahel Kiran LPN [facility] Evaluation note Diagnosis Microscopic hematuria Screening for genitourinary condition Screening for other and unspecified genitourinary condition [facility] Diagnosis NBA on CPAP- Primary Obstructive sleep apnea (adult) (pediatric) Chronic insomnia Insomnia, unspecified Insufficient sleep syndrome Persistent disorder of initiating or maintaining wakefulness Daytime sleepiness Depression, unspecified depression type [facility]* Diagnosis Excessive daytime sleepiness- Primary [facility] Diagnosis Chronic insomnia- Primary Insomnia, unspecified [facility] Outpatient Procedure (Urgent) - New Request Specialty Diagnoses / Procedures Referred By Ariane mahajan Referred To Contact [facility] Diagnoses Microscopic hematuria Procedures VFR/PVR JOSE POST-VOIDING RESIDUAL URINE&/BLADDER CAP Kevin Nicole PA-C [address] [place] [address] [facility] [address] [place] [address] Referral ID Status Reason Start Date Expiration Date Visits Requested Visits Authorized [id number] New Request Auto-Generat ed Referral 12/24/2023 12/23/2024 1 1 [facility] Reason for Referral Specialty Diagnoses / Procedures Referred By Contac t Referred To Contact Diagnoses NBA on CPAP Chronic insomnia Parasomnia, unspecified type Procedures CONSULT TO BEHAVIORAL SLEEP MEDICINE INDIVIDUAL TREATMENT Gualberto Echevarria Jr., MD [address] [place] [address] Referral ID Status Reason Start Date Expiration Date Visits Requested Visits Authorized [id number] Authorized PCP Requested Referral 4 06/08/2024 1 1 Specialty Diagnoses / Procedures Referred By Contac t Referred To Contact Diagnoses NBA on CPAP Chronic insomnia Parasomnia, unspecified type Procedures CONSULT TO SLEEP MEDICINE - ADULT OFFICE/OUTPATIENT [facility]3] 60 MINUTES Rosetta Salcedo, [address] [place] [address] Referral ID Status Reason Start Date Expiration Date Visits Requested Visits Authorized [id number] Authorized PCP Requested Referral 4 03/10/2025 1 1 Summary Purpose Family History No Family History Records FoundNo Family History Records FoundNo Family History Records Found Advance Directives No Advanced Directives Records FoundNo Advanced Directives Records FoundNo Advanced Directives Records Found Additional Source Comments Source Comments (unrecognize d section and content) In the event this informatio n is protected by the Federal Confidentiality of Alcohol and Drug Abuse Patient Records regulations: The Federal rules restrict any use of the information to criminally investigate or prosecute any alcohol or drug abuse patient.[facility] the event this information is protected by the Federal Confidentiality of Alcohol and Drug Abuse Patient Records regulations: The Federal rules restrict any use of the information to criminally investigate or prosecute any alcohol or drug abuse patient.[facility] the event this information is protected by the Federal Confidentiality of Alcohol and Drug Abuse Patient Records regulations: The Federal rules restrict any use of the information to criminally investigate or prosecute any alcohol or drug abuse patient.[facility] the event this information is protected by the Federal Confidentiality of Alcohol and Drug Abuse Patient Records regulations: The Federal rules restrict any use of the information to criminally investigate or prosecute any alcohol or drug abuse patient.[facility] the event this information is protected by the Federal Confidentiality of Alcohol and Drug Abuse Patient Records regulations: The Federal rules restrict any use of the information to criminally investigate or prosecute any alcohol or drug abuse patient.[facility] the event this information is protected by the Federal Confidentiality of Alcohol and Drug Abuse Patient Records regulations: The Federal rules restrict any use of the information to criminally investigate or prosecute any alcohol or drug abuse patient.[facility] the event this information is protected by the Federal Confidentiality of Alcohol and Drug Abuse Patient Records regulations: The Federal rules restrict any use of the information to criminally investigate or prosecute any alcohol or drug abuse patient.[facility] the event this information is protected by the Federal Confidentiality of Alcohol and Drug Abuse Patient Records regulations: The Federal rules restrict any use of the information to criminally investigate or prosecute any alcohol or drug abuse patient.[facility] Reason for Visit (unrecogniz ed section and content) Reason Comments Appointment Reason Comments Elevated PSA New Patient Flank Pain Reason Comments New Patient Evaluation Reason Comments Follow Up Reason Comments PAP Therapy Follow Up Reason Comments Established Patient Care Teams (unrecognized sec tion and content) Car Starter Relationship Specialty Start Date End Date Ilsa Espinoza DO [address] [place]LA [place], [place] [address] PCP - General Family Medicine 10/08/16 Nandini Oconnor NP [address] [place] [address] Referring Family Medicine 11/15/23 Car Starter Relationship Specialty Start Date End Date Ilsa Espinoza DO [address] [place] [address] PCP - General Family Medicine 10/08/16 Nandini Oconnor NP [address] [place] [address] Referring Family Medicine 11/15/23 Car Starter Relationship Specialty Start Date End Date Ilsa Espinoza DO [address] [place] [address] PCP - General Family Medicine 10/08/16 Nandini Oconnor NP [address] [place] [address] Referring Family Medicine 11/15/23 Car Starter Relationship Specialty Start Date End Date Ilsa Espinoza DO [address] [address] PCP - General Family Medicine 10/08/16 Nandini Oconnor NP [address] [place] [address] Referring Family Medicine 11/15/23 Car Starter Relationship Specialty Start Date End Date Ilsa EspinozaDO [address] [place] [address] PCP - General Family Medicine 10/08/16 Nandini Oconnor NP [address] [place] [address] Referring Family Medicine 11/15/23 Stefany Peterson APRN.[employer] [address] [place] [address] Referring Nurse Practitioner 01/20/24 Car Starter Relationship Specialty Start Date End Date Ilsa Espinoza DO [address] [facility] [place] [address] PCP - General Family Medicine 10/08/16 Nandini Oconnor NP [address] [place] [address] Referring Family Medicine 11/15/23 Stefany Peterson APRN.[employer] MA[employer]GER [address] [place] [address] Referring Nurse Practitioner 01/20/24 Car Starter Relationship Specialty Start Date End Date Ilsa Espinoza DO [address] [address] PCP - General Family Medicine 10/08/16 Nandini Oconnor NP [address] [place] [address] Referring Family Medicine 11/15/23 Stefany Peterson APRN.[employer]GER [address] [place] [address] Referring Nurse Practitioner 01/20/24 Car Starter Relationship Specialty Start Date End Date Ilsa Espinoza DO [address] [place] [address] PCP - General Family Medicine 10/08/16 Nandini Oconnor NP [address] [place] [address] Referring Family Medicine 11/15/23 Stefany Peterson APRN.[facility] [address] [place] [id number] Referring Nurse Practitioner 01/20/24 INFORMATION SOURCE (unrecogn ized section and content) DATE CREATED AUTHOR 03/19/2024 [facility] DATE CREATED AUTHOR AUTHOR'S ORGANIZ ATION 06/28/2024 [facility] DATE CREATED AUTHOR AUTHOR'S ORGANIZ ATION 08/29/2024 [facility] FOR RECORDS PERTAINING TO PATIENTS WHO ARE [...] BE BASED ON THE PRIMARY CLINICAL RECORDS. [facility] [employer] provides no warranty or guarantee of the accuracy or completeness of information in this document.
== END | disposition home or self-care (01) ==
LOC: LABSPEC 16:36
PROVIDERS: PCP Nurse Practitioner Family; Visit Provider Obstetrics & Gynecology
DX: N64.52 Nipple discharge (principal)
CPT/HCPCS: 87070; 87075; 87077; 87186; 87205; 88108; 88305; 88313

== ENCOUNTER → 2024-10-09 | Outpatient (CLI) | payer MEDICAID, SELFPAY ==
--- NOTE | 2024-10-09 09:40 | MRI_ITS ---
PROCEDURE: SPINE LUMBAR (ROUTINE) 10/09/2024 REASON FOR EXAM: PAIN RADICULOPATHY TECHNIQUE: SPINE LUMBAR (ROUTINE) COMPARISON: None. FINDINGS: Vertebrae: There is a benign hemangioma in the T12 vertebral body. The bone marrow signal of the vertebral bodies is otherwise unremarkable. There are no compression fractures. Alignment: There is maintenance of the normal lumbar lordosis. There is no scoliosis. Conus Medullaris: The conus medullaris terminates normally at the mid T12 level. There is a broad-based central disc protrusion at the T12-L1 level. There is no central canal stenosis there is moderate foraminal narrowing on the right. L1-2: There is minimal disc degeneration. There is no disc bulging or disc protrusion. There is no significant facet arthropathy. There is no central canal stenosis, lateral recess stenosis or foraminal narrowing. L2-3: There is minimal disc degeneration. There is no disc bulging or disc protrusion. There is moderate bilateral facet arthropathy with ligamentum flavum bulging. There is compression of the thecal sac. There is no central canal stenosis. There is mild lateral recess stenosis and foraminal narrowing, bilaterally. L3-4: There is moderate disc degeneration. There is no disc bulging or disc protrusion. There is moderate bilateral facet arthropathy with ligamentum flavum bulging. There is compression of the thecal sac. There is no central canal stenosis. There is mild lateral recess stenosis and moderate foraminal narrowing, bilaterally. L4-5: There is moderate disc degeneration. There is a broad-based central disc protrusion. There is severe bilateral facet arthropathy with ligamentum flavum bulging. There is a large amount of fluid in both facet joints. There is central canal stenosis. There is moderate lateral recess stenosis and foraminal narrowing bilaterally. L5-S1: There is moderate disc degeneration. There is a broad-based central disc protrusion. There is severe bilateral facet arthropathy with ligamentum flavum bulging. There is fluid in both facet joints and there is a synovial cyst, on the left, extending posteriorly and superiorly, deep to the paraspinal muscles. There is no central canal stenosis. There is moderate lateral recess stenosis and foraminal narrowing bilaterally. Sacrum: No significant abnormality. There are cortical cysts in both kidneys. The paravertebral soft tissues appear otherwise unremarkable. Note: Review of the lateral bushler image demonstrates significant multilevel degenerative disc disease of the cervical spine. MRI/Spine Lumbar (Routine) IMPRESSION: 1. Degenerative disc disease, T12-L1 and L3-4 through L5-S1. 2. There is multilevel facet arthropathy. There is central canal stenosis at the L4-L5 level. 3. There is lateral recess stenosis and/or foraminal narrowing at multiple lev els as described. 4. Other findings as noted. 5. Review of the lateral bushler image demonstrates significant multilevel degen erative disc disease of the cervical spine. Reading Location: [place] [address]
== END | disposition home or self-care (01) ==
LOC: MRI 09:30
PROVIDERS: PCP Nurse Practitioner Family; Referring Provider Orthopaedic Surgery; Visit Provider Orthopaedic Surgery
DX: Z12.31 Encounter for screening mammogram for malignant neoplasm of breast (principal); M54.50 Low back pain, unspecified; R20.0 Anesthesia of skin
CPT/HCPCS: 72148

== ENCOUNTER → 2024-10-16 | Outpatient (CLI) | payer MEDICAID, SELFPAY ==
--- OUTSIDE RECORDS SUMMARY | 2024-10-16 09:48 | XMS RPT_ITS | CCD ---
Author Organization [facility] Care Team Providers Care Softlines Supervisor Name Role Phone Ilsa Espinoza DO Primary Care Provider Elvin OLIVEROS, Nandini Unavailable Frybargejessica HOSPITAL COORDINATOR.Stefany MAJOR Unavailable ILSA ESPINOZA Primary Care Unavailable GUALBERTO ECHEVARRIA JR Attending Unavailable LUIS COLLINS Attending ROSETTA Lara Referring ILSA Ba Primary Care Unavailable KEVIN NICOLE Attending Unavailable ILSA ESPINOZA Primary Care Unavailable DERIAN LATIF Attending Unavailable ROSETTA SALCEDO Referring ILSA Ba Primary Care Unavailable JOHN POLLOCK Attending Unavailable ILSA ESPINOZA Primary Care Unavailable Elvin, Nandini Primary Care Unavailable Oskar OLIVEROS, Dania Referring Unavailable Oskar OLIVEROS, Dania Attending Unavailable Elvin, Nandini Primary Care Unavailable Laurie Lawler Referring UnavailLaurie Pack Attending Unavailabl e Elvin, Nandini Primary Care Unavailable Luis Harper Referring Unavailable CuongsoLuis Attending Unavailable Elvin, Nandini Primary Care Unavailable Luis Harper Attending Unavailable Aleruso Luis Referring Unavailable Elvin, Nandini Primary Care Unavailable Elvin, Nandini Attending Unavailable Ilsa Geller Attending Unavailable Elvin, Nandini Primary Care Unavailable Elvin, Nandini Primary Care Unavailable Oskar RETAIL BEAUTY SPECIALIST, Dania Referring Unavailable Oskar RETAIL BEAUTY SPECIALIST, Dania Attending Unavailable ElvinNandini Attending Unavailable Levin, Nandini Primary Care Unavailable Elvin, Nandini Attending Unavailable Elvin, Nandini Primary Care Unavailable Elvin, Nandini Referring Unavailable Elvin, Nandini Primary Care Unavailable Dania Schmitt NP Attending Unavailable Vance Cobb Referring Unavailable Elvin, Nandini Referring Unavailable Elvin, Nandini Primary Care Unavailable Luis Harper Attending Unavailable Elvin, Nandini Attending Unavailable Elvin, Nandini Primary Care Unavailable Elvin, Nandini Referring Unavailable Elvin, Nandini Primary Care Unavailable Vandlucinda Ch, Laurie Referring Unavailabl e Vande Velde, Laurie Attending Unavailabl e Elvin, Nandini Primary Care Unavailable Vande Velde, Laurie Attending Unavailabl e Elvin, Nandini Referring Unavailable Vande Velde, Laurie Attending Unavailabl e Elvin, Nandini Primary Care Unavailable Elvin, Nandini Referring Unavailable Elvin, Nandini Primary Care Unavailable Luis Harper Attending Unavailable Elvin, Nandini Primary Care Unavailable Luis Harper Attending Unavailable Elvin, Nandini Referring Unavailable Elvin, Nandini Primary Care Unavailable Laron Stewart Attending Unavailable Elvin, Nandini Attending Unavailable Elvin, Nandini Primary Care Unavailable Elvin, Nandini Attending Unavailable Elvin, Nandini Primary Care Unavailable Elvin, Nandini Referring Unavailable Allergies Allergy Classification Reported Allergen(s) Allergy Type Date of Onset Reaction(s) Facility (1 source) Adhesive Tape Drug allergy (disorder) 09-11-2024 [facility] Repository Medications Current Medications Medication Drug Class(es) Dates Sig (Normalized) Sig (Original) [id number] 200 actuat albuterol 0.09 mg/actuat metered dose [...] Active Problems Problem Classification Problem Date Documented Date Episodic/Chronic Adjustment disorders (3 sources) Stress; Translations: [Reaction to severe stress, unspecified] Onset: 04-17-2024 04-17-2024 Chronic Anxiety disorders (3 sources) Anxiety; Translations: [Anxiety disorder, unspecified] Onset: 04-17-2024 04-17-2024 Chronic Coma; stupor; and brain damage (2 sources) Daytime somnolence; Translations: [Somnolence] Onset: 03-10-2024 03-10-2024 Episodic Diabetes mellitus without complication (1 source) Hyperglycemia, unspecified; Translations: [Hyperglycemia, unspecified] Onset: 10-07-2024 Episodic Disorders of lipid metabolism (1 source) Hyperlipidemia, unspecified; Translations: [Hyperlipidemia, unspecified] Onset: 10-07-2024 Chronic Essential hypertension (4 sources) Essential hypertension; Translations: [Essential (primary) hypertension] [...] Translations: [Depression, unspecified depression type] Onset: 03-10-2024 Nonmalignant breast conditions (2 sources) Nipple discharge; Translations: [Nipple discharge] Onset: 09-16-2024 Episodic Nutritional deficiencies (1 source) Vitamin D deficiency, unspecified; Translations: [Vitamin D deficiency, unspecified] Onset: 10-07-2024 Chronic Other nutritional; endocrine; and metabolic disorders (6 sources) Body mass index 30+ - obesity; Translations: [Obesity, unspecified] Onset: 04-17-2024 04-17-2024 Chronic Other screening for suspected conditions (not mental disorders or infectious disease) (2 sources) Patient encounter status; Translations: [Encounter for screening for other disorder] Onset: 10-15-2024 12-24-2023 Episodic Residual codes; unclassified (4 sources) [...] without myelopathy or radiculopathy, lumbar region] Onset: 10-14-2024 Chronic Spondylosis; intervertebral disc disorders; other back problems (2 sources) Radiculopathy, lumbar region; Translations: [Spinal stenosis, lumbar region without neurogenic claudication] Onset: 10-14-2024 Episodic Substance-related disorders (4 sources) Smoker; Translations: [Nicotine dependence, unspecified, uncomplicated] Onset: 01-27-2024 04-17-2024 Chronic Substance-related disorders (3 sources) Marijuana user; Translations: [Cannabis use, unspecified, uncomplicated] Onset: 04-17-2024 04-17-2024 Episodic Unclassified (1 source) Other intervertebral disc degeneration, lumbar region without mention of lumbar back pain or lower extremity pain; Translations: [Other intervertebral disc degeneration, lumbar region without mention of lumbar back pain or lower extremity pain] Onset: 10-14-2024 Unclassified (1 source) Low back pain, unspecified; Translations: [Low back pain, unspecified] Onset: 12-30-2023 Past or Other Problems Problem Classification Problem Date Documented Da te Episodic/Chronic Abdominal pain (1 source) Unspecified abdominal pain; Translations: [Unspecified abdominal pain] Onset: 06-19-2024 Episodic Cardiac dysrhythmias (1 source) Palpitations; Translations: [Palpitations] [...] Test Name Value Interpretation Reference Range Facility Orthopedic Visit Reporton Orthopedic Visit Report [facility] [address] [place] [address] OFFICE VISIT Date of Service: 10/14/24 MR#: [id number] Acct: [id number] Name: RAZIA CARRILLO Rep #: [id number] : 1970 Provider: Dr. Luis claire DO Age/Sex: 54/F Location: [facility].BOS[facility] Status: Signed Intake Vital Signs 09/11/24 14:38 Height 5 ft 4 in Intake Visit Reasons: LUMBAR SPINE Chief Complaint: Right leg numbness Allergies adhesive tape Allergy (Verified 09/11/24 14:34) Rash PFSH Medical History History of lipoma Schizophrenia Psychosis [...] Grandfather CVA (cerebral vascular accident) Social History (Updated 09/11/24 @ 14:44 by Katelynn Velasquez) household members: children and other current occupational status: employed current occupation: [employer] Smoking Status: Former smoker alcohol intake: current details: socially substance use type: marijuana caffeine: Yes what type of physical activity do you participate in: none seatbelt use: always do you feel safe at home: Yes additional social history: single HPI LUMBAR SPINE Details: This documentation accurately reflects the service provided and the decisions made by me, Dr. Luis Harper, DO 10/14/24 1337. Part of today???s visit was documented by [ ], acting as scribe. RAZIA CARRILLO is a 54 year old F here today for telephone review of her lumbar spine MRI 08/10/2024 visit:54 year old F here today for right [...] was doing exercises for the piriformis muscle. Plan:Patient has ongoing radicular symptoms down her right leg. Originally pain now having numbness she did do physical therapy. She has had CT scan of her lumbar which demonstrated Severe facet hypertrophy at L4-5 and L5-S1. There is a 3 mm anterior listhesis of L5 on S1. If indicated further evaluation with MRI may be beneficial Recommend patient get an MRI of the lumbar spine to evaluate the numbness/pian that she is experiencing down the leg. Depending on what shows up on the MRI she can always try pain management versus referral to spine. Patient will call the office after her MRI and will give her the results over the phone. Depending on what comes back with the MRI patient can follow-up and see Dr. Heath here in our office. Follow up after MRI is complete by calling the office to go over the results over the phone or sooner if pain, swelling, numbness or associated symptoms, or concerns develop. All questions answered. Patient in agreement of plan. 12/30/2023 for visit: here today for right hip and right lateral lower l (more content not included)... Normal [facility] Spine Lumbar (Routine)on Spine Lumbar (Routine) [facility] [address] [place], [place] [address] Spine Lumbar (Routine) MR#: [id number] Acct: [id number] Name: RAZIA CARRILLO Rep #: [id number] : 1970 F 54 From: Dileep Bear MD PCP: Nandini Oconnor [facility], RETAIL BEAUTY SPECIALIST-C Status: REG CLI Study: Spine Lumbar (Routine) Date of Exam: 10/09/24 Exam# [id number] Ordering Dr: Luis Harper DO PROCEDURE: SPINE LUMBAR (ROUTINE) 10/09/2024 REASON FOR EXAM: PAIN RADICULOPATHY TECHNIQUE: SPINE LUMBAR (ROUTINE) COMPARISON: None. FINDINGS: Vertebrae: There is a benign hemangioma in the T12 vertebral body. The bone marrow signal of the vertebral bodies is otherwise unremarkable. There are no compression fractures. Alignment: There is maintenance of the normal lumbar lordosis. There is no scoliosis. Conus Medullaris: The conus medullaris terminates normally at the mid T12 level. There is a broad-based central disc protrusion at the T12-L1 level. There is no central canal stenosis there is moderate foraminal narrowing on the right. L1-2: There is minimal disc degeneration. There is no disc bulging or disc protrusion. There is no significant facet arthropathy. There is no central canal stenosis, lateral recess stenosis or foraminal narrowing. L2-3: There is minimal disc degeneration. There is no disc bulging or disc protrusion. There is moderate bilateral facet arthropathy with ligamentum flavum bulging. There is compression of the thecal sac. There is no central canal stenosis. There is mild lateral recess stenosis and foraminal narrowing, bilaterally. L3-4: There is moderate disc degeneration. There is no disc bulging or disc protrusion. There is moderate bilateral facet arthropathy with ligamentum flavum bulging. There is compression of the thecal sac. There is no central canal stenosis. There is mild lateral recess stenosis and moderate foraminal narrowing, bilaterally. L4-5: There is moderate disc degeneration. There is a broad-based central disc protrusion. There is severe bilateral facet arthropathy with ligamentum flavum bulging. There is a large amount of fluid in both facet joints. There is central canal stenosis. There is moderate lateral recess stenosis and foraminal narrowing bilaterally. L5-S1: There is moderate disc degeneration. There is a broad-based central disc protrusion. There is severe bilateral facet arthropathy with ligamentum flavum bulging. There is fluid in both facet joints and there is a synovial cyst, on the left, extending posteriorly and superiorly, deep to the paraspinal muscles. There is no central canal stenosis. There is moderate lateral recess stenosis and foraminal narrowing bilaterally. Sacrum: No significant abnormality. There are cortical cysts in both kidneys. The paravertebral soft tissues appear otherwise unremarkable. Note: Review of the lateral crucible furnace tender image demonstrates significant multilevel degenerative disc disease of the cervical spine. MRI/Spine Lumbar (Routine) IMPRESSION: 1. Degenerative disc disease, T12-L1 and L3-4 through L5-S1. 2. There is multilevel facet arthropathy. There is central canal stenosis at the L4-L5 level. 3. There is lateral recess stenosis and/or foraminal narrowing at multiple levels as described. 4. Other findings as noted. 5. Review of the lateral crucible furnace tender image demonstrates significant multilevel degenerative disc disease of the cervical spine. Reading Location: [place] [address] CC: [facility] RETAIL BEAUTY SPECIALIST-C Nandini Oconnor; Dr. Luis Harper DO Metal Bench Patternmaker: Signed [facility] Culture, Anaerobic Any Sourc kwabena 09-16-2024 CUAN No anaerobic bacteri a isolated. Normal [facility] Comment on above: Performed By: #### M 100.2000, M100.4001, M100.3000 ####[facility] [address] [place], [address] Wound Cultureon 09-16-2024 #1, 2 Identification and sensitivity to follow. Staphylococcus epidermidis Amount Growth Very Rare Staphylococcus epidermidis Staphylococcus epidermidis Staphylococcus epidermidis: REACTION Doxycycline Islt FRANK <=0.5 S Clindamycin.induced Susc Islt Erythromycin Islt FRANK <=0.25 S Gentamicin Islt FRANK <=0.5 S Linezolid Islt FRANK <=0.5 S Oxacillin Susc Islt <=0.25 S Tetracycline Islt FRANK <=1 S TMP SMX Islt FRANK <=10 S Vancomycin Islt FRANK 2 S Staphylococcus epidermidis: REACTION cefOXitin Susc Islt NEG Doxycycline Islt FRANK <=0.5 Clindamycin Islt FRANK <=0.12 S Clindamycin.induced Susc Islt NEG Erythromycin Islt FRANK >=8 R Gentamicin Islt FRANK <=0.5 S Linezolid Islt FRANK 1 S Oxacillin Susc Islt <=0.25 S Tetracycline Islt FRANK <=1 S TMP SMX Islt FRANK <=10 S Vancomycin Islt FRANK 2 S Normal [facility] Comment on above: Performed By: #### M 100.2000, M100.4001, M100.3000 ####[facility] [address] [place], [address] Gram Stainon 09-12-2024 GS Gram Stain No organisms seen Normal [facility] Comment on above: Performed By: #### M 100.2000, M100.4001, M100.3000 ####[facility] [address] [place], [address] Grinding And Polishing Laborer Office Visit Reporton 09-11-2024 [employer]inding [employer] Polishing Laborer Office Visit Report [facility]'[address], [address] [place] [address] OFFICE VISIT Date of Service: 09/11/24 MR#: [id number] Acct: [id number] Name: COURT CARRILLORA Monet Rep #: [id number] : 1970 Provider: Dr. Laurie Anthony DO Age/Sex: 54/F Location: [facility] Status: Signed Intake Vital Signs 01/27/24 07:19 08/10/24 09:28 09/11/24 14:34 09/11/24 14:38 Height 5 ft 4 in 5 ft 4 in 5 ft 4 in 5 ft 4 in Weight: 186 lb 8 oz BMI 32.0 BP 142/90 H Intake Visit Reasons: Annual (PRECINCT CAPTAIN) Applied Behavior Science Specialist Required: No Is patient in pain?: No Allergies adhesive tape Allergy (Verified 09/11/24 14:34) Rash Medications ???Medication ???Instructions ???Recorded ???Confirmed ???Type albuterol sulfate 90 mcg/actuation 2 puff inhalation Q6H PRN SOB 09/11/24 History aerosol inhaler (Ventolin HFA) amlodipine 5 mg tablet 5 mg PO QHS 04/26/23 09/11/24 Hist ory cariprazine 1.5 mg capsule 3 mg PO DAILY ANTIPSYCHOTIC 09/11/24 History (Vraylar) famotidine 20 mg tablet (Pepcid) 20 mg PO QDAY 08/10/24 09/11/24 Hi story meloxicam 15 mg tablet 15 mg PO QDAY 08/10/24 09/11/24 Hi story vitamin B complex 1 tab PO QDAY 08/10/24 09/11/24 Hi story ascorbate calcium (vitamin C) 500 500 mg PO QDAY 09/11/24 09/11/24 History mg tablet cholecalciferol (vitamin D3) 50 50 mcg PO QDAY 09/11/24 09/11/24 H istory mcg (2,000 unit) capsule nicotine (polacrilex) PO 09/11/24 09/11/24 History Post menopausal: No Patient : No : No PFSH Medical History History of lipoma Schizophrenia Psychosis [...] Grandfather CVA (cerebral vascular accident) Social History (Updated 09/11/24 @ 14:44 by Katelynn Velasquez) household members: children and other current occupational status: employed current occupation: [employer] Smoking Status: Former smoker alcohol intake: current details: socially substance use type: marijuana caffeine: Yes what type of physical activity do you participate in: none seatbelt use: always do you feel safe at home: Yes additional social history: single History 5 Elective abortions Hx Para 4 Spontaneous abortions Hx # Term Pregnancies Ectopic pregnancies Hx # Pregnancies Multiple births # of living children 4 Past Pregnancies Del. Date Name GA/Weeks Outcome Route Bth Weight Infant Gen Labor Lgth Anesthesia Del [facility] Provider FOB Unknown Caroline 1991 Unknown Carrie 1995 Unknown Pati 1997 Unknown Vikas 1998 HPI Encounter for routine gynecological examination Details: RAZIA CARRILLO is a 54 year old who presents for annual exam. c/o nipple discharge from left breast that is bloody Last PAP: 06/25/23 History of abnormal PAP: no Last mammogram: 08/11/2024, normal History of abnormal mammogram: no Colon cancer screening: states is up to date Other preventative health care screenings: followed by pcp Female Reproductive History Questions: metorrhagia: No, sexually active: Yes, dyspareunia: No and PCB: No Menopausal Symptoms: No hot flashes, No night sweats, No weight change, No mood changes, No difficulty concentrating, No sleep problems and No change in libido ROS Const Constitutional: Reports as per HPI; Denies fati (more content not included)... Normal [facility] Special Stain Group IIon Special Stain Group II ----- Patient Age/Sex Location Account Attending Physician ----- RAZIA CARRILLO 54/F LABSPEC [id number] Good [place] ----- Specimen: [id number] Received: 09/11/24 Status: GRACIELA Chan Num: [id number] Spec Type: Fluid Subm Dr: Dr. Laurie Lawler DO HEADER OPERATION: Swab collection PRE-OP DIAGNOSIS: Blood nipple discharge TISSUE SUBMITTED: A- Nipple discharge for cytology ----- DIAGNOSIS CYTOLOGY A. Nipple discharge (cytospin, cellblock): * No malignant cells identified. * Macrophages present. CYTOLOGY STUDY Slides are reviewed. CYTOLOGY GROSS A. Received is 30 ml of cloudy fluid labeled with the patient's name and and designated per the requisition as Nipple discharge. Submitted for cytology and cell block preparation. 09/14/2024 CPT: 90318,25454 Signed (signature on file) Dr. Renetta Kerr MD 09/21/24 1327 ----- Normal [facility] Comment on above: Performed By: #### P SSII ####[facility] [address] [place], [address] SCRN MAMM (CAD)W/KATY BILATo n 08-21-2024 SCRN MAMM (CAD)W/KATY BILAT [facility] [address] [place] [address] SCRN MAMM (CAD)W/KATY BILAT MR#: [id number] Acct: [id number] Name: RAZIA CARRILLO Rep #: [id number] : 1970 F 54 From: Ken jenkins MD PCP: Nandini Oconnor Lev, RETAIL BEAUTY SPECIALIST-C Status: [facility] Study: SCRN MAMM (CAD)W/KATY BILAT Date of Exam: 07/25 Exam# [id number] Ordering Dr: Laurie Lawler DO EXAM: SCRN [...] be mailed to the patient. Reading Location: [facility] CC: [facility] RETAIL BEAUTY SPECIALIST-C Nandini Oconnor; Dr. Laurie Lawler DO Metal Bench Patternmaker: Signed [facility] Orthopedic Visit Reporton Orthopedic Visit Report [facility] [address] [place] [address] OFFICE VISIT Date of Service: 08/10/24 MR#: [id number] Acct: [id number] Name: RAZIA CARRILLO Rep #: [id number] : 1970 Provider: Dr. Lusi claire DO Age/Sex: 54/F Location: [facility] Status: Signed Intake Vital Signs 01/27/24 07:19 [...] you fallen in the past year?: Yes PFSH Medical History History of lipoma Schizophrenia Psychosis [...] made by me, Dr. Luis Harper, DO 08/10/24 0750. Part of today???s [...] right h (more content not included)... Normal [facility] 06-16-2024 [facility] Tele[facility] ([facility]) CARRILLORAZIA Chiki ([id number]) 1970 F Date Time Provider Department 06/16/24 [facility] During your visit today, we recorded the [...] Status:Closed by CECILE CASPER on 06/16/24 Normal [facility] Urine Cultureon 06-13-2024 [facility] Mixed Gram Positive Organisms [place] Count 80,000-100,000 MIXC Mixed contaminants. Submit a new specimen if indicated. [facility] Comment on above: Performed By: #### M 100.2199, L4 ####[facility] [address] [place], [address] Urinalysis, Routine (Dipstic k)on 06-11-2024 BILIRUBIN URINE Negative Normal Negative [facility] Comment on above: Order Comment: Urine , Random Performed By: #### M 100.2199, L4 ####[facility] [address] [place], [address] Clarity (U) Clear Normal Clear [facility] Comment on above: Order Comment: Urine , Random Performed By: #### M 100.2199, L4 ####[facility] [address] [place], [address] Color (U) Yellow Normal Yellow [facility] Comment on above: Order Comment: Urine , Random Performed By: #### M 100.2200, L400 ####[facility] [address] [place], [address] GLUCOSE, UR Normal Normal Normal [facility] Comment on above: Order Comment: Urine , Random Performed By: #### M 100.2200, L400 ####[facility] [address] [place], [address] KETONE UR Negative Normal Negative [facility] Comment on above: Order Comment: Urine , Random Performed By: #### M 100.2200, L400 ####[facility] [address] [place], [address] LEUK ESTERASE Negative Normal Negative [facility] Comment on above: Order Comment: Urine , Random Performed By: #### M 100.2199, L4 ####[facility] [address] [place], [address] Nitrite Ql (U) Negative Normal Negative [facility] Comment on above: Order Comment: Urine , Random Performed By: #### M .2199, ####[facility] [address] [place], [address] OCCULT BLOOD-UR 150 /ul Abnormal Negative [facility] Comment on above: Order Comment: Urine , Random Performed By: #### M , ####[facility] [address] [place], [address] pH UR 7.0 Normal 5.0 - 8.0 [facility] Comment on above: Order Comment: Urine , Random Performed By: #### M , ####[facility] [address] [place], [address] PROT DIPSTX 15 mg/dl Abnormal Negative [facility] Comment on above: Order Comment: Urine , Random Performed By: #### M , L4 ####[facility] [address] [place], [address] SP.GR. DIPSTX 1.005 Normal 1.002-1.030 [facility] Comment on above: Order Comment: Urine , Random Performed By: #### M 100.2199, L4 ####[facility] [address] [place], [address] UROBILI Normal Normal Normal [facility] Comment on above: Order Comment: Urine , Random Performed By: #### M 100.2199, L4 ####[facility] [address] [place], [address] [facility] 05-22-2024 CNOV Office Visit (SLEWST ) RAZIA CARRILLO ([id number]) 1970 F Date Time Provider Department 05/22/24 10:00 AM JOHN POLLOCK During your visit today, we recorded the following information about you: Pulse Respiration Blood pressure Weight 74/minute 16/minute 116/81 84.8 kg John Pollock APRN.CNP 05/22/2024 12:10 PM Signed [facility] Follow up/ Established patient visit Date of last visit : 04/17/24 The following Impression/Plan was copied and pasted from the patient's last [facility] visit on 04/17/24: IMPRESSION/PLAN: Razia Chiki CARRILLO is a 54 year old female presents today in [facility] with the following [...] prescriptions, we will obtain medical records from [facility] including her Genesight testing. Before any changes [...] - Weight loss can help in the long term care phlebotomist treatment of [place]. - Declined weight loss [...] on medicatio (more content not included)... Normal [facility] CNOVon 04-17-2024 CNOV Office Visit (NESMM) RAZIA CARRILLO ([id number]) 1970 F Date Time Provider Department 04/17/24 1:00 PM DERIAN LATIF During your visit today, we recorded the following information about you: Temperature Pulse Respiration Blood pressure 99.1 degrees 74/minute 22/minute 130/84 Weight 84.8 kg Derian Latif APRN.CNP 04/17/2024 8:23 PM Signed [facility] New Patient Evaluation [...] year old female who presents to a [facility] for evaluation for [...] will take the mask off without recollection. 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 Normal [facility] PT D/C Summary (1)on 024 PT D/C Summary (1) [facility] [address] [place] [address] / REHABILITATION SERVICES DISCHARGE SUMMARY MR#: [id number] Acct: [id number] Name: RAZIA CARRILLO Rep #: [id number] : 1970 54 From: Joleen Knutson PT, Cert. MDT Referring Dr.: Dr. Luis Harper, DO Status: R EG RCR Insurance: [facility] [employer]URANCE Discharge Summary D/C summary: [...] please feel free to call me at [phone]. Thank you for the referral of this patient. Sincerely, Joleen Knutson, PT, Cert MDT Balance/Gait/Functional tests Balance/Special Test Scores Oswestry Low Back Score: 12 Improvement % Improvement: 90 03/17/24 1035 CC: [facility] RETAIL BEAUTY SPECIALIST-C Nandini Oconnor; Dr. Luis Harper, DO TONJA Signed [facility] Vitamin D,25 Hydroxyon 03-12 Vitamin D 25-OH 30.6 ng/mL Normal [facility] Comment on above: Result Comment: Danielle min D 25(OH) Status Range Deficiency <20 ng/mL (50nmol/L) Insufficiency 20 - 30 ng/mL (50 - 75 nmol/L) Sufficiency 30 - 100 ng/mL (75 - 250 nmol/L) Toxicity >100 ng/mL (>250 nmol/L) Performed By: #### L 100.0100, L500.4100, L506.1000, L500.4050 #### [facility] [address] [place], [address] CBC W/Diff, Automatedon 02-22 Absolute Lymph 1.95 X10 3/uL Normal 0.83-4.51 [facility] Comment on above: Performed By: #### L 100.0100, L500.4100, L506.1000, L500.4050 #### [facility] [address] [place], [address] Absolute Neut 5.8 X10 3/uL Normal 2.0-7.7 [facility] Comment on above: Performed By: #### L 100.0100, L500.4100, L506.1000, L500.4050 #### [facility] [address] [place], [address] Basophils/100 WBC (Bld) 0.8 % Normal 0-1 [facility] Comment on above: Performed By: #### L 100.0100, L500.4100, L506.1000, L500.4050 #### [facility] [address] [place], [address] Eosinophils/100 WBC (Bld) 2.6 % Normal 0-5 [facility] Comment on above: Performed By: #### L 100.0100, L500.4100, L506.1000, L500.4050 #### [facility] [address] [place], [address] Erythrocyte distribution width (RBC) [Ratio] 13.5 % Normal 11.6-14.6 [facility] Comment on above: Performed By: #### L 100.0100, L500.4100, L506.1000, L500.4050 #### [facility] [address] [place], [address] Hematocrit (Bld) [Volume fraction] 44.9 % Normal 37-47 [facility] Comment on above: Performed By: #### L 100.0100, L500.4100, L506.1000, L500.4050 #### [facility] [address] [place], [address] Hemoglobin (Bld) [Mass/Vol] 14.9 g/dL Normal 12.0-15.0 [facility] Comment on above: Performed By: #### L 100.0100, L500.4100, L506.1000, L500.4050 #### [facility] [address] [place], [address] IG% 0.300 Normal 0.0-0.9 [facility] Comment on above: Result Comment: IG% - Immature Granulocytes (promyelocytes, myelocytes and metamyelocytes) > 1% indicates that a LEFT SHIFT is Present. Performed By: #### L 100.0100, L500.4100, L506.1000, L500.4050 #### [facility] [address] [place], [address] Lymphocytes/100 WBC (Bld) 22.6 % Normal 19-41 [facility] Comment on above: Performed By: #### L 100.0100, L500.4100, L506.1000, L500.4050 #### [facility] [address] [place], [address] MCH (RBC) [Entitic mass] 31.2 pg Normal 27.0-32.0 [facility] Comment on above: Performed By: #### L 100.0100, L500.4100, L506.1000, L500.4050 #### [facility] [address] [place], [address] MCHC (RBC) [Mass/Vol] 33.2 g/dL Normal 32-36 [facility] Comment on above: Performed By: #### L 100.0100, L500.4100, L506.1000, L500.4050 #### [facility] [address] [place], [address] MCV (RBC) [Entitic vol] 94.1 fL Normal 81-99 [facility] Comment on above: Performed By: #### L 100.0100, L500.4100, L506.1000, L500.4050 #### [facility] [address] [place], [address] Monocytes/100 WBC (Bld) 6.3 % Normal 0-10 [facility] Comment on above: Performed By: #### L 100.0100, L500.4100, L506.1000, L500.4050 #### [facility] [address] [place], [address] Neutrophils/100 WBC (Bld) 67.4 % Normal 47-70 [facility] Comment on above: Performed By: #### L 100.0100, L500.4100, L506.1000, L500.4050 #### [facility] [address] [place], [address] Nucleated RBC (Bld) [#/Vol] 0 10*3/uL Normal 0-5 [facility] Comment on above: Performed By: #### L 100.0100, L500.4100, L506.1000, L500.4050 #### [facility] [address] [place], [address] Platelet mean volume (Bld) [Entitic vol] 8.8 fL Normal 6.2-12.0 [facility] Comment on above: Performed By: #### L 100.0100, L500.4100, L506.1000, L500.4050 #### [facility] [address] [place], [address] Platelets (Bld) [#/Vol] 267 10*3/uL Normal 150-450 [facility] Comment on above: Performed By: #### L 100.0100, L500.4100, L506.1000, L500.4050 #### [facility] [address] [place], [address] RBC (Bld) [#/Vol] 4.77 10*6/uL Normal 4.2-5.4 [facility] Comment on above: Performed By: #### L 100.0100, L500.4100, L506.1000, L500.4050 #### [facility] [address] [place], [address] RDW SD 46.5 fl High 35.1-43.9 [facility] Comment on above: Performed By: #### L 100.0100, L500.4100, L506.1000, L500.4050 #### [facility] [address] [place], [address] WBC (Bld) [#/Vol] 8.6 10*3/uL Normal 4.4-11.0 [facility] Comment on above: Performed By: #### L 100.0100, L500.4100, L506.1000, L500.4050 #### [facility] [address] [place], [address] Comprehensive Metabolic Prof ilon 03-11-2024 Albumin [Mass/Vol] 3.7 g/dL Normal 3.2-5.0 [facility] Comment on above: Performed By: #### L 100.0100, L500.4100, L506.1000, L500.4050 #### [facility] [address] [place], [address] Albumin/Globulin [Mass ratio] 1.2 {ratio} Normal 0.9-2.4 [facility] Comment on above: Performed By: #### L 100.0100, L500.4100, L506.1000, L500.4050 #### [facility] [address] [place], [address] ALK P 101 U/L Normal 45-117 [facility] Comment on above: Performed By: #### L 100.0100, L500.4100, L506.1000, L500.4050 #### [facility] [address] [place], [address] ALT [Catalytic activity/Vol] 33 U/L Normal 13-56 [facility] Comment on above: Performed By: #### L 100.0100, L500.4100, L506.1000, L500.4050 #### [facility] [address] [place], [address] AST [Catalytic activity/Vol] 16 U/L Normal 15-37 [facility] Comment on above: Performed By: #### L 100.0100, L500.4100, L506.1000, L500.4050 #### [facility] [address] [place], [address] Bilirubin [Mass/Vol] 0.50 mg/dL Normal 0.20-1.00 [facility] Comment on above: Result Comment: For patients on eltrombopag therapy, use of Dimension Comstock TBIL is not recommended. Performed By: #### L 100.0100, L500.4100, L506.1000, L500.4050 #### [facility] [address] [place], [address] BUN/CRE 19.5 RATIO Normal 10-20 [facility] Comment on above: Performed By: #### L 100.0100, L500.4100, L506.1000, L500.4050 #### [facility] [address] [place], [address] CA,Total 10.0 mg/dL Normal 8.5-10.1 [facility] Comment on above: Performed By: #### L 100.0100, L500.4100, L506.1000, L500.4050 #### [facility] [address] [place], [address] Chloride [Moles/Vol] 111 mmol/L High 98-107 [facility] Comment on above: Performed By: #### L 100.0100, L500.4100, L506.1000, L500.4050 #### [facility] [address] [place], [address] CO2 [Moles/Vol] 24.0 mmol/L Normal 21.0-32.0 [facility] Comment on above: Performed By: #### L 100.0100, L500.4100, L506.1000, L500.4050 #### [facility] [address] [place], [address] Creatinine [Mass/Vol] 0.62 mg/dL Normal 0.55-1.02 [facility] Comment on above: Result Comment: The validity of the calculated GFR GFRAA in patients over 70 years has not been determined. Clinical correlation is essential. Performed By: #### L 100.0100, L500.4100, L506.1000, L500.4050 #### [facility] [address] [place], [address] EST GFR - AA 130 mL/min Normal >60 [facility] Comment on above: Result Comment: Afri can Georgian GFR Calc Performed By: #### L 100.0100, L500.4100, L506.1000, L500.4050 #### [facility] [address] [place], [address] GAP 5 Normal 5-15 [facility] Comment on above: Performed By: #### L 100.0100, L500.4100, L506.1000, L500.4050 #### [facility] [address] [place], [address] GFR/1.73 sq M.predicted among non-blacks MDRD (S/P/Bld) [Vol rate/Area] 108 mL/min/{1.73_m2} Normal >60 [facility] Comment on above: Result Comment: Non- GFR Calc Performed By: #### L 100.0100, L500.4100, L506.1000, L500.4050 #### [facility] [address] [place], [address] Globulin (S) [Mass/Vol] 3.2 g/dL Normal 2.2-4.2 [facility] Comment on above: Performed By: #### L 100.0100, L500.4100, L506.1000, L500.4050 #### [facility] [address] [place], [address] Glucose [Mass/Vol] 94 mg/dL Normal 74-106 [facility] Comment on above: Performed By: #### L 100.0100, L500.4100, L506.1000, L500.4050 #### [facility] [address] [place], [address] Potassium [Moles/Vol] 3.9 mmol/L Normal 3.5-5.1 [facility] Comment on above: Performed By: #### L 100.0100, L500.4100, L506.1000, L500.4050 #### [facility] [address] [place], [address] Sodium [Moles/Vol] 140 mmol/L Normal 136-145 [facility] Comment on above: Performed By: #### L 100.0100, L500.4100, L506.1000, L500.4050 #### [facility] [address] [place], [address] T PROT 6.9 g/dL Normal 6.4-8.2 [facility] Comment on above: Performed By: #### L 100.0100, L500.4100, L506.1000, L500.4050 #### [facility] [address] [place], [address] Urea nitrogen [Mass/Vol] 12 mg/dL Normal 10-09 [facility] Comment on above: Performed By: #### L 100.0100, L500.4100, L506.1000, L500.4050 #### [facility] [address] [place], [address] Lipid Profileon 03-11-2024 Cholesterol [Mass/Vol] 198 mg/dL Normal 200 [facility] Comment on above: Result Comment: <200 mg/dL Desirable 200-240 mg/dL Borderline >240 mg/dL High Risk Performed By: #### L 100.0100, L500.4100, L506.1000, L500.4050 #### [facility] [address] [place], [address] Cholesterol in HDL [Mass/Vol] 74 mg/dL Normal [facility] Comment on above: Result Comment: The drugs N-Acetylcysteine and Metamizole may falsely depress this assay. Reference Range HDL <40 mg/dL Low HDL Cholesterol HDL >or= 60 mg/dL High HDL Cholesterol Performed By: #### L 100.0100, L500.4100, L506.1000, L500.4050 #### [facility] [address] [place], [address] Cholesterol in LDL [Mass/Vol] 95 mg/dL Normal 0-130 [facility] Comment on above: Performed By: #### L 100.0100, L500.4100, L506.1000, L500.4050 #### [facility] [address] [place], [address] Cholesterol in VLDL [Mass/Vol] 29 mg/dL Normal 5-40 [facility] Comment on above: Performed By: #### L 100.0100, L500.4100, L506.1000, L500.4050 #### [facility] [address] [place], [address] Triglyceride [Mass/Vol] 147 mg/dL Normal [facility] Comment on above: Result Comment: The drugs N-Acetylcysteine and Metamizole may falsely depress this assay. Serum Triglycerides Reference Interval Normal <150 mg/dL Borderline high 150 - 199 mg/dL High 200 - 499 mg/dL Very High > or = 500 mg/dL Performed By: #### L 100.0100, L500.4100, L506.1000, L500.4050 #### [facility] [address] [place], [address] Re-Evaluation - PT (1)on Re-Evaluation - PT (1) [facility] [address] [place] [address] / REEVALUATION / MEDICARE RECERTIFICATION PHYSICAL THERAPY MR#: [id number] Acct: [id number] Name: RAZIA CARRILLO Rep #: [id number] : 1970 54 From: Joleen Knutson PT, Cert. MDT Referring Dr.: Dr. Luis Harper DO Status:REG RCR Insurance: [facility] [employer]UR[employer] Re-Evaluation Intro: Dr. Luis Harper, , It has been my pleasure to treat [...] do not hesitate to contact me at [phone] by phone or if you have questions or concerns regarding this new plan of care! Sincerely, Joleen Knutson (more content not included)... Normal [facility] Pulmonary Visit Reporton Pulmonary Visit Report [facility] [place] 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 [facility] 01-15-2024 MILIND Telephone (ZACHERY) RAZIA CARRILLO ([id number]) 1970 F Date Time Provider Department 01/15/24 KEVIN NICOLE During your visit today, we recorded the following information about you: Nandini Cagle LPN 01/15/2024 9:26 AM Signed Nurse from Judy Carrillo called requesting office visit. Faxed to [phone] as requested. Nandini Cagle LPN Allergies As of Date: 01/15/2024 (No [...] Of Date: 01/15/2024 (None) Encounter Status:Closed by NANDINI CAGLE on 01/15/24 Normal [facility] Inital Evaluation (1) - PTon 01-09-2024 Inital Evaluation (1) - PT [facility] [address] [place] [address] [address] [place] [address] / REHABILITATION SERVICES INITIAL EVALUATION MR#: [id number] Acct: [id number] Name: RAZIA CARRILLO Rep #: [id number] : 1970 54 From: Joleen Knutson PT, Cert. MDT Referring Dr.: Dr. Luis Harper DO [facility]: [facility] [employer]URANCE Patient's Visit Information Visit [...] STRENGTHENING. HEP INSTRUCTION. 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 Disability: NO Present symptoms: LOW BACK PAIN. R BUTTOCK PAIN. R THIGH AND LEG PAIN TO THE ANKLE. L KNEE PAIN. PATIENT STATES THE L KNEE PROBLEM IS A SEPERATE THING. Present since: R LEG PAIN STARTED ABOUT 5-6 WKS AGO Pain Scale: WORST 8/10, LEAST 2/10 Currently: 05/04 Is it getting better, worse or staying [...] HIP AND R LE IMAGING - SEE [facility] EMR. PMH/Recent major surgery: Schizophrenia Psychosis Low [...] IN R (more content not included)... Normal [facility] Low Dose CT Lung Screeningon 01-03-[address] Lung Screening [facility] [address] [place] [address] Lung Screening MR#: [id number] Acct: [id number] Name: RAZIA CARRILLO Rep #: [id number] : 1970 F 53 From: Ken jenkins MD PCP: Nandini Oconnor [facility], RETAIL BEAUTY SPECIALIST-C Status: REG CLI Study: Low Dose CT Lung Screening Date of Exam: 01/02 Exam# [id number] Ordering Dr: Dania Schmitt NP RETAIL BEAUTY SPECIALIST-C [id number] STUDY: LOW DOSE CT LUNG CANCER SCREENING [...] Signed: Ken Stover MD at 13:30 EDT , CC: REGLA Schmitt; [facility] REGLA Oconnor Metal Bench Patternmaker: Signed Normal [facility] Ankle min 3 Viewson 12-30-19 24 Ankle min 3 Views [facility] [address] [place] [address] Ankle min 3 Views MR#: [id number] Acct: [id number] Name: RAZIA CARRILLO Rep #: [id number] : 1970 F 53 From: Champ Hernandez DO PCP: GUILLERMINA Johns, RETAIL BEAUTY SPECIALIST-C Status: DEP AMB Study: Ankle min 3 Views Date of Exam: 12/30/23 Exam# [id number] Ordering Dr: Luis Harper DO [id number] INDICATION: pain EXAMINATION/TECHNIQUE: X-RAY - RIGHT XR [...] 17:06 EDT Reading Location ID and State: [facility] / [place] Tel [phone], Service support , CC: [facility] RETAIL BEAUTY SPECIALIST-C Nandini Oconnor; Dr. Luis Harper DO Metal Bench Patternmaker: Signed Normal [facility] Lumbar Spine 2 or 3 Viewson 12-30-2023 Lumbar Spine 2 or 3 Views [facility] [address] [place] [address] Lumbar Spine 2 or 3 Views MR#: [id number] Acct: [id number] Name: RAZIA CARRILLO Rep #: [id number] : 1970 F 53 From: Champ Hernandez DO PCP: GUILLERMINA Johns, RETAIL BEAUTY SPECIALIST-C Status: DEP AMB Study: Lumbar Spine 2 or 3 Views Date of Exam: Exam# [id number] Ordering Dr: Luis Harper DO [id number] STUDY: X-RAY - LUMBAR SPINE REASON FOR [...] Signed: Champ Hernandez DO at 17:03 EDT Reading Location ID and State: [facility] / [place] Tel [phone], Service support , CC: [facility] RETAIL BEAUTY SPECIALISTBarber Oconnor; Dr. Luis Harper DO Metal Bench Patternmaker: Signed Normal [facility] Orthopedic Visit Reporton Orthopedic Visit Report [facility] [address] [place] [address] OFFICE VISIT Date of Service: 12/30/23 MR#: [id number] Acct: [id number] Name: GERARDORAZIA M Rep #: [id number] : 1970 Provider: Dr. Luis claire DO Age/Sex: 53/F Location: [facility] Status: Signed Intake Vital Signs 09/11/23 07:41 [...] (Reviewed 09/11/23 @ 11:34 by Dania Schmitt RETAIL BEAUTY SPECIALIST, RETAIL BEAUTY SPECIALIST-C) History of lipoma Schizophrenia Psychosis Ambulates with [...] (Reviewed 09/11/23 @ 11:34 by Dania Schmitt RETAIL BEAUTY SPECIALIST, RETAIL BEAUTY SPECIALIST-C) History of open reduction and internal fixation (ORIF) procedure History of colonoscopy History of hysteroscopy History of esophagogastroduodenoscopy (EGD) History of lumpectomy ( 1996) History of laparoscopic cholecystectomy ( 2004) History of dilation and curettage ( 1996) Family History (Reviewed 09/11/23 @ 11:34 by Dania Schmitt RETAIL BEAUTY SPECIALIST, RETAIL BEAUTY SPECIALIST-C) Father Diabetes Hypertension Mother Kidney disease Asthma Arthritis Aunt Cancer Hodgkins Grandmother Colon cancer Polymyalgia rheumatica Grandfather CVA (cerebral vascular accident) Social History (Reviewed 09/11/23 @ 11:34 by Dania Schmitt RETAIL BEAUTY SPECIALIST, RETAIL BEAUTY SPECIALIST-C) household members: children and other current occupational [...] for pain w (more content not included)... [facility] 12-25-2023 MILIND Telephone (UROLST) GERARDORAZIA ([id number]) 1970 F Date Time Provider Department 12/25/23 KEVIN NICOLE During your visit today, we recorded the following information about you: Hanny Reyes LPN 12/25/2023 8:17 AM Signed ----- Message from Kevin Nicole PA-C sent at 12/24/2023 8:40 PM EDT ----- No RBC's good news Kevin Nicole [facility] [place], Hanny Gonzalez LPN 12/25/2023 8:18 AM Signed [...] Encounter Status:Closed by HANNY REYES on 12/25/23 [facility] CNOVon 12-24-2023 CNOV Office Visit (UROLWS ) RAZIA CARRILLO ([id number]) 1970 F Date Time Provider Department 12/24/23 10:00 AM KEVIN NICOLE During your visit today, we recorded the following information about you: Temperature Pulse Respiration Blood pressure 98.7 degrees 86/minute 18/minute 144/84 Weight Height 87.5 kg 1.569 m Kevin Nicole PA-C 12/24/2023 1:59 PM Signed [facility] NEW PATIENT CLINIC NOTE [...] Nahomi Nicole (more content not included)... Normal [facility] UA DIP, URINE (POC)on 2023 BILIRUBIN UA (POCT) Negative Negative [facility] CLARITY UA (POCT) Clear [facility] COLOR UA (POCT) Yellow [facility] GLUCOSE UA (POCT) Negative Negative mg/dL [facility] Hemoglobin Ql (U) Small Abnormal Negative [facility] Interpretation and review of laboratory results Abnormal [facility] KETONE UA (POCT) Negative Negative mg/dL [facility] LEUKOCYTES UA (POCT) Negative Negative [facility] NITRITE UA (POCT) Negative Negative [facility] PH UA (POCT) 6.5 4.5 - 8.0 [facility] Protein Ql (U) Negative Negative mg/dL [facility] SPECIFIC GRAVITY UA (POCT) 1.020 1.005 - 1.030 [facility] UROBILINOGEN UA (POCT) 0.2 Normal E.U./dL [facility] Location:[facility], [address], [place], [place], [id number] [place] [address] POINT OF CARE [facility] Urinalysis complete panel (U )on 10-01-2024 Bacteria LM.HPF (Urine sed) [#/Area] Negative Normal Negative [facility] Comment on above: Order Comment: Speci men Type: URINE SPECIMENOrdering Facility: [facility] Address: [facility] [place] [address] Performed By: #### 2 4356-8 ####[facility] LABCLIA [id number] [place] [address] [place] Bilirubin Ql (U) Negative Normal Negative [facility] Comment on above: Order Comment: Speci men Type: URINE SPECIMENOrdering Facility: [facility] Address: [address] [place] [address] Performed By: #### 2 4356-8 ####[facility] LABCLIA [id number] [place] [address] [place] Clarity (Unsp spec) Clear Normal Clear [facility] Comment on above: Order Comment: Speci men Type: URINE SPECIMENOrdering Facility: [facility] Address: [address] [place] [address] Performed By: #### 2 4356-8 ####[facility] LABCLIA [id number] [place] [address] [place] Color (U) Dark Yellow Abnormal Yellow [facility] Comment on above: Order Comment: Speci men Type: URINE SPECIMENOrdering Facility: [facility] Address: [address] [place] [address] Performed By: #### 2 4356-8 ####[facility] LABCLIA [id number] [place] [address] [place] Epithelial cells LM.HPF (Urine sed) [#/Area] None Seen Normal [facility] Comment on above: Order Comment: Speci men Type: URINE SPECIMENOrdering Facility: [facility] Address: [address] [place] [address] Performed By: #### 2 4356-8 ####[facility] LABCLIA [id number] [place] [address] [place] Glucose Test strip (U) [Mass/Vol] Negative Normal Negative [facility] Comment on above: Order Comment: Speci men Type: URINE SPECIMENOrdering Facility: [facility] Address: [address] [place] [address] Performed By: #### 2 4356-8 ####[facility] [facility] LABCLIA [id number] [place] [address] [place] Hemoglobin Ql (U) Negative Normal Negative [facility] Comment on above: Order Comment: Speci men Type: URINE SPECIMENOrdering Facility: [facility] Address: [address] [place] [address] Performed By: #### 2 4356-8 ####[facility] LABCLIA [id number] [place] [address] [place] Hyaline casts (Urine sed) [#/Area] 0 /[LPF] Normal 0 /LPF [facility] Comment on above: Order Comment: Speci men Type: URINE SPECIMENOrdering Facility: [facility] Address: [address] [place] [address] Performed By: #### 2 4356-8 ####[facility] LABCLIA [id number] [place] [address] [place] Ketones Ql (U) Negative Normal Negative [facility] Comment on above: Order Comment: Speci men Type: URINE SPECIMENOrdering Facility: [facility] Address: [address] [place] [address] Performed By: #### 2 4356-8 ####[facility] LABCLIA [id number] [place] [address] [place] Leukocyte esterase Test strip Ql (U) Negative Normal Negative [facility] Comment on above: Order Comment: Speci men Type: URINE SPECIMENOrdering Facility: [facility] Address: [address] [place] [address] Performed By: #### 2 4356-8 ####[facility] LABCLIA [id number] [place] [address] [place] Nitrite Ql (U) Negative Normal Negative [facility] Comment on above: Order Comment: Speci men Type: URINE SPECIMENOrdering Facility: [facility] Address: [address] [place] [address] Performed By: #### 2 4356-8 ####[facility] LABIA [id number] [place] [address] [place] pH (U) 6.5 [pH] Normal <8.5 [facility] Comment on above: Order Comment: Speci men Type: URINE SPECIMENOrdering Facility: [facility] Address: [address] [place] [address] Performed By: #### 2 4356-8 ####[facility] LABIA [id number] [place] [address] [place] Protein (U) [Mass/Vol] Negative Normal Negative [facility] Comment on above: Order Comment: Speci men Type: URINE SPECIMENOrdering Facility: [facility] Address: [address] [place] [address] Performed By: #### 2 4356-8 ####[facility] LABIA [id number] [place] [address] [place] RBC LM.HPF (Urine sed) [#/Area] 0-2 /HPF Normal 0-2 /HPF [facility] Comment on above: Order Comment: Speci men Type: URINE SPECIMENOrdering Facility: [facility] Address: [address] [place] [address] Performed By: #### 2 4356-8 ####[facility] LABIA [id number] [place] [address] [place] Specific gravity (U) [Rel density] 1.012 Normal 1.005-1.030 [facility] Comment on above: Order Comment: Speci men Type: URINE SPECIMENOrdering Facility: [facility] Address: [address] [place] [address] Performed By: #### 2 4356-8 ####[facility] LABIA [id number] [place] [address] [place] Urobilinogen Ql (U) 0.2 EU/dL Normal 0.2-1.0 EU/dL [facility] Comment on above: Order Comment: Speci men Type: URINE SPECIMENOrdering Facility: [facility] Address: [address] [place] [address] Performed By: #### 2 4356-8 ####[facility] LABIA [id number] [place] [address] [place] WBC LM.HPF (Urine sed) [#/Area] 0-5 /HPF Normal 0-5 /HPF [facility] Comment on above: Order Comment: Speci men Type: URINE SPECIMENOrdering Facility: [facility] Address: [address] [place] [address] Performed By: #### 2 4356-8 ####[facility] [id number] [place] [address] [place] CNPPeggy 12-17-2023 CNPN Telephone (UROBLANCA) RAZIA CARRILLO ([id number]) 1970 F Date Time Provider Department 12/17/23 KEVIN NICOLE During your visit today, we recorded the following information about you: Rachel Kiran LPN 12/17/2023 5:48 PM Signed Called patient. Verified name and date of . Patient reports she was seen at [facility] and will call and have them fax us records. CANDICE Arriaga Kimberly, LPN 12/18/2023 1:00 PM Signed Received medical records for upcoming urology appointment. Uploaded to [employer] via [employer]. Rachel Kiran LPN Allergies As of Date: [...] Status:Closed by RACHEL KIRAN on 12/18/23 Normal [facility] HIP, UNI W/ Pelvis 2-3 Views on 12-16-2023 HIP, UNI W/ Pelvis 2-3 Views [facility] [address] [place] [address] HIP, UNI W/ Pelvis 2-3 Views MR#: [id number] Acct: [id number] Name: RAZIA CARRILLO Rep #: [id number] : 1970 F 53 From: Venkatesh Mooney MD PCP: GUILLERMINA Johns, RETAIL BEAUTY SPECIALIST-C Status: REG CLI Study: HIP, UNI W/ Pelvis 2-3 Views Date of Exam: Exam# [id number] Ordering Dr: Nandini Oconnor RETAIL BEAUTY SPECIALIST-C [id number] EXAM: XR RIGHT HIP WITH PELVIS WHEN [...] Mooney MD at 0:15 EDT , CC: [facility] RETAIL BEAUTY SPECIALIST-C Nandini Oconnor Metal Bench Patternmaker: Signed Normal [facility]adder[facility] 024 Kidney and Bladder [facility] [address] [place] [address] Kidney and Bladder MR#: [id number] Acct: [id number] Name: RAZIA CARRILLO Rep #: [id number] : 1970 F 53 From: Cathy Nelson MD PCP: Nandini Oconnor [facility], RETAIL BEAUTY SPECIALIST-C Status: REG CLI Study: Kidney and Bladder Date of Exam: 11/08/23 Exam# [id number] Ordering Dr: Nandini Oconnor [facility] RETAIL BEAUTY SPECIALIST-C [id number] EXAM: US RETROPERITONEAL LIMITED, RENAL CLINICAL INDICATION: [...] Nelson MD at 2:50 EDT , CC: [facility] REGLA Oconnor Metal Bench Patternmaker: Signed Normal [facility] Hemoglobin A1con 10-31-2023 HbA1c (Bld) [Mass fraction] 5.3 % Normal 3.8-5.6 [facility] Comment on above: Result Comment: Norm al < 5.7 % Prediabetic 5.7 - 6.4 % Diabetic >or= 6.5 % Please note range changes. Performed By: #### L 501.9985, L501.5200, L501.9520 ####[facility] [address] [place], [address] Magnesiumon 10-31-2023 Magnesium [Mass/Vol] 2.2 mg/dL Normal 1.6-2.6 [facility] Comment on above: Performed By: #### L 501.9985, L501.5200, L501.9520 ####[facility] [address] [place], [address] Thyroid Stim Hormone (TSH)on 10-31-2023 TSH 1.68 uIU/mL Normal 0.358-3.74 [facility] Comment on above: Performed By: #### L 501.9985, L501.5200, L501.9520 ####[facility] [address] [place], [address] Urine Cultureon 10-23-2023 URC Mixed Gram Positive Organisms [place] Count 1000-10,000 MIXC Mixed contaminants. Submit a new specimen if indicated. Normal [facility] Comment on above: Performed By: #### L 100.0100, L500.2500, M100.2200 ####[facility] [address] [place], [address] Basic Metabolic Profile (BMP )on 10-22-2023 BUN/CRE 15.3 RATIO Normal 10-20 [facility] Comment on above: Performed By: #### L 100.0100, L500.2500, M1.2200 ####[facility] [address] [place], [address] CA,Total 9.7 mg/dL Normal 8.5-10.1 [facility] Comment on above: Performed By: #### L 100.0100, L500.2500, .0 ####[facility] [address] [place], [address] Chloride [Moles/Vol] 110 mmol/L High 98-107 [facility] Comment on above: Performed By: #### L 100.0100, L500.2500, ####[facility] [address] [place], [address] CO2 [Moles/Vol] 26.0 mmol/L Normal 21.0-32.0 [facility] Comment on above: Performed By: #### L 100.0100, L500.2500, M1.0 ####[facility] [address] [place], [address] Creatinine [Mass/Vol] 0.85 mg/dL Normal 0.55-1.02 [facility] Comment on above: Result Comment: The validity of the calculated GFR GFRAA in patients over 70 years has not been determined. Clinical correlation is essential. Performed By: #### L 100.0100, L500.2500, M1.0 ####[facility] [address] [place], [address] EST GFR - AA 90 mL/min Normal >60 [facility] Comment on above: Result Comment: Afri can Georgian GFR Calc Performed By: #### L 100.0100, L500.2500, ####[facility] [address] [place], [address] GAP 5 Normal 5-15 [facility] Comment on above: Performed By: #### L 100.0100, L500.2500, ####[facility] [address] [place], [address] GFR/1.73 sq M.predicted among non-blacks MDRD (S/P/Bld) [Vol rate/Area] 75 mL/min/{1.73_m2} Normal >60 [facility] Comment on above: Result Comment: Non- GFR Calc Performed By: #### L 100.0100, L500.2500, ####[facility] [address] [place], [address] Glucose [Mass/Vol] 118 mg/dL High 74-106 [facility] Comment on above: Result Comment: Fast ing Glucose result from 100 to 125 mg/dL suggests IMPAIRED HOMEOSTASIS per A.D.A. criteria. Performed By: #### L 100.0100, L500.2500, ####[facility] [address] [place], [address] Potassium [Moles/Vol] 3.9 mmol/L Normal 3.5-5.1 [facility] Comment on above: Performed By: #### L 100.0100, L500.2500, 0 ####[facility] [address] [place], [address] Sodium [Moles/Vol] 141 mmol/L Normal 136-145 [facility] Comment on above: Performed By: #### L 100.0100, L500.2500, M1.0 ####[facility] [address] [place], [address] Urea nitrogen [Mass/Vol] 13 mg/dL Normal 7-18 [facility] Comment on above: Performed By: #### L 100.0100, L500.2500, M100.2200 ####[facility] [address] [place], [address] CBC W/Diff, Automatedon 07-3 0-2024 Absolute Lymph 1.94 X10 3/uL Normal 0.83-4.51 [facility] Comment on above: Performed By: #### L 100.0100, L500.2500, M100.2200 ####[facility] [address] [place], [address] Absolute Neut 6.0 X10 3/uL Normal 2.0-7.7 [facility] Comment on above: Performed By: #### L 100.0100, L500.2500, M100.2200 ####[facility] [address] [place], [address] Basophils/100 WBC (Bld) 0.7 % Normal 0-1 [facility] Comment on above: Performed By: #### L 100.0100, L500.2500, M100.2200 ####[facility] [address] [place], [address] Eosinophils/100 WBC (Bld) 2.8 % Normal 0-5 [facility] Comment on above: Performed By: #### L 100.0100, L500.2500, M100.2200 ####[facility] [address] [place], [address] Erythrocyte distribution width (RBC) [Ratio] 13.4 % Normal 11.6-14.6 [facility] Comment on above: Performed By: #### L 100.0100, L500.2500, M100.2200 ####[facility] [address] [place], [address] Hematocrit (Bld) [Volume fraction] 43.2 % Normal 37-47 [facility] Comment on above: Performed By: #### L 100.0100, L500.2500, M100.2200 ####[facility] [address] [place], [address] Hemoglobin (Bld) [Mass/Vol] 14.3 g/dL Normal 12.0-15.0 [facility] Comment on above: Performed By: #### L 100.0100, L500.2500, M100.2200 ####[facility] [address] [place], [address] IG% 0.300 Normal 0.0-0.9 [facility] Comment on above: Result Comment: IG% - Immature Granulocytes (promyelocytes, myelocytes and metamyelocytes) > 1% indicates that a LEFT SHIFT is Present. Performed By: #### L 100.0100, L500.2500, M100.2200 ####[facility] [address] [place], [address] Lymphocytes/100 WBC (Bld) 22.0 % Normal 19-41 [facility] Comment on above: Performed By: #### L 100.0100, L500.2500, M100.2200 ####[facility] [address] [place], [address] MCH (RBC) [Entitic mass] 29.9 pg Normal 27.0-32.0 [facility] Comment on above: Performed By: #### L 100.0100, L500.2500, M100.2200 ####[facility] [address] [place], [address] MCHC (RBC) [Mass/Vol] 33.1 g/dL Normal 32-36 [facility] Comment on above: Performed By: #### L 100.0100, L500.2500, M100.2200 ####[facility] [address] [place], [address] MCV (RBC) [Entitic vol] 90.4 fL Normal 81-99 [facility] Comment on above: Performed By: #### L 100.0100, L500.2500, M100.2200 ####[facility] [address] [place], [address] Monocytes/100 WBC (Bld) 6.3 % Normal 0-10 [facility] Comment on above: Performed By: #### L 100.0100, L500.2500, M100.0 ####[facility] [address] [place], [address] Neutrophils/100 WBC (Bld) 67.9 % Normal 47-70 [facility] Comment on above: Performed By: #### L 100.0100, L500.2500, M100.2200 ####[facility] [address] [place], [address] Nucleated RBC (Bld) [#/Vol] 0 10*3/uL Normal 0-5 [facility] Comment on above: Performed By: #### L 100.0100, L500.2500, M100.0 ####[facility] [address] [place], [address] Platelet mean volume (Bld) [Entitic vol] 8.6 fL Normal 6.2-12.0 [facility] Comment on above: Performed By: #### L 100.0100, L500.2500, M1.2200 ####[facility] [address] [place], [address] Platelets (Bld) [#/Vol] 269 10*3/uL Normal 150-450 [facility] Comment on above: Performed By: #### L 100.0100, L500.2500, M100.2200 ####[facility] [address] [place], [address] RBC (Bld) [#/Vol] 4.78 10*6/uL Normal 4.2-5.4 [facility] Comment on above: Performed By: #### L 100.0100, L500.2500, M100.2200 ####[facility] [address] [place], [address] RDW SD 44.4 fl High 35.1-43.9 [facility] Comment on above: Performed By: #### L 100.0100, L500.2500, M100.2200 ####[facility] [address] [place], [address] WBC (Bld) [#/Vol] 8.8 10*3/uL Normal 4.4-11.0 [facility] Comment on above: Performed By: #### L 100.0100, L500.2500, M100.2200 ####[facility] [address] [place], [address] Vital Signs Date Time Vital Sign Value Performing Clinician Jimi ba 05-22-2024 09:54-0500 Body mass index (BMI) [Ratio] 34.46 kg/m2 John Pollock APRN.[employer] SALESPERSON Work Phone: [facility] 05-22-2024 09:54-0500 Body weight 84.82 kg John Pollock APRN.[employer] SALESPERSON Work Phone: [facility] 05-22-2024 09:54-0500 Diastolic blood pressure 81 mm[Hg] Johnmoises Pollock APRN.YE[employer] SALESPERSON Work Phone: [facility] 05-22-2024 09:54-0500 Heart rate 74 /min Johnmoises Pollock APRN.[employer] SALESPERSON Work Phone: [facility] 05-22-2024 09:54-0500 Respiratory rate 16 /min Johnmoises Pollock APRN.YE[employer] SALESPERSON Work Phone: [facility] 05-22-2024 09:54-0500 SaO2% (BldA) [Mass fraction] 99 % John Pollock APRN.[employer] SALESPERSON Work Phone: [facility] 05-22-2024 09:54-0500 Systolic blood pressure 116 mm[Hg] John Pollock APRN.[employer] SALESPERSON Work Phone: [facility] 12-24-2023 10:12-0400 Body height 156.9 cm Kevin Nicole PA-C Work Phone: [facility] 12-24-2023 10:12-0400 Body mass index (BMI) [Ratio] 35.56 kg/m2 Kevin Nicole PA-C Work Phone: [facility] 12-24-2023 10:12-0400 Body temperature 98.71 [degF] Kevin Nicole PA-C Work Phone: [facility] 12-24-2023 10:12-0400 Body weight 87.54 kg Kevin Nicole PA-C Work Phone: [facility] 12-24-2023 10:12-0400 Diastolic blood pressure 84 mm[Hg] Kevin Nicole PA-C Work Phone: [facility] 12-24-2023 10:12-0400 Heart rate 86 /min Kevin Nicole PA-C Work Phone: [facility] 12-24-2023 10:12-0400 Respiratory rate 18 /min Kevin Nicole PA-C Work Phone: [facility] 12-24-2023 10:12-0400 SaO2% (BldA) [Mass fraction] 98 % Kevin Nicole PA-C Work Phone: [facility] 12-24-2023 10:12-0400 Systolic blood pressure 144 mm[Hg] Kevin Nicole PA-C Work Phone: [facility] Encounters Encounter Date Encounter Type Care Provider Facility Start: 10-14-2024 End: 10-14-2024 ambulatory Nandini Elvin Facility:[facility] Start: 10-09-2024 End: 10-09-2024 ambulatory Nandini Elvin Facility:[facility] Start: 10-08-2024 ambulatory Nandini Oconnor [facility] ty:[facility] Start: 09-11-2024 End: 09-11-2024 ambulatory Nandini Oconnor Facility:[facility] Start: 09-11-2024 End: 09-11-2024 ambulatory Nandini Oconnor Facility:[facility] Start: 08-21-2024 End: 08-21-2024 ambulatory Nandini Oconnor Facility:[facility] Start: 08-10-2024 End: 08-10-2024 ambulatory Nandini Oconnor Facility:[facility] Start: 06-25-2024 End: 06-25-2024 ambulatory LUIS COLLINS Facility:[facility] Start: 06-25-2024 End: 06-25-2024 Office outpatient visit 40 minutes Luis Collins MD Work Phone: Neurology Comment on above: Chronic insomnia (Pr imary Dx) Start: 06-16-2024 End: 06-16-2024 Telephone encounter [facility] Work Phone: Neurology Comment on above: PAP Therapy Follow U p Start: 06-11-2024 End: 06-11-2024 ambulatory Ilsa Mendez [facility] Facility:[facility] Start: 05-22-2024 End: 05-22-2024 Patient encounter procedure John Pollock APRN.CNP Work Phone: Neurology Comment on above: Excessive daytime sl eepiness (Primary Dx) Start: 05-22-2024 End: 05-22-2024 ambulatory JOHN POLLOCK Facility:[facility] Start: 04-17-2024 End: 04-17-2024 ambulatory DERIAN LATIF Facility:[facility] Start: 03-27-2024 [facility] Start: 03-17-2024 End: 03-17-2024 ambulatory Nandini Elvin Facility:[facility] Start: 03-10-2024 End: 03-10-2024 Telemedicine consultation with patient Gualberto Echevarria Jr., MD Work Phone: Sleep Start: 03-10-2024 End: 03-11-2024 ambulatory Gualberto Echevarria MD Work Phone: Sleep Comment on above: NBA on CPAP (Primary Dx); Chronic insomnia; Insufficient sleep syndrome; Daytime sleepiness; Depression, unspecified depression type Start: 01-27-2024 End: 01-27-2024 ambulatory [facility] Facility:[facility] Start: 01-15-2024 End: 01-15-2024 Telephone encounter Kevin Nicole PA-C Work Phone: Urology Start: 01-03-2024 End: 01-03-2024 ambulatory [facility] Facility:[facility] Start: 12-30-2023 End: 12-30-2023 ambulatory [facility] Facility:[facility] Start: 12-25-2023 End: 12-25-2023 Telephone encounter Kevin Nicole PA-C Work Phone: Urology Start: 12-24-2023 End: 12-24-2023 ambulatory KEVIN NICOLE Facility:[facility] Start: 12-24-2023 End: 12-24-2023 Patient encounter procedure Kevin Nicole PA-C Work Phone: Urology Comment on above: Microscopic hematuri a; Screening for genitourinary condition Start: 12-17-2023 End: 12-18-2023 Telephone encounter Kevin Nicole PA-C Work Phone: Urology Comment on above: Appointment Start: 12-16-2023 End: 12-16-2023 [facility] Facility:[facility] Start: 11-08-2023 End: 11-08-2023 ambulatory [facility] Facility:[facility] Start: 10-31-2023 End: 10-31-2023 ambulatory [facility] Facility:[facility] Start: 10-22-2023 End: 10-22-2023 ambulatory [facility] Procedures Date Procedure Procedure Detail Performing Clinician Start: 12-24-2023 Urnls dip stick/tabl et rgnt auto w/o microscopy Kevin Nicole PA-C Work Phone: Plan of Treatment Date Care Activity Detail Author Start: 10-28-2024 ambulatory Ambulatory Facility:[facility] Start: 06-25-2024 End: 06-25-2024 Follow-up encounter 06/25/2024 1:00 PM EDT [facility] [address] [place] [address] Luis Collins MD [address] [place] [address] Chronic insomnia follow up Neurology Comment on above: Chronic insomnia fol low up Start: 05-22-2024 End: 05-22-2024 Patient encounter procedure 05/22/2024 10:00 AM EST Office Visit Neurology [address] [place] [address] John Pollock APRN.[employer]ERSON [address] [place] [address] follow up Neurology Comment on above: follow up Start: 12-24-2023 End: 12-24-2023 Patient encounter procedure 12/24/2023 10:00 AM EDT Office Visit Urology [address] [place] [address] Kevin Nicole PA-C [address] [place] [address] Hydrpnephrosis; Abdominal and Flank Pain Urology Comment on above: Hydrpnephrosis; Abdo jignesh and Flank Pain Start: 11-24-2023 Covid-19 Vaccine ( season) Covid-19 Vaccine ( season) [facility] Start: 11-24-2023 Influenza vaccination Influenza Vacc ine (#1) [facility] Start: 2021 Shingrix Vaccine (1 of 2) Shingrix Vaccine (1 of 2) [facility] Start: 01-05-2016 Diabetes Screening Diabetes Screenin g [facility] Start: 01-05-2016 Lipid panel Lipid Screening [facility] Start: 01-05-2016 Screening for malign ant neoplasm of colon [facility] Start: 2011 Screening for malign ant neoplasm of breast Mammogram Screening [facility] Start: 01-05-1992 Screening for malign ant neoplasm of cervix Cervical Cancer Screening [facility] Start: 1990 Hepatitis B Vaccine (1 of 3 - 19+ 3-dose series) Hepatitis B Vaccine (1 of 3 - 19+ 3-dose series) [facility] Start: 1990 Pneumococcal Vaccine : 50+ (1 of 2 - PCV) Pneumococcal Vaccine: 50+ (1 of 2 - PCV) [facility] Start: 1990 Urine microalbumin profile DTaP,Tdap,Td Vaccine (1 - Tdap) [facility] Start: 1989 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 Disease Visit Annual PCP Team Chronic Disease Visit [facility] Start: 1989 Anxiety Screening Anxiety Screening [facility] Start: 1989 BP Controlled (<130/80) BP Controlle d (<130/80) [facility] Start: 1989 Depression Screening Depression Scre ening [facility] Start: 1989 Hepatitis C screening Hepatitis C Sc reening [facility] Start: 1989 HIV screening HIV Screening [facility] Start: 1977 Pneumococcal vaccination Pneumococcal Vaccine (1 of 2 - PCV) [facility] POST VOID RESIDUAL POST VOID RES IDUAL Procedures Routine Microscopic hematuria Screening for genitourinary condition Ordered: 12/24/2023 [facility] Comment on above: Ordered: 12/24/2023 Urinalysis complete panel - Urine URINALYSIS, WITH MICROSCOPIC Lab Routine Microscopic hematuria 12/24/2023 11:39 AM EDT [facility] VFR/PVR VFR/PVR Procedur es EARL Microscopic hematuria Ordered: 12/24/2023 [facility] Work Phone: Comment on above: Ordered: 12/24/2023 Payers Date Payer Category Payer Self-pay 2022 Medicaid [id number] 2022 Medicaid [id number] Unknown [id number] 2.16.8 [id number] Unknown [id number] 2.16.8 [id number] Unknown [id number] 2.16.8 [id number] Unknown [id number] 2.16.8 [id number] Unknown [id number] 2.16.8 [id number] Unknown [id number] 2.16.8 [id number] Unknown [id number] 2.16.8 [id number] Unknown [id number] 2.16.8 [id number] Unknown [id number] 2.16.8 [id number] Unknown [id number] 2.16.8 [id number] Unknown [id number] 2.16.8 [id number] Unknown [id number] 2.16.8 [id number] Unknown [id number] 2.16.8 [id number] Unknown [id number] 2.16.8 [id number] Unknown [id number] 2.16.8 [id number] Unknown [id number] 2.16.8 [id number] Unknown [id number] 2.16.8 [id number] Unknown [id number] 2.16.8 [id number] Unknown [id number] 2.16.8 [id number] Unknown [id number] 2.16.8 [id number] Social History Date Type Detail Facility Tobacco smoking stat [facility] Tobacco smoking consumption unknown [facility] Start: 1970 Sex assigned at Not on file [facility] Start: 12-24-2023 End: 04-17-2024 Gender identity Not on file [facility] Start: 12-24-2023 Tobacco smoking stat us [facility] Smokes tobacco daily [facility] History of tobacco use Cigarette Smoker [facility] Start: 12-24-2023 Tobacco use and exposure Smokeless t obacco non-user [facility] Start: 12-24-2023 End: 04-17-2024 Alcoholic beverage intake Current drinker of alcohol (finding) [facility] Start: 12-24-2023 End: 04-17-2024 History of Social function [facility] National Score (1-10 0), lower number is lower risk 48 [facility] Start: 12-24-2023 Alcohol Comment Socially [facility] Clinical Notes 12-17-2023 to 06-25-2024 Rosetta Salcedo, - 06/25/2024 1:00 PM EDTTelephone Encounter - Cecile Casper MA - 06/16/2024 1:59 PM EDTTelephone Encounter - Cecile Casper MA - 06/16/2024 1:59 PM EDT Note Date & Type Note Facility 06-25-2024 History of Presen t illness Narrative Images from the original note were not included. [facility] Follow up/ Established patient visit Date of last visit : Visit date not found I have communicated my name and active licensure. The patient's identity and physical location were verified at the time of this visit. Either the patient or their legal data entry representative has been informed of the risks [...] has been short (3-6 hours) and fragmented. Pretty describes her problem as difficulty staying asleep. Pretty is really tired in the evening and falls asleep around 8:00-9:00 PM. She wakes up around 12:00-1:00 AM and then wakes repeatedly in the development eng hours. When she wakes up, she makes a cup of chamomile tea which relaxes her and she gets back to sleep. When Pretty wakes up, she's awake for around an hour. She admits that she occaisionally deals with anxiety during this time. She admits that there are times where she becomes highly frustrated when she's awake again. Pretty reports that sometimes she forgets to put her CPAP on sometimes. When she uses her CPAP she does feel better. With her current setup, she denies issues using PAP and feels that it helps her significantly. She would use the PAP machine more if she only slept more. Pretty reports that she was seeing a psychiatry provider at [facility] around a year and a half ago [...] modafanil keeps her awake which is helpful. 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 Pretty reports using and benefiting from her PAP during the few hours of sleep that she manages to get. Download shows normalized AHI. She reports frequent nocturnal awakening during the development eng hours with consequences of daytime sleepiness. She has tried an extensive nubmer of medications, but has not yet used anything from the ISABELLA agonist class. Pretty may benefit from a trial of Belsomra and CBT-I. PLAN: - Start Belsomra 15 mg nightly - Referral to behavioral sleep medicine - Patient will bring a copy of her Genesight testing to her next appointment. Start L-methylfolate. - Return to clinic in 6 to 8 weeks This patient was seen and discussed with Dr. Salcedo. Luis Collins MD Fellow, [facility] Attending Staff Sleep [...] of the case and have updated the [employer] electronic medical record where necessary. I agree with the history, physical, impression, recommendations and follow up as documented in [employer]. Further discussion and teaching occurred after the patient was released to go home. Thank you for choosing and trusting the [facility] for your medical care! Rosetta Salcedo DO, CBSM, ABSM Associate Credit Control Administrator, Sleep Medicine Fellowship Core Faculty, [employer] Sleep Medicine Fellowship Chief Experience Officer, Sleep Medicine Center Clinical Staff, Sleep Medicine [facility] [place] Department of Neurology Department of Psychiatry Sleep Disorders [address] [place] [address] [place] documented in this encounter [facility] 06-25-2024 Note HNO ID: [id number] Author: ROSETTA SALCEDO DO Service: ? Author Type: Physician Type: Progress Notes Filed: 06/25/2024 16:13 Note Text: [facility] Follow up/ Established patient visit Date of last visit : Visit date not found I have communicated my name and active licensure. The patient's identity and physical location were verified at the time of this visit. Either the patient or their legal data entry representative has been informed of the risks [...] has been short (3-6 hours) and fragmented. Pretty describes her problem as difficulty staying asleep. Pretty is really tired in the evening and falls asleep around 8:00-9:00 PM. She wakes up around 12:00-1:00 AM and then wakes repeatedly in the development eng hours. When she wakes up, she makes a cup of chamomile tea which relaxes her and she gets back to sleep. When Pretty wakes up, she's awake for around an hour. She admits that she occaisionally deals with anxiety during this time. She admits that there are times where she becomes highly frustrated when she's awake again. Pretty reports that sometimes she forgets to put her CPAP on sometimes. When she uses her CPAP she does feel better. With her current setup, she denies issues using PAP and feels that it helps her significantly. She would use the PAP machine more if she only slept more. Pretty reports that she was seeing a psychiatry provider at [facility] around a year and a half ago [...] modafanil keeps her awake which is helpful. Pretty also takes half of an Ativan 0.5 [...] by the patient: Feels more well rested Pretty reports that there are no observers to [...] (Xanax) - Te (more content not included)... [facility] 06-16-2024 Telephone encounter Note Images from the original note were not included. [facility] 06-16-2024 Miscellaneous Notes Images from the original note were not included. documented in this encounter [facility] 05-22-2024 History of Presen t illness Narrative Images from the original note were not included. [facility] Follow up/ Established patient visit Date of last visit : 04/17/24 The following Impression/Plan was copied and pasted from the patient's last Sleep Disorders Center visit on 04/17/24: IMPRESSION/PLAN: Razia CARRILLO is a 54 year old female presents today in [facility] with the following problems: The patient has pertinent hx of NBA, Insomnia, hypersomnia, HTN, HLD, anemia, anxiety, depression, psychosis, seasonal allergies, and current smoker. CURRENT DME: Mony Isaias OBSTRUCTIVE SLEEP APNEA (NBA), moderate-severe (PSG AHI: [...] prescriptions, [facility] Genesight [facility]. Before [...] - Weight loss can help in the halfway treatment of NBA. - Declined weight loss [...] with my assessment and plan. Derian Latif APRN.[employer] SPACE SALESPERSON Here for follow up for excessive daytime [...] sorted in reverse-chronological order 03/09/2024 04/16/2024 05/20/2024 Offerman Sleepiness Scale Score 20 (Excessive daytime sleepiness [...] daily prn #10 no refills John Pollock APRN.CNP documented in this encounter [facility] 05-22-2024 Note HNO ID: [id number] Author: JOHN POLLOCK APRN.CNP Service: ? Author Type: Nurse Practitioner Type: Progress Notes Filed: 05/22/2024 12:10 Note Text: [facility] Follow up/ Established patient visit Date of last visit : 04/17/24 The following Impression/Plan was copied and pasted from the patient's last Sleep Disorders Center visit on 04/17/24: IMPRESSION/PLAN: Razia CARRILLO is a 54 year old female presents today in [facility] with the following [...] prescriptions, [facility] Genesight [facility]. Before [...] - Weight loss can help in the halfway treatment of NBA. - Declined weight loss [...] bedtime Patient c (more content not included)... [facility] 04-17-2024 Note HNO ID: [id number] Author: DERIAN LATIF APRN.PEDRITO Service: ? Author Type: Nurse Practitioner Type: Progress Notes Filed: 04/17/2024 20:23 Note Text: [facility] New Patient Evaluation [...] year old female who presents to a [facility] for evaluation for [...] not work till noonish, works at the [employer]. Usually works only a few hours but [...] will take the mask off without recollection. 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 [facility] 03-10-2024 Instructions Lino Calero MD - 03/10/2024 9:19 AM EST Thank you for coming into see us today. It was a pleasure discussing your concerns for us today including your history of sleep apnea, daytime sleepiness, fatigue, and insomnia. First step, we will try to obtain your past records from [facility] as well as your sleep data from [facility]. We are providing a referral to get [...] nurse practictioners. This can be in the [place] office but should be an in-person appointment. documented in this encounter [facility] 03-10-2024 Note HNO ID: [id number] Author: GUALBERTO ECHEVARRIA JR, MD Service: ? Author Type: Physician Type: Progress Notes Filed: 03/16/2024 19:45 Note Text: [facility] New Patient Evaluation PATIENT NAME: Razia CARRILLO DATE OF SERVICE: March 10, 2024 I have communicated my name and active licensure. The patient's identity and physical location were verified at the time of this visit. Either the patient or their legal data entry representative has been informed of the risks [...] with a psychiatrist. Was working with a RETAIL BEAUTY SPECIALIST in Psychiatry virtually who has not left [...] was diagnosed with NBA in 2021 at [facility] with an in lab sleep study.She has [...] not drive currently due to daytime sleepiness. 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 [...] (moderate) PROMIS Sl (more content not included)... [facility] 03-10-2024 History of Presen t illness Narrative Images from the original note were not included. [facility] New Patient Evaluation PATIENT NAME: Razia CARRILLO DATE OF SERVICE: March 10, 2024 I have communicated my name and active licensure. The patient's identity and physical location were verified at the time of this visit. Either the patient or their legal data entry representative has been informed of the risks [...] with a psychiatrist. Was working with a RETAIL BEAUTY SPECIALIST in Psychiatry virtually who has not left [...] was diagnosed with NBA in 2021 at [facility] with an in lab sleep study.She has [...] not drive currently due to daytime sleepiness. 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 [...] difference.) Physical T-Score 44.9 Mental T-Score 33.8 Offerman Sleepiness Scale Sitting and Reading? high chance [...] 200mg CPAP PRIOR SLEEP STUDIES: PSG from [facility]-- results unkonwn OTHER RELEVANT LABS AND STUDIES: [...] on CPAP here to establish care with [facility]. With active concerns of [...] the care of psychiatrist from outside of [facility]. It appears she developed depression with psychosis [...] factors in as well. NBA diagnosed at [facility] in 2021, recent PAP titration reported by patient this year. On Autopap and compliant at this time. Per patient, moderate NBA. Trying to use CPAP nightly. -counseled on CPAP compliance. -discussed sleep hygiene and restriction. Referring to BS for insomnia care. -request records from [facility] including Sleep records -obtain data/compliance report from [facility] -will refer patient for consultation with Dr. Salcedo given her extensive psych history -discussed that we may need to do a repeat in lab sleep study, possibly a double study if we feel this is indicated -f/u with Dr. Echevarria/John Pollock in [place] office in about 3 months Patient seen and discussed with Dr. Swathi Calero MD Sleep Medicine Fellow [facility] STAFF PHYSICIAN NOTE OF PERSONAL INVOLVEMENT IN [...] part in visit: Patient and physician via RVX. Consent for this visit received from patient. I have communicated my name and active licensure. The patient's identity and physical location ([place]) were verified at the time of this visit. Either the patient or their legal data entry representative has been informed of the risks and benefits of -- and alternatives to -- treatment through a remote evaluation and consents to proceed with the evaluation remotely. Patient is a pleasant 54 year old with history of HTN, Depression, Anxiety (with reported psychotic features). Now presents with several sleep complaints. Prior dx of NBA at [facility] and currently on Auto PAP. Note prior [...] prn - Rx through psychiatry in the [place] area. In the [facility], psychiatry tracy pt dx of hypersomnia [...] which included preparing to see the patient, [id number] patient care, completing clinical documentation, obtaining and/or reviewing separately obtained history, performing a medically appropriate examination, counseling and educating the patient/family/caregiver, ordering medications, tests, or procedures, and communicating results to the patient/family/caregiver. documented in this encounter [facility] 01-15-2024 Telephone encounter Note Nurse from [facility] called requesting office visit. Faxed to [phone] as requested. Nandini Cagle LPN [facility] 01-15-2024 Miscellaneous Notes Nurse from [facility] called requesting office visit. Faxed to [phone] as requested. Nandini Cagle LPN documented in this encounter [facility] 12-25-2023 Telephone encounter Note Called patient and relayed the message from Kevin Nicole, she verbalized understanding and did not have any further questions or concerns. [facility] 12-25-2023 Telephone encounter Note ----- Message from Kevin Nicole PA-C sent at 12/24/2023 8:40 PM EDT ----- No RBC's good news AUDREY Mendes, MT, MANUEL [facility] 12-25-2023 Miscellaneous Notes Called patient and relayed the message from Kevin Nicole, she verbalized understanding and did not have any further questions or concerns. ----- Message from Kevin Nicole PA-C sent at 12/24/2023 8:40 PM EDT ----- No RBC's good news AUDREY Mendes MT, PA-C documented in this encounter [facility] 12-24-2023 Note HNO ID: [id number] Author: RACHEL KIRAN LPN Service: ? Author [...] the procedure well. Plan: Appointment with Kevin. [facility] 12-24-2023 History of Presen t illness Narrative Verified name and date of . CC Post Void Residual HPI: Razia CARRILLO is a 53 year old female. The patient is here now for an appointment with AUDREY Mendes MT, ANKUSH. Procedure: Explained procedure to patient and verbalizes understanding. Performed a PVR. Patient urinated and instructed to empty bladder as much as possible just prior to having PVR done using bladder ultrasound scanner. Results of scan: 0 mL The patient tolerated the procedure well. Plan: Appointment with Kevin. Images from the original note were not included. [facility] NEW PATIENT CLINIC NOTE [...] D&C, DIAG AND/OR THERAPEUTIC 2021 EGD W/O [facility] SPEC VARICIES INJ 2021 PAST SURGICAL HISTORY [...] Mendes MT, PA-C documented in this encounter [facility] 12-24-2023 Instructions Kevin Nicole PA-C - 12/24/2023 11:18 AM EDT > UA with Microscopic sent to look fr RBC's if RBC's are seen will need 2 more samples looked at and will order them > If Flank Pain and Fever 101.0 higher > Flank Pain no fever - call to get Renal US ordered to look for stones documented in this encounter [facility] 12-24-2023 Note HNO ID: [id number] Author: KEVIN NICOLE PA-C Service: ? Author Type: Physician Advisory Internship Type: Progress Notes Filed: 12/24/2023 13:59 Note Text: [facility] NEW PATIENT CLINIC NOTE SERVICE DATE: December [...] MT, PA-C if no improvement AUDREY Mendes, MANUEL BETHEA [facility] 12-18-2023 Telephone encounter Note Received medical records for upcoming urology appointment. Uploaded to [employer] via [employer]. Rachel Kiran LPN [facility] 12-18-2023 Miscellaneous Notes Received medical records for upcoming urology appointment. Uploaded to [employer] via [employer]. Rachel Kiran LPN Called patient. Verified name and date of . Patient reports she was seen at [facility] and will call and have them fax us records. Rachel Kiran LPN documented in this encounter [facility] 12-17-2023 Telephone encounter Note Called patient. Verified name and date of . Patient reports she was seen at [facility] and will call and have them fax us records. Rachel Kiran LPN [facility] Evaluation note Diagnosis Microscopic hematuria Screening for genitourinary condition Screening for other and unspecified genitourinary condition [facility] Diagnosis NBA on CPAP- Primary Obstructive sleep apnea (adult) (pediatric) Chronic insomnia Insomnia, unspecified Insufficient sleep syndrome Persistent disorder of initiating or maintaining wakefulness Daytime sleepiness Depression, unspecified depression type [facility]* Diagnosis Excessive daytime sleepiness- Primary [facility] Diagnosis Chronic insomnia- Primary Insomnia, unspecified [facility] this encounter [facility] (narrative)* Outpatient Procedure (Urgent) - New Request Specialty Diagnoses / Procedures Referred By Ariane mahajan Referred To Contact [facility] Diagnoses Microscopic hematuria Procedures VFR/PVR JOSE POST-VOIDING RESIDUAL URINE&/BLADDER CAP Kevin Nicole PA-C [address] [place] [address] [id number] [place] [address] Referral ID Status Reason Start Date Expiration Date Visits Requested Visits Authorized [id number] New Request Auto-Generat ed Referral 12/24/2023 12/23/2024 1 1 [facility] Reason for Referral Specialty Diagnoses / Procedures Referred By Ariane mahajan Referred To Contact Diagnoses NBA on CPAP Chronic insomnia Parasomnia, unspecified type Procedures CONSULT TO BEHAVIORAL SLEEP MEDICINE INDIVIDUAL TREATMENT Gualberto Echevarria Jr., MD [address] [place] [address] Referral ID Status Reason Start Date Expiration Date Visits Requested Visits Authorized [id number] Authorized PCP Requested Referral 4 06/08/2024 1 1 Specialty Diagnoses / Procedures Referred By Contac t Referred To Contact Diagnoses NBA on CPAP Chronic insomnia Parasomnia, unspecified type Procedures CONSULT TO SLEEP MEDICINE - ADULT OFFICE/OUTPATIENT [facility] 60 MINUTES Rosetta Salcedo, DO [address] [place] [address] Referral ID Status Reason Start Date Expiration Date Visits Requested Visits Authorized [id number] Authorized PCP Requested Referral 4 03/10/2025 1 [...] or prosecute any alcohol or drug abuse patient.[facility] the event this information is protected by the Federal Confidentiality of Alcohol and Drug Abuse Patient Records regulations: The Federal rules restrict any use of the information to criminally investigate or prosecute any alcohol or drug abuse patient.[facility] Hospital[facility] the event this information is protected by the Federal Confidentiality of Alcohol and Drug Abuse Patient Records regulations: The Federal rules restrict any use of the information to criminally investigate or prosecute any alcohol or drug abuse patient.[facility] Hospital[facility] the event this information is protected by the Federal Confidentiality of Alcohol and Drug Abuse Patient Records regulations: The Federal rules restrict any use of the information to criminally investigate or prosecute any alcohol or drug abuse patient.[facility] HospitalIn the event this information is protected by the Federal Confidentiality of Alcohol and Drug Abuse Patient Records regulations: The Federal rules restrict any use of the information to criminally investigate or prosecute any alcohol or drug abuse patient.[facility] HospitalIn the event this information is protected by the Federal Confidentiality of Alcohol and Drug Abuse Patient Records regulations: The Federal rules restrict any use of the information to criminally investigate or prosecute any alcohol or drug abuse patient.[facility] HospitalIn the event this information is protected by the Federal Confidentiality of Alcohol and Drug Abuse Patient Records regulations: The Federal rules restrict any use of the information to criminally investigate or prosecute any alcohol or drug abuse patient.[facility] Hospital[facility] the event this information is protected by the Federal Confidentiality of Alcohol and Drug Abuse Patient Records regulations: The Federal rules restrict any use of the information to criminally investigate or prosecute any alcohol or drug abuse patient.[facility] Reason for Visit (unrecogniz ed section and content) Reason Comments Appointment Reason Comments Elevated PSA New Patient Flank Pain Reason Comments New Patient Evaluation Reason Comments Follow Up Reason Comments PAP Therapy Follow Up Reason Comments Established Patient Care Teams (unrecognized sec tion and content) [employer] Supervisor Relationship Specialty Start Date End Date Ilsa Espinoza DO [address] [place] [address] PCP - General Family Medicine 10/08/16 Nandini Oconnor NP [address] [place] [address] Referring Family Medicine 11/15/23 [employer] Supervisor Relationship Specialty Start Date End Date Ilsa Espinoza DO [address] [place] [address] PCP - General Family Medicine 10/08/16 Nandini Oconnor NP [address] [place] [address] Referring Family Medicine 11/15/23 Softlines Supervisor Relationship Specialty Start Date End Date Ilsa Espinoza DO [address] [place] [address] PCP - General Family Medicine 10/08/16 Nandini Oconnor NP [address] [place] [address] Referring Family Medicine 11/15/23 Softlines Supervisor Relationship Specialty Start Date End Date Ilsa Espinoza DO [address] [place] [address] PCP - General Family Medicine 10/08/16 Nandini Oconnor NP [address] [place] [address] Referring Family Medicine 11/15/23 Softlines Supervisor Relationship Specialty Start Date End Date Ilsa Espinoza DO [address] [place] [address] PCP - General Family Medicine 10/08/16 Nandini Oconnor NP [address] [place] [address] Referring Family Medicine 11/15/23 Stefany Peterson APRN.CNP [address] [place] [address] Referring Nurse Practitioner 01/20/24 Softlines Supervisor Relationship Specialty Start Date End Date Ilsa Espinoza DO [address] [place] [address] PCP - General Family Medicine 10/08/16 Nandini Oconnor NP [address] [place] [address] Referring Family Medicine 11/15/23 Stefany Peterson APRN.[employer] [address] [place] [address] Referring Nurse Practitioner 01/20/24 Softlines Supervisor Relationship Specialty Start Date End Date Ilsa Espinoza DO [address] [place] [address] PCP - General Family Medicine 10/08/16 Nandini Oconnor NP [address] [place] [address] Referring Family Medicine 11/15/23 Stefany Peterson APRN.[employer] [address] [place] [address] Referring Nurse Practitioner 01/20/24 Softlines Supervisor Relationship Specialty Start Date End Date Ilsa Espinoza DO [address] [place] [address] PCP - General Family Medicine 10/08/16 Nandini Oconnor NP [address] [place] [address] Referring Family Medicine 11/15/23 Stefany Peterson APRN.[employer] [address] [place] [address] Referring Nurse Practitioner 01/20/24 INFORMATION SOURCE (unrecogn ized section and content) DATE CREATED AUTHOR 03/19/2024 [facility] DATE CREATED AUTHOR AUTHOR'S ORGANIZ ATION 06/28/2024 [facility] DATE CREATED AUTHOR AUTHOR'S ORGANIZ ATION 10/16/2024 [facility] FOR RECORDS PERTAINING TO PATIENTS WHO [...] BE BASED ON THE PRIMARY CLINICAL RECORDS. Built [facility]. provides no warranty or guarantee of the accuracy or completeness of information in this document.
[2024-10-16 12:08] LABS: Hematocrit 42.8 % (37-47); Hemoglobin 14.5 g/dL (12.0-15.0); Immature Granulocytes Count 0.010 X10^3/uL (0.0-0.0); Mean Corp Hgb Conc 33.9 g/dL (32-36); Mean Corpuscular Volume 92.2 fL (81-99); Mean Platelet Vol. 8.6 fl (6.2-12.0); NRBC Flagged by Analyzer 0 % (0-5); Platelet Count 272 K/mm3 (150-450); RBC Distribution Width CV 12.8 % (11.6-14.6); RBC Distribution Width SD 43.4 fl (35.1-43.9); Red Blood Count 4.64 M/mm3 (4.2-5.4); White Blood Count 7.5 K/mm3 (4.4-11.0)
[2024-10-16 13:34] LABS: AST(SGOT) 24 U/L (<=31); Alanine Aminotransfer ALT/SGPT 28 U/L (<=34); Albumin, Serum 4.4 g/dL (3.5-5.0); Alkaline Phosphatase 108 U/L (35-104); Anion Gap 12 (5-15); BUN 16 mg/dL (4-19); BUN/Creat Ratio 24.4 RATIO (10-20); Calcium,Total 10.5 mg/dL (7.6-11.0); Carbon Dioxide 20.3 mmol/L (21.0-32.0); Chloride 105 mmol/L (98-108); Cholesterol 220 mg/dL (<=200); Globulin 2.7 g/dL (2.2-4.2); Glucose 94 mg/dL (70-99); Low Density Lipoprotein Calc. 118 mg/dL; Potassium 4.6 mmol/L (3.3-5.1); Triglycerides 104 mg/dL; Very Low Density Lipoprotein 21 mg/dL (5-40); cholesterol:hdl ratio screen 2.72
[2024-10-16 14:46] LABS: Iron 81 ug/dL (50-170); Iron Binding Capacity,Total 314 ug/dL (250-450); Iron Binding Capacity,Unsat 233 ug/dL (228-428)
[2024-10-16 14:47] LABS: Ferritin 81 ng/mL (22-378); Vitamin D,25 Hydroxy 51.2 ng/mL (30-100)
== END | disposition home or self-care (01) ==
LOC: VSLAB 08:18
PROVIDERS: PCP Nurse Practitioner Family; Visit Provider Nurse Practitioner Family
DX: I10 Essential (primary) hypertension (principal); E78.5 Hyperlipidemia, unspecified; E55.9 Vitamin D deficiency, unspecified; R73.9 Hyperglycemia, unspecified; T14.8XXA Other injury of unspecified body region, initial encounter
CPT/HCPCS: 36415; 80053; 80061; 82306; 82728; 83036; 83540; 83550; 84443; 85025

== ENCOUNTER → 2024-10-28 | Outpatient (CLI) | payer MEDICAID, SELFPAY ==
--- NOTE | 2024-10-28 10:18 | MRI_ITS ---
PROCEDURE: BREAST BILATERAL W/O AND W 10/28/2024 REASON FOR EXAM: 54-year-old female presents with left bloody nipple discharge. Family history of breast cancer in her maternal grandmother at 92. TECHNIQUE: BREAST BILATERAL W/O AND W CONTRAST: 17 mL of IV Clariscan COMPARISON: Mammogram 08/21/2024. Mammogram and ultrasound 08/07/2023. FINDINGS: TISSUE DENSITY: There are scattered areas of fibroglandular density. Background Parenchymal Enhancement: Mild RIGHT Breast: No suspicious mass or non-mass enhancement. LEFT Breast: 1. There are a few enhancing dilated ducts in the retroareolar left breast (series 601, images 171-176). 2. There are 2 adjacent enhancing masses in the upper outer left breast at middle depth, the largest mass measures up to 1.1 cm in the smaller mass measures 0.9 cm (series 23987, image 130). Other Findings: There are at least 2 mildly prominent left axillary lymph nodes. No suspicious right axillary or bilateral internal mammary lymph nodes. Visualized portions of the thoracic and abdominal viscera are unremarkable. MRI/Breast Bilateral W/O and W IMPRESSION: 1. The enhancing dilated ducts in the retroareolar left breast require further evaluation. Recommend second-look diagnostic ultrasound of the left breast for further evaluation. 2. The enhancing masses in the upper-outer left breast at middle depth require further evaluation. Recommend second-look diagnostic ultrasound of the left breast for further evaluation. 3. Mildly prominent left axillary lymph nodes. Recommend second-look diagnost ic ultrasound of the left axilla for further evaluation. OVERALL FINAL ASSESSMENT BI-RADS 4: SUSPICIOUS RECOMMENDATION: Ultrasound Recommended Reading Location: [id number]
== END | disposition home or self-care (01) ==
LOC: MRI 10:15
PROVIDERS: PCP Nurse Practitioner Family; Referring Provider Obstetrics & Gynecology; Visit Provider Obstetrics & Gynecology
DX: N63.0 Unspecified lump in unspecified breast (principal); N64.4 Mastodynia
CPT/HCPCS: 77049; A9575; A4216; C8908

== ENCOUNTER → 2024-11-03 | Outpatient (CLI) | payer MEDICAID, SELFPAY ==
[2024-11-03 12:12] LABS: Color, Urine Yellow (Yellow); Glucose, Dipstick Normal (Normal); Ketone-Dipstick Negative (Negative); Leukocyte Esterase-Dipstick Negative /ul (Negative); Nitrite-Dipstick Negative (Negative); Occult Blood-Urine 25 /ul (Negative); Protein-Dipstick Negative (Negative); Specific Gravity, Urine 1.010 (1.002-1.030); Urine Bilirubin Dipstick Negative (Negative)
== END | disposition home or self-care (01) ==
LOC: LABSPEC 09:47
PROVIDERS: PCP Nurse Practitioner Family
DX: N39.0 Urinary tract infection, site not specified (principal)
CPT/HCPCS: 81002; 87086; 87088

== ENCOUNTER → 2024-11-04 | Outpatient (CLI) | payer MEDICAID, SELFPAY ==
--- NOTE | 2024-11-04 08:01 | US_ITS ---
PROCEDURE: BREAST COMPLETE UNILATERAL 11/04/2024 REASON FOR EXAM: F, Age 54 y/o , ABNORMAL MRI/[facility]NO[facility] US COMPARISON: Prior MRI of the breast dated October 30, 2024 and prior mammogram dated October 12, 2024.. TECHNIQUE: BREAST COMPLETE UNILATERAL. The entire left breast was examined with ultrasound as well as left axilla. FINDINGS: Dense fibroglandular tissue. No focal lesion is seen. There is evidence of dilatation of the retroareolar ducts. There is evidence of a 1.7 cm x 0.9 cm x 0.7 cm lymph node in the left axilla. There is a thick central echogenic hilum with the thinning of the peripheral aspect of the lymph node. US/Breast Complete Unilateral IMPRESSION: Enlarged lymph node in the left axilla as described. Thickened central hilum o f the lymph node with thinning of the surrounding hypoechoic tissue. Biopsy may be indicated. BI-RADS 4: SUSPICIOUS RECOMMENDATION: Biopsy Recommended Reading Location: [facility]
== END | disposition home or self-care (01) ==
LOC: OPUS 08:00
PROVIDERS: PCP Nurse Practitioner Family; Referring Provider Obstetrics & Gynecology; Visit Provider Obstetrics & Gynecology
DX: R93.89 Abnormal findings on diagnostic imaging of other specified body structures (principal); N64.52 Nipple discharge
CPT/HCPCS: 76641

== ENCOUNTER → 2024-11-11 | Outpatient (CLI) | payer MEDICAID, SELFPAY ==
[2024-11-11 10:00] LABS: Hematocrit 43.9 % (37-47); Hemoglobin 14.6 g/dL (12.0-15.0); Immature Granulocytes Count 0.010 X10^3/uL (0.0-0.0); Mean Corp Hgb Conc 33.3 g/dL (32-36); Mean Corpuscular Volume 92.8 fL (81-99); Mean Platelet Vol. 8.2 fl (6.2-12.0); NRBC Flagged by Analyzer 0 % (0-5); Platelet Count 277 K/mm3 (150-450); RBC Distribution Width CV 12.6 % (11.6-14.6); RBC Distribution Width SD 43.3 fl (35.1-43.9); Red Blood Count 4.73 M/mm3 (4.2-5.4); White Blood Count 7.4 K/mm3 (4.4-11.0)
[2024-11-11 10:53] LABS: AST(SGOT) 26 U/L (<=31); Alanine Aminotransfer ALT/SGPT 37 U/L (<=34); Albumin, Serum 4.2 g/dL (3.5-5.0); Alkaline Phosphatase 109 U/L (35-104); Anion Gap 11 (5-15); BUN 11 mg/dL (4-19); BUN/Creat Ratio 15.3 RATIO (10-20); Calcium,Total 10.6 mg/dL (7.6-11.0); Carbon Dioxide 23.0 mmol/L (21.0-32.0); Chloride 106 mmol/L (98-108); Globulin 2.8 g/dL (2.2-4.2); Glucose 107 mg/dL (70-99); Potassium 4.4 mmol/L (3.3-5.1)
== END | disposition home or self-care (01) ==
PROVIDERS: PCP Nurse Practitioner Family
DX: R10.11 Right upper quadrant pain (principal)
CPT/HCPCS: 36415; 80053; 85025

== ENCOUNTER → 2024-11-27 | Outpatient (CLI) | payer MEDICAID, SELFPAY ==
--- NOTE | 2024-11-27 08:24 | US_ITS ---
PROCEDURE: BREAST LIMITED UNILATERAL 11/27/2024 REASON FOR EXAM: F, Age 54 y/o , 2 AREAS CORRESPOND WITH MRI, UPPER OUTER QUADRANT COMPARISON: MRI 10/28/2024, ultrasound 11/04/2024. TECHNIQUE: Procedure Code: USBRSTLIMIT Modality: US Procedure: BREAST LIMITED UNILATERAL FINDINGS: Follow-up examination performed for the left breast mass/masses seen on the MRI of 10/28/2024. On the present examination, ultrasound performed of the superior left breast demonstrates no sonographic correlate for the MRI finding. Also, there are a few dilated ducts seen in the retroareolar left breast. There is no evidence of intraductal mass, solid mass or abnormal cystic elements in the retroareolar left breast. US/Breast Limited Unilateral IMPRESSION: There is no sonographic correlate seen in the superior left breast for the MRI finding. Consider MRI guided biopsy of the suspicious left breast masses, considering the patient's history of left bloody nipple discharge. However, if the patient is unable to obtain the MRI guided biopsy recommend short interval six-month MRI b reast follow-up to assess stability. BI-RADS 4: SUSPICIOUS RECOMMENDATION: Biopsy Recommended Reading Location: [id number]
== END | disposition home or self-care (01) ==
PROVIDERS: PCP Nurse Practitioner Family; Referring Provider Surgery; Visit Provider Surgery
DX: N63.20 Unspecified lump in the left breast, unspecified quadrant (principal)
CPT/HCPCS: 76642

== ENCOUNTER → 2024-12-04 | Outpatient (CLI) | payer MEDICAID, SELFPAY ==
--- NOTE | 2024-12-04 07:34 | US_ITS ---
PROCEDURE: ABDOMEN LIMITED 12/04/2024 REASON FOR EXAM: RUQ PAIN. Cholecystectomy 2005. TECHNIQUE: Procedure Code: USABDL Modality: US Procedure: Right upper quadrant abdominal ultrasound COMPARISON: CT examination 01/25/2022 FINDINGS: Liver: Not enlarged, measured at 15.9 cm in length. Diffuse increased echogenicity is likely due to diffuse fatty infiltration. The main portal vein demonstrates hepatopetal flow. Gallbladder: Surgically absent. Common bile duct: Dilated measuring up to 12.9 mm diameter. This may be due to the chronic changes of the remote cholecystectomy, however. Pancreas: Visualized portions are unremarkable. The distal body and tail are obscured by bowel gas. Kidneys: A nonobstructive right mid renal calculus is measured at 3 mm. The right kidney measures 11.4 x 4.5 x 4.0 cm. No evidence of hydronephrosis. The cortex is measured at 14 mm. No free fluid is seen. US/Abdomen Limited IMPRESSION: 1. Prior cholecystectomy. 2. Nonobstructive right mid renal calculus. 3. Diffuse fatty infiltration of the liver. 4. No acute process is seen. Reading Location: [place] [address]
--- OUTSIDE RECORDS SUMMARY | 2024-12-04 07:43 | XMS RPT_ITS | CCD ---
Author Organization [facility] Inform ion [facility] Care Team Providers Care Inventory Control Clerk Name Role Phone Ilsa Espinoza DO Primary Care Provider Elvin OLIVEROS, Nandini Unavailable [phone] [address] PRESS CUTTER.Stefany MAJOR Unavailable [phone] LUIS COLLINS Attending ROSETTA Lara Referring HamidavaILSA Alexander Primary Care Unavailable KEVIN NICOLE Attending Unavailable ILSA ESPINOZA Primary Care Unavailable DERIAN LATIF Attending Unavailable ROSETTA SALCEDO Referring ILSA Ba Primary Care Unavailable JOHN POLLOCK Attending Unavailable ILSA ESPINOZA Primary Care Unavailable GUALBERTO ECHEVARRIA JR Attending Unavailable ILSA ESPINOZA Primary Care Unavailable FREDDIE JOVELSSICA Primary Care Unavailable LILA PETERSEN Attending Unavailable Elvin VSC, Nandini Referring Unavailabl Laurie Patel Attending Unavailabl e Elvin VSC, Nandini Primary Care Unavailabl e Elvin VSC, Nandini Primary Care Unavailabl e Luis Harper Referring Unavailable Luis Harper Attending Unavailable Elvin VSC, Nandini Primary Care Unavailabl e Elvni VSC, Nandini Attending Unavailabl e Elvin VSC, Nandini Primary Care UnavailLila Mott Consulting Unavailable Elvin VSC, Nandini Attending Unavailabl e Elvin VSC, Nandini Primary Care Unavailabl e Elvin VSC, Nandini Referring Unavailabl e Elvin VSC, Nandini Attending Unavailabl e Elvin VSC, Nandini Primary Care UnavailDania Tapia NP Referring Unavailable Dania Schmitt NP Attending Unavailable Elvin VSC, [facility] Primary Care Unavailabl e Elvin VSC, [facility] Referring Unavailabl e Robotham, Kendra Attending Unavailable Elvin VSC, [facility] Primary Care Unavailabl e Beam VSC, Zebulun Referring Unavailable Beam VSC, Dagoberto Attending Unavailable Vanessa VSCIlsa Attending Unavailable Elvin VSC, [facility] Primary Care Unavailabl e Elvin VSC, [facility] Primary Care Unavailabl e Praveena Izquierdo Attending Unavailable Praveena Izquierdo Referring Unavailable Elvin VSC, [facility] Primary Care Unavailabl e Beam VSC, Zebumarilu Attending Unavailable Laurie Lawler Referring Unavailabl e Laurie Lawler Attending Unavailabl e Elvin VSC, [facility] Primary Care Unavailabl e Elvin VSC, [facility] Primary Care Unavailabl e Beam VSC, Zebulun Referring Unavailable Beam VSC, Dagoberto Attending Unavailable Dania Schmitt NP Referring Unavailable Dania Schmitt NP Attending Unavailable Elvin VSC, [facility] Primary Care Unavailabl e Elvin VSC, [facility] Primary Care Unavailabl e Praveena Izquierdo Referring Unavailable Praveena Izquierdo Attending Unavailable Elvin VSC, [facility] Primary Care Unavailabl e Robotham, Kendra Referring Unavailable RobotBay doera Attending Unavailable Laurie Lawler Attending Unavailabl e Elvin VSC, [facility] Primary Care Unavailabl e Elvin VSC, [facility] Primary Care Unavailabl e Elvin VSC, [facility] Referring Unavailabl e Rich Heath Attending Unavailable Elvin VSC, [facility] Primary Care Unavailabl e Laron Stewart Attending Unavailable Elvin VSC, [facility] Primary Care Unavailabl e Luis Harper Attending Unavailable Luis Harper Referring Unavailable Laurie Lawler Referring Unavailabl e Laurie Lawler Attending Unavailabl e Elvin VSC, [facility] Primary Care UnavailDania Tapia NP Attending Unavailable Vance Cobb Referring Unavailable Elvin VSC, [facility] Primary Care Unavailabl e Elvin VSC, [facility] Primary Care Unavailabl e Elvin VSC, [facility] Referring Unavailabl e Luis Harper Attending Unavailable Elvin VSC, [facility] Primary Care Unavailabl e Elvin VSC, [facility] Referring Luis Stephenson Attending Unavailable [facility] Attending Unavailable [facility] Nandini Referring [facility] lucinda [facility] Care[facility]dieNandini Primary Care Luis Stephenson Attending Unavailable Allergies Allergy Classification Reported Allergen(s) Allergy Type Date of Onset Reaction(s) Facility (1 source) ADHESIVE TAPE-SILICONES; Translations: [ADHESIVE TAPE-SILICONES] Propensity to adverse reactions to drug (disorder) 5 [facility] Repository (1 source) Adhesive Tape Drug allergy (disorder) 5 [facility] Repository (1 source) Nitrofurantoin Drug Allergy 5 [facility] Repository Medications Current Medications Medication Drug Class(es) Dates Sig (Normalized) Sig (Original) [id number] 200 actuat albuterol 0.09 mg/actuat metered dose [...] Problem Classification Problem Date Documented Date Episodic/Chronic Abdominal pain (3 sources) Right upper quadrant pain; Translations: [Unspecified abdominal pain] Onset: 06-19-2024 Episodic Adjustment disorders (3 sources) Stress; Translations: [Reaction to severe stress, unspecified] Onset: 04-17-2024 04-17-2024 Chronic Anxiety disorders (3 sources) Anxiety; Translations: [Anxiety disorder, unspecified] Onset: 04-17-2024 04-17-2024 Chronic Essential hypertension (4 sources) Essential hypertension; Translations: [Essential (primary) hypertension] Onset: 04-17-2024 04-17-2024 Chronic Genitourinary symptoms and ill-defined conditions (1 source) Microscopic hematuria; Translations: [Other microscopic hematuria] 12-24-2023 Episodic Malaise and fatigue (3 sources) Fatigue; Translations: [Other fatigue] Onset: 04-17-2024 04-17-2024 Episodic Miscellaneous mental health disorders (10 sources) Chronic insomnia; Translations: [Psychophysiologic insomnia] Onset: 03-10-2024 03-10-2024 Chronic Mood disorders (4 sources) Depressive disorder; Translations: [Depression, unspecified depression type] Onset: 04-17-2024 03-10-2024 Chronic Mood disorders (1 source) Mood disorders; Translations: [Depression, unspecified depression type] Onset: 03-10-2024 Nonmalignant breast conditions (2 sources) Unspecified lump in unspecified breast; Translations: [Nipple discharge] Onset: 09-16-2024 Episodic Nonspecific chest pain (1 source) Chest pain, unspecified; Translations: [Chest pain, unspecified type] Onset: 10-16-2024 Episodic Other acquired deformities (1 source) Spondylolisthesis, lumbar region; Translations: [Spondylolisthesis, lumbar region] Onset: 11-20-2024 Episodic Other lower respiratory disease (1 source) Pleurodynia; Translations: [Rib pain on right side] Onset: 10-16-2024 Episodic Other nutritional; endocrine; and metabolic disorders (6 sources) Body mass index 30+ - obesity; Translations: [Obesity, unspecified] Onset: 04-17-2024 04-17-2024 Chronic Other screening for suspected conditions (not mental disorders or infectious disease) (2 sources) Abnormal findings on diagnostic imaging of other specified body structures; Translations: [Abnormal findings on diagnostic imaging of other specified body structures] Onset: 11-02-2024 Chronic Other screening for suspected conditions (not mental disorders or infectious disease) (2 sources) Patient encounter status; Translations: [Encounter for screening for other disorder] Onset: 10-15-2024 12-24-2023 Episodic Residual codes; unclassified (4 sources) Obstructive sleep apnea syndrome; Translations: [Obstructive sleep apnea (adult) (pediatric)] Onset: 04-17-2024 03-10-2024 Chronic Residual codes; unclassified (4 sources) [...] sleepiness] Onset: 04-17-2024 Chronic Residual codes; unclassified (2 sources) Obstructive sleep apnea (adult) (pediatric); Translations: [NBA on CPAP] Onset: 03-10-2024 Chronic Residual codes; unclassified (3 sources) Inadequate [...] Spondylosis; intervertebral disc disorders; other back problems (3 sources) Dorsalgia, unspecified; Translations: [Radiculopathy, lumbar region] Onset: 10-14-2024 Episodic Substance-related disorders (4 sources) Smoker; Translations: [Nicotine dependence, unspecified, uncomplicated] Onset: 01-27-2024 04-17-2024 Chronic Substance-related disorders (3 sources) Marijuana user; Translations: [Cannabis use, unspecified, uncomplicated] Onset: 04-17-2024 04-17-2024 Episodic Unclassified (1 source) Other intervertebral disc degeneration, lumbar region with discogenic back pain and lower extremity pain; Translations: [Other intervertebral disc degeneration, lumbar region with discogenic back pain and lower extremity pain] Onset: 11-20-2024 Unclassified (1 source) Other intervertebral disc degeneration, lumbar region without mention of lumbar back pain or lower extremity pain; Translations: [Other intervertebral disc degeneration, lumbar region without mention of lumbar back pain or lower extremity pain] Onset: 10-14-2024 Unclassified (1 source) Low back pain, unspecified; Translations: [Low back pain, unspecified] Onset: 12-30-2023 Urinary tract infections (1 source) Urinary tract infection, site not specified; Translations: [Urinary tract infection, site not specified] Onset: 11-09-2024 Episodic Past or Other Problems Problem Classification Problem Date Documented Da te Episodic/Chronic Coma; stupor; and brain damage (2 sources) Daytime somnolence; Translations: [Somnolence] Onset: 03-10-2024 03-10-2024 Episodic Deficiency and other anemia (1 source) Anemia, unspecified; Translations: [Anemia, unspecified] Onset: 04-15-2024 Episodic Other lower respiratory disease (2 sources) [...] Test Name Value Interpretation Reference Range Facility Breast Limited Unilateralon 11-27-[address] [facility] Imaging Services [address] [place] [address] [id number] Breast Limited Unilateral MR#: [id number] Acct: [id number] Name: RAZIA CARRILLO Rep #: [id number] : 1970 F 54 From: Nakita Fitch MD PCP: GUILLERMINA Johns, VB NET PROGRAMMER-C Status: REG CLI Study: Breast Limited Unilateral Date of Exam: Exam# [id number] Ordering Dr: Kendra Suh MD PROCEDURE: BREAST LIMITED UNILATERAL 11/27/2024 REASON FOR EXAM: F, Age 54 y/o , 2 AREAS CORRESPOND WITH MRI, UPPER OUTER QUADRANT COMPARISON: MRI 10/28/2024, ultrasound 11/04/2024. TECHNIQUE: Procedure Code: USBRSTLIMIT Modality: US Procedure: BREAST LIMITED UNILATERAL FINDINGS: Follow-up examination performed for the left breast mass/masses seen on the MRI of 10/28/2024. On the present examination, ultrasound performed of the superior left breast demonstrates no sonographic correlate for the MRI finding. Also, there are a few dilated ducts seen in the retroareolar left breast. There is no evidence of intraductal mass, solid mass or abnormal cystic elements in the retroareolar left breast. US/Breast Limited Unilateral IMPRESSION: There is no sonographic correlate seen in the superior left breast for the MRI finding. Consider MRI guided biopsy of the suspicious left breast masses, considering the patient's history of left bloody nipple discharge. However, if the patient is unable to obtain the MRI guided biopsy recommend short interval six-month MRI breast follow-up to assess stability. BI-RADS 4: SUSPICIOUS RECOMMENDATION: Biopsy Recommended Reading Location: [id number] CC: [facility] VB NET PROGRAMMER-C Nandini Jovel; Dr. Kendra Suh MD Decating Machine Operator: Signed Normal [facility] L/S Spine Min 4 Viewson 08- L/S Spine Min [address] [facility] Imaging Services [address] [place], [place] [id number] L/S Spine Min 4 Views MR#: [id number] Acct: [id number] Name: RAZIA CARRILLO Rep #: [id number] : 1970 F 54 From: Le Leiva MD PCP: GUILLERMINA Johns, VB NET PROGRAMMER-C Status: DEP AMB Study: L/S Spine Min 4 Views Date of Exam: 11/20/24 Exam# [id number] Ordering Dr: Rachelle Hanson PROCEDURE: L/S SPINE MIN 4 VIEWS 11/20/2024 REASON FOR EXAM: CHRONIC PAIN TECHNIQUE: L/S SPINE MIN 4 VIEWS COMPARISON: MRI lumbar spine 10/09/2024 FINDINGS: Anterolisthesis L4 on L5 by 6 mm. Facet joints arthropathy of L4-L5 and L5-S1. Disc space narrowing with marginal osteophytes of T11-T12 and T12-L1. No acute bony abnormalities. No soft tissue abnormalities. RAD/L/S Spine Min 4 Views IMPRESSION: Anterolisthesis L4 on L5 by 6 mm. Reading Location: [facility] CC: [facility] VB NET PROGRAMMERBarber Jovel; URIEL Hall Decating Machine Operator: Signed Normal [facility] Orthopedic Visit Reporton Orthopedic Visit Report [facility] [address] [place] [address] OFFICE VISIT Date of Service: 11/20/24 MR#: [id number] Acct: [id number] Name: RAZIA CARRILLO Rep #: [id number] : 1970 Provider: Dr. Rich Heath MD Age/Sex: 54/F Location: [facility] Status: Signed Intake Vital Signs 09/11/24 14:38 11/10/24 08:47 Height 5 ft 4 in 5 ft 4 in Intake Visit Reasons: LUMBAR SPINE Chief Complaint: Lumbar Spine Pain Accompanied by: Self Is patient in pain?: Yes (1) Allergies adhesive tape Allergy (Verified 11/20/24 08:39) Rash nitrofurantoin (From Macrobid) Allergy (Verified 11/20/24 08:39) Unknown Medications ???Medication ???Instructions ???Recorded ???Confirmed ???Type albuterol sulfate 90 mcg/actuation 2 puff inhalation Q6H PRN SOB 11/20/24 History aerosol inhaler (Ventolin HFA) amlodipine 5 mg tablet 5 mg PO QHS 04/26/23 11/20/24 Hist ory cariprazine 1.5 mg capsule 3 mg PO DAILY ANTIPSYCHOTIC 11/20/24 History (Vraylar) famotidine 20 mg tablet (Pepcid) 20 mg PO QDAY 08/10/24 11/20/24 Hi story vitamin B complex 1 tab PO QDAY 08/10/24 11/20/24 Hi story ascorbate calcium (vitamin C) 500 500 mg PO QDAY 09/11/24 11/20/24 History mg tablet cholecalciferol (vitamin D3) 50 50 mcg PO QDAY 09/11/24 11/20/24 H istory mcg (2,000 unit) capsule meloxicam 15 mg tablet 15 mg PO QDAY PRN 11/20/24 5 History PFSH Medical History (Updated 11/20/24 @ 09:[address] Rich Heath MD) Spondylolisthesis Obesity (BMI 30-39.9) History of lipoma Schizophrenia Psychosis Ambulates with [...] Cancer Hodgkins Grandmother Colon cancer Polymyalgia rheumatica Breast cancer Grandfather CVA (cerebral vascular accident) Social History (Updated 11/20/24 @ 09:11 by Eva Ng RN) household members: children and other current occupational status: employed current occupation: [employer] Smoking Status: Former smoker smoking status stop date: 07/23/24 alcohol intake: current details: socially substance use type: marijuana caffeine: Yes what type of physical activity do you participate in: none seatbelt use: always do you feel safe at home: Yes additional social history: single HPI LUMBAR SPINE Details: This documentation accurately reflects the service provided and the decisions made by me, Dr. Rich Heath MD 11/20/24 0836. Part of today???s visit was documented by Lacy Pittman ATC and Eva Ng RN, acting as scribe. ARZIA CARRILLO is a 54 year old F here today for lumbar spine pain. Patient is a referral from Dr. Harper. Patient states the back has been bothering her for a while. She states lately the back has not been as bad as it was. She states she started using a magnesium spray and it started relieving the pain and has been very helpful. She states when it was flared up the pain was central in the lumbar spine. She states she had a lot of trouble with the right hip and leg and was unable to stand up straight and had a lot of trouble walking. She states at the time she had pain, numbness/tingling in the right leg as well. She denies any injections to the lumbar spine. She states she did aquatic and then land therapy and states it did help her to some extent. She denies any surgery on the back. She has prescription for Meloxicam and she was taking that. Now she takes it PRN. Dr. Harper did order a lumbar spine MRI and she had (more content not included)... Normal [facility] CBC W/Diff, Automatedon 08-2 0-2024 Absolute Lymph 1.76 X10 3/uL Normal 0.83-4.51 [facility] Comment on above: Performed By: #### L 100.0100, L500.4050 ####[facility] [address] [place], [address] Absolute Neut 5.0 X10 3/uL Normal 2.0-7.7 [facility] Comment on above: Performed By: #### L 100.0100, L500.4050 ####[facility] [address] [place], [address] Basophils/100 WBC (Bld) 0.7 % Normal 0-1 [facility] Comment on above: Performed By: #### L 100.0100, L500.4050 ####[facility] [address] [place], [address] Eosinophils/100 WBC (Bld) 2.4 % Normal 0-5 [facility] Comment on above: Performed By: #### L 100.0100, L500.4050 ####[facility] [address] [place], [address] Erythrocyte distribution width (RBC) [Ratio] 12.6 % Normal 11.6-14.6 [facility] Comment on above: Performed By: #### L 100.0100, L500.4050 ####[facility] [address] [place], [address] Hematocrit (Bld) [Volume fraction] 43.9 % Normal 37-47 [facility] Comment on above: Performed By: #### L 100.0100, L500.4050 ####[facility] [address] [place], [address] Hemoglobin (Bld) [Mass/Vol] 14.6 g/dL Normal 12.0-15.0 [facility] Comment on above: Performed By: #### L 100.0100, L500.4050 ####[facility] [address] [place], [address] IG% 0.100 Normal 0.0-0.9 [facility] Comment on above: Result Comment: IG% - Immature Granulocytes (promyelocytes, myelocytes and metamyelocytes) > 1% indicates that a LEFT SHIFT is Present. Performed By: #### L 100.0100, L500.4050 ####[facility] [address] [place], [address] Lymphocytes/100 WBC (Bld) 23.8 % Normal 19-41 [facility] Comment on above: Performed By: #### L 100.0100, L500.4050 ####[facility] [address] [place], [address] MCH (RBC) [Entitic mass] 30.9 pg Normal 27.0-32.0 [facility] Comment on above: Performed By: #### L 100.0100, L500.4050 ####[facility] [address] [place], [address] MCHC (RBC) [Mass/Vol] 33.3 g/dL Normal 32-36 [facility] Comment on above: Performed By: #### L 100.0100, L500.4050 ####[facility] [address] [place], [address] MCV (RBC) [Entitic vol] 92.8 fL Normal 81-99 [facility] Comment on above: Performed By: #### L 100.0100, L500.4050 ####[facility] [address] [place], [address] Monocytes/100 WBC (Bld) 5.9 % Normal 0-10 [facility] Comment on above: Performed By: #### L 100.0100, L500.4050 ####[facility] [address] [place], [address] Neutrophils/100 WBC (Bld) 67.1 % Normal 47-70 [facility] Comment on above: Performed By: #### L 100.0100, L500.4050 ####[facility] [address] [place], [address] Nucleated RBC (Bld) [#/Vol] 0 10*3/uL Normal 0-5 [facility] Comment on above: Performed By: #### L 100.0100, L500.4050 ####[facility] [address] [place], [address] Platelet mean volume (Bld) [Entitic vol] 8.2 fL Normal 6.2-12.0 [facility] Comment on above: Performed By: #### L 100.0100, L500.4050 ####[facility] [address] [place], [address] Platelets (Bld) [#/Vol] 277 10*3/uL Normal 150-450 [facility] Comment on above: Performed By: #### L 100.0100, L500.4050 ####[facility] [address] [place], [address] RBC (Bld) [#/Vol] 4.73 10*6/uL Normal 4.2-5.[address] [facility] Comment on above: Performed By: #### L 100.0100, L500.4050 ####[facility] [address] [place], [address] RDW SD 43.3 fl Normal 35.1-43.9 [facility] Comment on above: Performed By: #### L 100.0100, L500.4050 ####[facility] [address] [place], [address] WBC (Bld) [#/Vol] 7.4 10*3/uL Normal 4.4-11.0 [facility] Comment on above: Performed By: #### L 100.0100, L500.4050 ####[facility] [address] [place], [address] Comprehensive Metabolic Prof [facility] 11-11-2024 Albumin [Mass/Vol] 4.2 g/dL Normal 3.5-5.0 [facility] Comment on above: Performed By: #### L 100.0100, L500.4050 ####[facility] [address] [place], [address] Albumin/Globulin [Mass ratio] 1.5 {ratio} Normal 0.9-2.4 [facility] Comment on above: Performed By: #### L 100.0100, L500.4050 ####[facility] [address] [place], [address] ALK PHOS 109 U/L High 35-104 [facility] Comment on above: Performed By: #### L 100.0100, L500.4050 ####[facility] [address] [place], [address] ALT [Catalytic activity/Vol] 37 U/L High <=34 [facility] Comment on above: Performed By: #### L 100.0100, L500.4050 ####[facility] [address] [place], [address] AST [Catalytic activity/Vol] 26 U/L Normal <=31 [facility] Comment on above: Performed By: #### L 100.0100, L500.4050 ####[facility] [address] [place], [address] Bilirubin [Mass/Vol] 0.40 mg/dL Normal 0.00-1.30 [facility] Comment on above: Performed By: #### L 100.0100, L500.4050 ####[facility] [address] [place], [address] BUN/CRE 15.3 RATIO Normal 10-20 [facility] Comment on above: Performed By: #### L 100.0100, L500.4050 ####[facility] [address] [place], [address] Calcium [Mass/Vol] 10.6 mg/dL Normal 7.6-11.0 [facility] Comment on above: Performed By: #### L 100.0100, L500.4050 ####[facility] [address] [place], [address] Chloride [Moles/Vol] 106 mmol/L Normal 98-108 [facility] Comment on above: Performed By: #### L 100.0100, L500.4050 ####[facility] [address] [place], [address] CO2 [Moles/Vol] 23.0 mmol/L Normal 21.0-32.0 [facility] Comment on above: Performed By: #### L 100.0100, L500.4050 ####[facility] [address] [place], [address] Creatinine [Mass/Vol] 0.73 mg/dL Normal 0.70-1.20 [facility] Comment on above: Performed By: #### L 100.0100, L500.4050 ####[facility] [address] [place], [address] GAP 11 Normal 5-15 [facility] Comment on above: Performed By: #### L 100.0100, L500.4050 ####[facility] [address] [place], [address] GFR/1.73 sq M.predicted among non-blacks MDRD (S/P/Bld) [Vol rate/Area] 98 mL/min/{1.73_m2} Normal >60 [facility] Comment on above: Result Comment: mL/m in/1.73m2 CKD-EPI Creatinine Equation (2020) Performed By: #### L 100.0100, L500.4050 ####[facility] [address] [place], [address] Globulin (S) [Mass/Vol] 2.8 g/dL Normal 2.2-4.2 [facility] Comment on above: Performed By: #### L 100.0100, L500.4050 ####[facility] [address] [place], [address] Glucose [Mass/Vol] 107 mg/dL High 70-99 [facility] Comment on above: Performed By: #### L 100.0100, L500.4050 ####[facility] [facility] [address] [place], [address] Potassium [Moles/Vol] 4.4 mmol/L Normal 3.3-5.1 [facility] Comment on above: Performed By: #### L 100.0100, L500.4050 ####[facility] [address] [place], [address] Sodium [Moles/Vol] 140 mmol/L Normal 133-145 [facility] Comment on above: Performed By: #### L 100.0100, L500.4050 ####[facility] [address] [place], [address] T PROT 7.0 g/dL Normal 5.9-8.4 [facility] Comment on above: Performed By: #### L 100.0100, L500.4050 ####[facility] [address] [place], [address] Urea nitrogen [Mass/Vol] 11 mg/dL Normal 4-19 [facility] Comment on above: Performed By: #### L 100.0100, L500.4050 ####[facility] [address] [place], [address] Surgery Visit Reporton 11-10 Surgery Visit Report [facility] [address] [place] [address] OFFICE VISIT Date of Service: 11/10/24 MR#: [id number] Acct: [id number] Name: RAZIA CARRILLO Rep #: [id number] : 1970 Provider: Dr. Kendra do MD Age/Sex: 54/F Location: [facility] Status: Signed Intake Vital Signs 09/11/24 14:38 11/10/24 08:47 Height 5 ft 4 in 5 ft 4 in Weight: 200 lb BMI 34.3 BP 111/78 Blood Pressure Location Rt brachial Position Sitting Respiration 17 Pulse 88 Pulse Source Monitor Pulse Oximetry (%) 98 Oxygen Delivery Method room air Intake Visit Reasons: BIRADS 4 Chief Complaint: birads 4 Is patient in pain?: No Allergies adhesive tape Allergy (Verified 11/10/24 08:48) Rash Medications ???Medication ???Instructions ???Recorded ???Confirmed ???Type albuterol sulfate 90 mcg/actuation 2 puff inhalation Q6H PRN SOB 11/10/24 History aerosol inhaler (Ventolin HFA) amlodipine 5 mg tablet 5 mg PO QHS 04/26/23 11/10/24 Hist ory cariprazine 1.5 mg capsule 3 mg PO DAILY ANTIPSYCHOTIC 11/10/24 History (Vraylar) famotidine 20 mg tablet (Pepcid) 20 mg PO QDAY 08/10/24 11/10/24 Hi story meloxicam 15 mg tablet 15 mg PO QDAY 08/10/24 11/10/24 Hi story vitamin B complex 1 tab PO QDAY 08/10/24 11/10/24 Hi story ascorbate calcium (vitamin C) 500 500 mg PO QDAY 09/11/24 11/10/24 History mg tablet cholecalciferol (vitamin D3) 50 50 mcg PO QDAY 09/11/24 11/10/24 H istory mcg (2,000 unit) capsule nicotine (polacrilex) PO 09/11/24 11/10/24 History PFSH Medical History History of lipoma Schizophrenia [...] dilation and curettage ( 1996) Family History (Updated 11/10/24 @ 08:47 by Diane Albrecht) Father Diabetes Hypertension Mother Kidney disease Asthma Arthritis Aunt Cancer Hodgkins Grandmother Colon cancer Polymyalgia rheumatica Breast cancer Grandfather CVA (cerebral vascular accident) Social History [...] additional social history: single HPI HPI HPI: 54-year-old female presents due to abnormal breast mammogram and ultrasound. Patient states she initially got the ultrasound and she did have a small drop of bloody discharge from her left breast may be once every 2 months has had it for couple of years. Patient states this does not occur spontaneously does occur with pressure when she is leaning up against something. Patient states is not always bloody. MRI below showed 2 adjacent masses in the left breast as well as some prominent lymph nodes recommended diagnostic ultrasound. Ultrasound did not show any evidence of the masses and showed a lymph node with fatty hilum initially given a BI-RADS 4 did discuss with the radiologist was changed to a BI-RADS 2. Will plan to get a repeat ultrasound looking for the 2 left breast masses as those were not seen. Patient denies any breast pain or trauma to her breast. Age of menses 12, age of of first child 21, family history of breast cancer in her grandmother, 1 previous breast biopsy on the right long time ago per patient ======== BREAST BILATERAL W/O AND W 10/28/2024 REASON F (more content not included)... Normal [facility] Urine Cultureon 11-05-2024 URC Mixed Gram Positive Organisms Mobile Count 25,000-50,000 MIXC Mixed contaminants. Submit a new specimen if indicated. Normal [facility] Comment on above: Performed By: #### L 400.2011, M100.0 ####[facility] [address] [place], [place], [id number] Breast Complete Unilateralon 11-04-[address] [facility] Imaging Services [address] [place] [place], [place] [address] Breast Complete Unilateral MR#: [id number] Acct: [id number] Name: RAZIA CARRILLO Rep #: [id number] : 1970 F 54 From: Ken jenkins MD PCP: Nandini Jovel [facility], VB NET PROGRAMMER-C Status: DEP CLI Study: Breast Complete Unilateral Date of Exam: 11/04 Exam# [id number] Ordering Dr: Praveena Izquierdo ADDENDUM by Dr. Ken Stover MD on 11/13/24 at 1545 This is an addendum report. Following consultation with the referring surgeon, the axillary lymph node does not need to be biopsied. BI-RADS category 2 Reading Location: [id number] 11/13/24 1546 Date cc: [facility] VB NET PROGRAMMER-C Nandini Jovel; Dr. Praveena Izquierdo MD * Signed PROCEDURE: BREAST COMPLETE UNILATERAL 11/04/2024 REASON FOR EXAM: F, Age 54 y/o , ABNORMAL MRI/[facility] DI[facility]NOSTIC US COMPARISON: Prior MRI of the breast dated October 30, 2024 and prior mammogram dated October 12, 2024.. TECHNIQUE: BREAST COMPLETE UNILATERAL. The entire left breast was examined with ultrasound as well as left axilla. FINDINGS: Dense fibroglandular tissue. No focal lesion is seen. There is evidence of dilatation of the retroareolar ducts. There is evidence of a 1.7 cm x 0.9 cm x 0.7 cm lymph node in the left axilla. There is a thick central echogenic hilum with the thinning of the peripheral aspect of the lymph node. US/Breast Complete Unilateral IMPRESSION: Enlarged lymph node in the left axilla as described. Thickened central hilum of the lymph node with thinning of the surrounding hypoechoic tissue. Biopsy may be indicated. BI-RADS 4: SUSPICIOUS RECOMMENDATION: Biopsy Recommended Reading Location: [id number] CC: [facility] VB NET PROGRAMMER-C Nandini Jovel; Dr. Praveena Izquierdo MD Decating Machine Operator: Signed Normal [facility] Urinalysis, Routine (Dipstic k)on 11-03-2024 BILIRUBIN URINE Negative Normal Negative [facility] Comment on above: Order Comment: CLEAN CATCH Performed By: #### L 400.2010, ####[facility] [address] [place], [address] Clarity (U) Clear Normal Clear [facility] Comment on above: Order Comment: CLEAN CATCH Performed By: #### L 400.2010, ####[facility] [address] [place], [address] Color (U) Yellow Normal Yellow [facility] Comment on above: Order Comment: CLEAN CATCH Performed By: #### L 400.2010, ####[facility] [address] [place], [address] GLUCOSE, UR Normal Normal Normal [facility] Comment on above: Order Comment: CLEAN CATCH Performed By: #### L 400.2010, ####[facility] [address] [place], [address] KETONE UR Negative Normal Negative [facility] Comment on above: Order Comment: CLEAN CATCH Performed By: #### L 400.2010, ####[facility] [address] [place], [address] LEUK ESTERASE Negative Normal Negative [facility] Comment on above: Order Comment: CLEAN CATCH Performed By: #### L 400.2010, ####[facility] [address] [place], [address] Nitrite Ql (U) Negative Normal Negative [facility] Comment on above: Order Comment: CLEAN CATCH Performed By: #### L 400.2010, ####[facility] [address] [place], [address] OCCULT BLOOD-UR 25 /ul Abnormal Negative [facility] Comment on above: Order Comment: CLEAN CATCH Performed By: #### L 400.2010, ####[facility] [address] [place], [address] pH UR 7.0 Normal 5.0 - 8.0 [facility] Comment on above: Order Comment: CLEAN CATCH Performed By: #### L 400.2010, ####[facility] [address] [place], [address] PROT DIPSTX Negative Normal Negative [facility] Comment on above: Order Comment: CLEAN CATCH Performed By: #### L 400.2010, ####[facility] [address] [place], [address] SP.GR. DIPSTX 1.010 Normal 1.002-1.030 [facility] Comment on above: Order Comment: CLEAN CATCH Performed By: #### L 400.2010, ####[facility] [address] [place], [address] UROBILI Normal Normal Normal [facility] Comment on above: Order Comment: CLEAN CATCH Performed By: #### L 400.2010, ####[facility] [address] [place], [address] Breast Bilateral W/O and Won 10-28-2024 Breast Bilateral W/O and W [facility] Imaging Services [address] [place] [address] Breast Bilateral W/O and W MR#: [id number] Acct: [id number] Name: RAZIA CARRILLO Rep #: [id number] : 1970 F 54 From: Nakita Fitch MD PCP: Nandini Jovel [facility], VB NET PROGRAMMER-C Status: REG CLI Study: Breast Bilateral W/O and W Date of Exam: 10/28 Exam# [id number] Ordering Dr: Laurie Lawler DO PROCEDURE: BREAST BILATERAL W/O AND W 10/28/2024 REASON FOR EXAM: 54-year-old female presents with left bloody nipple discharge. Family history of breast cancer in her maternal grandmother at 92. TECHNIQUE: BREAST BILATERAL W/O AND W CONTRAST: 17 mL of IV Clariscan COMPARISON: Mammogram 08/21/2024. Mammogram and ultrasound 08/07/2023. FINDINGS: TISSUE DENSITY: There are scattered areas of fibroglandular density. Background Parenchymal Enhancement: Mild RIGHT Breast: No suspicious mass or non-mass enhancement. LEFT Breast: 1. There are a few enhancing dilated ducts in the retroareolar left breast (series 601, images 171- 176). 2. There are 2 adjacent enhancing masses in the upper outer left breast at middle depth, the largest mass measures up to 1.1 cm in the smaller mass measures 0.9 cm (series 18763, image 130). Other Findings: There are at least 2 mildly prominent left axillary lymph nodes. No suspicious right axillary or bilateral internal mammary lymph nodes. Visualized portions of the thoracic and abdominal viscera are unremarkable. MRI/Breast Bilateral W/O and W IMPRESSION: 1. The enhancing dilated ducts in the retroareolar left breast require further evaluation. Recommend second-look diagnostic ultrasound of the left breast for further evaluation. 2. The enhancing masses in the upper-outer left breast at middle depth require further evaluation. Recommend second-look diagnostic ultrasound of the left breast for further evaluation. 3. Mildly prominent left axillary lymph nodes. Recommend second-look diagnostic ultrasound of the left axilla for further evaluation. OVERALL FINAL ASSESSMENT BI-RADS 4: SUSPICIOUS RECOMMENDATION: Ultrasound Recommended Reading Location: [id number] CC: [facility] VB NET PROGRAMMER-C Nandini Jovel; Dr. Laurie Lawler DO Decating Machine Operator: Signed Normal [facility] CBC W Auto Differential pane l (Bld)on 10-16-2024 Basophils (Bld) [#/Vol] 0.05 10*3/uL Normal <0.11 [facility] Comment on above: Order Comment: Speci men Type: BLOOD SPECIMEN Ordering Facility: [facility] Address: [address] [place] [address] Performed By: #### 5 7021-8 #### [facility] CLIA [id number] [address] [place] [address] [place] Basophils/100 WBC (Bld) 0.5 % Normal [facility] Comment on above: Order Comment: Speci men Type: BLOOD SPECIMEN Ordering Facility: [facility] Address: [address] [place] [address] Performed By: #### 5 7021-8 #### [facility] CLIA [id number] [address] [place] [address] [place] Differential cell count method Nom (Bld) Auto Normal [facility] Comment on above: Order Comment: Speci men Type: BLOOD SPECIMEN Ordering Facility: [facility] Address: [address] [place] [address] Performed By: #### 5 7021-8 #### [facility] CLIA [id number] [address] [place] [address] [place] Eosinophils (Bld) [#/Vol] 0.21 10*3/uL Normal <0.46 [facility] Comment on above: Order Comment: Speci men Type: BLOOD SPECIMEN Ordering Facility: [facility] Address: [address] [place] [address] Performed By: #### 5 7021-8 #### [facility] CLIA [id number] [address] [place] [address] [place] Eosinophils/100 WBC (Bld) 2.2 % Normal [facility] Comment on above: Order Comment: Speci men Type: BLOOD SPECIMEN Ordering Facility: [facility] Address: [address] [place] [address] Performed By: #### 5 7021-8 #### [facility] CLIA [id number] [address] [place] [address] [place] Erythrocyte distribution width (RBC) [Ratio] 12.9 % Normal 11.5-15.0 [facility] Comment on above: Order Comment: Speci men Type: BLOOD SPECIMEN Ordering Facility: [facility] Address: [address] [place] [address] Performed By: #### 5 7021-8 #### [facility] CLIA [id number] [address] [place] Hematocrit (Bld) [Volume fraction] 41.5 % Normal 36.0-46.0 [facility] Comment on above: Order Comment: Speci men Type: BLOOD SPECIMEN Ordering Facility: [facility] Address: [address] [place] [address] Performed By: #### 5 7021-8 #### [facility] CLIA [id number] [address] [place] [address] [place] Hemoglobin (Bld) [Mass/Vol] 13.8 g/dL Normal 11.5-15.5 [facility] Comment on above: Order Comment: Speci men Type: BLOOD SPECIMEN Ordering Facility: [facility] Address: [address] [place] [address] Performed By: #### 5 7021-8 #### [facility] CLIA [id number] [address] [place] [address] [place] Immature granulocytes (Bld) [#/Vol] 10*3/uL Normal <0.10 [facility] Comment on above: Order Comment: Speci men Type: BLOOD SPECIMEN Ordering Facility: [facility] Address: [address] [place] [address] Performed By: #### 5 7021-8 #### [facility] CLIA [id number] [address] [place] [address] [facility] Immature granulocytes/100 WBC (Bld) 0.0 % Normal [facility] Comment on above: Order Comment: Speci men Type: BLOOD SPECIMEN Ordering Facility: [facility] Address: [address] [place] [address] Performed By: #### 5 7021-8 #### [facility] CLIA [id number] [address] [place] [address] [facility] [place] Lymphocytes (Bld) [#/Vol] 2.48 10*3/uL Normal 1.00-4.00 [facility] Comment on above: Order Comment: Speci men Type: BLOOD SPECIMEN Ordering Facility: [facility] Address: [address] [place] [address] Performed By: #### 5 7021-8 #### [facility] CLIA [id number] [address] [place] [id number] [facility] Lymphocytes/100 WBC (Bld) 25.5 % Normal [facility] Comment on above: Order Comment: Speci men Type: BLOOD SPECIMEN Ordering Facility: [facility] Address: [address] [place] [address] Performed By: #### 5 7021-8 #### [facility] CLIA [id number] [address] [place] [address] [place] MCH (RBC) [Entitic mass] 30.8 pg Normal 26.0-34.0 [facility] Comment on above: Order Comment: Speci men Type: BLOOD SPECIMEN Ordering Facility: [facility] Address: [address] [place] [address] Performed By: #### 5 7021-8 #### [facility] CLIA [id number] [address] [place] [address] [place] MCHC (RBC) [Mass/Vol] 33.3 g/dL Normal 30.5-36.0 [facility] Comment on above: Order Comment: Speci men Type: BLOOD SPECIMEN Ordering Facility: [facility] Address: [address] [place] [address] Performed By: #### 5 7021-8 #### [facility] CLIA [id number] [address] [place] [address] [place] MCV (RBC) [Entitic vol] 92.6 fL Normal 80.0-100.0 [facility] Comment on above: Order Comment: Speci men Type: BLOOD SPECIMEN Ordering Facility: [facility] Address: [address] [place] [address] Performed By: #### 5 7021-8 #### [facility] CLIA [id number] [address] [place] [address] [place] Monocytes (Bld) [#/Vol] 0.70 10*3/uL Normal <0.87 [facility] Comment on above: Order Comment: Speci men Type: BLOOD SPECIMEN Ordering Facility: [facility] Address: [address] [place] [address] Performed By: #### 5 7021-8 #### [facility] CLIA [id number] [address] [place] [address] [place] Monocytes/100 WBC (Bld) 7.2 % Normal [facility] Comment on above: Order Comment: Speci men Type: BLOOD SPECIMEN Ordering Facility: [facility] Address: [address] [place] [address] Performed By: #### 5 7021-8 #### [facility] CLIA [id number] [address] [place] [address] [place] Neutrophils (Bld) [#/Vol] 6.30 10*3/uL Normal 1.45-7.50 [facility] Comment on above: Order Comment: Speci men Type: BLOOD SPECIMEN Ordering Facility: [facility] Address: [address] [place] [address] Performed By: #### 5 7021-8 #### [facility] CLIA [id number] [address] [place] [address] [place] Neutrophils/100 WBC (Bld) 64.6 % Normal [facility] Comment on above: Order Comment: Speci men Type: BLOOD SPECIMEN Ordering Facility: [facility] Address: [address] [place] [address] Performed By: #### 5 7021-8 #### [facility] CLIA [id number] [address] [place] [address] [place] Nucleated RBC (Bld) [#/Vol] Normal [facility] Comment on above: Order Comment: Speci men Type: BLOOD SPECIMEN Ordering Facility: [facility] Address: [address] [place] [address] Performed By: #### 5 7021-8 #### [facility] CLIA [id number] [address] [place] [address] [place] Nucleated RBC/100 WBC (Bld) [Ratio] Normal [facility] Comment on above: Order Comment: Speci men Type: BLOOD SPECIMEN Ordering Facility: [facility] Address: [address] [place] [address] Performed By: #### 5 7021-8 #### [facility] CLIA [id number] [address] [place] [address] [place] Platelet mean volume (Bld) [Entitic vol] 8.4 fL Low 9.0-12.7 [facility] Comment on above: Order Comment: Speci men Type: BLOOD SPECIMEN Ordering Facility: [facility] Address: [address] [place] [address] Performed By: #### 5 7021-8 #### [facility] CLIA [id number] [address] [place] [address] [place] Platelets (Bld) [#/Vol] 261 10*3/uL Normal 150-400 [facility] Comment on above: Order Comment: Speci men Type: BLOOD SPECIMEN Ordering Facility: [facility] Address: [address] [place] [address] Performed By: #### 5 7021-8 #### [facility] CLIA [id number] [address] [place] [address] [place] RBC (Bld) [#/Vol] 4.48 10*6/uL Normal 3.90-5.20 [facility] Comment on above: Order Comment: Speci men Type: BLOOD SPECIMEN Ordering Facility: [facility] Address: [address] [place] [address] Performed By: #### 5 7021-8 #### [facility] CLIA [id number] [address] [place] [address] [facility] [place] WBC (Bld) [#/Vol] 9.74 10*3/uL Normal 3.70-11.00 [facility] Comment on above: Order Comment: Speci men Type: BLOOD SPECIMEN Ordering Facility: [facility] Address: [address] [place], [place] [address] Performed By: #### 5 7021-8 #### [facility] CLIA [id number] [address] [place] [address] [place] CBC W/Diff, Automatedon 09-23 Absolute Lymph 2.08 X10 3/uL Normal 0.83-4.51 [facility] Comment on above: Performed By: #### L 100.0100, L503.6550, L500.4100, L506.1001, L500.4050, L501.9985, L501.9520, L503.6030 ####[facility] [address] [place], [address] Absolute Neut 4.7 X10 3/uL Normal 2.0-7.7 [facility] Comment on above: Performed By: #### L 100.0100, L503.6550, L500.4100, L506.1001, L500.4050, L501.9985, L501.9520, L503.6030 ####[facility] [address] [place], [address] Basophils/100 WBC (Bld) 0.8 % Normal 0-1 [facility] Comment on above: Performed By: #### L 100.0100, L503.6550, L500.4100, L506.1001, L500.4050, L501.9985, L501.9520, L503.6030 ####[facility] [address] [place], [address] Eosinophils/100 WBC (Bld) 2.7 % Normal 0-5 [facility] Comment on above: Performed By: #### L 100.0100, L503.6550, L500.4100, L506.1001, L500.4050, L501.9985, L501.9520, L503.6030 ####[facility] [address] [place], [address] Erythrocyte distribution width (RBC) [Ratio] 12.8 % Normal 11.6-14.6 [facility] Comment on above: Performed By: #### L 100.0100, L503.6550, L500.4100, L506.1001, L500.4050, L501.9985, L501.9520, L503.6030 ####[facility] [address] [place], [address] Hematocrit (Bld) [Volume fraction] 42.8 % Normal 37-47 [facility] Comment on above: Performed By: #### L 100.0100, L503.6550, L500.4100, L506.1001, L500.4050, L501.9985, L501.9520, L503.6030 ####[facility] [address] [place], [address] Hemoglobin (Bld) [Mass/Vol] 14.5 g/dL Normal 12.0-15.0 [facility] Comment on above: Performed By: #### L 100.0100, L503.6550, L500.4100, L506.1001, L500.4050, L501.9985, L501.9520, L503.6030 ####[facility] [address] [place], [address] IG% 0.100 Normal 0.0-0.9 [facility] Comment on above: Result Comment: IG% - Immature Granulocytes (promyelocytes, myelocytes and metamyelocytes) > 1% indicates that a LEFT SHIFT is Present. Performed By: #### L 100.0100, L503.6550, L500.4100, L506.1001, L500.4050, L501.9985, L501.9520, L503.6030 ####[facility] [address] [place], [address] Lymphocytes/100 WBC (Bld) 27.6 % Normal 19-41 [facility] Comment on above: Performed By: #### L 100.0100, L503.6550, L500.4100, L506.1001, L500.4050, L501.9985, L501.9520, L503.6030 ####[facility] [address] [place], [address] MCH (RBC) [Entitic mass] 31.3 pg Normal 27.0-32.0 [facility] Comment on above: Performed By: #### L 100.0100, L503.6550, L500.4100, L506.1001, L500.4050, L501.9985, L501.9520, L503.6030 ####[facility] [address] [place], [address] MCHC (RBC) [Mass/Vol] 33.9 g/dL Normal 32-36 [facility] Comment on above: Performed By: #### L 100.0100, L503.6550, L500.4100, L506.1001, L500.4050, L501.9985, L501.9520, L503.6030 ####[facility] [address] [place], [address] MCV (RBC) [Entitic vol] 92.2 fL Normal 81-99 [facility] Comment on above: Performed By: #### L 100.0100, L503.6550, L500.4100, L506.1001, L500.4050, L501.9985, L501.9520, L503.6030 ####[facility] [address] [place], [address] Monocytes/100 WBC (Bld) 6.9 % Normal 0-10 [facility] Comment on above: Performed By: #### L 100.0100, L503.6550, L500.4100, L506.1001, L500.4050, L501.9985, L501.9520, L503.6030 ####[facility] [address] [place], [address] Neutrophils/100 WBC (Bld) 61.9 % Normal 47-70 [facility] Comment on above: Performed By: #### L 100.0100, L503.6550, L500.4100, L506.1001, L500.4050, L501.9985, L501.9520, L503.6030 ####[facility] [address] [place], [address] Nucleated RBC (Bld) [#/Vol] 0 10*3/uL Normal 0-5 [facility] Comment on above: Performed By: #### L 100.0100, L503.6550, L500.4100, L506.1001, L500.4050, L501.9985, L501.9520, L503.6030 ####[facility] [address] [place], [address] Platelet mean volume (Bld) [Entitic vol] 8.6 fL Normal 6.2-12.0 [facility] Comment on above: Performed By: #### L 100.0100, L503.6550, L500.4100, L506.1001, L500.4050, L501.9985, L501.9520, L503.6030 ####[facility] [address] [place], [address] Platelets (Bld) [#/Vol] 272 10*3/uL Normal 150-450 [facility] Comment on above: Performed By: #### L 100.0100, L503.6550, L500.4100, L506.1001, L500.4050, L501.9985, L501.9520, L503.6030 ####[facility] [address] [place], [address] RBC (Bld) [#/Vol] 4.64 10*6/uL Normal 4.2-5.[address] [facility] Comment on above: Performed By: #### L 100.0100, L503.6550, L500.4100, L506.1001, L500.4050, L501.9985, L501.9520, L503.6030 ####[facility] [address] [place], [address] RDW SD 43.4 fl Normal 35.1-43.9 [facility] Comment on above: Performed By: #### L 100.0100, L503.6550, L500.4100, L506.1001, L500.4050, L501.9985, L501.9520, L503.6030 ####[facility] [address] [place], [address] WBC (Bld) [#/Vol] 7.5 10*3/uL Normal 4.4-11.0 [facility] Comment on above: Performed By: #### L 100.0100, L503.6550, L500.4100, L506.1001, L500.4050, L501.9985, L501.9520, L503.6030 ####[facility] [address] [place], [place], [phone] Comprehensive Metabolic Prof ilon 10-16-2024 Albumin [Mass/Vol] 4.4 g/dL Normal 3.5-5.0 [facility] Comment on above: Order Comment: VB NET PROGRAMMER.[facility] [place] ORDERED FERRITIN AND IBCNP.JFRANKLIN ORDERED CMP,CBCD,A1C,TSH,LIPID,AND VITD Performed By: #### L 100.0100, L503.6550, L500.4100, L506.1001, L500.4050, L501.9985, L501.9520, L503.6030 ####[facility] [address] [place], [address] Albumin/Globulin [Mass ratio] 1.6 {ratio} Normal 0.9-2.4 [facility] Comment on above: Order Comment: VB NET PROGRAMMER.[facility] [place] ORDERED FERRITIN AND IBCNP.JFRANKLIN ORDERED CMP,CBCD,A1C,TSH,LIPID,AND VITD Performed By: #### L 100.0100, L503.6550, L500.4100, L506.1001, L500.4050, L501.9985, L501.9520, L503.6030 ####[facility] [address] [place], [place], [id number] ALK PHOS 108 U/L High 35-104 [facility] Comment on above: Order Comment: VB NET PROGRAMMER.[facility] [place] ORDERED FERRITIN AND IBCNP.JFRANKLIN ORDERED CMP,CBCD,A1C,TSH,LIPID,AND VITD Performed By: #### L 100.0100, L503.6550, L500.4100, L506.1001, L500.4050, L501.9985, L501.9520, L503.6030 ####[facility] [address] [place], [address] ALT [Catalytic activity/Vol] 28 U/L Normal <=34 [facility] Comment on above: Order Comment: VB NET PROGRAMMER.[facility] [place] ORDERED FERRITIN AND IBCNP.JFRANKLIN ORDERED CMP,CBCD,A1C,TSH,LIPID,AND VITD Performed By: #### L 100.0100, L503.6550, L500.4100, L506.1001, L500.4050, L501.9985, L501.9520, L503.6030 ####[facility] [address] [place], [address](956) AST [Catalytic activity/Vol] 24 U/L Normal <=31 [facility] Comment on above: Order Comment: VB NET PROGRAMMER.[facility] [place] ORDERED FERRITIN AND IBCNP.JFRANKLIN ORDERED CMP,CBCD,A1C,TSH,LIPID,AND VITD Performed By: #### L 100.0100, L503.6550, L500.4100, L506.1001, L500.4050, L501.9985, L501.9520, L503.6030 ####[facility] [address] [facility] [place], [address] Bilirubin [Mass/Vol] 0.34 mg/dL Normal 0.00-1.30 [facility] Comment on above: Order Comment: VB NET PROGRAMMER.[facility] [place] ORDERED FERRITIN AND IBCNP.JFRANKLIN ORDERED CMP,CBCD,A1C,TSH,LIPID,AND VITD Performed By: #### L 100.0100, L503.6550, L500.4100, L506.1001, L500.4050, L501.9985, L501.9520, L503.6030 ####[facility] [address] [facility] [place], [address] BUN/CRE 24.4 RATIO High 10-20 [facility] Comment on above: Order Comment: VB NET PROGRAMMER.[facility] [place] ORDERED FERRITIN AND IBCNP.JFRANKLIN ORDERED CMP,CBCD,A1C,TSH,LIPID,AND VITD Performed By: #### L 100.0100, L503.6550, L500.4100, L506.1001, L500.4050, L501.9985, L501.9520, L503.6030 ####[facility] [address] [place], [address] Calcium [Mass/Vol] 10.5 mg/dL Normal 7.6-11.0 [facility] Comment on above: Order Comment: VB NET PROGRAMMER.[facility] [place] ORDERED FERRITIN AND IBCNP.JFRANKLIN ORDERED CMP,CBCD,A1C,TSH,LIPID,AND VITD Performed By: #### L 100.0100, L503.6550, L500.4100, L506.1001, L500.4050, L501.9985, L501.9520, L503.6030 ####[facility] [address] [facility] [place], [address] Chloride [Moles/Vol] 105 mmol/L Normal 98-108 [facility] Comment on above: Order Comment: VB NET PROGRAMMER.[facility] [place] ORDERED FERRITIN AND IBCNP.JFRANKLIN ORDERED CMP,CBCD,A1C,TSH,LIPID,AND VITD Performed By: #### L 100.0100, L503.6550, L500.4100, L506.1001, L500.4050, L501.9985, L501.9520, L503.6030 ####[facility] [address] [place], [address] CO2 [Moles/Vol] 20.3 mmol/L Low 21.0-32.0 [facility] Comment on above: Order Comment: VB NET PROGRAMMER.[facility] [place] ORDERED FERRITIN AND IBCNP.JFRANKLIN ORDERED CMP,CBCD,A1C,TSH,LIPID,AND VITD Performed By: #### L 100.0100, L503.6550, L500.4100, L506.1001, L500.4050, L501.9985, L501.9520, L503.6030 ####[facility] [address] [place], [address] Creatinine [Mass/Vol] 0.64 mg/dL Low 0.70-1.20 [facility] Comment on above: Order Comment: VB NET PROGRAMMER.[facility] [place] ORDERED FERRITIN AND IBCNP.JFRANKLIN ORDERED CMP,CBCD,A1C,TSH,LIPID,AND VITD Performed By: #### L 100.0100, L503.6550, L500.4100, L506.1001, L500.4050, L501.9985, L501.9520, L503.6030 ####[facility] [address] [place], [address] GAP 12 Normal 5-15 [facility] Comment on above: Order Comment: VB NET PROGRAMMER.[facility] [place] ORDERED FERRITIN AND IBCNP.JFRANKLIN ORDERED CMP,CBCD,A1C,TSH,LIPID,AND VITD Performed By: #### L 100.0100, L503.6550, L500.4100, L506.1001, L500.4050, L501.9985, L501.9520, L503.6030 ####[facility] [address] [place], [place], [phone] GFR/1.73 sq M.predicted among non-blacks MDRD (S/P/Bld) [Vol rate/Area] 105 mL/min/{1.73_m2} Normal >60 [facility] Comment on above: Order Comment: VB NET PROGRAMMER.[facility] [place] ORDERED FERRITIN AND IBCNP.JFRANKLIN ORDERED CMP,CBCD,A1C,TSH,LIPID,AND VITD Result Comment: mL/m in/1.73m2 CKD-EPI Creatinine Equation (2020) Performed By: #### L 100.0100, L503.6550, L500.4100, L506.1001, L500.4050, L501.9985, L501.9520, L503.6030 ####[facility] [address] [place], [address] Globulin (S) [Mass/Vol] 2.7 g/dL Normal 2.2-4.2 [facility] Comment on above: Order Comment: VB NET PROGRAMMER.[facility] [place] ORDERED FERRITIN AND IBCNP.JFRANKLIN ORDERED CMP,CBCD,A1C,TSH,LIPID,AND VITD Performed By: #### L 100.0100, L503.6550, L500.4100, L506.1001, L500.4050, L501.9985, L501.9520, L503.6030 ####[facility] [address] [place], [address] Glucose [Mass/Vol] 94 mg/dL Normal 70-99 [facility] Comment on above: Order Comment: VB NET PROGRAMMER.[facility] [place] ORDERED FERRITIN AND IBCNP.JFRANKLIN ORDERED CMP,CBCD,A1C,TSH,LIPID,AND VITD Performed By: #### L 100.0100, L503.6550, L500.4100, L506.1001, L500.4050, L501.9985, L501.9520, L503.6030 ####[facility] [address] [place], [place], [phone] Potassium [Moles/Vol] 4.6 mmol/L Normal 3.3-5.1 [facility] Comment on above: Order Comment: VB NET PROGRAMMER.[facility] [place] ORDERED FERRITIN AND IBCNP.JFRANKLIN ORDERED CMP,CBCD,A1C,TSH,LIPID,AND VITD Performed By: #### L 100.0100, L503.6550, L500.4100, L506.1001, L500.4050, L501.9985, L501.9520, L503.6030 ####[facility] [address] [place], [address] Sodium [Moles/Vol] 138 mmol/L Normal 133-145 [facility] Comment on above: Order Comment: VB NET PROGRAMMER.[facility] [place] ORDERED FERRITIN AND IBCNP.JFRANKLIN ORDERED CMP,CBCD,A1C,TSH,LIPID,AND VITD Performed By: #### L 100.0100, L503.6550, L500.4100, L506.1001, L500.4050, L501.9985, L501.9520, L503.6030 ####[facility] [address] [place], [place], [phone](490) T PROT 7.1 g/dL Normal 5.9-8.4 [facility] Comment on above: Order Comment: VB NET PROGRAMMER.[facility] [place] ORDERED FERRITIN AND IBCNP.JFRANKLIN ORDERED CMP,CBCD,A1C,TSH,LIPID,AND VITD Performed By: #### L 100.0100, L503.6550, L500.4100, L506.1001, L500.4050, L501.9985, L501.9520, L503.6030 ####[facility] [address] [facility] [place], [place], [phone] Urea nitrogen [Mass/Vol] 16 mg/dL Normal 4-19 [facility] Comment on above: Order Comment: VB NET PROGRAMMER.[facility] [place] ORDERED FERRITIN AND IBCNP.JFRANKLIN ORDERED CMP,CBCD,A1C,TSH,LIPID,AND VITD Performed By: #### L 100.0100, L503.6550, L500.4100, L506.1001, L500.4050, L501.9985, L501.9520, L503.6030 ####[facility] [address] [place], [place], [phone] Comprehensive metabolic 2000 panelon 10-16-2024 Albumin [Mass/Vol] 4.2 g/dL Normal 3.9-4.9 [facility] Comment on above: Order Comment: Speci men Type: BLOOD SPECIMEN Ordering Facility: [facility] Address: [address] [place] [address] Performed By: #### 2 4323-8, 3040-3 #### [facility] CLIA [id number] [address] [place] [address] [place] ALP [Catalytic activity/Vol] 109 U/L Normal 34-123 [facility] Comment on above: Order Comment: Speci men Type: BLOOD SPECIMEN Ordering Facility: [facility] Address: [address] [id number] Performed By: #### 2 4323-8, 3040-3 #### [facility] CLIA [id number] [address] [place] [address] [place] ALT With P-5'-P [Catalytic activity/Vol] 25 U/L Normal 7-38 [facility] Comment on above: Order Comment: Speci men Type: BLOOD SPECIMEN Ordering Facility: [facility] Address: [address] [place] [address] Performed By: #### 2 4323-8, 3040-3 #### [facility] CLIA [id number] [address] [place] [address] [place] [facility] Anion gap [Moles/Vol] 13 mmol/L Normal 8-15 [facility] Comment on above: Order Comment: Speci men Type: BLOOD SPECIMEN Ordering Facility: [facility] Address: [address] [place] [address] Performed By: #### 2 4323-8, 3040-3 #### [facility] CLIA [id number] [address] [place] [address] [facility] AST With P-5'-P [Catalytic activity/Vol] 19 U/L Normal 13-35 [facility] Comment on above: Order Comment: Speci men Type: BLOOD SPECIMEN Ordering Facility: [facility] Address: [address] [id number] Performed By: #### 2 4323-8, 3040-3 #### [facility] CLIA [id number] [address] [place] [address] [place] Bilirubin [Mass/Vol] 0.3 mg/dL Normal 0.2-1.3 [facility] Comment on above: Order Comment: Speci men Type: BLOOD SPECIMEN Ordering Facility: [facility] Address: [address] [place] [address] Performed By: #### 2 4323-8, 3040-3 #### [facility] CLIA [id number] [address] [place] [address] [place] Calcium [Mass/Vol] 10.4 mg/dL High 8.5-10.2 [facility] Comment on above: Order Comment: Speci men Type: BLOOD SPECIMEN Ordering Facility: [facility] Address: [address] [place] [address] Performed By: #### 2 4323-8, 3040-3 #### [facility] CLIA [id number] [address] [place] [address] [place] Chloride [Moles/Vol] 103 mmol/L Normal 98-107 [facility] Comment on above: Order Comment: Speci men Type: BLOOD SPECIMEN Ordering Facility: [facility] Address: [address] [place] [address] Performed By: #### 2 4323-8, 0-3 #### [facility] CLIA [id number] [address] [place] [address] [place] CO2 [Moles/Vol] 22 mmol/L Normal 22-30 [facility] Comment on above: Order Comment: Speci men Type: BLOOD SPECIMEN Ordering Facility: [facility] Address: [address] [place] [address] Performed By: #### 2 4323-8, 3040-3 #### [facility] CLIA [id number] [address] [place] [address] [place] Creatinine [Mass/Vol] 0.63 mg/dL Normal 0.58-0.96 [facility] Comment on above: Order Comment: Speci men Type: BLOOD SPECIMEN Ordering Facility: [facility] Address: [address] [place] [address] Performed By: #### 2 4323-8, 3040-3 #### [facility] CLIA [id number] [address] [place] [address] [place] eGFRcr SerPlBld CKD-EPI 2021 106 mL/min/1.73m??? Normal >=60 [facility] Comment on above: Order Comment: Molly dawn Type: BLOOD SPECIMEN Ordering Facility: [facility] Address: [address] [place] [address] Result Comment: Harmony mated Glomerular Filtration Rate (eGFR) is calculated using the 2020 CKD-EPI creatinine equation. This equation utilizes serum creatinine, sex, and age as parameters. The creatinine assay has traceable calibration to isotope dilution-mass spectrometry. Refer to KDIGO guidelines for clinical interpretation. In patients with unstable renal function, e.g. those with acute kidney injury, the eGFR may not accurately reflect actual GFR. Performed By: #### 2 4323-8, 3040-3 #### [facility] CLIA [id number] [address] [place] [address] [place] Glucose [Mass/Vol] 105 mg/dL High 74-99 [facility] Comment on above: Order Comment: Molly dawn Type: BLOOD SPECIMEN Ordering Facility: [facility] Address: [address] [place] [address] Result Comment: The [place] [employer] (ADA) provides guidance for cutoff values for fasting glucose and random glucose. The ADA defines fasting as no caloric intake for at least 8 hours. Fasting plasma glucose results between 100 to 125 mg/dL indicate increased risk for diabetes (prediabetes). Fasting plasma glucose results greater than or equal to 126 mg/dL meet the criteria for diagnosis of diabetes. In the absence of unequivocal hyperglycemia, results should be confirmed by repeat testing. In a patient with classic symptoms of hyperglycemia or hyperglycemic crisis, random plasma glucose results greater than or equal to 200 mg/dL meet the criteria for diagnosis of diabetes. Reference: Standards of Medical Care in Diabetes 2016, [place] [employer]. Diabetes Care. 2016.39(Suppl 1). Performed By: #### 2 4323-8, 3040-3 #### [facility] CLIA [id number] [address] [place] [address] [place] Potassium [Moles/Vol] 3.9 mmol/L Normal 3.7-5.1 [facility] Comment on above: Order Comment: Molly dawn Type: BLOOD SPECIMEN Ordering Facility: [facility] Address: [address] [place], [place] [address] Performed By: #### 2 4323-8, 3040-3 #### [facility] CLIA [id number] [address] [place] [address] [place] Protein [Mass/Vol] 6.8 g/dL Normal 6.3-8.0 [facility] Comment on above: Order Comment: Speci men Type: BLOOD SPECIMEN Ordering Facility: [facility] Address: [address] [place] [address] Performed By: #### 2 4323-8, 3040-3 #### [facility] CLIA [id number] [address] [place] [address] [place] Sodium [Moles/Vol] 138 mmol/L Normal 136-144 [facility] Comment on above: Order Comment: Speci men Type: BLOOD SPECIMEN Ordering Facility: [facility] Address: [address] [place] [address] Performed By: #### 2 4323-8, 3040-3 #### [facility] CLIA [id number] [address] [place] [address] [place] Urea nitrogen [Mass/Vol] 19 mg/dL Normal 7-21 [facility] Comment on above: Order Comment: Speci men Type: BLOOD SPECIMEN Ordering Facility: [facility] Address: [address] [place] [address] Performed By: #### 2 4323-8, 3040-3 #### [facility] CLIA [id number] [address] [place] [address] [place] D dimer FEU PPP-mCncon 10-16 Fibrin D-dimer FEU (PPP) [Mass/Vol] 420 ng/mL FEU Normal <500 [facility] Comment on above: Order Comment: Speci men Type: BLOOD SPECIMEN Ordering Facility: [facility] Address: [address] [place], [place] [address] Performed By: #### 4 8065-7 #### [facility] CLIA [id number] [address] [place] [address] [place] ECG COMPLETEon 10-16-2024 ECG COMPLETE Ventricular Rate : 6 8 BPM Atrial Rate : 68 BPM P-R Interval : 132 ms QRS Duration : 92 ms Q-T Interval : 390 ms QTC Calculation(Bazett) : 414 ms Calculated P Wilber : 29 degrees Calculated R Wilber : 13 degrees Calculated T Wilber : 24 degrees NORMAL SINUS RHYTHM POSSIBLE LEFT ATRIAL ENLARGEMENT NONSPECIFIC T WAVE ABNORMALITY ABNORMAL ECG NO PREVIOUS ECGS AVAILABLE Confirmed by LILA PETERSEN MD ([id number]) on 10/16/2024 10:30:21 PM NAME : RAZIA CRARILLO PID : [id number] : 1970 Gender : Female Race : ORD : [id number] Procedure Date : Oct 16 2024 19:26:43 Edit Date : Oct 16 2024 22:30:26 Diagnosis: NORMAL SINUS RHYTHM POSSIBLE LEFT ATRIAL ENLARGEMENT NONSPECIFIC T WAVE ABNORMALITY ABNORMAL ECG NO PREVIOUS ECGS AVAILABLE Confirmed by LILA PETERSEN MD ([id number]) on 10/16/2024 10:30:21 PM Test Reason : Chest Pain Location : 191 : [facility] ED Overread By : LILA PETERSEN MD Edited By : LILA PETERSEN MD Referred By : , Acquired by : KAVITA PROCTOR [facility] ED PROV NOTEon 10-16-2024 ED PROV NOTE HNO ID: [id number] Author: LILA PETERSEN MD Service: Emergency Medicine Author Type: Physician Type: ED Provider Notes Filed: 10/16/2024 22:31 Note Text: ED Provider Note Patient Name: Razia CARRILLO : 1970 SERVICE DATE: 10/16/24 History Patient presents with: rib pain 54-year-old female with past medical history of hypertension who presents today with chief complaint of rib pain. Localized to the right side of the ribs. She states her symptoms started this morning. She thinks the pain is slightly worse with a deep breath as well as movement. She denies any known injury. No chest pain. No cough or congestion. No shortness of breath. No leg swelling or pain. Did have some improvement w ibuprofen. PAST MEDICAL HISTORY Diagnosis Date Anxiety and depression HTN (hypertension) Psychosis, affective (HCC) Seasonal allergies PAST SURGICAL HISTORY Procedure Laterality Date BX OF BREAST; INCISIONAL Right 1997 DANDC, DIAG AND/OR THERAPEUTIC 1994 DANDC, DIAG AND/OR THERAPEUTIC 2021 EGD W/O BRSH SPEC VARICIES INJ 2021 PAST SURGICAL HISTORY OF Right Multiple surgieries in right lower leg SCREENING COLONSCOPY NOT HIGH RISK 2021 No family history on file. Social History Tobacco Use Smoking status: Every Day Types: Cigarettes Smokeless tobacco: Never Vaping Use Vaping status: Former Substance and Sexual Activity Alcohol use: Yes Comment: Socially Drug use: Yes Frequency: 4.0 times per week Types: Marijuana Sexual activity: Not Currently ALLERGIES Allergen Reactions Tape [Adhesive Tape* Rash Review of Systems Constitutional: Negative for chills and fever. Respiratory: Negative for cough and shortness of breath. Cardiovascular: Negative for chest pain, palpitations and leg swelling. Gastrointestinal: Negative for abdominal pain, nausea and vomiting. Physical Exam Vitals BP Pulse Temp Temp src Resp SpO2 Weight Height 10/16/24 1906 10/16/24 1905 10/16/24 19010/16/24 19010/16/24 19010/16/24 19010/16/241905 -- 147/98 80 37.1 ?C (98.8 ?F) Temporal Art 22 97 % 89 kg (196 lb 4.8 oz) Physical Exam Vitals and nursing note reviewed. Constitutional: General: She is not in acute distress. Appearance: She is well-developed. She is not diaphoretic. HENT: Head: Normocephalic and atraumatic. Eyes: General: Right eye: No discharge. Left eye: No discharge. Conjunctiva/sclera: Conjunctivae normal. Pupils: Pupils are equal, round, and reactive to light. Neck: Trachea: No tracheal deviation. Cardiovascular: Rate and Rhythm: Normal rate and regular rhythm. Heart sounds: Normal heart sounds. No murmur heard. No friction rub. No gallop. Pulmonary: Effort: Pulmonary effort is normal. No respiratory distress. Breath sounds: Normal breath sounds. No wheezing. Comments: Tender to palpation over the right lateral ribs in the chest area Chest: Chest wall: Tenderness present. Abdominal: General: Bowel sounds are normal. There is no distension. Palpations: Abdomen is soft. Tenderness: There is no abdominal tenderness. There is no guarding or rebound. Musculoskeletal: General: No swelling or tenderness. Cervical back: Normal range of motion and neck supple. Right lower leg: No edema. Left lower leg: No edema. Lymphadenopathy: Cervical: No cervical adenopathy. Skin: General: Skin is warm and dry. Capillary Refill: Capillary refill takes less than 2 seconds. Findings: No rash. Neurological: Mental Status: She is alert and oriented to person, place, and time. Cranial Nerves: No cranial nerve deficit. Psychiatric: Mood and Affect: Mood normal. Behavior: Behavior normal. Diagnostic Testing ED Labs Ordered and Reviewed - No data to display Procedures ED Course / Clinical Impression Clinical Impressions as of 10/16/242226 Rib pain on right side Chest pain, unspecified type MDM / Disposition / Plan 54-year-old female who presents today with chief complaint of right rib pain DDX includes but not limited to: Feel the pain most likely is musculoskeletal in etiology based on the history and the physical exam, could also be ACS or PE although feel these are less likely as well as pneumonia ED course and medical decision making Labs EKG and chest imaging were obtained. EKG shows normal sinus rhythm with no ST elevation, does have some nonspecific T wave changes, no prior for comparison. The patient had 2 negative troponins. No leukocytosis or anemia. Her D-dimer was negative. Her chest x-ray was unremarkable. She did have significant improvement in her symptoms with Toradol here in the emergency department. I think at this point based on her negative workup of the above that ACS or PE are unlikely and the patient's pain is most likely secondary to musculoskeletal etiology. I think she is safe for discharge home and primary care follow-up. SIGNATURE: Lila Petersen MD (more content not included)... Normal [facility] Ferritinon 10-16-2024 Ferritin [Mass/Vol] 81 ng/mL Normal 22-378 [facility] Comment on above: Order Comment[facility] IBCNP.LEONEL ORDERED CMP,CBCD,A1C,TSH,LIPID,AND VITD Performed By: #### L 100.0100, L503.6550, L500.4100, L506.1001, L500.4050, L501.9985, L501.9520, L503.6030 ####[facility] [address] [place], [address] Fibrin D-dimer FEU (PPP) [Ma ss/Vol]on 10-16-2024 D DIMER AGE-RELATED CUTOFF 530 ng/mL FEU Normal [facility] Comment on above: Order Comment: Speci men Type: BLOOD SPECIMEN Ordering Facility: [facility] Address: [address] [place] [address] Performed By: #### 4 8065-7 #### [facility] CLIA [id number] [address] [place] [address] [place] HIGH SENSITIVITY TROPONIN T (INITIAL)on 10-16-2024 Troponin T.cardiac High sensitivity method [Mass/Vol] 8 ng/L Normal <12 [facility] Comment on above: Order Comment: Speci men Type: BLOOD SPECIMEN Ordering Facility: [facility] Address: [address] [place] [address] Performed By: #### L [id number] #### [facility] CLIA [id number] [address] [place] [address] [place] HIGH SENSITIVITY TROPONIN T (SECOND)on 10-16-2024 Troponin T.cardiac High sensitivity method [Mass/Vol] 8 ng/L Normal <12 [facility] Comment on above: Order Comment: Speci men Type: BLOOD SPECIMEN Ordering Facility: [facility] Address: [address] [place] [address] Performed By: #### L [id number] #### [facility] CLIA [id number] [address] [place] [address] [place] Hemoglobin A1con 10-16-2024 HbA1c (Bld) [Mass fraction] 5.3 % Normal <=5.6 [facility] Comment on above: Result Comment: Norm al < 5.7 % Prediabetic 5.7 - 6.4 % Diabetic >or= 6.5 % Please note range changes. Performed By: #### L 100.0100, L503.6550, L500.4100, L506.1001, L500.4050, L501.9985, L501.9520, L503.6030 ####[facility] [address] [place], [place], [address] Iron+Iron Binding Capacityon 10-16-2024 Iron [Mass/Vol] 81 ug/dL Normal 50-170 [facility] Comment on above: Order Comment: VB NET PROGRAMMER.[facility] ORDERED FERRITIN AND IBCNP.JFRANKLIN ORDERED CMP,CBCD,A1C,TSH,LIPID,AND VITD Performed By: #### L 100.0100, L503.6550, L500.4100, L506.1001, L500.4050, L501.9985, L501.9520, L503.6030 ####[facility] [address] [place], [place], [phone] IRON SATURATION 26.0 Normal 13-59 [facility] Comment on above: Order Comment: VB NET PROGRAMMER.[facility] ORDERED FERRITIN AND IBCNP.JFRANKLIN ORDERED CMP,CBCD,A1C,TSH,LIPID,AND VITD Performed By: #### L 100.0100, L503.6550, L500.4100, L506.1001, L500.4050, L501.9985, L501.9520, L503.6030 ####[facility] [address] [place], [place], [phone] TIBC 314 ug/dL Normal 250-450 [facility] Comment on above: Order Comment: VB NET PROGRAMMER.[facility] ORDERED FERRITIN AND IBCNP.JFRANKLIN ORDERED CMP,CBCD,A1C,TSH,LIPID,AND VITD Performed By: #### L 100.0100, L503.6550, L500.4100, L506.1001, L500.4050, L501.9985, L501.9520, L503.6030 ####[facility] [address] [place], [place], [phone] UIBC 233 ug/dL Normal 228-428 [facility] Comment on above: Order Comment: VB NET PROGRAMMER.[facility] ORDERED FERRITIN AND IBCNP.JFRANKLIN ORDERED CMP,CBCD,A1C,TSH,LIPID,AND VITD Performed By: #### L 100.0100, L503.6550, L500.4100, L506.1001, L500.4050, L501.9985, L501.9520, L503.6030 ####[facility] [address] [place], [address] Lipase SerPl-cCncon 10-17-19 25 Lipase [Catalytic activity/Vol] 32 U/L Normal 16-61 [facility] Comment on above: Order Comment: Speci men Type: BLOOD SPECIMEN Ordering Facility: [facility] Address: [address] [place] [address] Performed By: #### 2 4323-8, 3040-3 #### [facility] CLIA [id number] [address] [place] [address] [facility] Lipid Profileon 10-16-2024 CHOL:HDL 2.72 Normal [facility] Comment on above: Order Comment: VB NET PROGRAMMER.[facility] ORDERED FERRITIN AND IBCNP.JFRANKLIN ORDERED CMP,CBCD,A1C,TSH,LIPID,AND VITD Performed By: #### L 100.0100, L503.6550, L500.4100, L506.1001, L500.4050, L501.9985, L501.9520, L503.6030 ####[facility] [address] [place], [place], [phone] Cholesterol [Mass/Vol] 220 mg/dL High <=200 [facility] Comment on above: Order Comment: VB NET PROGRAMMER.[facility] ORDERED FERRITIN AND IBCNP.JFRANKLIN ORDERED CMP,CBCD,A1C,TSH,LIPID,AND VITD Result Comment: Chol esterol level, Desirable <200 mg/dL Borderline high cholesterol 200-239 mg/dL High cholesterol >=240 mg/dL Recommendations of the NCEP Adult Treatment Panel for the following risk-cutoff thresholds for the [place] population. Performed By: #### L 100.0100, L503.6550, L500.4100, L506.1001, L500.4050, L501.9985, L501.9520, L503.6030 ####[facility] [address] [facility] [place], [address] Cholesterol in HDL [Mass/Vol] 81 mg/dL Normal [facility] Comment on above: Order Comment: VB NET PROGRAMMER.[facility] ORDERED FERRITIN AND IBCNP.JFRANKLIN ORDERED CMP,CBCD,A1C,TSH,LIPID,AND VITD Result Comment: Erendira onal Cholesterol Education Program (NCEP) guidelines: <40 mg/dL: Low HDL-cholesterol (major risk factor for CHD) >= 60 mg/dL: High HDL-cholesterol (negative risk factor for CHD) HDL-cholesterol is affected by a number of factors, e.g. smoking, exercise, hormones, sex and age. Performed By: #### L 100.0100, L503.6550, L500.4100, L506.1001, L500.4050, L501.9985, L501.9520, L503.6030 ####[facility] [address] [facility] [place], [address] Cholesterol in LDL [Mass/Vol] 118 mg/dL Normal [facility] Comment on above: Order Comment: VB NET PROGRAMMER.[facility] ORDERED FERRITIN AND IBCNP.JFRANKLIN ORDERED CMP,CBCD,A1C,TSH,LIPID,AND VITD Result Comment: Bord sngwoc=325-753 mg/dL Higher Mpcq=859 mg/dL or greater Performed By: #### L 100.0100, L503.6550, L500.4100, L506.1001, L500.4050, L501.9985, L501.9520, L503.6030 ####[facility] [address] [facility] [place], [address] Cholesterol in VLDL [Mass/Vol] 21 mg/dL Normal 5-40 [facility] Comment on above: Order Comment: VB NET PROGRAMMER.[facility] ORDERED FERRITIN AND IBCNP.JFRANKLIN ORDERED CMP,CBCD,A1C,TSH,LIPID,AND VITD Performed By: #### L 100.0100, L503.6550, L500.4100, L506.1001, L500.4050, L501.9985, L501.9520, L503.6030 ####[facility] [address] [place], [place], [phone]) Triglyceride [Mass/Vol] 104 mg/dL Normal [facility] Comment on above: Order Comment: VB NET PROGRAMMER.[facility] ORDERED FERRITIN AND IBCNP.JFRANKLIN ORDERED CMP,CBCD,A1C,TSH,LIPID,AND VITD Result Comment: The drugs N-Acetylcysteine and Metamizole may falsely depress this assay. Normal range: <150 mg/dL Borderline High: 150-199 mg/dL High: 200-499 mg/dL Very High: >500 mg/dL Performed By: #### L 100.0100, L503.6550, L500.4100, L506.1001, L500.4050, L501.9985, L501.9520, L503.6030 ####[facility] [address] [place], [address] Thyroid Stim Hormone (TSH)on 10-16-2024 TSH 2.780 uIU/mL Normal 0.300-4.200 [facility] Comment on above: Order Comment: VB NET PROGRAMMER.[facility] ORDERED FERRITIN AND IBCNP.JFRANKLIN ORDERED CMP,CBCD,A1C,TSH,LIPID,AND VITD Performed By: #### L 100.0100, L503.6550, L500.4100, L506.1001, L500.4050, L501.9985, L501.9520, L503.6030 ####[facility] [address] [place], [address] Vitamin D,25 Hydroxyon 10-16 Vitamin D 25-OH 51.2 ng/mL Normal 30-100 [facility] Comment on above: Order Comment: VB NET PROGRAMMER.[facility] ORDERED FERRITIN AND IBCNP.JFRANKLIN ORDERED CMP,CBCD,A1C,TSH,LIPID,AND VITD Result Comment: Danielle min D Status Deficiency: <20 ng/mL (50nmol/L) Insufficiency: 20-30 ng/mL (50-75 nmol/L) Sufficiency: 30-100 ng/mL (75-250 nmol/L) Toxicity: >100 ng/mL (>250 nmol/L) Performed By: #### L 100.0100, L503.6550, L500.4100, L506.1001, L500.4050, L501.9985, L501.9520, L503.6030 ####[facility] [address] [place], [place], [address] XR CHEST 1V FRONTALon 2024 XR CHEST 1V FRONTAL * * *Final Report* * * DATE OF EXAM: Oct 16 2024 7:55PM LDX 5290 - XR CHEST 1V FRONTAL / PROCEDURE REASON: Chest pain * * * * Physician Interpretation * * * * EXAMINATION: CHEST RADIOGRAPH (SINGLE VIEW AP OR PA) CLINICAL HISTORY: Chest pain MQ: XC1_5 Comparison: None. RESULT: Lines, tubes, and devices: None. Lungs and pleura: No consolidation. No lung mass. No pleural effusion. Cardiomediastinal silhouette: Unremarkable cardiomediastinal silhouette. Other: The visualized bony thorax appears unremarkable. IMPRESSION: Unremarkable exam with no acute radiographic abnormality. Decating Machine Operator: PSCB Transcribe Date/Time: Oct 16 2024 8:02P Dictated by : ABRAHAM HEREDIA MD This examination was interpreted and the report reviewed and electronically signed by: ABRAHAM HEREDIA MD on Oct 16 2024 8:03PM EST [id number] Normal [facility] Orthopedic Visit Reporton Orthopedic Visit Report [facility] [address] [place] [address] [address] [place], [place] [address] OFFICE VISIT Date of Service: 10/14/24 MR#: [id number] Acct: [id number] Name: RAZIA CARRILLO Rep #: [id number] : 1970 Provider: Dr. Luis claire [...] the decisions made by me, Dr. Luis Harper DO 10/14/24 8587. Part of today???s visit was documented by [...] lower l (more content not included)... Normal [facility] Spine Lumbar (Routine)on Spine Lumbar (Routine) [facility] Imaging Services [address] [place] [address] Spine Lumbar (Routine) MR#: [id number] Acct: [id number] Name: RAZIA CARRILLO Rep #: [id number] : 1970 F 54 From: Dileep Bear MD PCP: Nandini Jovel, [facility], VB NET PROGRAMMER-C Status: REG CLI Study: Spine Lumbar (Routine) Date of Exam: 10/09/24 Exam# [id number] Ordering Dr: Luis Harper DO PROCEDURE: SPINE [...] otherwise unremarkable. Note: Review of the lateral public relations specialist image demonstrates significant multilevel degenerative disc disease of the cervical spine. MRI/Spine Lumbar (Routine) IMPRESSION: 1. Degenerative disc disease, T12-L1 and L3-4 through L5-S1. 2. There is multilevel facet arthropathy. There is central canal stenosis at the L4-L5 level. 3. There is lateral recess stenosis and/or foraminal narrowing at multiple levels as described. 4. Other findings as noted. 5. Review of the lateral public relations specialist image demonstrates significant multilevel degenerative disc disease of the cervical spine. Reading Location: [place] [address] CC: [facility] VB NET PROGRAMMER-C Nandini Jovel; Dr. Luis Harper DO Decating Machine Operator: Signed Normal [facility] Culture, Anaerobic [facility]-16-2024 CUAN No anaerobic bacteri a isolated. Normal [facility] Comment on above: Performed By: #### M 100.2000, M100.4001, M100.3000 ####[facility] [address] [place], [address] Wound Cultureon 09-16-2024 #1, 2 Identification and [...] S Vancomycin Islt FRANK 2 S Normal [facility] Comment on above: Performed By: #### M 100.2000, M100.4001, M100.3000 ####[facility] [address] [place], [address] Gram Stainon 09-12-2024 GS Gram Stain No organisms seen Normal [facility] Comment on above: Performed By: #### M 100.2000, M100.4001, M100.3000 ####[facility] [address] [place], [address] Compliance Administrator Office Visit Reporton 09-11-2024 Compliance Administrator Office Visit Report [facility] [address], [address] [place] [address] OFFICE VISIT Date of Service: 09/11/24 MR#: [id number] Acct: [id number] Name: RAZIA CARRILLO Rep #: [id number] : 1970 Provider: Dr. 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 Normal [facility] Special Stain Group IIon Special Stain Group II ----- Patient Age/Sex Location Account Attending Physician ----- RAZIA CARRILLO 54/F LABSPEC [id number] Dr. Laurie Lawler, Good ----- Specimen: [id number] Received: 09/11/24 Status: GRACIELA Dustin Num: [id number] Spec Type: Fluid Subm Dr: Dr. Laurie Lawler, DO HEADER OPERATION: Swab collection PRE-OP DIAGNOSIS: [...] Submitted for cytology and cell block preparation. Mr 09/14/2024 CPT: 45718,32573 Signed (signature on file) Dr. Renetta Kerr MD 09/21/24 1327 ----- Normal [facility] Comment on above: Performed By: #### P SSII ####[facility] [address] [facility] [place], [place], [address] SCRN MAMM (CAD)W/KATY BILATo n 08-21-2024 SCRN MAMM (CAD)W/KATY BILAT [facility] Imaging Services [address] [place], [place] [address] SCRN MAMM (CAD)W/KATY BILAT MR#: [id number] Acct: [id number] Name: RAZIA CARRILLO Rep #: [id number] : 1970 F 54 From: Ken jenkins MD PCP: Nandini Jovel Lev, VB NET PROGRAMMER-C Status: [facility] Study: SCRN MAMM (CAD)W/KATY BILAT Date of Exam: 07/25 Exam# [id number] Ordering Dr: Laurie Lawler DO EXAM: SCRN [...] be mailed to the patient. Reading Location: [place] [address] CC: [facility] VB NET PROGRAMMER-C Nandini Jovel; Dr. Laurie Lawler DO Decating Machine Operator: Signed Normal [facility] Orthopedic Visit Reporton Orthopedic Visit Report [facility] [address] [place] [address] OFFICE VISIT Date of Service: 08/10/24 MR#: [id number] Acct: [id number] Name: RAZIA CARRILLO Rep #: [id number] : 1970 Provider: Dr. Luis claire DO Age/Sex: 54/F Location[place] [facility] [place] Status: Signed Intake Vital Signs 01/27/24 07:19 [...] right h (more content not included)... Normal [facility]2024 [facility] Tele[facility] ([facility]) RAZIA CARRILLO ([id number]) 1970 F Date Time Provider Department 06/16/24 [facility] During your visit today, we [...] Status:Closed by CECILE CASPER on 06/16/24 Normal [facility] Urine Cultureon 06-13-2024 URC Mixed Gram Positive Organisms Mobile Count 80,000-100,000 MIXC Mixed contaminants. Submit a new specimen if indicated. Normal [facility] Comment on above: Performed By: #### M 100.2199, L4.2010 #### [facility] Laboratory [address] [place], [address] Urinalysis, Routine (Dipstic k)on 06-11-2024 BILIRUBIN URINE Negative Normal Negative [facility] Comment on above: Order Comment: Urine , Random Performed By: #### M 100.2199, L4.2010 #### [facility] [address] [place], [address] Clarity (U) Clear Normal Clear [facility] Comment on above: Order Comment: Urine , Random Performed By: #### M 100.2199, L4.2010 #### [facility] [address] [place], [address] Color (U) Yellow Normal Yellow [facility] Comment on above: Order Comment: Urine , Random Performed By: #### M 100.2199, L4 #### [facility] [address] [place], [address] GLUCOSE, UR Normal Normal Normal [facility] Comment on above: Order Comment: Urine , Random Performed By: #### M 100.2199, L4 #### [facility] [address] [place], [address] KETONE UR Negative Normal Negative [facility] Comment on above: Order Comment: Urine , Random Performed By: #### M 100.2199, L4 #### [facility] [address] [place], [address] LEUK ESTERASE Negative Normal Negative [facility] Comment on above: Order Comment: Urine , Random Performed By: #### M 100.220, #### [facility] [address] [place], [address] Nitrite Ql (U) Negative Normal Negative [facility] Comment on above: Order Comment: Urine , Random Performed By: #### M , L4 #### [facility] [address] [place], [address] OCCULT BLOOD-UR 150 /ul Abnormal Negative [facility] Comment on above: Order Comment: Urine , Random Performed By: #### M , #### [facility] [address] [place], [address] pH UR 7.0 Normal 5.0 - 8.0 [facility] Comment on above: Order Comment: Urine , Random Performed By: #### M , #### [facility] [address] [place], [address] PROT DIPSTX 15 mg/dl Abnormal Negative [facility] Comment on above: Order Comment: Urine , Random Performed By: #### M , L4 #### [facility] [address] [place], [address] SP.GR. DIPSTX 1.005 Normal 1.002-1.030 [facility] Comment on above: Order Comment: Urine , Random Performed By: #### M , #### [facility] [address] [place], [address] UROBILI Normal Normal Normal [facility] Comment on above: Order Comment: Urine , Random Performed By: #### M , L4 #### [facility] [address] [place], [address] CNOVon 05-22-2024 CNOV Office Visit (SLEWST ) RAZIA CARRILLO ([id number]) 1970 F Date Time Provider Department 05/22/24 10:00 AM JOHN POLLOCK During your visit today, we recorded the following information about you: Pulse Respiration Blood pressure Weight 74/minute 16/minute 116/81 84.8 kg John Pollock APRN.CNP 05/22/2024 12:10 PM Signed [facility] Follow up/ Established patient visit Date of last visit : 04/17/24 The following Impression/Plan was copied and pasted from the patient's last [facility] visit on 04/17/24: IMPRESSION/PLAN: Razia CARRILLO is a 54 year old female presents today in [facility] with the following [...] prescriptions, we will obtain medical records from [facility] including her Genesight testing. 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 - Declined weight loss [...] on medicatio (more content not included)... Normal [facility] CNOVon 04-17-2024 CNOV Office Visit (NESMM) RAZIA CARRILLO ([id number]) 1970 F Date Time Provider Department 04/17/24 1:00 PM DERIAN LATIF During your visit today, we recorded the following information about you: Temperature Pulse Respiration Blood pressure 99.1 degrees 74/minute 22/minute 130/84 Weight 84.8 kg Derian Latif APRN.CNP 04/17/2024 8:23 PM Signed [facility] New Patient Evaluation [...] year old female who presents to a [facility] for evaluation for [...] will take the mask off without recollection. 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 Normal [facility] PT D/C Summary (1)on 024 PT D/C Summary (1) [facility] Physical Therapy [facility] [address] [place] [address] [address] [place] [address] / REHABILITATION SERVICES DISCHARGE SUMMARY MR#: [id number] Acct: [id number] Name: RAZIA CARRILLO Rep #: [id number] : 1970 54 From: Joleen Knutson PT, Cert. MDT Referring DrMaria Isabel: Dr. Luis Harper DO Status: R EG RCR Insurance: [facility] SELF PAY INSURANCE Discharge Summary D/C [...] please feel free to call me at [phone]. Thank you for the referral of this patient. Sincerely, Joleen Knutson, PT, Cert MDT Balance/Gait/Functional tests Balance/Special Test Scores Oswestry Low Back Score: 12 Improvement % Improvement: 90 03/17/24 1035 CC: [facility] VB NET PROGRAMMERBarber Jovel; Dr. Luis Harper, TONJA Signed Normal [facility] Vitamin D,25 Hydroxyon 03-12 Vitamin D 25-OH 30.6 ng/mL Normal [facility] Comment on above: Result Comment: Danielle min D 25(OH) Status Range Deficiency <20 ng/mL (50nmol/L) Insufficiency 20 - 30 ng/mL (50 - 75 nmol/L) Sufficiency 30 - 100 ng/mL (75 - 250 nmol/L) Toxicity >100 ng/mL (>250 nmol/L) Performed By: #### L 100.0100, L500.4100, L506.1000, L500.4050 ####[facility] [address] [place], [address] CBC W/Diff, Automatedon 02-22 Absolute Lymph 1.95 X10 3/uL Normal 0.83-4.51 [facility] Comment on above: Performed By: #### L 100.0100, L500.4100, L506.1000, L500.4050 #### [facility] [address] [place], [address] Absolute Neut 5.8 X10 3/uL Normal 2.0-7.7 [facility] Comment on above: Performed By: #### L 100.0100, L500.4100, L506.1000, L500.4050 #### [facility] [address] [place], [address] Basophils/100 WBC (Bld) 0.8 % Normal 0-1 [facility] Comment on above: Performed By: #### L 100.0100, L500.4100, L506.1000, L500.4050 #### [facility] [address] [place], [address] Eosinophils/100 WBC (Bld) 2.6 % Normal 0-5 [facility] Comment on above: Performed By: #### L 100.0100, L500.4100, L506.1000, L500.4050 #### [facility] [address] [place], [address] Erythrocyte distribution width (RBC) [Ratio] 13.5 % Normal 11.6-14.6 [facility] Comment on above: Performed By: #### L 100.0100, L500.4100, L506.1000, L500.4050 #### [facility] [address] [place], [address] Hematocrit (Bld) [Volume fraction] 44.9 % Normal 37-47 [facility] Comment on above: Performed By: #### L 100.0100, L500.4100, L506.1000, L500.4050 #### [facility] [address] [place], [address] Hemoglobin (Bld) [Mass/Vol] 14.9 g/dL Normal 12.0-15.0 [facility] Comment on above: Performed By: #### L 100.0100, L500.4100, L506.1000, L500.4050 #### [facility] [address] [place], [address] IG% 0.300 Normal 0.0-0.9 [facility] Comment on above: Result Comment: IG% - Immature Granulocytes (promyelocytes, myelocytes and metamyelocytes) > 1% indicates that a LEFT SHIFT is Present. Performed By: #### L 100.0100, L500.4100, L506.1000, L500.4050 #### [facility] [address] [place], [address] Lymphocytes/100 WBC (Bld) 22.6 % Normal 19-41 [facility] Comment on above: Performed By: #### L 100.0100, L500.4100, L506.1000, L500.4050 #### [facility] [address] [place], [address] MCH (RBC) [Entitic mass] 31.2 pg Normal 27.0-32.0 [facility] Comment on above: Performed By: #### L 100.0100, L500.4100, L506.1000, L500.4050 #### [facility] [address] [place], [address] MCHC (RBC) [Mass/Vol] 33.2 g/dL Normal 32-36 [facility] Comment on above: Performed By: #### L 100.0100, L500.4100, L506.1000, L500.4050 #### [facility] [address] [place], [address] MCV (RBC) [Entitic vol] 94.1 fL Normal 81-99 [facility] Comment on above: Performed By: #### L 100.0100, L500.4100, L506.1000, L500.4050 #### [facility] [address] [place], [address] Monocytes/100 WBC (Bld) 6.3 % Normal 0-10 [facility] Comment on above: Performed By: #### L 100.0100, L500.4100, L506.1000, L500.4050 #### [facility] [address] [place], [address] Neutrophils/100 WBC (Bld) 67.4 % Normal 47-70 [facility] Comment on above: Performed By: #### L 100.0100, L500.4100, L506.1000, L500.4050 #### [facility] [address] [place], [address] Nucleated RBC (Bld) [#/Vol] 0 10*3/uL Normal 0-5 [facility] Comment on above: Performed By: #### L 100.0100, L500.4100, L506.1000, L500.4050 #### [facility] [address] [place], [address] Platelet mean volume (Bld) [Entitic vol] 8.8 fL Normal 6.2-12.0 [facility] Comment on above: Performed By: #### L 100.0100, L500.4100, L506.1000, L500.4050 #### [facility] [address] [place], [address] Platelets (Bld) [#/Vol] 267 10*3/uL Normal 150-450 [facility] Comment on above: Performed By: #### L 100.0100, L500.4100, L506.1000, L500.4050 #### [facility] [address] [place], [address] RBC (Bld) [#/Vol] 4.77 10*6/uL Normal 4.2-5.[address] [facility] Comment on above: Performed By: #### L 100.0100, L500.4100, L506.1000, L500.4050 #### [facility] [address] [place], [address] RDW SD 46.5 fl High 35.1-43.9 [facility] Comment on above: Performed By: #### L 100.0100, L500.4100, L506.1000, L500.4050 #### [facility] [address] [place], [address] WBC (Bld) [#/Vol] 8.6 10*3/uL Normal 4.4-11.0 [facility] Comment on above: Performed By: #### L 100.0100, L500.4100, L506.1000, L500.4050 #### [facility] [address] [place], [address] Comprehensive Metabolic Prof mton 03-11-2024 Albumin [Mass/Vol] 3.7 g/dL Normal 3.2-5.0 [facility] Comment on above: Performed By: #### L 100.0100, L500.4100, L506.1000, L500.4050 #### [facility] [address] [place], [address] Albumin/Globulin [Mass ratio] 1.2 {ratio} Normal 0.9-2.4 [facility] Comment on above: Performed By: #### L 100.0100, L500.4100, L506.1000, L500.4050 #### [facility] [address] [place], [address] ALK P 101 U/L Normal 45-117 [facility] Comment on above: Performed By: #### L 100.0100, L500.4100, L506.1000, L500.4050 #### [facility] [address] [place], [address] ALT [Catalytic activity/Vol] 33 U/L Normal 13-56 [facility] Comment on above: Performed By: #### L 100.0100, L500.4100, L506.1000, L500.4050 #### [facility] [address] [place], [address] AST [Catalytic activity/Vol] 16 U/L Normal 15-37 [facility] Comment on above: Performed By: #### L 100.0100, L500.4100, L506.1000, L500.4050 #### [facility] [address] [place], [address] Bilirubin [Mass/Vol] 0.50 mg/dL Normal 0.20-1.00 [facility] Comment on above: Result Comment: For patients on eltrombopag therapy, use of Dimension [place] TBIL is not recommended. Performed By: #### L 100.0100, L500.4100, L506.1000, L500.4050 #### [facility] [address] [place], [address] BUN/CRE 19.5 RATIO Normal 10-20 [facility] Comment on above: Performed By: #### L 100.0100, L500.4100, L506.1000, L500.4050 #### [facility] [address] [place], [address] CA,Total 10.0 mg/dL Normal 8.5-10.1 [facility] Comment on above: Performed By: #### L 100.0100, L500.4100, L506.1000, L500.4050 #### [facility] [address] [place], [address] Chloride [Moles/Vol] 111 mmol/L High 98-107 [facility] Comment on above: Performed By: #### L 100.0100, L500.4100, L506.1000, L500.4050 #### [facility] [address] [place], [address] CO2 [Moles/Vol] 24.0 mmol/L Normal 21.0-32.0 [facility] Comment on above: Performed By: #### L 100.0100, L500.4100, L506.1000, L500.4050 #### [facility] [address] [place], [address] Creatinine [Mass/Vol] 0.62 mg/dL Normal 0.55-1.02 [facility] Comment on above: Result Comment: The validity of the calculated GFR GFRAA in patients over 70 years has not been determined. Clinical correlation is essential. Performed By: #### L 100.0100, L500.4100, L506.1000, L500.4050 #### [facility] [address] [place], [address] EST GFR - AA 130 mL/min Normal >60 [facility] Comment on above: Result Comment: Afri can [place] GFR Calc Performed By: #### L 100.0100, L500.4100, L506.1000, L500.4050 #### [facility] [address] [place], [address] GAP 5 Normal 5-15 [facility] Comment on above: Performed By: #### L 100.0100, L500.4100, L506.1000, L500.4050 #### [facility] [address] [place], [address] GFR/1.73 sq M.predicted among non-blacks MDRD (S/P/Bld) [Vol rate/Area] 108 mL/min/{1.73_m2} Normal >60 [facility] Comment on above: Result Comment: Non- GFR Calc Performed By: #### L 100.0100, L500.4100, L506.1000, L500.4050 #### [facility] [address] [place], [address] Globulin (S) [Mass/Vol] 3.2 g/dL Normal 2.2-4.2 [facility] Comment on above: Performed By: #### L 100.0100, L500.4100, L506.1000, L500.4050 #### [facility] [address] [place], [address] Glucose [Mass/Vol] 94 mg/dL Normal 74-106 [facility] Comment on above: Performed By: #### L 100.0100, L500.4100, L506.1000, L500.4050 #### [facility] [address] [place], [address] Potassium [Moles/Vol] 3.9 mmol/L Normal 3.5-5.1 [facility] Comment on above: Performed By: #### L 100.0100, L500.4100, L506.1000, L500.4050 #### [facility] [address] [place], [address] Sodium [Moles/Vol] 140 mmol/L Normal 136-145 [facility] Comment on above: Performed By: #### L 100.0100, L500.4100, L506.1000, L500.4050 #### [facility] [address] [place], [address] T PROT 6.9 g/dL Normal 6.4-8.2 [facility] Comment on above: Performed By: #### L 100.0100, L500.4100, L506.1000, L500.4050 #### [facility] [address] [place], [address] Urea nitrogen [Mass/Vol] 12 mg/dL Normal -18 [facility] Comment on above: Performed By: #### L 100.0100, L500.4100, L506.1000, L500.4050 #### [facility] [address] [place], [address] Lipid Profileon 03-11-2024 Cholesterol [Mass/Vol] 198 mg/dL Normal 200 [facility] Comment on above: Result Comment: <200 mg/dL Desirable 200-240 mg/dL Borderline >240 mg/dL High Risk Performed By: #### L 100.0100, L500.4100, L506.1000, L500.4050 #### [facility] [address] [place], [address] Cholesterol in HDL [Mass/Vol] 74 mg/dL Normal [facility] Comment on above: Result Comment: The drugs N-Acetylcysteine and Metamizole may falsely depress this assay. Reference Range HDL <40 mg/dL Low HDL Cholesterol HDL >or= 60 mg/dL High HDL Cholesterol Performed By: #### L 100.0100, L500.4100, L506.1000, L500.4050 #### [facility] [address] [place], [address] Cholesterol in LDL [Mass/Vol] 95 mg/dL Normal 0-130 [facility] Comment on above: Performed By: #### L 100.0100, L500.4100, L506.1000, L500.4050 #### [facility] [address] [place], [address] Cholesterol in VLDL [Mass/Vol] 29 mg/dL Normal 5-40 [facility] Comment on above: Performed By: #### L 100.0100, L500.4100, L506.1000, L500.4050 #### [facility] [address] [place], [address] Triglyceride [Mass/Vol] 147 mg/dL Normal [facility] Comment on above: Result Comment: The drugs N-Acetylcysteine and Metamizole may falsely depress this assay. Serum Triglycerides Reference Interval Normal <150 mg/dL Borderline high 150 - 199 mg/dL High 200 - 499 mg/dL Very High > or = 500 mg/dL Performed By: #### L 100.0100, L500.4100, L506.1000, L500.4050 #### [facility] [address] [place], [address] Re-Evaluation - PT (1)on Re-Evaluation - PT (1) [facility] [address] [place] [address] / REEVALUATION / MEDICARE RECERTIFICATION PHYSICAL THERAPY MR#: [id number] Acct: [id number] Name: RAZIA CARRILLO Rep #: [id number] : 1970 54 From: Joleen Knutson PT, Cert. MDT Referring Dr.: Dr. Luis Harper DO Status:REG RCR Insurance: [facility] SELF PAY INSURANCE Re-Evaluation Intro: Dr. Luis Harper DO, It has been my pleasure to [...] do not hesitate to contact me at [phone] by phone or if you have questions or concerns regarding this new plan of care! Sincerely, Joleen Knutson (more content not included)... Normal [facility] Pulmonary Visit Reporton Pulmonary Visit Report [facility] [place] 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 [facility] 01-15-2024 MILIND Telephone (ZACHERY) RAZIA CARRILLO ([id number]) 1970 F Date Time Provider Department 01/15/24 KEVIN NICOLE During your visit today, we recorded the following information about you: Nandini Cagle LPN 01/15/2024 9:26 AM Signed Nurse from Judy Carrillo called requesting office visit. Faxed to [phone] as requested. Nandini Cagle LPN Allergies As [...] Status:Closed by NANDINI CAGLE on 01/15/24 Normal [facility] Inital Evaluation (1) - PTon 01-09-2024 Inital Evaluation (1) - PT [facility] [address] [place] [address] / REHABILITATION SERVICES INITIAL EVALUATION MR#: [id number] Acct: [id number] Name: RAZIA CARRILLO Rep #: [id number] : 1970 54 From: Joleen Knutson PT, Cert. MDT Referring Dr.: Dr. Luis Harper DO Status: R EG RCR Insurance: [facility] SELF PAY INSURANCE Patient's Visit Information [...] STRENGTHENING. HEP INSTRUCTION. 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 Disability: NO [...] HIP AND R LE IMAGING - SEE [facility] EMR. PMH/Recent major surgery: Schizophrenia Psychosis Low [...] IN R (more content not included)... Normal [facility] Low Dose CT Lung Screeningon 01-03-[address] Lung Screening [facility] Imaging Services [address] [place] [id number] Lung Screening MR#: [id number] Acct: [id number] Name: RAZIA CARRILLO Rep #: [id number] : 1970 F 53 From: Ken jenkins MD PCP: Nandini Jovel Lev, VB NET PROGRAMMER-C Status: REG [facility] Study: Low Dose CT Lung Screening Date of Exam: 01/02 Exam# [id number] Ordering Dr: Dania Schmitt VB NET PROGRAMMER VB NET PROGRAMMER-C [id number] STUDY: LOW DOSE CT LUNG CANCER SCREENING [...] at 13:30 EDT , CC: REGLA Schmitt; [facility] REGLA Jovel Decating Machine Operator: Signed Normal [facility] Ankle min 3 Viewson 12-30-19 24 Ankle min 3 Views [facility] [address] [place] [address] Ankle min 3 Views MR#: [id number] Acct: [id number] Name: RAZIA CARRILLO Rep #: [id number] : 1970 F 53 From: Champ Hernandez DO PCP: GUILLERMINA Johns, VB NET PROGRAMMER-C Status: DEP AMB Study: Ankle min 3 Views Date of Exam: 12/30/23 Exam# [id number] Ordering Dr: Luis Harper DO [id number] INDICATION: pain EXAMINATION/TECHNIQUE: X-RAY - RIGHT XR [...] Signed: Champ Hernandez DO at 17:06 EDT , CC: [facility] VB NET PROGRAMMER-C Nandini Jovel; Dr. Luis Harper DO Decating Machine Operator: Signed Normal [facility] Lumbar Spine 2 or 3 Viewson 12-30-2023 Lumbar Spine 2 or 3 Views [facility] [address] [place] [address] Lumbar Spine 2 or 3 Views MR#: [id number] Acct: [id number] Name: RAZIA CARRILLO Rep #: [id number] : 1970 F 53 From: Champ Hernandez DO PCP: GUILLERMINA Johns, VB NET PROGRAMMER-C Status: DEP AMB Study: Lumbar Spine 2 or 3 Views Date of Exam: Exam# [id number] Ordering Dr: Luis Harper DO [id number] STUDY: X-RAY - LUMBAR SPINE REASON FOR [...] 17:03 EDT Reading Location ID and State: [facility] / [place] Tel [phone], Service support , CC: [facility] VB NET PROGRAMMER-Lev Jovel; Dr. Luis Harper DO Decating Machine Operator: Signed Normal [facility] Orthopedic Visit Reporton Orthopedic Visit Report [facility] [address] [place] [address] OFFICE VISIT Date of Service: 12/30/23 MR#: [id number] Acct: [id number] Name: RAZIA CARRILLO Rep #: [id number] : 1970 Provider: Dr. Luis claire DO Age/Sex: 53/F Location: [facility] [place] Status: Signed Intake Vital Signs 09/11/23 07:41 [...] caps 12/30/23 12/30/23 Rx PFSH Medical History History of lipoma Schizophrenia [...] made by me, Dr. Luis Harper, DO 12/30/23 0821. Part of today???s visit was documented by [...] pain w (more content not included)... [facility] MILIND Tele[facility] (UROLST) RAZIA CARRILLO ([id number]) 1970 F Date Time Provider Department 12/25/23 KEVIN NICOLE During your visit today, we recorded the following information about you: Hanny Reyes LPN 12/25/2023 8:17 AM Signed ----- Message from Kevin Nicole PA-C sent at 12/24/2023 8:40 PM EDT ----- No RBC's good news Kevin Nicole, [facility], [place], Hanny Gonzalez LPN 12/25/2023 8:18 AM Signed [...] Encounter Status:Closed by HANNY REYES on 12/25/23 [facility] CNOVon 12-24-2023 CNOV Office Visit (UROLWS ) RAZIA CARRILLO ([id number]) 1970 F Date Time Provider Department 12/24/23 10:00 AM KEVIN NICOLE During your visit today, we recorded the following information about you: Temperature Pulse Respiration Blood pressure 98.7 degrees 86/minute 18/minute 144/84 Weight Height 87.5 kg 1.569 m Kevin Nicole PA-C 12/24/2023 1:59 PM Signed [facility] NEW PATIENT CLINIC NOTE [...] DANDC, DIAG AND/OR THERAPEUTIC 2021 [facility] 2021 PAST SURGICAL HISTORY [...] Nahomi Nicole (more content not included)... Normal [facility] UA DIP, URINE (POC)on 2023 BILIRUBIN UA (POCT) Negative Negative [facility] CLARITY UA (POCT) Clear [facility] COLOR UA (POCT) Yellow [facility] GLUCOSE UA (POCT) Negative Negative mg/dL [facility] Hemoglobin Ql (U) Small Abnormal Negative [facility] Interpretation and review of laboratory results Abnormal [facility] KETONE UA (POCT) Negative Negative mg/dL [facility] LEUKOCYTES UA (POCT) Negative Negative [facility] NITRITE UA (POCT) Negative Negative [facility] PH UA (POCT) 6.5 4.5 - 8.0 [facility] Protein Ql (U) Negative Negative mg/dL [facility] SPECIFIC GRAVITY UA (POCT) 1.020 1.005 - 1.030 [facility] UROBILINOGEN UA (POCT) 0.2 Normal E.U./dL [facility] Location:[facility], [address], [place], [address] [facility] POINT OF CARE [facility] Urinalysis complete panel (U )on 12-24-2023 Bacteria LM.HPF (Urine sed) [#/Area] Negative Normal Negative [facility] Comment on above: Order Comment: Speci men Type: URINE SPECIMENOrdering Facility: [facility] Address: [address] [place] [address] Performed By: #### 2 4356-8 ####[facility] LABCLIA [id number] [place] [address] [place] Bilirubin Ql (U) Negative Normal Negative [facility] Comment on above: Order Comment: Speci men Type: URINE SPECIMENOrdering Facility: [facility] Address: [address] [place] [address] Performed By: #### 2 4356-8 ####[facility] LABCLIA [id number] [place] [address] [place] Clarity (Unsp spec) Clear Normal Clear [facility] Comment on above: Order Comment: Speci men Type: URINE SPECIMENOrdering Facility: [facility] Address: [address] [place] [address] Performed By: #### 2 4356-8 ####[facility] LABCLIA [id number] [place] [address] [place] Color (U) Dark Yellow Abnormal Yellow [facility] Comment on above: Order Comment: Speci men Type: URINE SPECIMENOrdering Facility: [facility] Address: [address] [place] [address] Performed By: #### 2 4356-8 ####[facility] LABCLIA [id number] [place] [address] [place] Epithelial cells LM.HPF (Urine sed) [#/Area] None Seen Normal [facility] Comment on above: Order Comment: Speci men Type: URINE SPECIMENOrdering Facility: [facility] Address: [address] [place] [address] Performed By: #### 2 4356-8 ####[facility] LABCLIA [id number] [place] [address] [place] Glucose Test strip (U) [Mass/Vol] Negative Normal Negative [facility] Comment on above: Order Comment: Speci men Type: URINE SPECIMENOrdering Facility: [facility] Address: [address] [place] [address] Performed By: #### 2 4356-8 ####[facility] LABCLIA [id number] [place] [address] [place] Hemoglobin Ql (U) Negative Normal Negative [facility] Comment on above: Order Comment: Speci men Type: URINE SPECIMENOrdering Facility: [facility] Address: [address] [place] [address] Performed By: #### 2 4356-8 ####[facility] LABCLIA [id number] [place] [address] [place] Hyaline casts (Urine sed) [#/Area] 0 /[LPF] Normal 0 /LPF [facility] Comment on above: Order Comment: Speci men Type: URINE SPECIMENOrdering Facility: [facility] Address: [address] [place] [address] Performed By: #### 2 4356-8 ####[facility] LABCLIA [id number] [place] [address] [place] Ketones Ql (U) Negative Normal Negative [facility] Comment on above: Order Comment: Speci men Type: URINE SPECIMENOrdering Facility: [facility] Address: [address] [place] [address] Performed By: #### 2 4356-8 ####[facility] LABCLIA [id number] [place] [address] [place] Leukocyte esterase Test strip Ql (U) Negative Normal Negative [facility] Comment on above: Order Comment: Speci men Type: URINE SPECIMENOrdering Facility: [facility] Address: [address] [place] [address] Performed By: #### 2 4356-8 ####[facility] LABCLIA [id number] [place] [address] [place] Nitrite Ql (U) Negative Normal Negative [facility] Comment on above: Order Comment: Speci men Type: URINE SPECIMENOrdering Facility: [facility] Address: [address] [place] [address] Performed By: #### 2 4356-8 ####[facility] LABCLIA [id number] [place] [address] [place] pH (U) 6.5 [pH] Normal <8.5 [facility] Comment on above: Order Comment: Speci men Type: URINE SPECIMENOrdering Facility: [facility] Address: [address] [place] [address] Performed By: #### 2 4356-8 ####[facility] LABIA [id number] [place] [address] [place] Protein (U) [Mass/Vol] Negative Normal Negative [facility] Comment on above: Order Comment: Speci men Type: URINE SPECIMENOrdering Facility: [facility] Address: [address] [place] [address] Performed By: #### 2 4356-8 ####[facility] LABIA [id number] [place] [address] [place] RBC LM.HPF (Urine sed) [#/Area] 0-2 /HPF Normal 0-2 /HPF [facility] Comment on above: Order Comment: Speci men Type: URINE SPECIMENOrdering Facility: [facility] Address: [address] [place] [address] Performed By: #### 2 4356-8 ####[facility] LABIA [id number] [place] [address] [place] Specific gravity (U) [Rel density] 1.012 Normal 1.005-1.030 [facility] Comment on above: Order Comment: Speci men Type: URINE SPECIMENOrdering Facility: [facility] Address: [address] [place] [address] Performed By: #### 2 4356-8 ####[facility] LABIA [id number] [place] [address] [place] Urobilinogen Ql (U) 0.2 EU/dL Normal 0.2-1.0 EU/dL [facility] Comment on above: Order Comment: Speci men Type: URINE SPECIMENOrdering Facility: [facility] Address: [address] [place] [address] Performed By: #### 2 4356-8 ####[facility] LABIA [id number] [place] [address] [place] WBC LM.HPF (Urine sed) [#/Area] 0-5 /HPF Normal 0-5 /HPF [facility] Comment on above: Order Comment: Speci men Type: URINE SPECIMENOrdering Facility: [facility] Address: [address] [place] [address] Performed By: #### 2 4356-8 ####[facility] LABIA [id number] [address] [place] 12-17-2023 MILIND Telephone (UROBLANCA) RAZIA CARRILLO ([id number]) 1970 F Date Time Provider Department 12/17/23 KEVIN NICOLE During your visit today, we recorded the following information about you: Rachel Kiran LPN 12/17/2023 5:48 PM Signed Called patient. Verified name and date of . Patient reports she was seen at [facility] and will call and have them fax us records. CANDICE Arriaga Kimberly, LPN 12/18/2023 1:00 PM Signed Received medical records for upcoming urology appointment. Uploaded to [facility] via [employer]. Rachel Kiran LPN Allergies As of Date: [...] Status:Closed by RACHEL KIRAN on 12/18/23 Normal [facility] HIP, UNI W/ Pelvis 2-3 Views on 12-16-2023 HIP, UNI W/ Pelvis 2-[address] [facility] Imaging Services [address] [place], [place] [id number] HIP, UNI W/ Pelvis 2-3 Views MR#: [id number] Acct: [id number] Name: RAZIA CARRILLO Rep #: [id number] : 1970 F 53 From: Venkatesh Mooney MD PCP: GUILLERMINA Johns, VB NET PROGRAMMER-C Status: REG CLI Study: HIP, UNI W/ Pelvis 2-3 Views Date of Exam: Exam# [id number] Ordering Dr: Nandini Jovel VB NET PROGRAMMER-C [id number] EXAM: XR RIGHT HIP WITH PELVIS WHEN [...] Mooney MD at 0:15 EDT , CC: [facility] REGLA Jovel Decating Machine Operator: Signed Normal [facility] Vital Signs Date Time Vital Sign Value Performing Clinician Jimi ba 05-22-2024 09:54-0500 Body mass index (BMI) [Ratio] 34.46 kg/m2 John Phill PRESS CUTTER.ACCOUNT ADJUSTER Work Phone: [facility] 05-22-2024 09:54-0500 Body weight 84.82 kg John Phill PRESS CUTTER.ACCOUNT ADJUSTER Work Phone: [facility] 05-22-2024 09:54-0500 Diastolic blood pressure 81 mm[Hg] John Phill PRESS CUTTER.ACCOUNT ADJUSTER Work Phone: [facility] 05-22-2024 09:54-0500 Heart rate 74 /min John Phill PRESS CUTTER.ACCOUNT ADJUSTER Work Phone: [facility] 05-22-2024 09:54-0500 Respiratory rate 16 /min John Phill PRESS CUTTER.ACCOUNT ADJUSTER Work Phone: [facility] 05-22-2024 09:54-0500 SaO2% (BldA) [Mass fraction] 99 % John Phill PRESS CUTTER.ACCOUNT ADJUSTER Work Phone: [facility] 05-22-2024 09:54-0500 Systolic blood pressure 116 mm[Hg] John Phill PRESS CUTTER.ACCOUNT ADJUSTER Work Phone: [facility] 12-24-2023 10:12-0400 Body height 156.9 cm Kevin Nicole PA-C Work Phone: [facility] 12-24-2023 10:12-0400 Body mass index (BMI) [Ratio] 35.56 kg/m2 Kevin Nicole PA-C Work Phone: [facility] 12-24-2023 10:12-0400 Body temperature 98.71 [degF] Kevin Nicole PA-C Work Phone: [facility] 12-24-2023 10:12-0400 Body weight 87.54 kg Kevin Nicole PA-C Work Phone: [facility] 12-24-2023 10:12-0400 Diastolic blood pressure 84 mm[Hg] Kevin Nicole PA-C Work Phone: [facility] 12-24-2023 10:12-0400 Heart rate 86 /min Kevin Nicole PA-C Work Phone: [facility] 12-24-2023 10:12-0400 Respiratory rate 18 /min Kevin Nicole PA-C Work Phone: [facility] 12-24-2023 10:12-0400 SaO2% (BldA) [Mass fraction] 98 % Kevin Nicole PA-C Work Phone: [facility] 12-24-2023 10:12-0400 Systolic blood pressure 144 mm[Hg] Kevin Nicole PA-C Work Phone: [facility] Encounters Encounter Date Encounter Type Care Provider Facility Start: 12-04-2024 ambulatory Nandini Jovel [facility] Fa cility:[facility]: [facility] Start: 11-20-2024 End: 11-20-2024 ambulatory Nandini Elvin [facility] Facility[facility] Start: 11-10-2024 End: 11-11-2024 ambulatory Nandini Jovel [facility] Facility:[facility] Start: 11-06-2024 ambulatory Nandini Elvin [facility] Fa cility:[facility] Start: 11-04-2024 End: 11-04-20[facility] Start: 11-03-2024 End: 11-03-2024 [facility] Start: 10-28-2024 End: 10-28-2024 ambulatory Laurie Lawler Facility:[facility] Start: 10-16-2024 End: 10-16-2024 Emergency department patient visit NANDINI JOVEL Facility:[facility] Start: 10-16-2024 End: 10-16-2024 ambulatory Nandini Jovel [facility] Facility:[facility] Start: 10-14-2024 End: 10-14-2024 ambulatory Nandini Jovel [facility] Facility:[facility] Start: 10-09-2024 End: 10-09-2024 ambulatory Nandini Jovel [facility] Facility:[facility] Start: 09-11-2024 End: 09-11-2024 ambulatory Nandini [facility] Facility:[facility] Start: 09-11-2024 End: 09-11-2024 ambulatory Laurie Chasefifi Facility:[facility] Start: 08-21-2024 End: 08-21-2024 ambulatory Laurie Lawler Facility:[facility] Start: 08-10-2024 End: 08-10-2024 ambulatory Nandini Jovel [facility] Facility:[facility] Start: 06-25-2024 End: 06-25-2024 ambulatory LUIS COLLINS Facility:[facility] Start: 06-25-2024 End: 06-25-2024 Office outpatient visit 40 minutes Luis Collins MD Work Phone: Neurology Comment on above: Chronic insomnia (Pr imary Dx) Start: 06-16-2024 End: 06-16-2024 Telephone encounter [facility] Work Phone: Neurology Comment on above: PAP Therapy Follow U p Start: 06-11-2024 End: 06-11-2024 ambulatory Ilsa Mendez [facility] Facility:[facility] Start: 05-22-2024 End: 05-22-2024 Patient encounter procedure John Pollock APRN.ACCOUNT ADJUSTER Work Phone: Neurology Comment on above: Excessive daytime sl eepiness (Primary Dx) Start: 05-22-2024 End: 05-22-2024 ambulatory JOHN POLLOCK Facility:[facility] Start: 04-17-2024 End: 04-17-2024 ambulatory DERIAN LATIF Facility:[facility] Start: 03-27-2024 ambulatory Dania Schmitt VB NET PROGRAMMER Fac ility:[facility] Start: 03-17-2024 End: 03-17-2024 ambulatory [facility] Facility:[facility] Start: 03-10-2024 End: 03-10-2024 Telemedicine consultation with patient Gualberto Echevarria Jr., MD Work Phone: Sleep Start: 03-10-2024 End: 03-11-2024 ambulatory Gualberto Echevarria MD Work Phone: Sleep Comment on above: NBA on CPAP (Primary Dx); Chronic insomnia; Insufficient sleep syndrome; Daytime sleepiness; Depression, unspecified depression type Start: 01-27-2024 End: 01-27-2024 ambulatory Dania Schmitt VB NET PROGRAMMER Facility:[facility] Start: 01-15-2024 End: 01-15-2024 Telephone encounter Kevin Nicole PA-C Work Phone: Urology Start: 01-03-2024 End: 01-03-2024 ambulatory [facility] Facility:[facility] Start: 12-30-2023 End: 12-30-2023 ambulatory [facility] Facility:[facility] Start: 12-25-2023 End: 12-25-2023 Telephone encounter Kevin Nicole PA-C Work Phone: Urology Start: 12-24-2023 End: 12-24-2023 ambulatory KEVIN NICOLE Facility:[facility] Start: 12-24-2023 End: 12-24-2023 Patient encounter procedure Kevin Nicole PA-C Work Phone: Urology Comment on above: Microscopic hematuri a; Screening for genitourinary condition Start: 12-17-2023 End: 12-18-2023 Telephone encounter Kevin Nicole PA-C Work Phone: Urology Comment on above: Appointment Start: 12-16-2023 End: 12-16-2023 ambulatory [facility] Facility:[facility] Procedures Date Procedure Procedure Detail Performing Clinician Start: 12-24-2023 Urnls dip stick/tabl et rgnt auto w/o microscopy Kevin Nicole PA-C Work Phone: Plan of Treatment Date Care Activity Detail Author Start: 06-25-2024 End: 06-25-2024 Follow-up encounter 06/25/2024 1:00 PM EDT [facility] [address] [place] [address] Luis Collins MD [address] [place] [address] Chronic insomnia follow up Neurology Comment on above: Chronic insomnia fol low up Start: 05-22-2024 End: 05-22-2024 Patient encounter procedure 05/22/2024 10:00 AM EST Office Visit Neurology [address] [place], [place] [id number] John Pollock APRN.ACCOUNT ADJUSTER [address] [place] [address] follow up Neurology Comment on above: follow up Start: 12-24-2023 End: 12-24-2023 Patient encounter procedure 12/24/2023 10:00 AM EDT Office Visit Urology [address], [place] [address] Kevin Nicole PA-C [address] [place] [address] Hydrpnephrosis; Abdominal and Flank Pain Urology Comment on above: Hydrpnephrosis; Abdo jignesh and Flank Pain Start: 11-24-2023 Covid-19 Vaccine ( season) Covid-19 Vaccine ( season) [facility] Start: 11-24-2023 Influenza vaccination Influenza Vacc ine (#1) [facility] Start: 2021 Shingrix Vaccine (1 of 2) Shingrix Vaccine (1 of 2) [facility] Start: 01-05-2016 Diabetes Screening Diabetes Screenin g [facility] Start: 01-05-2016 Lipid panel Lipid Screening [facility] Start: 01-05-2016 Screening for malign ant neoplasm of colon [facility] Start: 2011 Screening for malign ant neoplasm of breast Mammogram Screening [facility] Start: 01-05-1992 Screening for malign ant neoplasm of cervix Cervical Cancer Screening [facility] Start: 1990 Hepatitis B Vaccine (1 of 3 - 19+ 3-dose series) Hepatitis B Vaccine (1 of 3 - 19+ 3-dose series) [facility] Start: 1990 Pneumococcal Vaccine : 50+ (1 of 2 - PCV) Pneumococcal Vaccine: 50+ (1 of 2 - PCV) [facility] Start: 1990 Urine microalbumin profile DTaP,Tdap,Td Vaccine (1 - Tdap) [facility] Start: 1989 Annual PCP Team Quill Machine Operator michael Disease Visit Annual PCP Team Chronic Disease Visit [facility] Start: 1989 Anxiety Screening Anxiety Screening [facility] Start: 1989 BP Controlled (<130/80) BP Controlle d (<130/80) [facility] Start: 1989 Depression Screening Depression Scre ening [facility] Start: 1989 Hepatitis C screening Hepatitis C Sc reening [facility] Start: 1989 HIV screening HIV Screening [facility] Start: 1977 Pneumococcal vaccination Pneumococcal Vaccine (1 of 2 - PCV) [facility] POST VOID RESIDUAL POST VOID RES IDUAL Procedures Routine Microscopic hematuria Screening for genitourinary condition Ordered: 12/24/2023 [facility] Comment on above: Ordered: 12/24/2023 Urinalysis complete panel - Urine URINALYSIS, WITH MICROSCOPIC Lab Routine Microscopic hematuria 12/24/2023 11:39 AM EDT [facility] VFR/PVR VFR/PVR Procedur es EARL Microscopic hematuria Ordered: 12/24/2023 [facility] Work Phone: Comment on above: Ordered: 12/24/2023 Payers Date Payer Category Payer Self-pay 2022 Medicaid [id number] 2022 Medicaid [id number] Unknown [id number] 2.16.8 40.1.282630.3.579.2.462 Unknown [id number] 2.16.8 40.1.666938.3.579.2.462 Unknown [id number] 2.16.8 40.1.516329.3.579.2.462 Unknown [id number] 2.16.8 40.1.142481.3.579.2.462 Unknown [id number] 2.16.8 40.1.028667.3.579.2.462 Unknown [id number] 2.16.8 40.1.514814.3.579.2.462 Unknown [id number] 2.16.8 40.1.932458.3.579.2.462 Unknown [id number] 2.16.8 40.1.591225.3.579.2.462 Unknown [id number] 2.16.8 40.1.384266.3.579.2.462 Unknown [id number] 2.16.8 40.1.447276.3.579.2.462 Unknown [id number] 2.16.8 40.1.757512.3.579.2.462 Unknown [id number] 2.16.8 40.1.680638.3.579.2.462 Unknown [id number] 2.16.8 40.1.133856.3.579.2.462 Unknown [id number] 2.16.8 40.1.521941.3.579.2.462 Unknown [id number] 2.16.8 40.1.217832.3.579.2.462 Unknown [id number] 2.16.8 40.1.324741.3.579.2.462 Unknown [id number] 2.16.8 40.1.104746.3.579.2.462 Unknown [id number] 2.16.8 40.1.222030.3.579.2.462 Unknown [id number] 2.16.8 40.1.449904.3.579.2.462 Unknown [id number] 2.16.8 40.1.104970.3.579.2.462 Unknown [id number] 2.16.8 40.1.542417.3.579.2.462 Unknown [id number] 2.16.8 40.1.596326.3.579.2.462 Unknown [id number] 2.16.8 40.1.554014.3.579.2.462 Unknown [id number] 2.16.8 40.1.740735.3.579.2.462 Unknown [id number] 2.16.8 40.1.501625.3.579.2.462 Unknown [id number] 2.16.8 40.1.718648.3.579.2.462 Social History Date Type Detail Facility Tobacco smoking stat [facility] Tobacco smoking consumption unknown [facility] Start: 1970 Sex assigned at Not on file [facility] Start: 12-24-2023 End: 04-17-2024 Gender identity Not on file [facility] Start: 12-24-2023 Tobacco smoking stat [facility] Smokes tobacco daily [facility] History of tobacco use Cigarette Smoker [facility] Start: 12-24-2023 Tobacco use and exposure Smokeless t obacco non-user [facility] Start: 12-24-2023 End: 04-17-2024 Alcoholic beverage intake Current drinker of alcohol (finding) [facility] Start: 12-24-2023 End: 04-17-2024 History of Social function [facility] National Score (1-10 0), lower number is lower risk 48 [facility] Start: 12-24-2023 Alcohol Comment Socially [facility] Clinical Notes 12-17-2023 to 06-25-2024 Rosetta Salcedo DO - 06/25/2024 1:00 PM EDTTelephone Encounter - Cecile Casper MA - 06/16/2024 1:59 PM EDTTelephone Encounter - Cecile Casper MA - 06/16/2024 1:59 PM EDT Note Date & Type Note Facility 06-25-2024 History of Presen t illness Narrative Images from the original note were not included. [facility] Follow up/ Established patient visit Date of last visit : Visit date not found I have communicated my name and active licensure. The patient's identity and physical location were verified at the time of this visit. 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 She [...] with Dr. Salcedo. Luis Collins MD Fellow, [facility] Attending Staff Sleep [...] of the case and have updated the [facility] [employer] electronic medical record where necessary. I agree with the history, physical, impression, recommendations and follow up as documented in [facility]. Further discussion and teaching occurred after the patient was released to go home. Thank you for choosing and trusting the [facility] for your medical care! Rosetta Salcedo DO, CBSM, ABSM Associate Spiral Spring Winder, Sleep Medicine Fellowship Core Faculty, [employer] Sleep Medicine Fellowship Chief Experience Officer, Sleep Medicine Center Clinical Staff, Sleep Medicine [facility] Neurological [place] Department of Neurology Department of Psychiatry Sleep Disorders [facility] [address] [place] [address] Mail [address] [place] [address] [place] documented in this encounter [facility] 06-25-2024 Note HNO ID: [id number] Author: ROSETTA SALCEDO DO Service: ? Author Type: Physician Type: Progress Notes Filed: 06/25/2024 16:13 Note Text: [facility] Follow up/ Established patient visit Date of last visit : Visit date not found I have communicated my name and active licensure. The patient's identity and physical location were verified at the time of this visit. 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 When she wakes up, she makes [...] (Xanax) - Te (more content not included)... [facility] 06-16-2024 Telephone encounter Note Images from the original note were not included. [facility] 06-16-2024 Miscellaneous Notes Images from the original note were not included. documented in this encounter [facility] 05-22-2024 History of Presen t illness Narrative Images from the original note were not included. [facility] Follow up/ Established patient visit Date of last visit : 04/17/24 The following Impression/Plan was copied and pasted from the patient's last Sleep Disorders Center visit on 04/17/24: IMPRESSION/PLAN: Razia CARRILLO is a 54 year old female presents today in [facility] with the following [...] prescriptions, we will obtain medical records from [facility] including her Genesight testing. Before any [...] - Weight loss can help in the watcher automat long goods treatment of NBA. - Declined weight loss [...] activity was identified. 05/22/2024 by John Pollock APRN.CNP PATIENT-ENTERED QUESTIONNAIRE SLEEP SCORES 05/20/2024 Sleep Questions [...] sorted in reverse-chronological order 03/09/2024 04/16/2024 05/20/2024 [place] Sleepiness Scale Score 20 (Excessive daytime sleepiness [...] John Pollock APRN.CNP documented in this encounter [facility] 05-22-2024 Note HNO ID: [id number] Author: JOHN POLLOCK APRN.CNP Service: ? Author Type: Nurse Practitioner Type: Progress Notes Filed: 05/22/2024 12:10 Note Text: [facility] Follow up/ Established patient visit Date of last visit : 04/17/24 The following Impression/Plan was copied and pasted from the patient's last Sleep Disorders Center visit on 04/17/24: IMPRESSION/PLAN: Razia CARRILLO is a 54 year old female presents today in [facility] with the following [...] prescriptions, we will obtain medical records from [facility] including her Genesight testing. Before any changes [...] - Weight loss can help in the correction treatment of NBA. - Declined weight loss [...] bedtime Patient c (more content not included)... [facility] 04-17-2024 Note HNO ID: [id number] Author: DERIAN LATIF APRN.CNP Service: ? Author Type: Nurse Practitioner Type: Progress Notes Filed: 04/17/2024 20:23 Note Text: [facility] New Patient Evaluation [...] year old female who presents to a [facility] for evaluation for [...] not work till noonish, works at the [employer]. Usually works only a few hours but [...] will take the mask off without recollection. 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 [facility] 03-10-2024 Instructions Lino Calero MD - 03/10/2024 9:19 AM EST Thank you for coming into see us today. It was a pleasure discussing your concerns for us today including your history of sleep apnea, daytime sleepiness, fatigue, and insomnia. First step, we will try to obtain your past records from [facility] as well as your sleep data from [facility]. We are providing a referral to get [...] nurse practictioners. This can be in the [place] office but should be an in-person appointment. documented in this encounter [facility] 03-10-2024 Note HNO ID: [id number] Author: GUALBERTO ECHEVARRIA JR, MD Service: ? Author Type: Physician Type: Progress Notes Filed: 03/16/2024 19:45 Note Text: [facility] New Patient Evaluation PATIENT NAME: Razia CARRILLO DATE OF SERVICE: March 10, 2024 I have communicated my name and active licensure. The patient's identity and physical location were verified at the time of this visit. Either the patient or their legal passenger relations representative has been informed of the risks [...] with a psychiatrist. Was working with a VB NET PROGRAMMER in Psychiatry virtually who has not left [...] was diagnosed with NBA in 2021 at [facility] with an in lab sleep study.She [...] not drive currently due to daytime sleepiness. 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 [facility] 03-10-2024 History of Presen t illness Narrative Images from the original note were not included. [facility] New Patient Evaluation PATIENT NAME: Razia CARRILLO DATE OF SERVICE: March 10, 2024 I have communicated my name and active licensure. The patient's identity and physical location were verified at the time of this visit. Either the patient or their legal passenger relations representative has been informed of the risks [...] with a psychiatrist. Was working with a VB NET PROGRAMMER in Psychiatry virtually who has not left [...] was diagnosed with NBA in 2021 at [facility] with an in lab sleep study.She [...] not drive currently due to daytime sleepiness. 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 high chance [...] 200mg CPAP PRIOR SLEEP STUDIES: PSG from [facility]-- results unkonwn OTHER RELEVANT LABS AND [...] F with history of depression/anxiety with psychosis, BNA diagnosed in 2021 now on CPAP here to establish care with [facility]. With active concerns of [...] the care of psychiatrist from outside of [facility]. It appears she developed depression with psychosis [...] factors in as well. NBA diagnosed at [facility] in 2021, recent PAP titration reported by patient this year. On Autopap and compliant at this time. Per patient, moderate NBA. Trying to use CPAP nightly. -counseled on CPAP compliance. -discussed sleep hygiene and restriction. Referring to BS for insomnia care. -request records from [facility] including Sleep records -obtain data/compliance report from [facility] -will refer patient for consultation with Dr. Salcedo given her extensive psych history -discussed that we may need to do a repeat in lab sleep study, possibly a double study if we feel this is indicated -f/u with Dr. Echevarria/John Pollock in [place] office in about 3 months Patient seen and discussed with Dr. Swathi Calero MD Sleep Medicine Fellow [facility] STAFF PHYSICIAN NOTE OF PERSONAL INVOLVEMENT [...] part in visit: Patient and physician via [employer]. Consent for this visit received from patient. I have communicated my name and active licensure. The patient's identity and physical location ([place]) were verified at the time of this visit. Either the patient or their legal passenger relations representative has been informed of the risks and benefits of -- and alternatives to -- treatment through a remote evaluation and consents to proceed with the evaluation remotely. Patient is a pleasant 54 year old with history of HTN, Depression, Anxiety (with reported psychotic features). Now presents with several sleep complaints. Prior dx of NBA at [facility] and currently on Auto PAP. Note prior [...] prn - Rx through psychiatry in the [place] area. In the [facility], psychiatry tracy pt dx of hypersomnia [...] which included preparing to see the patient, [id number] patient care, completing clinical documentation, obtaining and/or reviewing separately obtained history, performing a medically appropriate examination, counseling and educating the patient/family/caregiver, ordering medications, tests, or procedures, and communicating results to the patient/family/caregiver. documented in this encounter [facility] 01-15-2024 Telephone encounter Note Nurse from [facility] called requesting office visit. Faxed to [phone] as requested. Nandini Cagle LPN [facility] 01-15-2024 Miscellaneous Notes Nurse from [facility] called requesting office visit. Faxed to [phone] as requested. Nandini Cagle LPN documented in this encounter [facility] 12-25-2023 Telephone encounter Note Called patient and relayed the message from Kevin Nicole, she verbalized understanding and did not have any further questions or concerns. [facility] 12-25-2023 Telephone encounter Note ----- Message from Kevin Nicole PA-C sent at 12/24/2023 8:40 PM EDT ----- No RBC's good news AUDREY Mendes MT, PA-C [facility] 12-25-2023 Miscellaneous Notes Called patient and relayed the message from Kevin Nicole, she verbalized understanding and did not have any further questions or concerns. ----- Message from Kevin Nicole PA-C sent at 12/24/2023 8:40 PM EDT ----- No RBC's good news AUDREY Mendes MT, PA-C documented in this encounter [facility] 12-24-2023 Note HNO ID: [id number] Author: RACHEL KIRAN LPN Service: ? Author Type: LICENSED NURSE Type: Progress Notes Filed: 12/24/2023 13:59 Note Text: Verified name and date of . CC Post Void Residual HPI: Razia CRARILLO is a 53 year old female. The [...] the procedure well. Plan: Appointment with Kevin. [facility] 12-24-2023 History of Presen t illness Narrative Verified name and date of . CC Post Void Residual HPI: Razia CARRILLO is a 53 year old female. The patient is here now for an appointment with Kevin Nicole, AUDREY, MT, PA-COV. Procedure: Explained procedure to patient and verbalizes understanding. Performed a PVR. Patient urinated and instructed to empty bladder as much as possible just prior to having PVR done using bladder ultrasound scanner. Results of scan: 0 mL The patient tolerated the procedure well. Plan: Appointment with Kevin. Images from the original note were not included. [facility] NEW PATIENT CLINIC NOTE SERVICE [...] Mendes MT, PA-C documented in this encounter [facility] 12-24-2023 Instructions Kevin Nicole PA-C - 12/24/2023 11:18 AM EDT > UA with Microscopic sent to look fr RBC's if RBC's are seen will need 2 more samples looked at and will order them > If Flank Pain and Fever 101.0 higher > Flank Pain no fever - call to get Renal US ordered to look for stones documented in this encounter [facility] 12-24-2023 Note HNO ID: [id number] Author: KEVIN NICOLE PA-C Service: ? Author Type: Physician Call Center Supervisor Type: Progress Notes Filed: 12/24/2023 13:59 Note Text: [facility] NEW PATIENT CLINIC NOTE [...] DANDC, DIAG AND/OR THERAPEUTIC 2021 EGD W/O [facility] SPEC VARICIES INJ 2021 PAST SURGICAL HISTORY [...] Stopped, Trial > 3 mo Follow-up with B. AUDREY Nicole MT, PA-C if no improvement AUDREY Mendes, MANUEL BETHEA [facility] 12-18-2023 Telephone encounter Note Received medical records for upcoming urology appointment. Uploaded to Scanned Docs via [employer]. Rachel Kiran LPN [facility] 12-18-2023 Miscellaneous Notes Received medical records for upcoming urology appointment. Uploaded to Scanned Docs via [employer]. Rachel Kiran LPN Called patient. Verified name and date of . Patient reports she was seen at [facility] and will call and have them fax us records. Rachel Kiran LPN documented in this encounter [facility] 12-17-2023 Telephone encounter Note Called patient. Verified name and date of . Patient reports she was seen at [facility] and will call and have them fax us records. Rachel Kiran LPN [facility] Evaluation note Diagnosis Microscopic hematuria Screening for genitourinary condition Screening for other and unspecified genitourinary condition [facility] Diagnosis NBA on CPAP- Primary Obstructive sleep apnea (adult) (pediatric) Chronic insomnia Insomnia, unspecified Insufficient sleep syndrome Persistent disorder of initiating or maintaining wakefulness Daytime sleepiness Depression, unspecified depression type [facility] Diagnosis Excessive daytime sleepiness- Primary [facility] Diagnosis Chronic insomnia- Primary Insomnia, unspecified [facility] Outpatient Procedure (Urgent) - New Request Specialty Diagnoses / Procedures Referred By Ariane mahajan Referred To Contact [facility] Diagnoses Microscopic hematuria Procedures VFR/PVR JOSE POST-VOIDING RESIDUAL URINE&/BLADDER CAP Kevin Nicole PA-C [address] [place] [address] [facility] [address] [place] [address] Referral ID Status Reason Start Date Expiration Date Visits Requested Visits Authorized [id number] New Request Auto-Generat ed Referral 12/24/2023 12/23/2024 1 1 [facility] Reason for Referral Specialty Diagnoses / Procedures Referred By Contac t Referred To Contact Diagnoses NBA on CPAP Chronic insomnia Parasomnia, unspecified type Procedures CONSULT TO BEHAVIORAL SLEEP MEDICINE INDIVIDUAL TREATMENT Gualberto Echevarria Jr., MD [address] [place] [address] Referral ID Status Reason Start Date Expiration Date Visits Requested Visits Authorized [id number] Authorized PCP Requested Referral 4 06/08/2024 1 1 Specialty Diagnoses / Procedures Referred By Contac t Referred To Contact Diagnoses NBA on CPAP Chronic insomnia Parasomnia, unspecified type Procedures CONSULT TO SLEEP MEDICINE - ADULT OFFICE/OUTPATIENT [facility] 60 MINUTES Rosetta Salcedo DO [address] [place] [address] Referral ID Status Reason Start Date Expiration Date Visits Requested Visits Authorized [id number] Authorized PCP Requested Referral 4 03/10/2025 1 [...] or prosecute any alcohol or drug abuse patient.[facility] the event this information is protected by the Federal Confidentiality of Alcohol and Drug Abuse Patient Records regulations: The Federal rules restrict any use of the information to criminally investigate or prosecute any alcohol or drug abuse patient.[facility] the event this information is protected by the Federal Confidentiality of Alcohol and Drug Abuse Patient Records regulations: The Federal rules restrict any use of the information to criminally investigate or prosecute any alcohol or drug abuse patient.[facility] the event this information is protected by the Federal Confidentiality of Alcohol and Drug Abuse Patient Records regulations: The Federal rules restrict any use of the information to criminally investigate or prosecute any alcohol or drug abuse patient.[facility] the event this information is protected by the Federal Confidentiality of Alcohol and Drug Abuse Patient Records regulations: The Federal rules restrict any use of the information to criminally investigate or prosecute any alcohol or drug abuse patient.[facility] Hospital[facility] the event this information is protected by the Federal Confidentiality of Alcohol and Drug Abuse Patient Records regulations: The Federal rules restrict any use of the information to criminally investigate or prosecute any alcohol or drug abuse patient.[facility] the event this information is protected by the Federal Confidentiality of Alcohol and Drug Abuse Patient Records regulations: The Federal rules restrict any use of the information to criminally investigate or prosecute any alcohol or drug abuse patient.[facility] Hospital[facility] the event this information is protected by the Federal Confidentiality of Alcohol and Drug Abuse Patient Records regulations: The Federal rules restrict any use of the information to criminally investigate or prosecute any alcohol or drug abuse patient.[facility] Reason for Visit (unrecogniz ed section and content) Reason Comments Appointment Reason Comments Elevated PSA New Patient Flank Pain Reason Comments New Patient Evaluation Reason Comments Follow Up Reason Comments PAP Therapy Follow Up Reason Comments Established Patient Care Teams (unrecognized sec tion and content) Inventory Control Clerk Relationship Specialty Start Date End Date Ilsa EspinozaDO [address] [place], [place] [id number] PCP - General Family Medicine 10/08/16 Nandini Jovel NP [address] [place] [address] Referring Family Medicine 11/15/23 Inventory Control Clerk Relationship Specialty Start Date End Date Ilsa EspinozaDO [address] [place] [address] PCP - General Family Medicine 10/08/16 Nandini Jovel NP [address] [place] [address] Referring Family Medicine 11/15/23 Inventory Control Clerk Relationship Specialty Start Date End Date Ilsa EspinozaDO [address] [place] [address] PCP - General Family Medicine 10/08/16 Nandini Jovel NP [address] [place], [place] [address] Referring Family Medicine 11/15/23 Inventory Control Clerk Relationship Specialty Start Date End Date Jeff Ilsa LandisDO [address] [place] [address] PCP - General Family Medicine 10/08/16 Nandini Jovel NP [address] [place] [address] Referring Family Medicine 11/15/23 Inventory Control Clerk Relationship Specialty Start Date End Date Ilsa Espinoza DO [address] [place] [address] PCP - General Family Medicine 10/08/16 Nandini Jovel, DOMO [address] [facility] [place] [address] Referring Family Medicine 11/15/23 Stefany Peterson APRN.ACCOUNT ADJUSTER [id number] [place] [address] Referring Nurse Practitioner 01/20/24 Inventory Control Clerk Relationship Specialty Start Date End Date Ilsa Espinoza DO [address] [place] [address] PCP - General Family Medicine 10/08/16 Nandini Jovel, DOMO [address] [place] [address] Referring Family Medicine 11/15/23 Stefany Peterson APRN.ACCOUNT ADJUSTER [id number] [place] [address] Referring Nurse Practitioner 01/20/24 Inventory Control Clerk Relationship Specialty Start Date End Date Ilsa Espinoza [address] [place] [address] PCP - General Family Medicine 10/08/16 Nandini Jovel, DOMO [address] [place] [address] Referring Family Medicine 11/15/23 Stefany Peterson APRN.ACCOUNT ADJUSTER [id number] [facility], [place] [id number] Referring Nurse Practitioner 01/20/24 Inventory Control Clerk Relationship Specialty Start Date End Date Ilsa Espinoza DO [address] [place] [address] PCP - General Family Medicine 10/08/16 Nandini Jovel NP [address] [facility] [place] [address] Referring Family Medicine 11/15/23 Stefany Peterson APRN.CNP [address] [place] [address] Referring Nurse Practitioner 01/20/24 INFORMATION SOURCE (unrecogn ized section and content) DATE CREATED AUTHOR 06/28/2024 [facility] DATE CREATED AUTHOR AUTHOR'S ORGANIZ ATION 10/18/2024 [facility] DATE CREATED AUTHOR AUTHOR'S ORGANIZ ATION 12/01/2024 [facility] FOR RECORDS PERTAINING TO PATIENTS WHO [...] BE BASED ON THE PRIMARY CLINICAL RECORDS. [employer] provides no warranty or guarantee of the accuracy or completeness of information in this document.
== END | disposition home or self-care (01) ==
PROVIDERS: PCP Nurse Practitioner Family
DX: R10.11 Right upper quadrant pain (principal)
CPT/HCPCS: 76705

== ENCOUNTER → 2025-01-11 | Outpatient (CLI) | payer MEDICAID, SELFPAY ==
--- NOTE | 2025-01-11 09:45 | RAD_ITS ---
PROCEDURE: BONE LENGTH 01/11/2025 REASON FOR EXAM: LIMB LENGTH DIFFERENCE LOWER EXTREMITY F, age 55 y/o . TECHNIQUE: Procedure Code: RADBL Modality: DX Procedure: BONE LENGTH COMPARISON: None FINDINGS: Genu varum. The length of the right lower extremity from the top of the femoral head to the top of tibial plateau on on the right extremity is 76.2 cm. And 75.2 cm on the left. The distance of the lateral tibial spines from each of these lines is 5.1 cm lateral on the right and 6.4 cm lateral on the left. Degenerative changes are present in the medial compartment of both knees. Mild hip narrowing noted bilaterally. Status post open reduction internal fixation of fracture of the right distal fibula. RAD/Bone Length IMPRESSION: Genu varum with degenerative changes of the medial compartments of each knee as described above. Reading Location: [id number]
--- OUTSIDE RECORDS SUMMARY | 2025-01-11 10:16 | XMS RPT_ITS | CCD ---
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 PROT DIPSTX Negative Normal Negative [facility] Comment on above: Order Comment: CLEAN CATCH Performed By: #### L 400.2010, ####[facility] [address] [place], [address] SP.GR. DIPSTX 1.010 Normal 1.002-1.030 [facility] Comment on above: Order Comment: CLEAN CATCH Performed By: #### L 400.2010, .2199 ####[facility] [address] [place], [place], [address] UROBILI Normal Normal Normal [facility] Comment on above: Order Comment: CLEAN CATCH Performed By: #### L 400.2010, ####[facility] [address] [place], [place], [address] Breast Bilateral W/O and Won 10-28-2024 Breast Bilateral W/O and W [facility] Imaging Services [address] [place], [place] [address] Breast Bilateral W/O and W MR#: [id number] Acct: [id number] Name: RAZIA CARRILLO Rep #: [id number] : 1970 F 54 From: Nakita Fitch MD PCP: Nandini Jovel Lev, ATHLETIC INSTRUCTOR-C Status: REG [facility] Study: Breast Bilateral W/O and W Date of Exam: 10/28 Exam# [id number] Ordering Dr: Laurie Lawler DO PROCEDURE: BREAST [...] the smaller mass measures 0.9 cm (series 50152, image 130). Other Findings: There are at [...] 4: SUSPICIOUS RECOMMENDATION: Ultrasound Recommended Reading Location: [id number] CC: [facility] ATHLETIC INSTRUCTORBarber Jovel; Dr. Laurie Lawler DO Tetryl Boiling Tub Operator: Signed Normal [facility] CBC W Auto Differential pane l (Bld)on 10-16-2024 Basophils (Bld) [#/Vol] 0.05 10*3/uL Normal <0.11 [facility] Comment on above: Order Comment: Speci men Type: BLOOD SPECIMEN Ordering Facility: [facility] Address: [address] [place] [address] Performed By: #### 5 7021-8 #### [facility] CLIA [id number] [address] [place] [address] [place] Basophils/100 WBC (Bld) 0.5 % Normal [facility] Comment on above: Order Comment: Speci men Type: BLOOD SPECIMEN Ordering Facility: [facility] Address: [address] [place] [address] Performed By: #### 5 7021-8 #### [facility] CLIA [id number] [address] [place] [address] [place] Differential cell count method Nom (Bld) Auto Normal [facility] Comment on above: Order Comment: Speci men Type: BLOOD SPECIMEN Ordering Facility: [facility] Address: [address] [place] [address] Performed By: #### 5 7021-8 #### [facility] CLIA [id number] [address] [place] [address] [place] Eosinophils (Bld) [#/Vol] 0.21 10*3/uL Normal <0.46 [facility] Comment on above: Order Comment: Speci men Type: BLOOD SPECIMEN Ordering Facility: [facility] Address: [address] [place] [address] Performed By: #### 5 7021-8 #### [facility] CLIA [id number] [address] [place] [address] [place] Eosinophils/100 WBC (Bld) 2.2 % Normal [facility] Comment on above: Order Comment: Speci men Type: BLOOD SPECIMEN Ordering Facility: [facility] Address: [address] [place] [address] Performed By: #### 5 7021-8 #### [facility] CLIA [id number] [address] [place] [address] [place] Erythrocyte distribution width (RBC) [Ratio] 12.9 % Normal 11.5-15.0 [facility] Comment on above: Order Comment: Speci men Type: BLOOD SPECIMEN Ordering Facility: [facility] Address: [address] [place] [address] Performed By: #### 5 7021-8 #### [facility] CLIA [id number] [address] [place] [address] [place] Hematocrit (Bld) [Volume fraction] 41.5 % Normal 36.0-46.0 [facility] Comment on above: Order Comment: Speci men Type: BLOOD SPECIMEN Ordering Facility: [facility] Address: [address] [place] [address] Performed By: #### 5 7021-8 #### [facility] CLIA [id number] [address] [place] [address] [place] Hemoglobin (Bld) [Mass/Vol] 13.8 g/dL Normal 11.5-15.5 [facility] Comment on above: Order Comment: Speci men Type: BLOOD SPECIMEN Ordering Facility: [facility] Address: [address] [place] [address] Performed By: #### 5 7021-8 #### [facility] CLIA [id number] [address] [place] [address] [facility] Immature granulocytes (Bld) [#/Vol] 10*3/uL Normal <0.10 [facility] Comment on above: Order Comment: Speci men Type: BLOOD SPECIMEN Ordering Facility: [facility] Address: [address] [place] [address] Performed By: #### 5 7021-8 #### [facility] CLIA [id number] [address] Immature granulocytes/100 WBC (Bld) 0.0 % Normal [facility] Comment on above: Order Comment: Speci men Type: BLOOD SPECIMEN Ordering Facility: [facility] Address: [address] [place] [address] Performed By: #### 5 7021-8 #### [facility] CLIA [id number] [address] [place] [address] [employer] [place] Lymphocytes (Bld) [#/Vol] 2.48 10*3/uL Normal 1.00-4.00 [facility] Comment on above: Order Comment: Speci men Type: BLOOD SPECIMEN Ordering Facility: [facility] Address: [address] [place] [address] Performed By: #### 5 7021-8 #### [facility] CLIA [id number] [address] [place] [address] [facility] Lymphocytes/100 WBC (Bld) 25.5 % Normal [facility] Comment on above: Order Comment: Speci men Type: BLOOD SPECIMEN Ordering Facility: [facility] Address: [address] [place] [address] Performed By: #### 5 7021-8 #### [facility] CLIA [id number] [address] [place] [address] [place] MCH (RBC) [Entitic mass] 30.8 pg Normal 26.0-34.0 [facility] Comment on above: Order Comment: Speci men Type: BLOOD SPECIMEN Ordering Facility: [facility] Address: [address] [place] [address] Performed By: #### 5 7021-8 #### [facility] CLIA [id number] [address] [place] [address] [employer] [place] MCHC (RBC) [Mass/Vol] 33.3 g/dL Normal 30.5-36.0 [facility] Comment on above: Order Comment: Speci men Type: BLOOD SPECIMEN Ordering Facility: [facility] Address: [address] [place] [address] Performed By: #### 5 7021-8 #### [facility] CLIA [id number] [address] [place] [address] [place] MCV (RBC) [Entitic vol] 92.6 fL Normal 80.0-100.0 [facility] Comment on above: Order Comment: Speci men Type: BLOOD SPECIMEN Ordering Facility: [facility] Address: [address] [place] [address] Performed By: #### 5 7021-8 #### [facility] CLIA [id number] [address] [place] [address] [place] Monocytes (Bld) [#/Vol] 0.70 10*3/uL Normal <0.87 [facility] Comment on above: Order Comment: Speci men Type: BLOOD SPECIMEN Ordering Facility: [facility] Address: [address] [place] [address] Performed By: #### 5 7021-8 #### [facility] CLIA [id number] [address] [place] [address] Monocytes/100 WBC (Bld) 7.2 % Normal [facility] Comment on above: Order Comment: Speci men Type: BLOOD SPECIMEN Ordering Facility: [facility] Address: [address] [place] [address] Performed By: #### 5 7021-8 #### [facility] CLIA [id number] [address] [place] [address] [place] Neutrophils (Bld) [#/Vol] 6.30 10*3/uL Normal 1.45-7.50 [facility] Comment on above: Order Comment: Speci men Type: BLOOD SPECIMEN Ordering Facility: [facility] Address: [address] [place] [address] Performed By: #### 5 7021-8 #### [facility] CLIA [id number] [address] [place] [address] [place] Neutrophils/100 WBC (Bld) 64.6 % Normal [facility] Comment on above: Order Comment: Speci men Type: BLOOD SPECIMEN Ordering Facility: [facility] Address: [address] [place] [address] Performed By: #### 5 7021-8 #### [facility] CLIA [id number] [address] [place] [address] [place] Nucleated RBC (Bld) [#/Vol] Normal [facility] Comment on above: Order Comment: Speci men Type: BLOOD SPECIMEN Ordering Facility: [facility] Address: [address] [place] [address] Performed By: #### 5 7021-8 #### [facility] CLIA [id number] [address] [place] [address] [place] Nucleated RBC/100 WBC (Bld) [Ratio] Normal [facility] Comment on above: Order Comment: Speci men Type: BLOOD SPECIMEN Ordering Facility: [facility] Address: [address] [place] [address] Performed By: #### 5 7021-8 #### [facility] CLIA [id number] [address] [place] [address] [place] Platelet mean volume (Bld) [Entitic vol] 8.4 fL Low 9.0-12.7 [facility] Comment on above: Order Comment: Speci men Type: BLOOD SPECIMEN Ordering Facility: [facility] Address: [address] [place] [address] Performed By: #### 5 7021-8 #### [facility] CLIA [id number] [address] [place] [address] [place] Platelets (Bld) [#/Vol] 261 10*3/uL Normal 150-400 [facility] Comment on above: Order Comment: Speci men Type: BLOOD SPECIMEN Ordering Facility: [facility] Address: [address] [place], [place] [address] Performed By: #### 5 7021-8 #### [facility] CLIA [id number] [address] [place] [address] [place] RBC (Bld) [#/Vol] 4.48 10*6/uL Normal 3.90-5.20 [facility] Comment on above: Order Comment: Speci men Type: BLOOD SPECIMEN Ordering Facility: [facility] Address: [address] [place] [address] Performed By: #### 5 7021-8 #### [facility] CLIA [id number] [address] [place] [address] [place] WBC (Bld) [#/Vol] 9.74 10*3/uL Normal 3.70-11.00 [facility] Comment on above: Order Comment: Speci men Type: BLOOD SPECIMEN Ordering Facility: [facility] Address: [address] [place], [place] [address] Performed By: #### 5 7021-8 #### [facility] CLIA [id number] [address] [place] [address] [place] CBC W/Diff, Automatedon 07-2 Absolute Lymph 2.08 X10 3/uL Normal 0.83-4.51 [facility] Comment on above: Performed By: #### L 100.0100, L503.6550, L500.4100, L506.1001, L500.4050, L501.9985, L501.9520, L503.6030 ####[facility] [address] [place], [address] Absolute Neut 4.7 X10 3/uL Normal 2.0-7.7 [facility] Comment on above: Performed By: #### L 100.0100, L503.6550, L500.4100, L506.1001, L500.4050, L501.9985, L501.9520, L503.6030 ####[facility] [address] [place], [address] Basophils/100 WBC (Bld) 0.8 % Normal 0-1 [facility] Comment on above: Performed By: #### L 100.0100, L503.6550, L500.4100, L506.1001, L500.4050, L501.9985, L501.9520, L503.6030 ####[facility] [address] [place], [address] Eosinophils/100 WBC (Bld) 2.7 % Normal 0-5 [facility] Comment on above: Performed By: #### L 100.0100, L503.6550, L500.4100, L506.1001, L500.4050, L501.9985, L501.9520, L503.6030 ####[facility] [address] [place], [address] Erythrocyte distribution width (RBC) [Ratio] 12.8 % Normal 11.6-14.6 [facility] Comment on above: Performed By: #### L 100.0100, L503.6550, L500.4100, L506.1001, L500.4050, L501.9985, L501.9520, L503.6030 ####[facility] [address] [place], [address] Hematocrit (Bld) [Volume fraction] 42.8 % Normal 37-47 [facility] Comment on above: Performed By: #### L 100.0100, L503.6550, L500.4100, L506.1001, L500.4050, L501.9985, L501.9520, L503.6030 ####[facility] [address] [place], [address] Hemoglobin (Bld) [Mass/Vol] 14.5 g/dL Normal 12.0-15.0 [facility] Comment on above: Performed By: #### L 100.0100, L503.6550, L500.4100, L506.1001, L500.4050, L501.9985, L501.9520, L503.6030 ####[facility] [address] [place], [address] IG% 0.100 Normal 0.0-0.9 [facility] Comment on above: Result Comment: IG% - Immature Granulocytes (promyelocytes, myelocytes and metamyelocytes) > 1% indicates that a LEFT SHIFT is Present. Performed By: #### L 100.0100, L503.6550, L500.4100, L506.1001, L500.4050, L501.9985, L501.9520, L503.6030 ####[facility] [address] [place], [address] Lymphocytes/100 WBC (Bld) 27.6 % Normal 19-41 [facility] Comment on above: Performed By: #### L 100.0100, L503.6550, L500.4100, L506.1001, L500.4050, L501.9985, L501.9520, L503.6030 ####[facility] [address] [place] [place], [address] MCH (RBC) [Entitic mass] 31.3 pg Normal 27.0-32.0 [facility] Comment on above: Performed By: #### L 100.0100, L503.6550, L500.4100, L506.1001, L500.4050, L501.9985, L501.9520, L503.6030 ####[facility] [address] [place], [address] MCHC (RBC) [Mass/Vol] 33.9 g/dL Normal 32-36 [facility] Comment on above: Performed By: #### L 100.0100, L503.6550, L500.4100, L506.1001, L500.4050, L501.9985, L501.9520, L503.6030 ####[facility] [address] [place], [address] MCV (RBC) [Entitic vol] 92.2 fL Normal 81-99 [facility] Comment on above: Performed By: #### L 100.0100, L503.6550, L500.4100, L506.1001, L500.4050, L501.9985, L501.9520, L503.6030 ####[facility] [address] [place], [address] Monocytes/100 WBC (Bld) 6.9 % Normal 0-10 [facility] Comment on above: Performed By: #### L 100.0100, L503.6550, L500.4100, L506.1001, L500.4050, L501.9985, L501.9520, L503.6030 ####[facility] [address] [place], [address] Neutrophils/100 WBC (Bld) 61.9 % Normal 47-70 [facility] Comment on above: Performed By: #### L 100.0100, L503.6550, L500.4100, L506.1001, L500.4050, L501.9985, L501.9520, L503.6030 ####[facility] [address] [place], [address] Nucleated RBC (Bld) [#/Vol] 0 10*3/uL Normal 0-5 [facility] Comment on above: Performed By: #### L 100.0100, L503.6550, L500.4100, L506.1001, L500.4050, L501.9985, L501.9520, L503.6030 ####[facility] [address] [place], [address] Platelet mean volume (Bld) [Entitic vol] 8.6 fL Normal 6.2-12.0 [facility] Comment on above: Performed By: #### L 100.0100, L503.6550, L500.4100, L506.1001, L500.4050, L501.9985, L501.9520, L503.6030 ####[facility] [address] [place], [address] Platelets (Bld) [#/Vol] 272 10*3/uL Normal 150-450 [facility] Comment on above: Performed By: #### L 100.0100, L503.6550, L500.4100, L506.1001, L500.4050, L501.9985, L501.9520, L503.6030 ####[facility] [address] [place], [address] RBC (Bld) [#/Vol] 4.64 10*6/uL Normal 4.2-5.4 [facility] Comment on above: Performed By: #### L 100.0100, L503.6550, L500.4100, L506.1001, L500.4050, L501.9985, L501.9520, L503.6030 ####[facility] [address] [place], [address] RDW SD 43.4 fl Normal 35.1-43.9 [facility] Comment on above: Performed By: #### L 100.0100, L503.6550, L500.4100, L506.1001, L500.4050, L501.9985, L501.9520, L503.6030 ####[facility] [address] [place], [address] WBC (Bld) [#/Vol] 7.5 10*3/uL Normal 4.4-11.0 [facility] Comment on above: Performed By: #### L 100.0100, L503.6550, L500.4100, L506.1001, L500.4050, L501.9985, L501.9520, L503.6030 ####[facility] [address] [place], [address] Comprehensive Metabolic Prof ilon 10-16-2024 Albumin [Mass/Vol] 4.4 g/dL Normal 3.5-5.0 [facility] Comment on above: Order Comment: ATHLETIC INSTRUCTOR.AT [facility] ORDERED FERRITIN AND IBCNP.JFRANKLIN ORDERED CMP,CBCD,A1C,TSH,LIPID,AND VITD Performed By: #### L 100.0100, L503.6550, L500.4100, L506.1001, L500.4050, L501.9985, L501.9520, L503.6030 ####[facility] [address] [place], [address] Albumin/Globulin [Mass ratio] 1.6 {ratio} Normal 0.9-2.4 [facility] Comment on above: Order Comment: ATHLETIC INSTRUCTOR.AT [facility] ORDERED FERRITIN AND IBCNP.JFRANKLIN ORDERED CMP,CBCD,A1C,TSH,LIPID,AND VITD Performed By: #### L 100.0100, L503.6550, L500.4100, L506.1001, L500.4050, L501.9985, L501.9520, L503.6030 ####[facility] [address] [place], [address] ALK PHOS 108 U/L High 35-104 [facility] Comment on above: Order Comment: ATHLETIC INSTRUCTOR.AT [facility] ORDERED FERRITIN AND IBCNP.JFRANKLIN ORDERED CMP,CBCD,A1C,TSH,LIPID,AND VITD Performed By: #### L 100.0100, L503.6550, L500.4100, L506.1001, L500.4050, L501.9985, L501.9520, L503.6030 ####[facility] [address] [place], [address] ALT [Catalytic activity/Vol] 28 U/L Normal <=34 [facility] Comment on above: Order Comment: ATHLETIC INSTRUCTOR.AT [facility] ORDERED FERRITIN AND IBCNP.JFRANKLIN ORDERED CMP,CBCD,A1C,TSH,LIPID,AND VITD Performed By: #### L 100.0100, L503.6550, L500.4100, L506.1001, L500.4050, L501.9985, L501.9520, L503.6030 ####[facility] [address] [place], [place], [id number]) AST [Catalytic activity/Vol] 24 U/L Normal <=31 [facility] Comment on above: Order Comment: ATHLETIC INSTRUCTOR.AT [facility] ORDERED FERRITIN AND IBCNP.JFRANKLIN ORDERED CMP,CBCD,A1C,TSH,LIPID,AND VITD Performed By: #### L 100.0100, L503.6550, L500.4100, L506.1001, L500.4050, L501.9985, L501.9520, L503.6030 ####[facility] [address] [place], [place], [id number] Bilirubin [Mass/Vol] 0.34 mg/dL Normal 0.00-1.30 [facility] Comment on above: Order Comment: ATHLETIC INSTRUCTOR.AT [facility] ORDERED FERRITIN AND IBCNP.JFRANKLIN ORDERED CMP,CBCD,A1C,TSH,LIPID,AND VITD Performed By: #### L 100.0100, L503.6550, L500.4100, L506.1001, L500.4050, L501.9985, L501.9520, L503.6030 ####[facility] [id number] [place], [address] BUN/CRE 24.4 RATIO High 10-20 [facility] Comment on above: Order Comment: ATHLETIC INSTRUCTOR.AT [facility] ORDERED FERRITIN AND IBCNP.JFRANKLIN ORDERED CMP,CBCD,A1C,TSH,LIPID,AND VITD Performed By: #### L 100.0100, L503.6550, L500.4100, L506.1001, L500.4050, L501.9985, L501.9520, L503.6030 ####[facility] [address] [place], [address] Calcium [Mass/Vol] 10.5 mg/dL Normal 7.6-11.0 [facility] Comment on above: Order Comment: ATHLETIC INSTRUCTOR.AT [facility] ORDERED FERRITIN AND IBCNP.JFRANKLIN ORDERED CMP,CBCD,A1C,TSH,LIPID,AND VITD Performed By: #### L 100.0100, L503.6550, L500.4100, L506.1001, L500.4050, L501.9985, L501.9520, L503.6030 ####[facility] [address] [place], [address] Chloride [Moles/Vol] 105 mmol/L Normal 98-108 [facility] Comment on above: Order Comment: ATHLETIC INSTRUCTOR.AT [facility] ORDERED FERRITIN AND IBCNP.JFRANKLIN ORDERED CMP,CBCD,A1C,TSH,LIPID,AND VITD Performed By: #### L 100.0100, L503.6550, L500.4100, L506.1001, L500.4050, L501.9985, L501.9520, L503.6030 ####[facility] [address] [place], [address] CO2 [Moles/Vol] 20.3 mmol/L Low 21.0-32.0 [facility] Comment on above: Order Comment: ATHLETIC INSTRUCTOR.AT [facility] ORDERED FERRITIN AND IBCNP.JFRANKLIN ORDERED CMP,CBCD,A1C,TSH,LIPID,AND VITD Performed By: #### L 100.0100, L503.6550, L500.4100, L506.1001, L500.4050, L501.9985, L501.9520, L503.6030 ####[facility] [address] [place], [place], [phone] Creatinine [Mass/Vol] 0.64 mg/dL Low 0.70-1.20 [facility] Comment on above: Order Comment: ATHLETIC INSTRUCTOR.AT [facility] ORDERED FERRITIN AND IBCNP.JFRANKLIN ORDERED CMP,CBCD,A1C,TSH,LIPID,AND VITD Performed By: #### L 100.0100, L503.6550, L500.4100, L506.1001, L500.4050, L501.9985, L501.9520, L503.6030 ####[facility] [address] [place], [address] GAP 12 Normal 5-15 [facility] Comment on above: Order Comment: ATHLETIC INSTRUCTOR.AT [facility] ORDERED FERRITIN AND IBCNP.JFRANKLIN ORDERED CMP,CBCD,A1C,TSH,LIPID,AND VITD Performed By: #### L 100.0100, L503.6550, L500.4100, L506.1001, L500.4050, L501.9985, L501.9520, L503.6030 ####[facility] [address] [place], [address] GFR/1.73 sq M.predicted among non-blacks MDRD (S/P/Bld) [Vol rate/Area] 105 mL/min/{1.73_m2} Normal >60 [facility] Comment on above: Order Comment: ATHLETIC INSTRUCTOR.AT [facility] ORDERED FERRITIN AND IBCNP.JFRANKLIN ORDERED CMP,CBCD,A1C,TSH,LIPID,AND VITD Result Comment: mL/m in/1.73m2 CKD-EPI Creatinine Equation (2020) Performed By: #### L 100.0100, L503.6550, L500.4100, L506.1001, L500.4050, L501.9985, L501.9520, L503.6030 ####[facility] [address] [place], [address] Globulin (S) [Mass/Vol] 2.7 g/dL Normal 2.2-4.2 [facility] Comment on above: Order Comment: ATHLETIC INSTRUCTOR.AT [facility] ORDERED FERRITIN AND IBCNP.JFRANKLIN ORDERED CMP,CBCD,A1C,TSH,LIPID,AND VITD Performed By: #### L 100.0100, L503.6550, L500.4100, L506.1001, L500.4050, L501.9985, L501.9520, L503.6030 ####[facility] [address] [place], [address] Glucose [Mass/Vol] 94 mg/dL Normal 70-99 [facility] Comment on above: Order Comment: ATHLETIC INSTRUCTOR.AT [facility] ORDERED FERRITIN AND IBCNP.JFRANKLIN ORDERED CMP,CBCD,A1C,TSH,LIPID,AND VITD Performed By: #### L 100.0100, L503.6550, L500.4100, L506.1001, L500.4050, L501.9985, L501.9520, L503.6030 ####[facility] [address] [place], [address] Potassium [Moles/Vol] 4.6 mmol/L Normal 3.3-5.1 [facility] Comment on above: Order Comment: ATHLETIC INSTRUCTOR.AT [facility] ORDERED FERRITIN AND IBCNP.JFRANKLIN ORDERED CMP,CBCD,A1C,TSH,LIPID,AND VITD Performed By: #### L 100.0100, L503.6550, L500.4100, L506.1001, L500.4050, L501.9985, L501.9520, L503.6030 ####[facility] [address] [place], [phone] Sodium [Moles/Vol] 138 mmol/L Normal 133-145 [facility] Comment on above: Order Comment: ATHLETIC INSTRUCTOR.AT [facility] ORDERED FERRITIN AND IBCNP.JFRANKLIN ORDERED CMP,CBCD,A1C,TSH,LIPID,AND VITD Performed By: #### L 100.0100, L503.6550, L500.4100, L506.1001, L500.4050, L501.9985, L501.9520, L503.6030 ####[facility] [address] [place], [phone] T PROT 7.1 g/dL Normal 5.9-8.4 [facility] Comment on above: Order Comment: ATHLETIC INSTRUCTOR.AT [facility] ORDERED FERRITIN AND IBCNP.JFRANKLIN ORDERED CMP,CBCD,A1C,TSH,LIPID,AND VITD Performed By: #### L 100.0100, L503.6550, L500.4100, L506.1001, L500.4050, L501.9985, L501.9520, L503.6030 ####[facility] [address] [place], [place], [phone] Urea nitrogen [Mass/Vol] 16 mg/dL Normal 4-19 [facility] Comment on above: Order Comment: ATHLETIC INSTRUCTOR.AT [facility] ORDERED FERRITIN AND IBCNP.JFRANKLIN ORDERED CMP,CBCD,A1C,TSH,LIPID,AND VITD Performed By: #### L 100.0100, L503.6550, L500.4100, L506.1001, L500.4050, L501.9985, L501.9520, L503.6030 ####[facility] [address] [place], [address] Comprehensive metabolic 2000 panelon 10-16-2024 Albumin [Mass/Vol] 4.2 g/dL Normal 3.9-4.9 [facility] Comment on above: Order Comment: Speci men Type: BLOOD SPECIMEN Ordering Facility: [facility] Address: [facility] [place] [address] Performed By: #### 2 4323-8, 3040-3 #### [facility] CLIA [id number] [address] [place] [address] [place] ALP [Catalytic activity/Vol] 109 U/L Normal 34-123 [facility] Comment on above: Order Comment: Speci men Type: BLOOD SPECIMEN Ordering Facility: [facility] Address: [address] [place], [place] [address] Performed By: #### 2 4323-8, 3040-3 #### [facility] CLIA [id number] [address] [place] [address] [employer] [place] ALT With P-5'-P [Catalytic activity/Vol] 25 U/L Normal 7-38 [facility] Comment on above: Order Comment: Speci men Type: BLOOD SPECIMEN Ordering Facility: [facility] Address: [address] [place], [place] [address] Performed By: #### 2 4323-8, 3040-3 #### [facility] CLIA [id number] [address] [place] [address] [place] Anion gap [Moles/Vol] 13 mmol/L Normal 8-15 [facility] Comment on above: Order Comment: Speci men Type: BLOOD SPECIMEN Ordering Facility: [facility] Address: [address] [place] [address] Performed By: #### 2 4323-8, 3040-3 #### [facility] CLIA [id number] [address] [place] [address] [employer] [place] AST With P-5'-P [Catalytic activity/Vol] 19 U/L Normal 13-35 [facility] Comment on above: Order Comment: Speci men Type: BLOOD SPECIMEN Ordering Facility: [facility] Address: [address] [place] [address] Performed By: #### 2 4323-8, 3040-3 #### [facility] CLIA [id number] [address] [place] [address] [place] Bilirubin [Mass/Vol] 0.3 mg/dL Normal 0.2-1.3 [facility] Comment on above: Order Comment: Speci men Type: BLOOD SPECIMEN Ordering Facility: [facility] Address: [address] [place] [address] Performed By: #### 2 4323-8, 3040-3 #### [facility] CLIA [id number] [address] [place] [address] [place] Calcium [Mass/Vol] 10.4 mg/dL High 8.5-10.2 [facility] Comment on above: Order Comment: Speci men Type: BLOOD SPECIMEN Ordering Facility: [facility] Address: [address] [place] [address] Performed By: #### 2 4323-8, 3039-3 #### [facility] CLIA [id number] [address] [place] [address] [place] Chloride [Moles/Vol] 103 mmol/L Normal 98-107 [facility] Comment on above: Order Comment: Speci men Type: BLOOD SPECIMEN Ordering Facility: [facility] Address: [address] [place] [address] Performed By: #### 2 4323-8, 0-3 #### [facility] CLIA [id number] [address] [place] [address] [place] CO2 [Moles/Vol] 22 mmol/L Normal 22-30 [facility] Comment on above: Order Comment: Speci men Type: BLOOD SPECIMEN Ordering Facility: [facility] Address: [address] [place] [address] Performed By: #### 2 4323-8, 3040-3 #### [facility] CLIA [id number] [address] [place] [address] [place] Creatinine [Mass/Vol] 0.63 mg/dL Normal 0.58-0.96 [facility] Comment on above: Order Comment: Molly dawn Type: BLOOD SPECIMEN Ordering Facility: [facility] Address: [address] [place] [address] Performed By: #### 2 4323-8, 3040-3 #### [facility] CLIA [id number] [address] [place] [address] [place] eGFRcr SerPlBld CKD-EPI 2020 106 mL/min/1.73m??? Normal >=60 [facility] Comment on above: Order Comment: Molly dawn Type: BLOOD SPECIMEN Ordering Facility: [facility] Address: [address] [place] [address] Result Comment: Harmony mated Glomerular Filtration Rate [...] Performed By: #### 2 4323-8, 3040-3 #### [facility] CLIA [id number] [address] [place] [address] [place] Glucose [Mass/Vol] 105 mg/dL High 74-99 [facility] Comment on above: Order Comment: Molly dawn Type: BLOOD SPECIMEN Ordering Facility: [facility] Address: [address] [place] [address] Result Comment: The [place] Diabetes Association (ADA) provides guidance for cutoff [...] Standards of Medical Care in Diabetes 2016, [place] [employer]. Diabetes Care. 2016.39(Suppl 1). Performed By: #### 2 4323-8, 3040-3 #### [facility] CLIA [id number] [address] [place] [address] [place] Potassium [Moles/Vol] 3.9 mmol/L Normal 3.7-5.1 [facility] Comment on above: Order Comment: Speci men Type: BLOOD SPECIMEN Ordering Facility: [facility] Address: [address] [place] [address] Performed By: #### 2 4323-8, 3040-3 #### [facility] CLIA [id number] [address] [place] [address] [place] Protein [Mass/Vol] 6.8 g/dL Normal 6.3-8.0 [facility] Comment on above: Order Comment: Speci men Type: BLOOD SPECIMEN Ordering Facility: [facility] Address: [address] [place] [address] Performed By: #### 2 4323-8, 3040-3 #### [facility] CLIA [id number] [address] [place] [address] [place] Sodium [Moles/Vol] 138 mmol/L Normal 136-144 [facility] Comment on above: Order Comment: Speci men Type: BLOOD SPECIMEN Ordering Facility: [facility] Address: [address] [place] [address] Performed By: #### 2 4323-8, 0-3 #### [facility] CLIA [id number] [address] [place] [address] [place] Urea nitrogen [Mass/Vol] 19 mg/dL Normal 7-21 [facility] Comment on above: Order Comment: Speci men Type: BLOOD SPECIMEN Ordering Facility: [facility] Address: [address] [place] [address] Performed By: #### 2 4323-8, 3040-3 #### [facility] CLIA [id number] [address] [place] [address] [place] D dimer FEU PPP-mCncon 10-16 Fibrin D-dimer FEU (PPP) [Mass/Vol] 420 ng/mL FEU Normal <500 [facility] Comment on above: Order Comment: Speci men Type: BLOOD SPECIMEN Ordering Facility: [facility] Address: [address] [place], [place] [address] Performed By: #### 4 8065-7 #### [facility] CLIA [id number] [address] [place], [place] [id number] [facility] ECG COMPLETEon 10-16-2024 ECG COMPLETE Ventricular Rate : 6 8 BPM Atrial Rate : 68 BPM P-R Interval : 132 ms QRS Duration : 92 ms Q-T Interval : 390 ms QTC Calculation(Bazett) : 414 ms Calculated P [place] : 29 degrees Calculated R [place] : 13 degrees Calculated T [place] : 24 degrees NORMAL SINUS RHYTHM POSSIBLE LEFT ATRIAL ENLARGEMENT NONSPECIFIC T WAVE ABNORMALITY ABNORMAL ECG NO PREVIOUS ECGS AVAILABLE Confirmed by LILA PETERSEN MD ([id number]) on 10/16/2024 10:30:21 PM NAME : RAZIA CARRILLO PID : [id number] : 1970 Gender : Female Race : ORD : [id number] Procedure Date : Oct 16 2024 19:26:43 Edit Date : Oct 16 2024 22:30:26 Diagnosis: NORMAL SINUS RHYTHM POSSIBLE LEFT ATRIAL ENLARGEMENT NONSPECIFIC T WAVE ABNORMALITY ABNORMAL ECG NO PREVIOUS ECGS AVAILABLE Confirmed by LILA PETERSEN MD ([id number]) on 10/16/2024 10:30:21 PM Test Reason : Chest Pain Location : 191 : [facility] ED Overread By : LILA PETERSEN MD Edited By : LILA PETERSEN MD Referred By : , Acquired by : KAVITA PROCTOR [facility] ED PROV NOTEon 10-16-2024 ED PROV NOTE HNO ID: [id number] Author: LILA PETERSEN MD Service: Emergency Medicine [...] (more content not included)... Normal [facility] Ferritinon 10-16-2024 Ferritin [Mass/Vol] 81 ng/mL Normal 22-378 [facility] Comment on above: Order Comment: ATHLETIC INSTRUCTOR.AT [facility] ORDERED FERRITIN AND IBCNP.JFIRVININ ORDERED CMP,CBCD,A1C,TSH,LIPID,AND VITD Performed By: #### L 100.0100, L503.6550, L500.4100, L506.1001, L500.4050, L501.9985, L501.9520, L503.6030 ####[facility] [address] [place], [address] Fibrin D-dimer FEU (PPP) [Ma ss/Vol]on 10-16-2024 D DIMER AGE-RELATED CUTOFF 530 ng/mL FEU Normal [facility] Comment on above: Order Comment: Molly dawn Type: BLOOD SPECIMEN Ordering Facility: [facility] Address: [address] [place] [address] Performed By: #### 4 8065-7 #### [facility] CLIA [id number] [address] [place], [place] [id number] [facility] OF [place] HIGH SENSITIVITY TROPONIN T (INITIAL)on 10-16-2024 Troponin T.cardiac High sensitivity method [Mass/Vol] 8 ng/L Normal <12 [facility] Comment on above: Order Comment: Molly dawn Type: BLOOD SPECIMEN Ordering Facility: [facility] Address: [address] [place] [address] Performed By: #### L [id number] #### [facility] CLIA [id number] [address] [place], [place] [id number] [employer] [place] HIGH SENSITIVITY TROPONIN T (SECOND)on 10-16-2024 Troponin T.cardiac High sensitivity method [Mass/Vol] 8 ng/L Normal <12 [facility] Comment on above: Order Comment: Molly dawn Type: BLOOD SPECIMEN Ordering Facility: [facility] Address: [address] [place] [address] Performed By: #### L [id number] #### [facility] CLIA [id number] [address] [place] [address] [employer] [place] Hemoglobin A1con 10-16-2024 HbA1c (Bld) [Mass fraction] 5.3 % Normal <=5.6 [facility] Comment on above: Result Comment: Norm al < 5.7 % Prediabetic 5.7 - 6.4 % Diabetic >or= 6.5 % Please note range changes. Performed By: #### L 100.0100, L503.6550, L500.4100, L506.1001, L500.4050, L501.9985, L501.9520, L503.6030 ####[facility] [address] [place], [address] Iron+Iron Binding Capacityon 10-16-2024 Iron [Mass/Vol] 81 ug/dL Normal 50-170 [facility] Comment on above: Order Comment: ATHLETIC INSTRUCTOR.AT [facility] ORDERED FERRITIN AND IBCNP.JFRANKLIN ORDERED CMP,CBCD,A1C,TSH,LIPID,AND VITD Performed By: #### L 100.0100, L503.6550, L500.4100, L506.1001, L500.4050, L501.9985, L501.9520, L503.6030 ####[facility] [address] [place], [address] IRON SATURATION 26.0 Normal 13-59 [facility] Comment on above: Order Comment: ATHLETIC INSTRUCTOR.AT [facility] ORDERED FERRITIN AND IBCNP.JFRANKLIN ORDERED CMP,CBCD,A1C,TSH,LIPID,AND VITD Performed By: #### L 100.0100, L503.6550, L500.4100, L506.1001, L500.4050, L501.9985, L501.9520, L503.6030 ####[facility] [address] [place], [address] TIBC 314 ug/dL Normal 250-450 [facility] Comment on above: Order Comment: ATHLETIC INSTRUCTOR.AT [facility] ORDERED FERRITIN AND IBCNP.JFRANKLIN ORDERED CMP,CBCD,A1C,TSH,LIPID,AND VITD Performed By: #### L 100.0100, L503.6550, L500.4100, L506.1001, L500.4050, L501.9985, L501.9520, L503.6030 ####[facility] [address] [place], [address] UIBC 233 ug/dL Normal 228-428 [facility] Comment on above: Order Comment: ATHLETIC INSTRUCTOR.AT [facility] ORDERED FERRITIN AND IBCNP.JFRANKLIN ORDERED CMP,CBCD,A1C,TSH,LIPID,AND VITD Performed By: #### L 100.0100, L503.6550, L500.4100, L506.1001, L500.4050, L501.9985, L501.9520, L503.6030 ####[facility] [address] [place], [place], [phone] Lipase SerPl-cCncon 10-17-19 25 Lipase [Catalytic activity/Vol] 32 U/L Normal 16-61 [facility] Comment on above: Order Comment: Speci men Type: BLOOD SPECIMEN Ordering Facility: [facility] Address: [address] [place] [address] Performed By: #### 2 4323-8, 3040-3 #### [facility] CLIA [id number] [address] [place] [address] STATES OF [facility] Lipid Profileon 10-16-2024 CHOL:HDL 2.72 Normal [facility] Comment on above: Order Comment: ATHLETIC INSTRUCTOR.AT [facility] ORDERED FERRITIN AND IBCNP.JFRANKLIN ORDERED CMP,CBCD,A1C,TSH,LIPID,AND VITD Performed By: #### L 100.0100, L503.6550, L500.4100, L506.1001, L500.4050, L501.9985, L501.9520, L503.6030 ####[facility] [address] [place], [place], [phone] Cholesterol [Mass/Vol] 220 mg/dL High <=200 [facility] Comment on above: Order Comment: ATHLETIC INSTRUCTOR.AT [facility] ORDERED FERRITIN AND IBCNP.JFRANKLIN ORDERED CMP,CBCD,A1C,TSH,LIPID,AND VITD Result Comment: Chol esterol level, Desirable <200 mg/dL Borderline high cholesterol 200-239 mg/dL High cholesterol >=240 mg/dL Recommendations of the NCEP Adult Treatment Panel for the following risk-cutoff thresholds for the [place] population. Performed By: #### L 100.0100, L503.6550, L500.4100, L506.1001, L500.4050, L501.9985, L501.9520, L503.6030 ####[facility] [address] [place], [place], [phone] Cholesterol in HDL [Mass/Vol] 81 mg/dL Normal [facility] Comment on above: Order Comment: ATHLETIC INSTRUCTOR.AT [facility] ORDERED FERRITIN AND IBCNP.JFRANKLIN ORDERED CMP,CBCD,A1C,TSH,LIPID,AND VITD Result Comment: Erendira onal Cholesterol Education Program (NCEP) guidelines: <40 mg/dL: Low HDL-cholesterol (major risk factor for CHD) >= 60 mg/dL: High HDL-cholesterol (negative risk factor for CHD) HDL-cholesterol is affected by a number of factors, e.g. smoking, exercise, hormones, sex and age. Performed By: #### L 100.0100, L503.6550, L500.4100, L506.1001, L500.4050, L501.9985, L501.9520, L503.6030 ####[facility] [address] [place], [place], [phone] Cholesterol in LDL [Mass/Vol] 118 mg/dL Normal [facility] Comment on above: Order Comment: ATHLETIC INSTRUCTOR.AT [facility] ORDERED FERRITIN AND IBCNP.JFRANKLIN ORDERED CMP,CBCD,A1C,TSH,LIPID,AND VITD Result Comment: Bord fklyqm=339-684 mg/dL Higher Lkeb=813 mg/dL or greater Performed By: #### L 100.0100, L503.6550, L500.4100, L506.1001, L500.4050, L501.9985, L501.9520, L503.6030 ####[facility] [address] [place], [place], [phone] Cholesterol in VLDL [Mass/Vol] 21 mg/dL Normal 5-40 [facility] Comment on above: Order Comment: ATHLETIC INSTRUCTOR.AT [facility] ORDERED FERRITIN AND IBCNP.JFRANKLIN ORDERED CMP,CBCD,A1C,TSH,LIPID,AND VITD Performed By: #### L 100.0100, L503.6550, L500.4100, L506.1001, L500.4050, L501.9985, L501.9520, L503.6030 ####[facility] [address] [place], [address] Triglyceride [Mass/Vol] 104 mg/dL Normal [facility] Comment on above: Order Comment: ATHLETIC INSTRUCTOR.AT [facility] ORDERED FERRITIN AND IBCNP.JFRANKLIN ORDERED CMP,CBCD,A1C,TSH,LIPID,AND VITD Result Comment: The drugs N-Acetylcysteine and Metamizole may falsely depress this assay. Normal range: <150 mg/dL Borderline High: 150-199 mg/dL High: 200-499 mg/dL Very High: >500 mg/dL Performed By: #### L 100.0100, L503.6550, L500.4100, L506.1001, L500.4050, L501.9985, L501.9520, L503.6030 ####[facility] [address] [place], [place], [phone] Thyroid Stim Hormone (TSH)on 10-16-2024 TSH 2.780 uIU/mL Normal 0.300-4.200 [facility] Comment on above: Order Comment: ATHLETIC INSTRUCTOR.AT [facility] ORDERED FERRITIN AND IBCNP.JFRANKLIN ORDERED CMP,CBCD,A1C,TSH,LIPID,AND VITD Performed By: #### L 100.0100, L503.6550, L500.4100, L506.1001, L500.4050, L501.9985, L501.9520, L503.6030 ####[facility] [address] [place], [place], [address] Vitamin D,25 Hydroxyon 10-16 Vitamin D 25-OH 51.2 ng/mL Normal 30-100 [facility] Comment on above: Order Comment: [facility]IC INSTRUCTOR.[facility] FERRITIN AND IBCNP.LEONEL ORDERED CMP,CBCD,A1C,TSH,LIPID,AND VITD Result Comment: Danielle min D Status Deficiency: <20 ng/mL (50nmol/L) Insufficiency: 20-30 ng/mL (50-75 nmol/L) Sufficiency: 30-100 ng/mL (75-250 nmol/L) Toxicity: >100 ng/mL (>250 nmol/L) Performed By: #### L 100.0100, L503.6550, L500.4100, L506.1001, L500.4050, L501.9985, L501.9520, L503.6030 ####[facility] [address] [place], [address] XR CHEST 1V FRONTALon 2024 XR CHEST [...] Unremarkable exam with no acute radiographic abnormality. Tetryl Boiling Tub Operator: PSCB Transcribe Date/Time: Oct 16 2024 8:02P Dictated by : ABRAHAM HEREDIA MD This examination was interpreted and the report reviewed and electronically signed by: ABRAHAM HEREDIA MD on Oct 16 2024 8:03PM EST [id number] Normal [facility] Orthopedic Visit Reporton Orthopedic Visit Report [facility] [address] [place] [address] OFFICE VISIT Date of Service: 10/14/24 MR#: [id number] Acct: [id number] Name: RAZIA CARRILLO Rep #: [id number] : 1970 Provider: Dr. Luis claire [...] other current occupational status: employed current occupation: [employer] Smoking Status: Former smoker alcohol intake: current [...] indicated further evaluation with MRI may be beneficial" Recommend patient get an MRI of the [...] lower l (more content not included)... Normal [facility] Spine Lumbar (Routine)on Spine Lumbar (Routine) [facility] Imaging Services [address] [place], [place] [address] Spine Lumbar (Routine) MR#: [id number] Acct: [id number] Name: RAZIA CARRILLO Rep #: [id number] : 1970 F 54 From: Dileep Bear MD PCP: GUILLERMINA Johns, ATHLETIC INSTRUCTOR-C Status: REG CLI Study: Spine Lumbar (Routine) Date of Exam: 10/09/24 Exam# [id number] Ordering Dr: Luis Harper DO PROCEDURE: SPINE [...] otherwise unremarkable. Note: Review of the lateral tube sizer and cutter operator image demonstrates significant multilevel degenerative disc disease of the cervical spine. MRI/Spine Lumbar (Routine) IMPRESSION: 1. Degenerative disc disease, T12-L1 and L3-4 through L5-S1. 2. There is multilevel facet arthropathy. There is central canal stenosis at the L4-L5 level. 3. There is lateral recess stenosis and/or foraminal narrowing at multiple levels as described. 4. Other findings as noted. 5. Review of the lateral tube sizer and cutter operator image demonstrates significant multilevel degenerative disc disease of the cervical spine. Reading Location: [place] [address] CC: [facility] ATHLETIC INSTRUCTOR-C Nandini Jovel; Dr. Luis Harper DO Tetryl Boiling Tub Operator: Signed Normal [facility] Culture, Anaerobic Any Sourc kwabena 09-16-2024 CUAN No anaerobic bacteri a isolated. Normal [facility] Comment on above: Performed By: #### M 100.2000, M100.4001, M100.3000 ####[facility] [address] [place], [place], [id number] Wound Cultureon 09-16-2024 #1, 2 Identification and [...] S Vancomycin Islt FRANK 2 S Normal [facility] Comment on above: Performed By: #### M 100.2000, M100.4001, M100.3000 ####[facility] [address] [place], [place], [address] Gram Stainon 09-12-2024 GS Gram Stain No organisms seen Normal [facility] Comment on above: Performed By: #### M 100.2000, M100.4001, M100.3000 ####[facility] [address] [place], [address] Lpn Per Diem Office Visit Reporton 09-11-2024 Lpn Per Diem Office Visit Report [facility] [address], [address] [place] [address] OFFICE VISIT Date of Service: 09/11/24 MR#: [id number] Acct: [id number] Name: CARRILLORAZIA Monet Rep #: [id number] : 1970 Provider: Dr. 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 Medical History History of lipoma Schizophrenia [...] Date Name GA/Weeks Outcome Route Bth Weight Gen Labor Lgth Anesthesia Del Locatn Provider FOB Unknown Caroline 1991 Unknown Carrie 1995 Unknown Pati 1997 Unknown Viaks 1998 HPI Encounter for routine gynecological examination [...] Denies fati (more content not included)... Normal [facility] Special Stain Group IIon Special Stain Group II ----- Patient Age/Sex Location Account Attending Physician ----- RAZIA CARRILLO 54/F LABSPEC [id number] Good Marie ----- Specimen: [id number] Received: 09/11/24 Status: GRACIELA Chan Num: [id number] Spec Type: Fluid Subm Dr: Dr. Laurie [...] and and designated per the requisition as "Nipple discharge." Submitted for cytology and cell block preparation. Mr 09/14/2024 CPT: 57507,59788 Signed (signature on file) Dr. Renetta Kerr MD 09/21/24 1327 ----- Normal [facility] Comment on above: Performed By: #### P SSII ####[facility] [address] [place], [place], [id number] SCRN MAMM (CAD)W/KATY BILATo n 08-21-2024 SCRN MAMM (CAD)W/KATY BILAT [facility] Imaging Services [address] [place], [place] [address] SCRN MAMM (CAD)W/KATY BILAT MR#: [id number] Acct: [id number] Name: GERARDORAZIA M Rep #: [id number] : 1970 F 54 From: Ken jenkins MD PCP: Nandini Jovel [facility], ATHLETIC INSTRUCTOR-C Status: DEP [facility] Study: SCRN MAMM (CAD)W/KATY BILAT Date of Exam: 07/25 Exam# [id number] Ordering Dr: Laurie Lawler DO EXAM: SCRN [...] be mailed to the patient. Reading Location: [place] [address] CC: [facility] ATHLETIC INSTRUCTOR-Lev Jovel; Dr. Laurie Lawler DO Tetryl Boiling Tub Operator: Signed Normal [facility] Orthopedic Visit Reporton Orthopedic Visit Report [facility] [address] [place] [address] OFFICE VISIT Date of Service: 08/10/24 MR#: [id number] Acct: [id number] Name: RAZIA CARRILLO Rep #: [id number] : 1970 Provider: Dr. Luis claire DO Age/Sex: 54/F Location: [facility] Status: Signed Intake Vital Signs 01/27/24 07:19 [...] for right h (more content not included)... [facility] CARRILLO,RAZIA M ([id number]) 1970 F Date Time Provider Department 06/16/24 [facility] During your visit today, we [...] Status:Closed by CECILE CASPER on 06/16/24 Normal [facility] Urine Cultureon 06-13-2024 URC Mixed Gram Positive Organisms [place] Count 80,000-100,000 MIXC Mixed contaminants. Submit a new specimen if indicated. Normal [facility] Comment on above: Performed By: #### M 100.2199, L4 #### [facility] [address] [place], [address] Urinalysis, Routine (Dipstic k)on 06-11-2024 BILIRUBIN URINE Negative Normal Negative [facility] Comment on above: Order Comment: Urine , Random Performed By: #### M 100.2199, L4 #### [facility] [address] [place], [address] Clarity (U) Clear Normal Clear [facility] Comment on above: Order Comment: Urine , Random Performed By: #### M 100.0, L4 #### [facility] [address] [place], [address] Color (U) Yellow Normal Yellow [facility] Comment on above: Order Comment: Urine , Random Performed By: #### M 100.2200, L400 #### [facility] [address] [place], [address] GLUCOSE, UR Normal Normal Normal [facility] Comment on above: Order Comment: Urine , Random Performed By: #### M 100.2200, L400 #### [facility] [address] [place], [address] KETONE UR Negative Normal Negative [facility] Comment on above: Order Comment: Urine , Random Performed By: #### M 100.2199, L4 #### [facility] [address] [place], [address] LEUK ESTERASE Negative Normal Negative [facility] Comment on above: Order Comment: Urine , Random Performed By: #### M 100.2199, L4 #### [facility] [address] [place], [address] Nitrite Ql (U) Negative Normal Negative [facility] Comment on above: Order Comment: Urine , Random Performed By: #### M , #### [facility] [address] [place], [address] OCCULT BLOOD-UR 150 /ul Abnormal Negative [facility] Comment on above: Order Comment: Urine , Random Performed By: #### M , #### [facility] [address] [place], [address] pH UR 7.0 Normal 5.0 - 8.0 [facility] Comment on above: Order Comment: Urine , Random Performed By: #### M , L4 #### [facility] [address] [place], [address] PROT DIPSTX 15 mg/dl Abnormal Negative [facility] Comment on above: Order Comment: Urine , Random Performed By: #### M 100, L4 #### [facility] [address] [place], [address] SP.GR. DIPSTX 1.005 Normal 1.002-1.030 [facility] Comment on above: Order Comment: Urine , Random Performed By: #### M 100.2199, L4 #### [facility] [address] [place], [address] UROBILI Normal Normal Normal [facility] Comment on above: Order Comment: Urine , Random Performed By: #### M 100.2200, L400.2010 #### [facility] [address] [place], [place], [address] CNOVon 05-22-2024 CNOV Office Visit (SLEWST ) RAZIA CARRILLO ([id number]) 1970 F Date Time Provider Department 05/22/24 10:00 AM JOHN POLLOCK During your visit today, we recorded the following information about you: Pulse Respiration Blood pressure Weight 74/minute 16/minute 116/81 84.8 kg John Pollock APRN.CNP 05/22/2024 12:10 PM Signed [facility] Follow up/ Established patient visit Date of last visit : 04/17/24 The following Impression/Plan was copied and pasted from the patient's last [facility] visit on 04/17/24: IMPRESSION/PLAN: Raziajayna CARRILLO is a 54 year old female presents today in [facility] with the following [...] prescriptions, we will obtain medical records from [facility] including her Genesight testing. 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 - Declined weight loss [...] on medicatio (more content not included)... Normal [facility] CNOVon 04-17-2024 CNOV Office Visit (NESMM) GERARDORAZIA ([id number]) 1970 F Date Time Provider Department 04/17/24 1:00 PM DERIAN LATIF During your visit today, we recorded the following information about you: Temperature Pulse Respiration Blood pressure 99.1 degrees 74/minute 22/minute 130/84 Weight 84.8 kg Derian Latif APRN.CNP 04/17/2024 8:23 PM Signed [facility] New Patient Evaluation [...] year old female who presents to a [facility] for evaluation for [...] will take the mask off without recollection. 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 Normal [facility] PT D/C Summary (1)on 024 PT D/C Summary (1) [facility] Physical Therapy [facility] [address] [place] [address]. [address] [place] [address] / REHABILITATION SERVICES DISCHARGE SUMMARY MR#: [id number] Acct: [id number] Name: RAZIA CARRILLO #: [id number] : 1970 54 From: Joleen Knutson PT, Cert. MDT Referring Dr.: Dr. Luis Harper DO Status: R EG RCR Insurance: [facility] SELF PAY INSURANCE Discharge Summary D/C [...] OTC IBUPROFEN, TYLONOL AND ASPIRIN WHEN NEEDED. "THERAPY HAS BEEN SO BENEFICIAL FOR ME". Pain RLE: Pain Intensity (Out of 10): [...] DURING SESSION TODAY. Palpation: NO ACUTE TENDERNESS. 30" STS TEST: 15 WITHOUT UE ASSIST OR [...] please feel free to call me at [phone]. Thank you for the referral of this patient. Sincerely, Joleen Knutson, PT, Cert MDT Balance/Gait/Functional tests Balance/Special Test Scores Oswestry Low Back Score: 12 Improvement % Improvement: 90 03/17/24 1035 CC: [facility] ATHLETIC INSTRUCTOR-C Nnadini Jovel; Dr. Luis Harper, DO TONJA Signed Normal [facility] Vitamin D,25 Hydroxyon 03-12 Vitamin D 25-OH 30.6 ng/mL Normal [facility] Comment on above: Result Comment: Danielle min D 25(OH) Status Range Deficiency <20 ng/mL (50nmol/L) Insufficiency 20 - 30 ng/mL (50 - 75 nmol/L) Sufficiency 30 - 100 ng/mL (75 - 250 nmol/L) Toxicity >100 ng/mL (>250 nmol/L) Performed By: #### L 100.0100, L500.4100, L506.1000, L500.4050 ####[facility] [address] [place], [address] CBC W/Diff, Automatedon 02-22 Absolute Lymph 1.95 X10 3/uL Normal 0.83-4.51 [facility] Comment on above: Performed By: #### L 100.0100, L500.4100, L506.1000, L500.4050 #### [facility] [address] [place], [address] Absolute Neut 5.8 X10 3/uL Normal 2.0-7.7 [facility] Comment on above: Performed By: #### L 100.0100, L500.4100, L506.1000, L500.4050 #### [facility] [address] [place], [address] Basophils/100 WBC (Bld) 0.8 % Normal 0-1 [facility] Comment on above: Performed By: #### L 100.0100, L500.4100, L506.1000, L500.4050 #### [facility] [address] [place], [address] Eosinophils/100 WBC (Bld) 2.6 % Normal 0-5 [facility] Comment on above: Performed By: #### L 100.0100, L500.4100, L506.1000, L500.4050 #### [facility] [address] [place], [address] Erythrocyte distribution width (RBC) [Ratio] 13.5 % Normal 11.6-14.6 [facility] Comment on above: Performed By: #### L 100.0100, L500.4100, L506.1000, L500.4050 #### [facility] [address] [place], [address] Hematocrit (Bld) [Volume fraction] 44.9 % Normal 37-47 [facility] Comment on above: Performed By: #### L 100.0100, L500.4100, L506.1000, L500.4050 #### [facility] [address] [place], [address] Hemoglobin (Bld) [Mass/Vol] 14.9 g/dL Normal 12.0-15.0 [facility] Comment on above: Performed By: #### L 100.0100, L500.4100, L506.1000, L500.4050 #### [facility] [address] [place], [address] IG% 0.300 Normal 0.0-0.9 [facility] Comment on above: Result Comment: IG% - Immature Granulocytes (promyelocytes, myelocytes and metamyelocytes) > 1% indicates that a LEFT SHIFT is Present. Performed By: #### L 100.0100, L500.4100, L506.1000, L500.4050 #### [facility] [address] [place], [address] Lymphocytes/100 WBC (Bld) 22.6 % Normal 19-41 [facility] Comment on above: Performed By: #### L 100.0100, L500.4100, L506.1000, L500.4050 #### [facility] [address] [place], [address] MCH (RBC) [Entitic mass] 31.2 pg Normal 27.0-32.0 [facility] Comment on above: Performed By: #### L 100.0100, L500.4100, L506.1000, L500.4050 #### [facility] [address] [place], [address] MCHC (RBC) [Mass/Vol] 33.2 g/dL Normal 32-36 [facility] Comment on above: Performed By: #### L 100.0100, L500.4100, L506.1000, L500.4050 #### [facility] [address] [place], [address] MCV (RBC) [Entitic vol] 94.1 fL Normal 81-99 [facility] Comment on above: Performed By: #### L 100.0100, L500.4100, L506.1000, L500.4050 #### [facility] [address] [place], [address] Monocytes/100 WBC (Bld) 6.3 % Normal 0-10 [facility] Comment on above: Performed By: #### L 100.0100, L500.4100, L506.1000, L500.4050 #### [facility] [address] [place], [address] Neutrophils/100 WBC (Bld) 67.4 % Normal 47-70 [facility] Comment on above: Performed By: #### L 100.0100, L500.4100, L506.1000, L500.4050 #### [facility] [address] [place], [address] Nucleated RBC (Bld) [#/Vol] 0 10*3/uL Normal 0-5 [facility] Comment on above: Performed By: #### L 100.0100, L500.4100, L506.1000, L500.4050 #### [facility] [address] [place], [address] Platelet mean volume (Bld) [Entitic vol] 8.8 fL Normal 6.2-12.0 [facility] Comment on above: Performed By: #### L 100.0100, L500.4100, L506.1000, L500.4050 #### [facility] [address] [place], [address] Platelets (Bld) [#/Vol] 267 10*3/uL Normal 150-450 [facility] Comment on above: Performed By: #### L 100.0100, L500.4100, L506.1000, L500.4050 #### [facility] [address] [place], [address] RBC (Bld) [#/Vol] 4.77 10*6/uL Normal 4.2-5.4 [facility] Comment on above: Performed By: #### L 100.0100, L500.4100, L506.1000, L500.4050 #### [facility] [address] [place], [address] RDW SD 46.5 fl High 35.1-43.9 [facility] Comment on above: Performed By: #### L 100.0100, L500.4100, L506.1000, L500.4050 #### [facility] [address] [place], [address] WBC (Bld) [#/Vol] 8.6 10*3/uL Normal 4.4-11.0 [facility] Comment on above: Performed By: #### L 100.0100, L500.4100, L506.1000, L500.4050 #### [facility] [address] [place], [address] Comprehensive Metabolic [facility] 03-11-2024 Albumin [Mass/Vol] 3.7 g/dL Normal 3.2-5.0 [facility] Comment on above: Performed By: #### L 100.0100, L500.4100, L506.1000, L500.4050 #### [facility] [address] [place], [address] Albumin/Globulin [Mass ratio] 1.2 {ratio} Normal 0.9-2.4 [facility] Comment on above: Performed By: #### L 100.0100, L500.4100, L506.1000, L500.4050 #### [facility] [address] [place], [address] ALK P 101 U/L Normal 45-117 [facility] Comment on above: Performed By: #### L 100.0100, L500.4100, L506.1000, L500.4050 #### [facility] [address] [place], [address] ALT [Catalytic activity/Vol] 33 U/L Normal 13-56 [facility] Comment on above: Performed By: #### L 100.0100, L500.4100, L506.1000, L500.4050 #### [facility] [address] [place], [address] AST [Catalytic activity/Vol] 16 U/L Normal 15-37 [facility] Comment on above: Performed By: #### L 100.0100, L500.4100, L506.1000, L500.4050 #### [facility] [address] [place], [address] Bilirubin [Mass/Vol] 0.50 mg/dL Normal 0.20-1.00 [facility] Comment on above: Result Comment: For patients on eltrombopag therapy, use of Dimension Eldena TBIL is not recommended. Performed By: #### L 100.0100, L500.4100, L506.1000, L500.4050 #### [facility] [address] [place], [address] BUN/CRE 19.5 RATIO Normal 10-20 [facility] Comment on above: Performed By: #### L 100.0100, L500.4100, L506.1000, L500.4050 #### [facility] [address] [place], [address] CA,Total 10.0 mg/dL Normal 8.5-10.1 [facility] Comment on above: Performed By: #### L 100.0100, L500.4100, L506.1000, L500.4050 #### [facility] [address] [place], [address] Chloride [Moles/Vol] 111 mmol/L High 98-107 [facility] Comment on above: Performed By: #### L 100.0100, L500.4100, L506.1000, L500.4050 #### [facility] [address] [place], [address] CO2 [Moles/Vol] 24.0 mmol/L Normal 21.0-32.0 [facility] Comment on above: Performed By: #### L 100.0100, L500.4100, L506.1000, L500.4050 #### [facility] [address] [place], [address] Creatinine [Mass/Vol] 0.62 mg/dL Normal 0.55-1.02 [facility] Comment on above: Result Comment: The validity of the calculated GFR GFRAA in patients over 70 years has not been determined. Clinical correlation is essential. Performed By: #### L 100.0100, L500.4100, L506.1000, L500.4050 #### [facility] [address] [place], [address] EST GFR - AA 130 mL/min Normal >60 [facility] Comment on above: Result Comment: Afri can [place] GFR Calc Performed By: #### L 100.0100, L500.4100, L506.1000, L500.4050 #### [facility] [address] [place], [address] GAP 5 Normal 5-15 [facility] Comment on above: Performed By: #### L 100.0100, L500.4100, L506.1000, L500.4050 #### [facility] [address] [place], [address] GFR/1.73 sq M.predicted among non-blacks MDRD (S/P/Bld) [Vol rate/Area] 108 mL/min/{1.73_m2} Normal >60 [facility] Comment on above: Result Comment: Non- GFR Calc Performed By: #### L 100.0100, L500.4100, L506.1000, L500.4050 #### [facility] [address] [place], [address] Globulin (S) [Mass/Vol] 3.2 g/dL Normal 2.2-4.2 [facility] Comment on above: Performed By: #### L 100.0100, L500.4100, L506.1000, L500.4050 #### [facility] [address] [place], [address] Glucose [Mass/Vol] 94 mg/dL Normal 74-106 [facility] Comment on above: Performed By: #### L 100.0100, L500.4100, L506.1000, L500.4050 #### [facility] [address] [place], [address] Potassium [Moles/Vol] 3.9 mmol/L Normal 3.5-5.1 [facility] Comment on above: Performed By: #### L 100.0100, L500.4100, L506.1000, L500.4050 #### [facility] [address] [place], [address] Sodium [Moles/Vol] 140 mmol/L Normal 136-145 [facility] Comment on above: Performed By: #### L 100.0100, L500.4100, L506.1000, L500.4050 #### [facility] [address] [place], [address] T PROT 6.9 g/dL Normal 6.4-8.2 [facility] Comment on above: Performed By: #### L 100.0100, L500.4100, L506.1000, L500.4050 #### [facility] [address] [place], [address] Urea nitrogen [Mass/Vol] 12 mg/dL Normal 7-18 [facility] Comment on above: Performed By: #### L 100.0100, L500.4100, L506.1000, L500.4050 #### [facility] [address] [place], [address] Lipid Profileon 03-11-2023 Cholesterol [Mass/Vol] 198 mg/dL Normal 200 [facility] Comment on above: Result Comment: <200 mg/dL Desirable 200-240 mg/dL Borderline >240 mg/dL High Risk Performed By: #### L 100.0100, L500.4100, L506.1000, L500.4050 #### [facility] [address] [place], [address] Cholesterol in HDL [Mass/Vol] 74 mg/dL Normal [facility] Comment on above: Result Comment: The drugs N-Acetylcysteine and Metamizole may falsely depress this assay. Reference Range HDL <40 mg/dL Low HDL Cholesterol HDL >or= 60 mg/dL High HDL Cholesterol Performed By: #### L 100.0100, L500.4100, L506.1000, L500.4050 #### [facility] [address] [place], [address] Cholesterol in LDL [Mass/Vol] 95 mg/dL Normal 0-130 [facility] Comment on above: Performed By: #### L 100.0100, L500.4100, L506.1000, L500.4050 #### [facility] [address] [place], [address] Cholesterol in VLDL [Mass/Vol] 29 mg/dL Normal 5-40 [facility] Comment on above: Performed By: #### L 100.0100, L500.4100, L506.1000, L500.4050 #### [facility] [address] [place], [address] Triglyceride [Mass/Vol] 147 mg/dL Normal [facility] Comment on above: Result Comment: The drugs N-Acetylcysteine and Metamizole may falsely depress this assay. Serum Triglycerides Reference Interval Normal <150 mg/dL Borderline high 150 - 199 mg/dL High 200 - 499 mg/dL Very High > or = 500 mg/dL Performed By: #### L 100.0100, L500.4100, L506.1000, L500.4050 #### [facility] [address] [place], [address] Re-Evaluation - PT (1)on Re-Evaluation - PT (1) [facility] [address] [place] [address] / REEVALUATION / MEDICARE RECERTIFICATION PHYSICAL THERAPY MR#: [id number] Acct: [id number] Name: RAZIA CARRILLO Rep #: [id number] : 1970 54 From: Joleen Knutson PT, Cert. MDT Referring Dr.: Dr. Luis Harper DO Status:REG RCR Insurance: [employer] SELF PAY INSURANCE Re-Evaluation Intro: Dr. [...] AND SHE CAN MOVE A LOT BETTER. "I'M NOT IN NEAR MUCH PAIN I WAS. [...] DURING SESSION TODAY. Palpation: NO ACUTE TENDERNESS. 30" STS TEST: 10 WITHOUT UE ASSIST. FATIGUE [...] training, Gait and locomotor training, Neuromotor development, "In an aquatic setting" and Dynamic Lumbar Stabilization For the Purpose [...] do not hesitate to contact me at [phone] by phone or if you have questions or concerns regarding this new plan of care! Sincerely, Joleen Knutson (more content not included)... Normal [facility] Pulmonary Visit Reporton Pulmonary Visit Report [facility] [address] [place] [address] OFFICE VISIT Date of Service: 01/27/24 MR#: [id number] Acct: [id number] Name: RAZIA CARRILLO Rep #: [id number] 1 : 1970 Provider: REGLA Schmitt Age/Sex: 54/F Location: [facility].PMW Status: Signed Assessment and Plan Assessment and [...] is sometimes productive of clear-colored sputum with "dark flecks". She does admit to occasional wheezing. 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 [facility] 01-15-2024 [facility] Telephone (ZACHERY) RAZIA CARRILLO ([id number]) 1970 F Date Time Provider Department 01/15/24 KEVIN NICOLE During your visit today, we recorded the following information about you: Nandini Cagle LPN 01/15/2024 9:26 AM Signed Nurse from Judy Carrillo called requesting office visit. Faxed to [phone] as requested. Nandini Cagle LPN Allergies As of Date: 01/15/2024 (No Known Allergies) Date Reviewed: 12/24/2023 Reviewed by: Rachel Garcia LPN - Fully Assessed Prescriptions as of [...] Encounter Status:Closed by NANDINI CAGLE on 01/15/24 [facility] RAZIA CARRILLO ([id number]) 1970 F Date Time Provider Department 12/25/23 KEVIN NICOLE During your visit today, we recorded the following information about you: Hanny Reyes LPN 12/25/2023 8:17 AM Signed ----- Message from Kevin Nicole PA-C sent at 12/24/2023 8:40 PM EDT ----- No RBC's good news Kevin Nicole [facility] Esther, PRMANUEL Tammy, LPN 12/25/2023 8:18 AM Signed Called patient and relayed the message from Kevin Nicole, she verbalized understanding and did not have any further questions or concerns. Allergies As of Date: 12/25/2023 (No Known Allergies) Date Reviewed: 12/24/2023 Reviewed by: Rachel Garcia LPN - Fully Assessed Prescriptions as of [...] CNOV Office Visit (UROLWS ) RAZIA CARRILLO ([id number]) 1970 F Date Time Provider Department 12/24/23 10:00 AM KEVIN NICOLE During your visit today, we recorded the following information about you: Temperature Pulse Respiration Blood pressure 98.7 degrees 86/minute 18/minute 144/84 Weight Height 87.5 kg 1.569 Kevin Del Cid PA-C 12/24/2023 1:59 PM Signed [facility] NEW PATIENT CLINIC NOTE SERVICE DATE: December 24, 2023 NAME: Razia CARRILLO CHIEF COMPLAINT: Flank Pain HISTORY OF PRESENT ILLNESS: Razia CARRILLO is a 53 year old female an new patient here for Flank Pain The patient reports having "kidney" flank Pain Review of her recent CT imaging shows no kidney stones Or other obstructing causing any hydronephrosis Discussed that she may be dealing with a a some other cause for back pain no kidney stone of UTI LUTS: none Other symptoms: LABS: No results found for: "PSA" No results found for: TESTOST Hematocrit (%) Date Value 10/09/2016 37.2 No results found for: "PSA" No results found for: "CREAT" MEDICATIONS: albuterol HFA (PROVENTIL HFA, VENTOLIN HFA) [...] DANDC, DIAG AND/OR THERAPEUTIC 2021 EGD W/O [facility] SPEC VARICIES INJ 2021 PAST SURGICAL [...] resp. rate 18, height 156.9 cm (5' 1.77"), weight 87.5 kg (193 lb), SpO2 98%. [...] Nahomi Nicole (more content not included)... Normal [facility] UA DIP, URINE (POC)on 2023 BILIRUBIN UA (POCT) Negative Negative [facility] CLARITY UA (POCT) Clear [facility] COLOR UA (POCT) Yellow [facility] GLUCOSE UA (POCT) Negative Negative mg/dL [facility] Hemoglobin Ql (U) Small Abnormal Negative [facility] Interpretation and review of laboratory results Abnormal [facility] KETONE UA (POCT) Negative Negative mg/dL [facility] LEUKOCYTES UA (POCT) Negative Negative [facility] NITRITE UA (POCT) Negative Negative [facility] PH UA (POCT) 6.5 4.5 - 8.0 [facility] Protein Ql (U) Negative Negative mg/dL [facility] SPECIFIC GRAVITY UA (POCT) 1.020 1.005 - 1.030 [facility] UROBILINOGEN UA (POCT) 0.2 Normal E.U./dL [facility] Location:[facility], [address], [place], [address] [address] POINT OF CARE [facility] Urinalysis complete panel (U )on 12-24-2023 Bacteria LM.HPF (Urine sed) [#/Area] Negative Normal Negative [facility] Comment on above: Order Comment: Speci men Type: URINE SPECIMENOrdering Facility: [facility] Address: [address] [place] [address] Performed By: #### 2 4356-8 ####[facility] LABCLIA [id number] [place] [address] [place] Bilirubin Ql (U) Negative Normal Negative [facility] Comment on above: Order Comment: Speci men Type: URINE SPECIMENOrdering Facility: [facility] Address: [address] [place] [address] Performed By: #### 2 4356-8 ####[facility] LABCLIA [id number] [place] [address] [place] Clarity (Unsp spec) Clear Normal Clear [facility] Comment on above: Order Comment: Speci men Type: URINE SPECIMENOrdering Facility: [facility] Address: [facility] [place] [address] Performed By: #### 2 4356-8 ####[facility] LABCLIA [id number] [place] [address] [place] Color (U) Dark Yellow Abnormal Yellow [facility] Comment on above: Order Comment: Speci men Type: URINE SPECIMENOrdering Facility: [facility] Address: [address] [place] [address] Performed By: #### 2 4356-8 ####[facility] LABCLIA [id number] [place] [address] [place] Epithelial cells LM.HPF (Urine sed) [#/Area] None Seen Normal [facility] Comment on above: Order Comment: Speci men Type: URINE SPECIMENOrdering Facility: [facility] Address: [address] [place] [address] Performed By: #### 2 4356-8 ####[facility] LABCLIA [id number] [place] [address] [place] Glucose Test strip (U) [Mass/Vol] Negative Normal Negative [facility] Comment on above: Order Comment: Speci men Type: URINE SPECIMENOrdering Facility: [facility] Address: [address] [place] [address] Performed By: #### 2 4356-8 ####[facility] LABCLIA [id number] [place] [address] [place] Hemoglobin Ql (U) Negative Normal Negative [facility] Comment on above: Order Comment: Speci men Type: URINE SPECIMENOrdering Facility: [facility] Address: [address] [place] [address] Performed By: #### 2 4356-8 ####[facility] LABCLIA [id number] [place] [address] [place] Hyaline casts (Urine sed) [#/Area] 0 /[LPF] Normal 0 /LPF [facility] Comment on above: Order Comment: Speci men Type: URINE SPECIMENOrdering Facility: [facility] Address: [address] [place] [address] Performed By: #### 2 4356-8 ####[facility] LABCLIA [id number] [place] [address] [place] Ketones Ql (U) Negative Normal Negative [facility] Comment on above: Order Comment: Speci men Type: URINE SPECIMENOrdering Facility: [facility] Address: [address] [place] [address] Performed By: #### 2 4356-8 ####[facility] LABCLIA [id number] [place] [address] [place] Leukocyte esterase Test strip Ql (U) Negative Normal Negative [facility] Comment on above: Order Comment: Speci men Type: URINE SPECIMENOrdering Facility: [facility] Address: [address] [place] [address] Performed By: #### 2 4356-8 ####[facility] LABCLIA [id number] [place] [address] [place] Nitrite Ql (U) Negative Normal Negative [facility] Comment on above: Order Comment: Speci men Type: URINE SPECIMENOrdering Facility: [facility] Address: [address] [place] [address] Performed By: #### 2 4356-8 ####[facility] LABCLIA [id number] [place] [address] [place] pH (U) 6.5 [pH] Normal <8.5 [facility] Comment on above: Order Comment: Speci men Type: URINE SPECIMENOrdering Facility: [facility] Address: [address] [place] [address] Performed By: #### 2 4356-8 ####[facility] LABCLIA [id number] [place] [address] [place] Protein (U) [Mass/Vol] Negative Normal Negative [facility] Comment on above: Order Comment: Speci men Type: URINE SPECIMENOrdering Facility: [facility] Address: [address] [place] [address] Performed By: #### 2 4356-8 ####[facility] LABIA [id number] [place] [address] [place] RBC LM.HPF (Urine sed) [#/Area] 0-2 /HPF Normal 0-2 /HPF [facility] Comment on above: Order Comment: Speci men Type: URINE SPECIMENOrdering Facility: [facility] Address: [address] [place] [address] Performed By: #### 2 4356-8 ####[facility] LABIA [id number] [place] [address] [place] Specific gravity (U) [Rel density] 1.012 Normal 1.005-1.030 [facility] Comment on above: Order Comment: Speci men Type: URINE SPECIMENOrdering Facility: [facility] Address: [address] [place] [address] Performed By: #### 2 4356-8 ####[facility] LABIA [id number] [place] [address] [place] Urobilinogen Ql (U) 0.2 EU/dL Normal 0.2-1.0 EU/dL [facility] Comment on above: Order Comment: Speci men Type: URINE SPECIMENOrdering Facility: [facility] Address: [address] [place] [address] Performed By: #### 2 4356-8 ####[facility] LABIA [id number] [place] [address] [place] WBC LM.HPF (Urine sed) [#/Area] 0-5 /HPF Normal 0-5 /HPF [facility] Comment on above: Order Comment: Speci men Type: URINE SPECIMENOrdering Facility: [facility] Address: [address] [place] [address] Performed By: #### 2 4356-8 ####[facility] LABCLIA [id number] [address] [id number] [id number] [facility] CNPNon 12-17-2023 CNPN Telephone (UROLWS) RAZIA CARRILLO ([id number]) 1970 F Date Time Provider Department 12/17/23 KEVIN NICOLE During your visit today, we recorded the following information about you: Rachel Garcia LPN 12/17/2023 5:48 PM Signed Called patient. Verified name and date of . Patient reports she was seen at [facility] and will call and have them fax us records. CANDICE Arriaga Kimberly, LPN 12/18/2023 1:00 PM Signed Received medical records for upcoming urology appointment. Uploaded to R[employer]L via [employer]. Rachel Garcia LPN Allergies As of Date: 12/17/2023 (No [...] Date: 12/17/2023 (None) Encounter Status:Closed by RACHEL GARCIA on 12/18/23 Normal [facility] Vital Signs Date Time Vital Sign Value Performing Clinician Faci lity 05-22-2024 09:54-0500 Body mass index (BMI) [Ratio] 34.46 kg/m2 John Phill [employer].CARDIAC CATHETERIZATION TECHNICIAN Work Phone: [facility] 05-22-2024 09:54-0500 Body weight 84.82 kg John Phill [employer].CARDIAC CATHETERIZATION TECHNICIAN Work Phone: [facility] 05-22-2024 09:54-0500 Diastolic blood pressure 81 mm[Hg] John Phill [employer].CARDIAC CATHETERIZATION TECHNICIAN Work Phone: [facility] 05-22-2024 09:54-0500 Heart rate 74 /min John Phill [employer].CARDIAC CATHETERIZATION TECHNICIAN Work Phone: [facility] 05-22-2024 09:54-0500 Respiratory rate 16 /min John Phill [employer].CARDIAC CATHETERIZATION TECHNICIAN Work Phone: [facility] 05-22-2024 09:54-0500 SaO2% (BldA) [Mass fraction] 99 % John Phill [employer].CARDIAC CATHETERIZATION TECHNICIAN Work Phone: [facility] 05-22-2024 09:54-0500 Systolic blood pressure 116 mm[Hg] John Phill [employer].CARDIAC CATHETERIZATION TECHNICIAN Work Phone: [facility] 12-24-2023 10:12-0400 Body height 156.9 cm Kevin Nicole PA-C Work Phone: [facility] 12-24-2023 10:12-0400 Body mass index (BMI) [Ratio] 35.56 kg/m2 Kevin Nicole PA-C Work Phone: [facility] 12-24-2023 10:12-0400 Body temperature 98.71 [degF] Kevin Nicole PA-C Work Phone: [facility] 12-24-2023 10:12-0400 Body weight 87.54 kg Kevin Nicole PA-C Work Phone: [facility] 12-24-2023 10:12-0400 Diastolic blood pressure 84 mm[Hg] Kevin Nicole PA-C Work Phone: [facility] 12-24-2023 10:12-0400 Heart rate 86 /min Kevin Nicole PA-C Work Phone: [facility] 12-24-2023 10:12-0400 Respiratory rate 18 /min Kevin Nicole PA-C Work Phone: [facility] 12-24-2023 10:12-0400 SaO2% (BldA) [Mass fraction] 98 % Kevin Nicole PA-C Work Phone: [facility] 12-24-2023 10:12-0400 Systolic blood pressure 144 mm[Hg] Kevin Nicole PA-C Work Phone: [facility] Encounters Encounter Date Encounter Type Care Provider Facility Start: 01-08-2025 ambulatory Carlos Love ty:[facility] Start: 12-15-2024 End: 12-15-2024 ambulatory KORI RONQUILLO Facility:[facility] Start: 12-04-2024 End: 12-04-2024 ambulatory Nandini [facility] Facility:[facility] Start: 11-27-2024 End: 11-27-2024 ambulatory Kendra uSh Facility:[facility] Start: 11-20-2024 End: 11-20-2024 ambulatory Nandini Jovel [facility] Facility:[facility] Start: 11-10-2024 End: 11-11-2024 ambulatory Nandini Med VS Facility:[facility] Start: 11-06-2024 ambulatory Nandini Jovel [facility] Fa cility:[facility] Start: 11-04-2024 End: 11-04-2024 ambulatory Nandini Jovel VS Facility:[facility] Start: 11-03-2024 End: 11-03-2024 ambulatory Nandini Jovel [facility] Facility:[facility] Start: 10-28-2024 End: 10-28-2024 ambulatory Laurie Lawler Facility:[facility] Start: 10-16-2024 End: 10-16-2024 Emergency department patient visit NANDINIAYLIN JOVEL Facility:[facility] Start: 10-16-2024 End: 10-16-2024 ambulatory Nandini Jovel VS Facility:[facility] Start: 10-14-2024 End: 10-14-2024 ambulatory Nandini Jovel [facility] Facility:[facility] Start: 10-09-2024 End: 10-09-2024 ambulatory Nandini Jovel VSC Facility:[facility] Start: 09-11-2024 End: 09-11-2024 ambulatory Nandini Jovel [facility] Facility:[facility] Start: 09-11-2024 End: 09-11-2024 ambulatory Nandini Jovel C Facility:[facility] Start: 08-21-2024 End: 08-21-2024 ambulatory Nandini Jovel VSC Facility:[facility] Start: 08-10-2024 End: 08-10-2024 ambulatory Nandini Jovel VSC Facility:[facility] Start: 06-25-2024 End: 06-25-2024 ambulatory LUIS COLLINS Facility:[facility] Start: 06-25-2024 End: 06-25-2024 Office outpatient visit 40 minutes Luis Collins MD Work Phone: Neurology Comment on above: Chronic insomnia (Pr imary Dx) Start: 06-16-2024 End: 06-16-2024 Telephone encounter [facility] Work Phone: Neurology Comment on above: PAP Therapy Follow U p Start: 06-11-2024 End: 06-11-2024 ambulatory Nandini Jovel [facility] Facility:[facility] Start: 05-22-2024 End: 05-22-2024 Patient encounter procedure John Pollock APRN.CARDIAC CATHETERIZATION TECHNICIAN Work Phone: Neurology Comment on above: Excessive daytime sl eepiness (Primary Dx) Start: 05-22-2024 End: 05-22-2024 ambulatory JOHN POLLOCK Facility:[facility] Start: 04-17-2024 End: 04-17-2024 ambulatory DERIAN LATIF Facility: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 Start: 12-24-2023 End: 12-24-2023 Patient encounter procedure Kevin Nicole PA-C Work Phone: Urology Comment on above: Microscopic hematuri a; Screening for genitourinary condition Start: 12-17-2023 End: 12-18-2023 Telephone encounter Kevin Nicole PA-C Work Phone: Urology Comment on above: Appointment Procedures Date Procedure Procedure Detail Performing Clinician Start: 12-24-2023 Urnls dip stick/tabl et rgnt auto w/o microscopy Kevin Nicole PA-C Work Phone: Plan of Treatment Date Care Activity Detail Author Start: 06-25-2024 End: 06-25-2024 Follow-up encounter 06/25/2024 1:00 PM EDT [facility] [address] [place] [address] Luis Collins MD [address] [place], [place] [id number] Chronic insomnia follow up Neurology Comment on above: Chronic insomnia fol low up Start: 05-22-2024 End: 05-22-2024 Patient encounter procedure 05/22/2024 10:00 AM EST Office Visit Neurology [address] [place] [address] John Pollock APRN.CARDIAC CATHETERIZATION TECHNICIAN [address] [place] [address] follow up Neurology Comment on above: follow up Start: 12-24-2023 End: 12-24-2023 Patient encounter procedure 12/24/2023 10:00 AM EDT Office Visit Urology [address] [place] [address] Kevin Nicole PA-C [address] [place] [address] Hydrpnephrosis; Abdominal and Flank Pain Urology Comment on above: Hydrpnephrosis; Abdo jignesh and Flank Pain Start: 11-24-2023 Covid-19 Vaccine ( season) Covid-19 Vaccine ( season) [facility] Start: 11-24-2023 Influenza vaccination Influenza Vacc ine (#1) [facility] Start: 2021 Shingrix Vaccine (1 of 2) Shingrix Vaccine (1 of 2) [facility] Start: 01-05-2016 Diabetes Screening Diabetes Screenin g [facility] Start: 01-05-2016 Lipid panel Lipid Screening [facility] Start: 01-05-2016 Screening for malign ant neoplasm of colon [facility] Start: 2011 Screening for malign ant neoplasm of breast Mammogram Screening [facility] Start: 01-05-1992 Screening for malign ant neoplasm of cervix Cervical Cancer Screening [facility] Start: 1990 Hepatitis B Vaccine (1 of 3 - 19+ 3-dose series) Hepatitis B Vaccine (1 of 3 - 19+ 3-dose series) [facility] Start: 1990 Pneumococcal Vaccine : 50+ (1 of 2 - PCV) Pneumococcal Vaccine: 50+ (1 of 2 - PCV) [facility] Start: 1990 Urine microalbumin profile DTaP,Tdap,Td Vaccine (1 - Tdap) [facility] Start: 1989 Annual PCP Team Chlorination Operator michael Disease Visit Annual PCP Team Chronic Disease Visit [facility] Start: 1989 Anxiety Screening Anxiety Screening [facility] Start: 1989 BP Controlled (<130/80) BP Controlle d (<130/80) [facility] Start: 1989 Depression Screening Depression Scre ening [facility] Start: 1989 Hepatitis C screening Hepatitis C Sc reening [facility] Start: 1989 HIV screening HIV Screening [facility] Start: 1977 Pneumococcal vaccination Pneumococcal Vaccine (1 of 2 - PCV) [facility] POST VOID RESIDUAL POST VOID RES IDUAL Procedures Routine Microscopic hematuria Screening for genitourinary condition Ordered: 12/24/2023 [facility] Comment on above: Ordered: 12/24/2023 Urinalysis complete panel - Urine URINALYSIS, WITH MICROSCOPIC Lab Routine Microscopic hematuria 12/24/2023 11:39 AM EDT [facility] VFR/PVR VFR/PVR Procedur es EARL Microscopic hematuria Ordered: 12/24/2023 [facility] Work Phone: Comment on above: Ordered: 12/24/2023 Payers Date Payer Category Payer Self-pay 2022 Medicaid [id number] 2017 Medicaid [id number] Unknown [id number] 2.16.8 [id number] Unknown [id number] 2.16.8 40.1.267916.3.579.2.462 Unknown [id number] 2.16.8 40.1.279860.3.579.2.462 Unknown [id number] 2.16.8 40.1.618265.3.579.2.462 Unknown [id number] 2.16.8 40.1.079178.3.579.2.462 Unknown [id number] 2.16.8 40.1.595009.3.579.2.462 Unknown [id number] 2.16.8 40.1.029029.3.579.2.462 Unknown [id number] 2.16.8 40.1.915269.3.579.2.462 Unknown [id number] 2.16.8 40.1.049451.3.579.2.462 Unknown [id number] 2.16.8 40.1.031923.3.579.2.462 Unknown [id number] 2.16.8 40.1.588757.3.579.2.462 Unknown [id number] 2.16.8 40.1.543089.3.579.2.462 Unknown [id number] 2.16.8 40.1.191399.3.579.2.462 Unknown [id number] 2.16.8 40.1.884051.3.579.2.462 Unknown [id number] 2.16.8 40.1.871427.3.579.2.462 Unknown [id number] 2.16.8 40.1.908303.3.579.2.462 Unknown [id number] 2.16.8 40.1.005045.3.579.2.462 Unknown [id number] 2.16.8 40.1.627426.3.579.2.462 Unknown [id number] 2.16.8 40.1.253697.3.579.2.462 Unknown [id number] 2.16.8 40.1.243320.3.579.2.462 Unknown [id number] 2.16.8 40.1.257016.3.579.2.462 Unknown [id number] 2.16.8 40.1.468881.3.579.2.462 Unknown [id number] 2.16.8 40.1.619868.3.579.2.462 Social History Date Type Detail [facility] Start: 1970 Sex assigned at Not on file [facility] Start: 12-24-2023 End: 04-17-2024 Gender identity Not on file [facility] Start: 12-24-2023 Tobacco smoking stat us NHIS Smokes tobacco daily [facility] History of tobacco use Cigarette Smoker C [facility] Start: 12-24-2023 Tobacco use and exposure Smokeless t obacco non-user [facility] Start: 12-24-2023 End: 04-17-2024 Alcoholic beverage intake Current drinker of alcohol (finding) [facility] Start: 12-24-2023 End: 04-17-2024 History of Social function [facility] National Score (1-10 0), lower number is lower risk 48 [facility] Start: 12-24-2023 Alcohol Comment Socially [facility] Clinical Notes 12-17-2023 to 06-25-2024 Rosetta Salcedo, - 06/25/2024 1:00 PM EDTTelephone Encounter - Cecile Casper MA - 06/16/2024 1:59 PM EDTTelephone Encounter - Cecile Casper MA - 06/16/2024 1:59 PM EDT Note Date & Type Note Facility 06-25-2024 History of Presen t illness Narrative Images from the original note were not included. [facility] Follow up/ Established patient visit Date of last visit : Visit date not found I have communicated my name and active licensure. The patient's identity and physical location were verified at the time of this visit. Either the patient or their legal sales representative marine supplies has been informed of the risks and [...] AM and then wakes repeatedly in the computer system specialist hours. When she wakes up, she makes [...] she was seeing a psychiatry provider at [facility] around a year and a half [...] depression with psychotic features. She reports that "it controls my psychotic features", though she still experiences some depression. 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 Reported mood "great", affect congruent. Neck circumference: Unable to assess [...] She reports frequent nocturnal awakening during the computer system specialist hours with consequences of daytime sleepiness. She [...] with Dr. Salcedo. Luis Collins MD Fellow, [facility] Attending Staff Sleep [...] of the case and have updated the [employer] electronic medical record where necessary. I agree with the history, physical, impression, recommendations and follow up as documented in [facility]. Further discussion and teaching occurred after the patient was released to go home. Thank you for choosing and trusting the [facility] for your medical care! Rosetta Salcedo DO, CBSM, ABSM Associate Resident Physician, Sleep Medicine Fellowship Core Faculty, ACGME Sleep Medicine Fellowship Chief Experience Officer, Sleep Medicine Center Clinical Staff, Sleep Medicine [facility] Neurological [place] Department of Neurology Department of Psychiatry [address] [place] [address] documented in this encounter [facility] 06-25-2024 Note HNO ID: [id number] Author: ROSETTA SALCEDO DO Service: ? Author Type: Physician Type: Progress Notes Filed: 06/25/2024 16:13 Note Text: [facility] Follow up/ Established patient visit Date of last visit : Visit date not found I have communicated my name and active licensure. The patient's identity and physical location were verified at the time of this visit. Either the patient or their legal sales representative marine supplies has been informed of the risks and [...] AM and then wakes repeatedly in the computer system specialist hours. When she wakes up, she makes [...] she was seeing a psychiatry provider at [facility] around a year and a half [...] depression with psychotic features. She reports that "it controls my psychotic features", though she still experiences some depression. SLEEP [...] by the patient: Feels more well rested [place] reports that there are no observers to [...] (Xanax) - Te (more content not included)... [facility] 06-16-2024 Telephone encounter Note Images from the original note were not included. [facility] 06-16-2024 Miscellaneous Notes Images from the original note were not included. documented in this encounter [facility] 05-22-2024 History of Presen t illness Narrative Images from the original note were not included. [facility] Follow up/ Established patient visit Date of last visit : 04/17/24 The following Impression/Plan was copied and pasted from the patient's last Sleep Disorders Center visit on 04/17/24: IMPRESSION/PLAN: Razia CARRILLO is a 54 year old female presents today in [facility] with the following [...] prescriptions, we will obtain medical records from [facility] including her Genesight testing. Before [...] - Weight loss can help in the fci treatment of NBA. - Declined weight loss [...] the full 200 mg daily she was "agitated easily". 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 She works 4 days a week, total of 20 hours. Moadfinil 200 mg [facility]. All prescriptions have been APPROPRIATELY filled. No suspicious activity was identified. 05/22/2024 by John Pollock APRN.CARDIAC CATHETERIZATION TECHNICIAN PATIENT-ENTERED QUESTIONNAIRE SLEEP SCORES 05/20/2024 Sleep Questions [...] sorted in reverse-chronological order 03/09/2024 04/16/2024 05/20/2024 [place] Sleepiness Scale Score 20 (Excessive daytime sleepiness [...] John Pollock APRN.PEDRITO documented in this encounter [facility] 05-22-2024 Note HNO ID: [id number] Author: JOHN POLLOCK APRN.CNP Service: ? Author Type: Nurse Practitioner Type: Progress Notes Filed: 05/22/2024 12:10 Note Text: [facility] Follow up/ Established patient visit Date of last visit : 04/17/24 The following Impression/Plan was copied and pasted from the patient's last Sleep Disorders Center visit on 04/17/24: IMPRESSION/PLAN: Razia CARRILLO is a 54 year old female presents today in [facility] with the following [...] prescriptions, we will obtain medical records from [facility] including her Genesight testing. Before any [...] - Weight loss can help in the lobsterman treatment of NBA. - Declined weight loss [...] bedtime Patient c (more content not included)... [facility] 04-17-2024 Note HNO ID: [id number] Author: DERIAN LATIF APRN.CNP Service: ? Author Type: Nurse Practitioner Type: Progress Notes Filed: 04/17/2024 20:23 Note Text: [facility] New Patient Evaluation Patient: Razia CARRILLO : 1970 AGE: [age] year old SEX: female Provider: Derian Latif APRN.PEDRITO Location: NEUROLOGY Service Date: 04/17/2024 PCP: Ilsa Espinoza DO Referred by: Lino Calero MD REASON FOR CONSULT: Rosetta Salcedo sends the patient for an opinion about Insomnia. My findings and recommendations will be transmitted electronically via shared medical record to the consulting provider. Patient ID: Razia CARRILLO is a 54 year old female who presents to a [facility] for evaluation for [...] will take the mask off without recollection. 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 [facility] 03-10-2024 Instructions Lino Calero MD - 03/10/2024 9:19 AM EST Thank you for coming into see us today. It was a pleasure discussing your concerns for us today including your history of sleep apnea, daytime sleepiness, fatigue, and insomnia. First step, we will try to obtain your past records from [facility] as well as your sleep data from [facility]. We are providing a referral to get [...] nurse practictioners. This can be in the [place] office but should be an in-person appointment. documented in this encounter [facility] 03-10-2024 Note HNO ID: [id number] Author: GUALBERTO ECHEVARRIA JR, MD Service: ? Author Type: Physician Type: Progress Notes Filed: 03/16/2024 19:45 Note Text: [facility] New Patient Evaluation PATIENT NAME: Razia CARRILLO DATE OF SERVICE: March 10, 2024 I have communicated my name and active licensure. The patient's identity and physical location were verified at the time of this visit. Either the patient or their legal sales representative [employer] supplies has been informed of the risks and [...] with a psychiatrist. Was working with a ATHLETIC INSTRUCTOR in Psychiatry virtually who has not left [...] was diagnosed with NBA in 2021 at [facility] with an in lab sleep study.She has been "bordering compliance" as she has issues with frequent nocturnal [...] not drive currently due to daytime sleepiness. 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 [...] Sl (more content not included)... [facility] 03-10-2024 History of Presen t illness Narrative Images from the original note were not included. [facility] New Patient Evaluation PATIENT NAME: Razia CARRILLO DATE OF SERVICE: March 10, 2024 I have communicated my name and active licensure. The patient's identity and physical location were verified at the time of this visit. Either the patient or their legal sales representative marine supplies has been informed of the risks and [...] with a psychiatrist. Was working with a ATHLETIC INSTRUCTOR in Psychiatry virtually who has not left [...] was diagnosed with NBA in 2021 at [facility] with an in lab sleep study.She has been "bordering compliance" as she has issues with frequent nocturnal [...] not drive currently due to daytime sleepiness. 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 [...] difference.) Physical T-Score 44.9 Mental T-Score 33.8 [place] Sleepiness Scale Sitting and Reading? high chance [...] 200mg CPAP PRIOR SLEEP STUDIES: PSG from [facility]-- results unkonwn OTHER RELEVANT LABS AND [...] on CPAP here to establish care with [facility]. With active concerns [...] the care of psychiatrist from outside of [facility]. It appears she developed depression with [...] factors in as well. NBA diagnosed at [facility] in 2021, recent PAP titration reported by patient this year. On Autopap and compliant at this time. Per patient, moderate NBA. Trying to use CPAP nightly. -counseled on CPAP compliance. -discussed sleep hygiene and restriction. Referring to [facility] for insomnia care. -request records from [facility] including Sleep records -obtain data/compliance report from [facility] -will refer patient for consultation with Dr. Salcedo given her extensive psych history -discussed that we may need to do a repeat in lab sleep study, possibly a double study if we feel this is indicated -f/u with Dr. Echevarria/John Pollock in [place] office in about 3 months Patient seen and discussed with Dr. Swathi Calero MD Sleep Medicine Fellow [facility] [place] STAFF PHYSICIAN NOTE OF PERSONAL INVOLVEMENT IN [...] part in visit: Patient and physician via [employer]. Consent for this visit received from patient. I have communicated my name and active licensure. The patient's identity and physical location ([place]) were verified at the time of this visit. Either the patient or their legal sales representative marine supplies has been informed of the risks and benefits of -- and alternatives to -- treatment through a remote evaluation and consents to proceed with the evaluation remotely. Patient is a pleasant 54 year old with history of HTN, Depression, Anxiety (with reported psychotic features). Now presents with several sleep complaints. [facility] and currently on Auto PAP. Note prior [...] prn - Rx through psychiatry in the [place] area. In the [place], psychiatry tracy pt dx of hypersomnia without [...] which included preparing to see the patient, [id number] patient care, completing clinical documentation, obtaining and/or reviewing separately obtained history, performing a medically appropriate examination, counseling and educating the patient/family/caregiver, ordering medications, tests, or procedures, and communicating results to the patient/family/caregiver. documented in this encounter [facility] 01-15-2024 Telephone encounter Note Nurse from [facility] called requesting office visit. Faxed to [phone] as requested. Nandini Cagle LPN [facility] 01-15-2024 Miscellaneous Notes Nurse from [facility] called requesting office visit. Faxed to [phone] as requested. Nandini Cagle LPN documented in this encounter [facility] 12-25-2023 Telephone encounter Note Called patient and relayed the message from Kevin Nicole, she verbalized understanding and did not have any further questions or concerns. [facility] 12-25-2023 Telephone encounter Note ----- Message from Kevin Nicole PA-C sent at 12/24/2023 8:40 PM EDT ----- No RBC's good news AUDREY Mendes, MANUEL BETHEA [facility] 12-25-2023 Miscellaneous Notes Called patient and relayed the message from Kevin Nicole, she verbalized understanding and did not have any further questions or concerns. ----- Message from Kevin Nicole PA-C sent at 12/24/2023 8:40 PM EDT ----- No RBC's good news AUDREY Mendes MT, PA-C documented in this encounter [facility] 12-24-2023 Note HNO ID: [id number] Author: RACHEL GARCIA LPN Service: ? Author Type: LICENSED NURSE [...] the procedure well. Plan: Appointment with Kevin. [facility] 12-24-2023 History of Presen t illness [...] from the original note were not included. [facility] NEW PATIENT CLINIC NOTE SERVICE DATE: December 24, 2023 NAME: Razia CARRILLO CHIEF COMPLAINT: Flank Pain HISTORY OF PRESENT ILLNESS: Razia CARRILLO is a 53 year old female an new patient here for Flank Pain The patient reports having "kidney" flank Pain Review of her recent CT imaging shows no kidney stones Or other obstructing causing any hydronephrosis Discussed that she may be dealing with a a some other cause for back pain no kidney stone of UTI LUTS: none Other symptoms: LABS: No results found for: "PSA" No results found for: "TESTOST" Hematocrit (%) Date Value 10/09/2016 37.2 No results found for: "PSA" No results found for: "CREAT" MEDICATIONS: albuterol HFA (PROVENTIL HFA, VENTOLIN HFA) [...] resp. rate 18, height 156.9 cm (5' 1.77"), weight 87.5 kg (193 lb), SpO2 98%. [...] Mendes MT, PA-C documented in this encounter [facility] 12-24-2023 Instructions Kevin Nicole PA-C - 12/24/2023 11:18 AM EDT > UA with Microscopic sent to look fr RBC's if RBC's are seen will need 2 more samples looked at and will order them > If Flank Pain and Fever 101.0 higher > Flank Pain no fever - call to get Renal US ordered to look for stones documented in this encounter [facility] 12-24-2023 Note HNO ID: [id number] Author: KEVIN NICOLE PA-C Service: ? Author Type: Physician Actionscript Developer Type: Progress Notes Filed: 12/24/2023 13:59 Note Text: [facility] NEW PATIENT CLINIC NOTE SERVICE DATE: December 24, 2023 NAME: Razia CARRILLO CHIEF COMPLAINT: Flank Pain HISTORY OF PRESENT ILLNESS: Razia CARRILLO is a 53 year old female an new patient here for Flank Pain The patient reports having "kidney" flank Pain Review of her recent CT imaging shows no kidney stones Or other obstructing causing any hydronephrosis Discussed that she may be dealing with a a some other cause for back pain no kidney stone of UTI LUTS: none Other symptoms: LABS: No results found for: "PSA" No results found for: "TESTOST" Hematocrit (%) Date Value 10/09/2016 37.2 No results found for: "PSA" No results found for: "CREAT" MEDICATIONS: albuterol HFA (PROVENTIL HFA, VENTOLIN HFA) [...] resp. rate 18, height 156.9 cm (5' 1.77"), weight 87.5 kg (193 lb), SpO2 98%. [...] if no improvement AUDREY Mendes, MANUEL BETHEA [facility] 12-18-2023 Telephone encounter Note Received medical records for upcoming urology appointment. Uploaded to [employer] via [employer]. Rachel Garcia LPN [facility] 12-18-2023 Miscellaneous Notes Received medical records for upcoming urology appointment. Uploaded to [employer] via [employer]. Rachel Garcia LPN Called patient. Verified name and date of . Patient reports she was seen at [facility] and will call and have them fax us records. Rachel Garcia LPN documented in this encounter [facility] 12-17-2023 Telephone encounter Note Called patient. Verified name and date of . Patient reports she was seen at [facility] and will call and have them fax us records. Rachel Garcia LPN [facility] Evaluation note Diagnosis Microscopic hematuria Screening for genitourinary condition Screening for other and unspecified genitourinary condition documented [facility] this encounter [facility] Diagnosis NBA on CPAP- Primary Obstructive sleep apnea (adult) (pediatric) Chronic insomnia Insomnia, unspecified Insufficient sleep syndrome Persistent disorder of initiating or maintaining wakefulness Daytime sleepiness Depression, unspecified depression type documented [facility] this [facility]* Diagnosis Excessive daytime sleepiness- Primary [facility]* Diagnosis Chronic insomnia- Primary Insomnia, unspecified documented in this encounter [facility] (narrative)* Outpatient Procedure (Urgent) - New Request Specialty Diagnoses / Procedures Referred By Ariane mahajan Referred To Contact [facility] Diagnoses Microscopic hematuria Procedures VFR/PVR JOSE POST-VOIDING RESIDUAL URINE&/BLADDER CAP Kevin Nicole PA-C [address] [place] [address] [address] [address] [place] [address] Referral ID Status Reason Start Date Expiration Date Visits Requested Visits Authorized [id number] New Request Auto-Generat ed Referral 12/24/2023 12/23/2024 1 1 [facility] Reason for Referral Specialty Diagnoses / Procedures Referred By Contnevaeh mahajan Referred To Contact Diagnoses NBA on CPAP Chronic insomnia Parasomnia, unspecified type Procedures CONSULT TO BEHAVIORAL SLEEP MEDICINE INDIVIDUAL TREATMENT Gualberto Echevarria Jr., MD [address] [place] [address] Referral ID Status Reason Start Date Expiration Date Visits Requested Visits Authorized [id number] Authorized PCP Requested Referral 4 06/08/2024 1 1 Specialty Diagnoses / Procedures Referred By Ariane mahajan Referred To Contact Diagnoses NBA on CPAP Chronic insomnia Parasomnia, unspecified type Procedures CONSULT TO SLEEP MEDICINE - ADULT OFFICE/OUTPATIENT [facility] 60 MINUTES Rosetta Salcedo, [address] [place] [address] Referral ID Status Reason Start Date Expiration Date Visits Requested Visits Authorized [id number] Authorized PCP Requested Referral 4 03/10/2025 1 [...] or prosecute any alcohol or drug abuse patient.[facility] the event this information is protected by the Federal Confidentiality of Alcohol and Drug Abuse Patient Records regulations: The Federal rules restrict any use of the information to criminally investigate or prosecute any alcohol or drug abuse patient.[facility] the event this information is protected by the Federal Confidentiality of Alcohol and Drug Abuse Patient Records regulations: The Federal rules restrict any use of the information to criminally investigate or prosecute any alcohol or drug abuse patient.[facility] the event this information is protected by the Federal Confidentiality of Alcohol and Drug Abuse Patient Records regulations: The Federal rules restrict any use of the information to criminally investigate or prosecute any alcohol or drug abuse patient.[facility] the event this information is protected by the Federal Confidentiality of Alcohol and Drug Abuse Patient Records regulations: The Federal rules restrict any use of the information to criminally investigate or prosecute any alcohol or drug abuse patient.[facility] the event this information is protected by the Federal Confidentiality of Alcohol and Drug Abuse Patient Records regulations: The Federal rules restrict any use of the information to criminally investigate or prosecute any alcohol or drug abuse patient.[facility] the event this information is protected by the Federal Confidentiality of Alcohol and Drug Abuse Patient Records regulations: The Federal rules restrict any use of the information to criminally investigate or prosecute any alcohol or drug abuse patient.[facility] Hospital[facility] the event this information is protected by the Federal Confidentiality of Alcohol and Drug Abuse Patient Records regulations: The Federal rules restrict any use of the information to criminally investigate or prosecute any alcohol or drug abuse patient.[facility] Reason for Visit (unrecogniz ed section and content) Reason Comments Appointment Reason Comments Elevated PSA New Patient Flank Pain Reason Comments New Patient Evaluation Reason Comments Follow Up Reason Comments PAP Therapy Follow Up Reason Comments Established Patient Care Teams (unrecognized sec tion and content) Industrial Illuminating Engineer Relationship Specialty Start Date End Date Ilsa Espinoza DO [address] [place] [address] PCP - General Family Medicine 10/08/16 Nandini Jovel NP [address] [place] [address] Referring Family Medicine 11/15/23 Industrial Illuminating Engineer Relationship Specialty Start Date End Date Ilsa Espinoza DO [address] [address] PCP - General Family Medicine 10/08/16 Nandini Jovel NP [address] [place], [place] [id number] Referring Family Medicine 11/15/23 Industrial Illuminating Engineer Relationship Specialty Start Date End Date Ilsa Espinoza DO [address] [place] [address] PCP - General Family Medicine 10/08/16 Nandini Jovel NP [address] [place], [place] [address] Referring Family Medicine 11/15/23 Industrial Illuminating Engineer Relationship Specialty Start Date End Date Ilsa Espinoza DO [address] [facility] [place] [address] PCP - General Family Medicine 10/08/16 Nandini Jovel NP [address] [place], [place] [address] Referring Family Medicine 11/15/23 Industrial Illuminating Engineer Relationship Specialty Start Date End Date Ilsa Espinoza DO [address] [facility] [place] [address] PCP - General Family Medicine 10/08/16 Nandini Jovel NP [address] [place] [address] Referring Family Medicine 11/15/23 Stefany Peterson APRN.CNP [address] [place] [address] Referring Nurse Practitioner 01/20/24 Industrial Illuminating Engineer Relationship Specialty Start Date End Date Ilsa EspinozaDO [address] [place] [address] PCP - General Family Medicine 10/08/16 Nandini Jovel NP [address] [place] [address] Referring Family Medicine 11/15/23 Stefany Peterson APRN.CARDIAC CATHETERIZATION TECHNICIAN [address] [place] [address] Referring Nurse Practitioner 01/20/24 Industrial Illuminating Engineer Relationship Specialty Start Date End Date Ilsa Espinoza [address] [place] [address] PCP - General Family Medicine 10/08/16 Nandini Jovel, DOMO [address] [place] [address] Referring Family Medicine 11/15/23 Stefany Peterson APRN.CARDIAC CATHETERIZATION TECHNICIAN [address] [place] [address] Referring Nurse Practitioner 01/20/24 Industrial Illuminating Engineer Relationship Specialty Start Date End Date Ilsa EspinozaDO [address] [place] [address] PCP - General Family Medicine 10/08/16 Nandini Jovel NP [address] [place] [address] Referring Family Medicine 11/15/23 Stefany Peterson APRN.CARDIAC CATHETERIZATION TECHNICIAN [address] [place] [address] Referring Nurse Practitioner 01/20/24 INFORMATION SOURCE (unrecogn ized section and content) DATE CREATED AUTHOR 06/28/2024 [facility] DATE CREATED AUTHOR AUTHOR'S ORGANIZ ATION 12/16/2024 [facility] DATE CREATED AUTHOR AUTHOR'S ORGANIZ ATION 01/08/2025 [facility] FOR RECORDS PERTAINING TO PATIENTS [...] BE BASED ON THE PRIMARY CLINICAL RECORDS. [employer] provides no warranty or guarantee of the accuracy or completeness of information in this document.
== END | disposition home or self-care (01) ==
PROVIDERS: Referring Provider Podiatrist; Visit Provider Podiatrist
DX: M21.761 Unequal limb length (acquired), right tibia (principal)
CPT/HCPCS: 77073

== ENCOUNTER 2025-01-21 09:00 | Outpatient (RCR) | payer MEDICAID, SELFPAY ==
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
--- NOTE | 2025-01-21 09:35 | HP.PTDCSUM ---
Discharge Summary D/C summary: It has been my pleasure to treat RAZIA CARRILLO referred by Dr. Carlos Epperson MD, with the diagnosis of LUMBAR RADICULOPATHY ,LUMBAR SPONDYLOSIS for a total of 9 visit(s). Discharge Date: 01/21/25 Please see the following information for a summary of their discharge status. Subjective Subjective: Had a epidural injection No pain Patient able to walk stand for ADL No problems with housework Pain Bilateral Back: Pain Intensity (Out of 10): 0 Overall Improvement % Improvement: 85 Objective Objective/Function: POSTURE: midl forward posture ,bilateral knee valgus ,calcaneal valgus GAIT: reciprocal pattern mild forward posture antalgic gait right side PALAPTION: LS NEURO: denies paresthesia/tingling ,reflexes L3-4,L4-5,L5-S1 2/3 FLEXABILITY: hamstrings WNL LUMBAR ROM: flexion WFL,extension mod ,min loss side glides MMT: quads/hams 4/5 ,hip flexion 4/5 ,hip abduction 4-/5 ,ankle 4/5 Goals Goal 1:: Patient to be I with HEP and Aquatic therapy Goal Progress: Goal Met Goal 2:: Patient to be improve lumbar ROM for function of recovery for ADLS and job demands Goal Progress: Goal Met Goal 3:: Patient to improve back oswestry score by 5 point to improve function Goal Progress: Goal Met Goal 4:: Patient to demonstrate 50% improvement with less pain and improved function Goal 5:: Patient be able to walk /stand for job deamnds/house tasks with 60% improvement with less pain Goal Progress: Progressing Plan Plan: D/C TO HEP D/C Information d/c sentence: If there are questions or concerns regarding this patient's physical therapy, please feel free to call me at [phone]. Thank you for the referral of this patient. Sincerely, Timothy Ozuna, PT, Cert MDT, OCS Balance/Gait/Functional tests Balance/Special Test Scores Oswestry Low Back Score: 1 Improvement % Improvement: 85
== END 2025-01-21 19:00 | disposition home or self-care (01) ==
LOC: PT 09:00
PROVIDERS: PCP Nurse Practitioner Family; Referring Provider Anesthesiology; Visit Provider Anesthesiology
DX: M43.06 Spondylolysis, lumbar region (principal); M54.16 Radiculopathy, lumbar region
CPT/HCPCS: 97113; 97162; 97530

== ENCOUNTER → 2025-01-27 | Outpatient (CLI) | payer MEDICAID, SELFPAY ==
--- NOTE | 2025-01-27 13:20 | RAD_ITS ---
PROCEDURE: KNEE 4 OR MORE VIEWS 01/27/2025 REASON FOR EXAM: PAIN TECHNIQUE: Procedure Code: RADKN Modality: DX Procedure: KNEE 4 OR MORE VIEWS Laterality: COMPARISON: 08/02/2022. FINDINGS: No evidence acute fracture or dislocation. Moderate to advanced degenerative changes of the knee. Small knee joint effusion. RAD/Knee 4 or More Views IMPRESSION: Osteoarthrosis. Small knee joint effusion. Reading Location: [id number]
== END | disposition home or self-care (01) ==
LOC: RAD 13:03
PROVIDERS: Referring Provider Anesthesiology; Visit Provider Anesthesiology
DX: M25.562 Pain in left knee (principal)
CPT/HCPCS: 73564

== ENCOUNTER → 2025-02-05 | Outpatient (CLI) | payer MEDICAID, SELFPAY ==
--- NOTE | 2025-02-05 12:54 | US_ITS ---
PROCEDURE: Pelvic ultrasound 02/05/2025 REASON FOR EXAM: PMB TECHNIQUE: Procedure Code: USPEL Modality: US Procedure: PELVIC (NON ) COMPARISON: Pelvic ultrasound dated 08/14/2023 FINDINGS: Measurements: Uterus: 10.0 x 6.5 x 4.3 cm with a volume of 148 mL Endometrial Thickness: 4 mm Right Ovary: 2.4 x 2.0 x 1.9 cm with a volume of 4.7 mL. Left Ovary: 2.4 x 1.6 x 1.2 cm with a volume of 2.4 mL. Uterus: The uterus is anteverted. Cervix: Within normal limits. Endometrium: Endometrium measures 4 mm. Endometrium is hyperechoic. Right ovary: Size, contour and echogenicity are within normal limits. There are no masses. There is blood flow to the ovary. There is no ovarian torsion. Left ovary: Size, contour and echogenicity are within normal limits. There are no masses. There is blood flow to the ovary. There is no ovarian torsion. Cul-de-sac: There is no free fluid in the cul-de-sac. Other: Urinary bladder measures 9.6 x 7.6 x 4.7 cm. Bladder wall is smooth. There are no filling defects within the urinary bladder. Bladder volume measures 180 mL. US/Pelvic (Non ) IMPRESSION: Normal appearance to the uterus and both ovaries. Reading Location: [id number]
== END | disposition home or self-care (01) ==
LOC: US 12:53
PROVIDERS: Referring Provider Obstetrics & Gynecology; Visit Provider Obstetrics & Gynecology
DX: N95.0 Postmenopausal bleeding (principal)
CPT/HCPCS: 76856

== ENCOUNTER → 2025-02-12 | Outpatient (CLI) | payer MEDICAID, SELFPAY ==
--- NOTE | 2025-02-12 | EMB_PTH ---
PATIENT: RAZIA CARRILLO LOC: [facility] U#:[id number] AGE/SX: 55/F ROOM: RE02/12/[address]: Dr. Laurie Lawler DO : 1970 BED: DIS: 02/12/2025 SPEC #: [id number] RECD: 02/12/25 12:34 STATUS: GRACIELA REKermit #: [id number] LINDA: 02/12/25 00:[address]: Laurie Lawler DEPT: SURGICAL PATHOLOGY RECD BY: Sunny Colmenares ENTERED: 02/12/25 14:47 SP TYPE: ENDOM BX/C OT DR: Dagoberto Danielle, [facility], POWER TECHNICIAN-C Tissues: A - Endometrium, NOS Procedures: Surgery Specimen Level IV HEADER OPERATION: Endometrial biopsy PRE-OP DIAGNOSIS: Post menopausal bleeding TISSUE SUBMITTED: A- Endometrial tissue MICROSCOPIC DIAGNOSIS A. Endometrium, biopsy: * Inactive endometrium MICROSCOPIC DESCRIPTION Slides are reviewed. GROSS DESCRIPTION A. Received in formalin labeled the patient's name and date of are scant flecks of pink tissue, 1.0 x 0.7 x 0.1 cm in aggregate. Entirely submitted in 1 cassette. Entirety of the specimen may not survive processing. DE 02/12/2025 CPT:21737
== END | disposition home or self-care (01) ==
LOC: LABSPEC 12:27
PROVIDERS: Visit Provider Obstetrics & Gynecology
DX: N95.0 Postmenopausal bleeding (principal)
CPT/HCPCS: 88305

== ENCOUNTER → 2025-03-15 | Outpatient (CLI) | payer MEDICAID, SELFPAY ==
[2025-03-15 12:04] LABS: Hematocrit 43.1 % (37-47); Hemoglobin 13.9 g/dL (12.0-15.0); Mean Corp Hgb Conc 32.3 g/dL (32-36); Mean Corpuscular Volume 93.9 fL (81-99); Mean Platelet Vol. 8.8 fl (6.2-12.0); Platelet Count 255 K/mm3 (150-450); RBC Distribution Width CV 13.1 % (11.6-14.6); RBC Distribution Width SD 44.7 fl (35.1-43.9); Red Blood Count 4.59 M/mm3 (4.2-5.4); White Blood Count 6.9 K/mm3 (4.4-11.0)
[2025-03-15 13:20] LABS: Anion Gap 10 (7-18); BUN 12 mg/dL (4-19); BUN/Creat Ratio 19.4 RATIO (10-20); Calcium,Total 10.2 mg/dL (7.6-11.0); Carbon Dioxide 24.9 mmol/L (20.0-29.0); Chloride 105 mmol/L (96-106); Glucose 87 mg/dL (70-99); Potassium 4.4 mmol/L (3.5-5.1); Vitamin D,25 Hydroxy 46.4 ng/mL (30-100)
== END | disposition home or self-care (01) ==
LOC: VSLAB 09:43
DX: E55.9 Vitamin D deficiency, unspecified (principal); I10 Essential (primary) hypertension
CPT/HCPCS: 36415; 80048; 82306; 85027